=== PATIENT | female | born 1935 | race Caucasian/White ===

== ENCOUNTER 2020-12-11 10:15 | Emergency (ER) | payer MEDICARE, SELFPAY ==
--- NOTE | 2020-12-11 | ECG_ITS ---
Test Reason : CP Blood Pressure : / mmHG Vent. Rate : 094 BPM Atrial Rate : 094 BPM P-R Int : 180 ms QRS Dur : 076 ms QT Int : 356 ms P-R-T Axes : 039 -38 068 degrees QTc Int : 445 ms Sinus rhythm with Premature atrial complexes Left axis deviation Incomplete right bundle branch block Abnormal ECG When compared with ECG of 06-AUG-2015 14:26, Premature atrial complexes are now Present Nonspecific T wave abnormality no longer evident in Anterior leads Referred By: Generic ED Physician Electronically Signed By:NATASHA STEARNS
--- NOTE | ~2020-12-11 | CT_ITS ---
EXAMINATION: CT ABDOMEN AND PELVIS WITHOUT CONTRAST CLINICAL INFORMATION: Abdominal pain and weight loss. COMPARISON: None TECHNIQUE: Multidetector volumetric imaging was performed from the superior aspect of the liver through the pubic symphysis. Sagittal and coronal reformatted images were obtained on the technologist's workstation. This CT examination was performed using dose optimization techniques as appropriate, variously including the following: *Automated exposure control *Adjustment of mA and/or kV according to patient size (this includes techniques or standardized protocols for targeted exams where dose is matched to indication/reason for exam; i.e. extremities or head) *Use of iterative reconstruction technique DLP: 486 mGy-cm FINDINGS: LUNG BASES: There is bibasilar atelectatic changes. The heart size is normal. Is a small hiatal hernia. LIVER, GALLBLADDER, AND BILIARY TREE: The liver is normal in size, shape, and attenuation. No focal hepatic lesion or biliary ductal dilatation is present. The gallbladder has been surgically removed. PANCREAS: Unremarkable. SPLEEN: Unremarkable. ADRENAL GLANDS: The left adrenal gland is slightly plump compared to right side. KIDNEYS AND URETERS: The kidneys are normal in size, shape, and attenuation. No hydronephrosis, hydroureter, or calculi seen. No perinephric stranding. BLADDER: Unremarkable. GASTROINTESTINAL TRACT: The small and large bowel are unremarkable. The appendix is unremarkable. ABDOMINAL WALL: No significant hernia is appreciated. LYMPH NODES: Normal. VASCULAR: Unremarkable. PELVIC VISCERA: The uterus is retroverted with scattered calcifications in the head and the body the pancreas. OSSEOUS STRUCTURES: There are degenerative disc changes L2-L3, L3-L4 and L5-S1 disc levels there is grade 1 anterolisthesis L4 over L5.. CT/CT abdomen pelvis wo con IMPRESSION: Diffuse colonic diverticulosis without diverticulitis.. Cholecystectomy. No acute intra-abdominal process seen. Bibasilar atelectasis and/or scarring.
--- NOTE | ~2020-12-11 | XR_ITS ---
EXAMINATION: XR CHEST CLINICAL INFORMATION: Chest pain COMPARISON: Previous chest x-ray July 2015 TECHNIQUE: Frontal view of the chest was obtained. FINDINGS: The cardiac silhouette does not appear enlarged. The thoracic aorta may be slightly tortuous. Hilar and mediastinal contours are otherwise unremarkable. The lung volumes are low. There is bibasilar subsegmental atelectasis. The lungs are otherwise clear. There is no pleural effusion or pneumothorax. No acute bone abnormality. XR/XR chest 1V IMPRESSION: Low lung volumes and bibasilar subsegmental atelectasis.
--- NOTE | 2020-12-11 10:32 | ED_ITS ---
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 Mode of arrival: ambulatory Limitations: no limitations History of Present Illness MD complaint: chest pain and other (abdominal pain, L arm pain) Onset (ago): month(s) (1 month abdominal pain, chest pain x 2 days) Timing of current episode: constant Prior episodes: Yes Onset: during rest Pain location: left chest Pain radiation: left arm Severity: mild Quality: dull Relieving factors: nothing Exacerbating factors: nothing Associated symptoms: other (abdominal pain , body aches, anxiety) Treatment prior to arrival: none Related Data Allergies Allergy/AdvReac Type Severity Reaction Status Date / Time guava [GUAVA] Allergy Unknown UNKNOWN Unverified 12/05/19 18:53 nut - unspecified [NUTS] Allergy Unknown UNKNOWN Unverified 12/05/19 18:53 sesame seed [SESAME SEED] Allergy Unknown UNKNOWN Unverified 12/05/19 18:53 Gava Allergy Unknown Uncoded 09/14/15 00:00 nuts Allergy Unknown Uncoded 09/14/15 00:00 Sesame seeds Allergy Unknown Uncoded 09/14/15 00:00 Review of Systems Review of Systems: Constitutional : pos Weight loss, No Fever, No Chills ENT/Mouth : No sore throat, No Rhinorrhea Eyes: No Swelling, No Redness Cardiovascular : pos Chest Pain, No SOB, No edema Respiratory : No Cough, No Sputum, No Wheezing Gastrointestinal : Positive Nausea, no Vomiting, no Diarrhea, positive abdominal Pain, No Hematochezia, No Melena Genitourinary : No Dysuria, No Urinary Frequency, No Hematuria, No Urgency Musculoskeletal : No joint pain, No Myalgias, No Joint Swelling Skin : No Skin Lesions, No rash Neuro : No Weakness, No Numbness, No Dizziness, No Headache Psych : No Anxiety/Panic, No Depression Heme/Lymph: No Bruising, No Lymphadenopathy Endocrine : No Polyuria, No Polydipsia All other systems reviewed and are negative. [facility] Past Medical History Attestation statement: The following information was validated with the patient. Medical History Diabetes Gastritis HTN (hypertension) Neuropathy Social History Social History Alcohol intake: never Patient Tobacco Use Status: Never used Tobacco Use of substances other than those prescribed or required for medical reasons: No Advance Directives: No Advance Directives Information Provided: No Physical Exam Vital Signs: Vital Signs: Last Vital Signs Temp 98.4 F 12/11/20 12:24 Pulse 62 12/11/20 12:24 Resp 16 12/11/20 10:45 BP 143/75 H 12/11/20 12:24 Pulse Ox 94 12/11/20 12:24 Body Mass Index 25.4 Appearance: Alert. Oriented X3. No acute distress. Eyes: Pupils equal, round and reactive to light. ENT: Pharynx normal. Neck: Normal inspection. Neck supple. CVS: Normal heart rate and rhythm. Pulses normal. Respiratory: No respiratory distress. Breath sounds normal. Abdomen: Soft and nontender. Skin: Skin warm and dry. pale skin color. Normal skin turgor. Extremities: No lower extremity edema. No calf ttp Neuro: Oriented X 3. No motor deficit. No sensory deficit. MDM - Chest Pain MDM Narrative Medical decision making narrative: 85 yo female with hx of DM, HTN, neuropathy reports multiple complaints 1. vague dull headache no neuro findings, no fevers doubt SAH or [employer] infection 2. dull L arm and chest pain x 2 days no associated symptoms seems atypical for ACS, no signs of DVT no hypoxia doubt PE 3. 1 month of abdominal pain and anxiety - not eating well will need labs, CT scan for mass, dispo per results and findings. Lab Data Result diagrams: 12/11/20 11:14 12/11/20 11:14 Labs: Lab Results 12/11/20 12/11/20 12/11/20 Range/Units 11:14 11:14 11:14 WBC 7.7 (4.8-10.8) X10*3/uL RBC 4.70 (4.20-5.50) X10*6/uL Hgb 13.0 (12.0-16.0) g/dl Hct 41.2 (37-47) % MCV 87.7 (80-98) fL MCH 27.7 (27.0-33.0) pg MCHC 31.6 (31.0-35.0) g/dl RDW 14.2 (11.0-16.0) % Plt Count 256 (160-400) X10*3/uL MPV 10.0 (9.4-12.3) fL Immature Gran % (Auto) 0.4 (0.0-0.4) % Neut % (Auto) 65.6 (45-73) % Lymph % (Auto) 21.9 (20-40) % Ness % (Auto) 8.4 (2-11) % Eos % (Auto) 3.1 (0-4) % Baso % (Auto) 0.6 (0-2) % Lymph # (Auto) 1.7 (1.2-4.9) X10*3/uL Ness # (Auto) 0.7 (0.1-1.2) X10*3/uL Eos # (Auto) 0.2 (0.0-0.4) X10*3/uL Baso # (Auto) 0.1 (0.0-0.2) X10*3/uL Abs Immat Gran (auto) 0.03 (0.00-0.03) X10*3/uL Absolute Neuts (auto) 5.0 (2.0-8.3) X10*3/uL Absolute Nucleated RBC 0.000 (0.0-0.012) X10*3/uL Nucleated RBC % (auto) 0.0 (0.0-0.2) /100WBC Sodium 134 L (135-145) mmol/L Potassium 4.5 (3.3-5.1) mmol/L Chloride 100 (96-108) mmol/L Carbon Dioxide 22 (22-29) mmol/L Anion Gap 17 (12-20) BUN 11 (9-16) mg/dL Creatinine 0.77 (0.5-1.4) mg/dL Estim Creat Clear Calc 44.5 Estimated GFR > 60 Random Glucose 181 H (60-115) mg/dL Calcium 9.9 (8.4-10.2) mg/dL Magnesium 1.3 L* (1.6-2.6) mg/dL Total Bilirubin 0.4 (0.0-1.0) mg/dL Direct Bilirubin < 0.2 (0.0-0.5) mg/dL AST 29 (5-31) U/L ALT 23 (0-31) U/L Alkaline Phosphatase 73 (39-117) U/L Troponin I High Sens (<3.5-17.0) ng/L B-Natriuretic Peptide (<100) pg/mL Total Protein 7.4 (6.5-8.0) g/dL Albumin 4.3 (3.5-5.0) g/dL Lipase 35 (8-78) U/L COVID-19 ([place]) Negative (Negative) COVID-19 Clin Com See Note 12/11/20 Range/Units 11:14 WBC (4.8-10.8) X10*3/uL RBC (4.20-5.50) X10*6/uL Hgb (12.0-16.0) g/dl Hct (37-47) % MCV (80-98) fL MCH (27.0-33.0) pg MCHC (31.0-35.0) g/dl RDW (11.0-16.0) % Plt Count (160-400) X10*3/uL MPV (9.4-12.3) fL Immature Gran % (Auto) (0.0-0.4) % Neut % (Auto) (45-73) % Lymph % (Auto) (20-40) % Ness % (Auto) (2-11) % Eos % (Auto) (0-4) % Baso % (Auto) (0-2) % Lymph # (Auto) (1.2-4.9) X10*3/uL Ness # (Auto) (0.1-1.2) X10*3/uL Eos # (Auto) (0.0-0.4) X10*3/uL Baso # (Auto) (0.0-0.2) X10*3/uL Abs Immat Gran (auto) (0.00-0.03) X10*3/uL Absolute Neuts (auto) (2.0-8.3) X10*3/uL Absolute Nucleated RBC (0.0-0.012) X10*3/uL Nucleated RBC % (auto) (0.0-0.2) /100WBC Sodium (135-145) mmol/L Potassium (3.3-5.1) mmol/L Chloride (96-108) mmol/L Carbon Dioxide (22-29) mmol/L Anion Gap (12-20) BUN (9-16) mg/dL Creatinine (0.5-1.4) mg/dL Estim Creat Clear Calc Estimated GFR Random Glucose (60-115) mg/dL Calcium (8.4-10.2) mg/dL Magnesium (1.6-2.6) mg/dL Total Bilirubin (0.0-1.0) mg/dL Direct Bilirubin (0.0-0.5) mg/dL AST (5-31) U/L ALT (0-31) U/L Alkaline Phosphatase (39-117) U/L Troponin I High Sens < 3.5 (<3.5-17.0) ng/L B-Natriuretic Peptide 102 H (<100) pg/mL Total Protein (6.5-8.0) g/dL Albumin (3.5-5.0) g/dL Lipase (8-78) U/L COVID-19 ([facility]) (Negative) COVID-19 Clin Com ECG Data ECG #1: Attestation: I personally reviewed and interpreted this ECG as follows: ECG interpretation date: 12/11/20 ECG interpretation time: 10:54 Interpretation: Rate: 94 Rhythm: NSR [place]: left Normal P waves. Normal SERENITY. Normal QRS complex. ST T wave : nonspecific, no ELIAN qTC: normal prior studies: no sig change from priors The study has been interpreted contemporaneously by me. . Discharge Plan Discharge Clinical Impression: Hypomagnesemia Abdominal pain Qualifiers: Abdominal location: generalized Qualified Code(s): R10.84 - Generalized abdominal pain Chest pain Qualifiers: Chest pain type: unspecified Qualified Code(s): R07.9 - Chest pain, unspecified Patient Disposition: Home, Self-Care Instructions: Abdominal Pain (ED), Chest Pain (ED), Hypomagnesemia (ED) Additional Instructions: return to ED for any worsening symptoms or concerns Referrals: Sara Koehler MD [Primary Care Provider] - 3 days (Monday if no better) Print Language: Arabic
[2020-12-11 10:45] VITALS: BP 151/76; PULSE 86; RESP 16; TEMP 36.8; O2SAT 97; BMI 25.4
[2020-12-11] MEDS: ondansetron HCL 4 MG/2 ML VIAL IVPUSH (11:15)
[2020-12-11 11:19] LABS: MANUAL DIFF FLAG NO
[2020-12-11 11:24] LABS: Basophils Absolute Auto 0.1 X10*3/uL (0.0-0.2); Basophils Percent Auto 0.6 % (0-2); Eosinophils Absolute Auto 0.2 X10*3/uL (0.0-0.4); Eosinophils Percent Auto 3.1 % (0-4); Hematocrit 41.2 % (37-47); Imm Gran Abs Auto 0.03 X10*3/uL (0.00-0.03); Imm Gran Pct Auto 0.4 % (0.0-0.4); Lymphocytes Absolute Auto 1.7 X10*3/uL (1.2-4.9); Lymphocytes Percent Auto 21.9 % (20-40); Mean Corpuscular HGB Conc 31.6 g/dl (31.0-35.0); Mean Corpuscular Hemoglobin 27.7 pg (27.0-33.0); Mean Corpuscular Volume 87.7 fL (80-98); Monocytes Absolute Auto 0.7 X10*3/uL (0.1-1.2); Monocytes Percent Auto 8.4 % (2-11); Neutrophils Percent Auto 65.6 % (45-73); Platelet Count 256 X10*3/uL (160-400); Red Cell Distribution Width 14.2 % (11.0-16.0); White Blood Count 7.7 X10*3/uL (4.8-10.8)
[2020-12-11 11:39] LABS: COVID-19 Test Negative (Negative)
[2020-12-11 11:41] LABS: Alanine Aminotransferase 23 U/L (0-31); Albumin Level 4.3 g/dL (3.5-5.0); Alkaline Phosphatase 73 U/L (39-117); Aspartate Amino Transferase 29 U/L (5-31); Bilirubin Direct < 0.2 mg/dL (0.0-0.5); Bilirubin Total 0.4 mg/dL (0.0-1.0); Lipase 35 U/L (8-78); Magnesium 1.3 mg/dL (1.6-2.6); Total Protein 7.4 g/dL (6.5-8.0)
[2020-12-11 11:42] LABS: B Type Natriuretic Peptide 102 pg/mL (<100); Troponin-I High Sensitivity < 3.5 ng/L (<3.5-17.0)
[2020-12-11] MEDS: Magnesium Sulfate/H2O 2 GM/50 ML PIGGYBACK IV (12:05)
[2020-12-11 12:14] LABS: Anion Gap 17 (12-20); Blood Urea Nitrogen 11 mg/dL (9-16); Calcium 9.9 mg/dL (8.4-10.2); Carbon Dioxide 22 mmol/L (22-29); Chloride 100 mmol/L (96-108); Creatinine Clr Calc Pharmacy 44.5; Estimated Glomerular Filt Rate > 60; Glucose Random 181 mg/dL (60-115); Potassium 4.5 mmol/L (3.3-5.1); Sodium 134 mmol/L (135-145)
[2020-12-11 12:24] VITALS: BP 143/75; PULSE 62; TEMP 36.9; O2SAT 94
[2020-12-11 15:02] LABS: Appearance Urine CLEAR; Color Urine YELLOW; Glucose Urine UA NEG (NEG); Leukocyte Esterase Urine NEG (NEG); Nitrite Urine NEG (NEG); PH 7.5 (5.0-8.0); Specific Gravity - Urine 1.015 (1.005-1.025); UACC Culture Trigger NO; Urine Blood TRACE (NEG); Urine Ketones NEG (NEG); Urine Protein NEG (NEG-TRACE)
[2020-12-11 15:10] LABS: Mucus Urine TRACE /LPF; Squamous Epithelial Cell Urine TRACE /LPF; WBC Urine 0 /HPF (0-4)
== END 2020-12-11 14:58 | disposition home or self-care (01) ==
PROVIDERS: Emergency Provider Emergency Medicine; PCP Internal Medicine
DX: E83.42 Hypomagnesemia (principal); R07.9 Chest pain, unspecified; M79.602 Pain in left arm; R10.84 Generalized abdominal pain; R06.02 Shortness of breath; Z79.899 Other long term (current) drug therapy; Z20.822 Contact with and (suspected) exposure to COVID-19
CPT/HCPCS: 36415; 71045; 74176; 80048; 80076; 81001; 81003; 83690; 83735; 83880; 84484; 85025; 87635; 93005; 96365; 96366; 96375; 99284; J2405; J3475

== ENCOUNTER 2022-01-03 09:58 | Inpatient (IN) | payer OTHER, SELFPAY ==
[2022-01-03] VITALS (12 sets, daily range): BP systolic 131–199; BP diastolic 72–87; PULSE 55–77; RESP 16–20; TEMP 36.6–37.1; O2SAT 93–96; BMI 25.7; BMI 24.7
--- NOTE | ~2022-01-03 | US_ITS ---
EXAMINATION: US ABDOMEN COMPLETE CLINICAL INFORMATION: Epigastric pain. COMPARISON: CT abdomen and pelvis 12/11/2020. TECHNIQUE: Real-time imaging of the abdominal viscera. FINDINGS: PANCREAS: Normal. ABDOMINAL AORTA: The proximal, mid, and distal segments are normal in caliber. INFERIOR VENA CAVA: Visualized portions are normal. LIVER: Normal. The liver is normal in size. The liver contour is normal. Parenchymal echogenicity is normal. No focal hepatic lesion. There is no intrahepatic biliary duct dilatation seen. GALLBLADDER: Surgically absent. COMMON BILE DUCT: Normal in caliber measuring 1.1 cm in diameter. RIGHT KIDNEY: There are anechoic 2 simple cysts. A midpole cyst measures 0.7 x 0.6 x 0.6 cm. Lower pole cyst measures 1.2 x 1.1 x 1.2 cm. No hydronephrosis or renal calculi. The kidney measures 8.9 cm in maximum dimension. LEFT KIDNEY: There is anechoic cyst lower pole measuring 1.0 x 1.0 x 0.8 cm. No hydronephrosis or renal calculi. The kidney measures 9.4 cm in maximum dimension. SPLEEN: Normal. The spleen measures 9.3 cm in maximum dimension. FREE FLUID: None. US/US abdomen complete IMPRESSION: Bilateral renal cysts. Abdominal ultrasound is unremarkable.
--- NOTE | ~2022-01-03 | XR_ITS ---
EXAMINATION: XR CHEST CLINICAL INFORMATION: Chest pain COMPARISON: 12/11/2020 TECHNIQUE: Frontal view of the chest was obtained. FINDINGS: Lung volumes are low but improved from the prior study. No focal consolidation or mass. No pleural effusion or pneumothorax. Tortuous and/or ectatic thoracic aorta. Normal heart size. There are degenerative changes of the shoulders and spine. XR/XR chest 1V IMPRESSION: Low lung volumes but no acute pulmonary disease.
--- NOTE | ~2022-01-03 | NM_ITS ---
Lexiscan Myocardial perfusion study Indication: Chest pain, assess for coronary disease and ischemia Technique: The patient was brought in for a Lexiscan perfusion study on 01/05/2022 and was injected 0.4 mg of Lexiscan intravenously. Within a minute of this injection 25 mCi of sestamibi was given intravenously. Images were obtained using the SPECT gamma camera interlaced with the gating device. Images were obtained in supine position. Resting perfusion study was performed on 01/04/2022. Patient was administered 25 mCi of sestamibi intravenously at rest. Images were then obtained in supine position. Images were processed with the software and compared side to side in short axis, horizontal long axis and vertical long axis views. Total DLP 112mGy-cm. Findings: Raw acquisition reviewed. Arms by the patient's side. The stress perfusion study showed markedly diminished tracer uptake in most of the lateral wall. There is significant improvement with CT attenuation correction suggestive of soft tissue attenuation artifact. The gated study shows normal LV systolic function with calculated LVEF of 71%. LV cavity is normal in size. The gated study shows diminished lateral wall contractility. Resting study shows diminished tracer uptake in the lateral wall, similar to the stress acquisition. There is significant improvement with CT at admission correction suggestive of soft tissue attenuation artifact. Gating at rest reveals diminished lateral wall contractility, LVEF 73%. The findings are consistent with no clear reversible defects. Fixed lateral defect, thought to be from soft tissue attenuation artifact. NM/NM jonnie perf SPECT rest & str Impression: 1. Myocardial perfusion imaging study shows no clear evidence of any ischemia or infarction. There is fixed lateral defect that seems to improve with CT attenuation correction and hence suggestive of soft tissue attenuation artifact. 2. Gated LVEF is 71% during stress and 73% during rest. 3. Transient ischemic dilatation not present. EKG component of the test reported separately.
--- NOTE | 2022-01-03 10:15 | ED_ITS ---
HPI - Chest Pain General Chief Complaint: Chest Pain Stated Complaint: CHEST PRESSURE @ MD OFFICE PER EMS Time Seen by Provider: 01/03/22 10:03 Source: patient Mode of arrival: EMS Limitations: no limitations History of Present Illness HPI narrative: 86 yo female with hx of HTN, HLD, DM here with 1.5 months of chest pressure and nausea. It started 1.5 month ago at home at rest. She notes she ignored it and since then chest pain has been constant pressure. She went to PCP for routine check up today an noted HTN and she told them her symptoms they referred her to ED. She denies dyspnea. She notes it is not made worse with exertion. MD complaint: chest pain Onset (ago): month(s) (1.5) Timing of current episode: constant Prior episodes: Yes Onset: during rest and during exertion Pain location: substernal Pain radiation: none Severity: mild Quality: other (pressure) Relieving factors: nothing Exacerbating factors: nothing Context: other (started 1.5 months ago much worse but has just lingered was at home at rest when it started ) Associated symptoms: nausea Treatment prior to arrival: aspirin (324mg ) Related Data Allergies Allergy/AdvReac Type Severity Reaction Status Date / Time guava [GUAVA] Allergy Unknown UNKNOWN Unverified 12/05/19 18:53 nut - unspecified [NUTS] Allergy Unknown UNKNOWN Unverified 12/05/19 18:53 sesame seed [SESAME SEED] Allergy Unknown UNKNOWN Unverified 12/05/19 18:53 Gava Allergy Unknown Uncoded 09/14/15 00:00 nuts Allergy Unknown Uncoded 09/14/15 00:00 Sesame seeds Allergy Unknown Uncoded 09/14/15 00:00 Review of Systems Review of Systems: Constitutional : No Weight loss, No Fever, No Chills ENT/Mouth : No sore throat, No Rhinorrhea Eyes: No Eye Pain, No Swelling Cardiovascular : pos Chest Pain, no SOB, no Dyspnea on Exertion, No Orthopnea, No Edema, No Palpitations Respiratory : No Cough, No Sputum Gastrointestinal : pos Nausea, No Vomiting, No Diarrhea, No abdominal Pain, No Hematochezia, No Melena Genitourinary : No Dysuria, No Urinary Frequency Musculoskeletal : No joint pain, No Myalgias, No Joint Swelling Skin : No Skin Lesions, No rash Neuro : No Weakness, No Numbness, No Dizziness, No Headache Psych : No Anxiety/Panic, No Depression Heme/Lymph: No Bruising, No Lymphadenopathy Endocrine : No Polyuria, No Polydipsia All other systems reviewed and are negative [facility] Past Medical History Attestation statement: The following information was validated with the patient. Medical History Diabetes Gastritis HTN (hypertension) Neuropathy Social History Social History Alcohol intake: never Patient Tobacco Use Status: Never used Tobacco Use of substances other than those prescribed or required for medical reasons: No Advance Directives: Yes Advance Directives Information Provided: No Advance Directives on File: No Physical Exam Vital Signs: Vital Signs: Last Vital Signs Temp 98.1 F 01/03/22 15:10 Pulse 55 01/03/22 15:10 Resp 18 01/03/22 15:10 BP 154/72 H 01/03/22 15:10 Pulse Ox 93 01/03/22 15:10 O2 Del Method 01/03/22 15:10 BMI result Body Mass Index 25.7 Appearance: Alert. Oriented X3. No acute distress. Eyes: Pupils equal, round and reactive to light. ENT: Pharynx normal. Neck: Normal inspection. Neck supple. CVS: Normal heart rate and rhythm. Pulses normal. Respiratory: No respiratory distress. Breath sounds normal. Abdomen: Soft and non-tender. Skin: Skin warm and dry. Normal skin color. Normal skin turgor. Extremities: No lower extremity edema. No calf ttp Neuro: Oriented X 3. No motor deficit. No sensory deficit. Course Course Course Narrative: no relief with nitro still pressure BP down to 170/70, IV morphine ordered, slight bump in trop will discuss with cardiology couldn't complete stress test last time may need ECHO message sent to cardiology if no improvement in BP with morphine will try topical nitro as well. good response to morphine and nitro - discussed with Dr. Jones admit for serial troponins and ECHO MDM - Chest Pain MDM Narrative Medical decision making narrative: 86 yo female with hx of HTN, HLD, DM here with chest pressure 1.5 months much worse then but has lingered. She is HTNive at this time compliant with her medications. Doubt PE given chronicity is is not pleuritic no signs of DVT and no hypoxia. Dissection seems unlikely as well given equal distal pulses and the patient has had pain x 1 benny. Will need labs, troponin and EKG/CXR. Could be GERD/hiatal hernia vs atypical ACS - unable to complete stress test in past Lab Data Result diagrams: 01/03/22 10:59 01/03/22 10:59 Labs: Lab Results 01/03/22 01/03/22 01/03/22 Range/Units 10:56 10:59 10:59 WBC 9.7 (4.8-10.8) X10*3/uL RBC 4.85 (4.20-5.50) X10*6/uL Hgb 11.5 L (12.0-16.0) g/dl Hct 38.7 (37.0-47.0) % MCV 79.8 L (80.0-98.0) fL MCH 23.7 L (27.0-33.0) pg MCHC 29.7 L (31.0-35.0) g/dl RDW 18.2 H (11.0-16.0) % Plt Count 281 (160-400) X10*3/uL MPV 9.3 L (9.4-12.3) fL Immature Gran % (Auto) 0.2 (0.0-0.4) % Neut % (Auto) 65.4 (45-73) % Lymph % (Auto) 22.1 (20-40) % [place] % (Auto) 9.0 (2-11) % Eos % (Auto) 2.7 (0-4) % Baso % (Auto) 0.6 (0-2) % Lymph # (Auto) 2.2 (1.2-4.9) X10*3/uL [place] # (Auto) 0.9 (0.1-1.2) X10*3/uL Eos # (Auto) 0.3 (0.0-0.4) X10*3/uL Baso # (Auto) 0.1 (0.0-0.2) X10*3/uL Abs Immat Gran (auto) 0.02 (0.00-0.03) X10*3/uL Absolute Neuts (auto) 6.4 (2.0-8.3) x10*3/uL Absolute Nucleated RBC 0.000 (0.0-0.012) X10*3/uL Nucleated RBC % (auto) 0.0 (0.0-0.2) /100WBC PT (10.0-13.1) SEC INR (0.9-1.1) Sodium 140 (135-145) mmol/L Potassium 4.5 (3.3-5.1) mmol/L Chloride 103 (96-108) mmol/L Carbon Dioxide 26 (22-29) mmol/L Anion Gap 16 (12-20) BUN 16 (9-16) mg/dL Creatinine 0.78 (0.5-1.4) mg/dL Estim Creat Clear Calc 43.4 Estimated GFR > 60 Random Glucose 101 (60-115) mg/dL Calcium 9.7 (8.4-10.2) mg/dL Magnesium 1.7 (1.6-2.6) mg/dL Total Bilirubin 0.4 (0.0-1.0) mg/dL Direct Bilirubin 0.2 (0.0-0.5) mg/dL AST 19 (5-31) U/L ALT 19 (0-31) U/L Alkaline Phosphatase 76 (39-117) U/L Troponin I High Sens (<3.5-17.0) ng/L Total Protein 7.1 (6.5-8.0) g/dL Albumin 4.1 (3.5-5.0) g/dL Lipase 42 (8-78) U/L COVID-19 ([place]) Negative (Negative) COVID-19 Clin Com See Note 01/03/22 01/03/22 01/03/22 Range/Units 10:59 10:59 13:42 WBC (4.8-10.8) X10*3/uL RBC (4.20-5.50) X10*6/uL Hgb (12.0-16.0) g/dl Hct (37.0-47.0) % MCV (80.0-98.0) fL MCH (27.0-33.0) pg MCHC (31.0-35.0) g/dl RDW (11.0-16.0) % Plt Count (160-400) X10*3/uL MPV (9.4-12.3) fL Immature Gran % (Auto) (0.0-0.4) % Neut % (Auto) (45-73) % Lymph % (Auto) (20-40) % Lawrence % (Auto) (2-11) % Eos % (Auto) (0-4) % Baso % (Auto) (0-2) % Lymph # (Auto) (1.2-4.9) X10*3/uL [place] # (Auto) (0.1-1.2) X10*3/uL Eos # (Auto) (0.0-0.4) X10*3/uL Baso # (Auto) (0.0-0.2) X10*3/uL Abs Immat Gran (auto) (0.00-0.03) X10*3/uL Absolute Neuts (auto) (2.0-8.3) x10*3/uL Absolute Nucleated RBC (0.0-0.012) X10*3/uL Nucleated RBC % (auto) (0.0-0.2) /100WBC PT 12.4 (10.0-13.1) SEC INR 1.1 (0.9-1.1) Sodium (135-145) mmol/L Potassium (3.3-5.1) mmol/L Chloride (96-108) mmol/L Carbon Dioxide (22-29) mmol/L Anion Gap (12-20) BUN (9-16) mg/dL Creatinine (0.5-1.4) mg/dL Estim Creat Clear Calc Estimated GFR Random Glucose (60-115) mg/dL Calcium (8.4-10.2) mg/dL Magnesium (1.6-2.6) mg/dL Total Bilirubin (0.0-1.0) mg/dL Direct Bilirubin (0.0-0.5) mg/dL AST (5-31) U/L ALT (0-31) U/L Alkaline Phosphatase (39-117) U/L Troponin I High Sens 6.5 19.2 H D (<3.5-17.0) ng/L Total Protein (6.5-8.0) g/dL Albumin (3.5-5.0) g/dL Lipase (8-78) U/L COVID-19 ([facility]) (Negative) COVID-19 Clin Com ECG Data ECG #1: Attestation: I personally reviewed and interpreted this ECG as follows: ECG interpretation date: 01/03/22 ECG interpretation time: 10:20 Interpretation: Rate: 53 Rhythm: sinus bradycardia 1st degree AVB [place]: left Normal P waves. Normal SERENITY. Normal QRS complex. ST T wave : normal no ELIAN qTC: normal prior studies: unchanged no acute ischemia The study has been interpreted contemporaneously by me. . Discharge Plan Discharge Clinical Impression: Uncontrolled hypertension Chest pain Qualifiers: Chest pain type: precordial pain Qualified Code(s): R07.2 - Precordial pain Patient Disposition: Admitted As Inpatient
[2022-01-03 11:03] LABS: MANUAL DIFF FLAG NO
[2022-01-03 11:04] LABS: Basophils Absolute Auto 0.1 X10*3/uL (0.0-0.2); Basophils Percent Auto 0.6 % (0-2); Eosinophils Absolute Auto 0.3 X10*3/uL (0.0-0.4); Eosinophils Percent Auto 2.7 % (0-4); Hematocrit 38.7 % (37.0-47.0); Hemoglobin 11.5 g/dl (12.0-16.0); Imm Gran Abs Auto 0.02 X10*3/uL (0.00-0.03); Imm Gran Pct Auto 0.2 % (0.0-0.4); Lymphocytes Absolute Auto 2.2 X10*3/uL (1.2-4.9); Lymphocytes Percent Auto 22.1 % (20-40); Mean Corpuscular HGB Conc 29.7 g/dl (31.0-35.0); Mean Corpuscular Hemoglobin 23.7 pg (27.0-33.0); Mean Corpuscular Volume 79.8 fL (80.0-98.0); Mean Platelet Volume 9.3 fL (9.4-12.3); Monocytes Absolute Auto 0.9 X10*3/uL (0.1-1.2); Neutrophils Absolute Auto 6.4 x10*3/uL (2.0-8.3); Neutrophils Percent Auto 65.4 % (45-73); Platelet Count 281 X10*3/uL (160-400); Red Blood Count 4.85 X10*6/uL (4.20-5.50); Red Cell Distribution Width 18.2 % (11.0-16.0); White Blood Count 9.7 X10*3/uL (4.8-10.8)
[2022-01-03] MEDS: Nitroglycerin 0.4 MG TAB.SUBL SUBLINGUAL (11:07)
[2022-01-03 11:10] LABS: INTERNATIONAL NORM RATIO 1.1 (0.9-1.1); Prothrombin Time 12.4 SEC (10.0-13.1)
--- NOTE | 2022-01-03 11:18 | PC.NURSE ---
Pt has chest tightness 6/10 and when she first experience the pain she was feeling nausea. Pt has IV on left forarm 20G. Pt has peripheral edema +1, Pt has PERRLA pupils, and strength on her extremities bilaterally. Pt has hyperactive bowel sound on lower quadrant. Pt lungs are clear throughout. Pt is able swallow and, a/o x4. Pt is connected to the telemetry and shows sinus bebo, and elevated BP. Pt was administered nitro as order. will continue to monitor.
[2022-01-03 11:20] LABS: Alanine Aminotransferase 19 U/L (0-31); Albumin Level 4.1 g/dL (3.5-5.0); Alkaline Phosphatase 76 U/L (39-117); Anion Gap 16 (12-20); Aspartate Amino Transferase 19 U/L (5-31); Bilirubin Direct 0.2 mg/dL (0.0-0.5); Bilirubin Total 0.4 mg/dL (0.0-1.0); Blood Urea Nitrogen 16 mg/dL (9-16); Calcium 9.7 mg/dL (8.4-10.2); Carbon Dioxide 26 mmol/L (22-29); Chloride 103 mmol/L (96-108); Creatinine Clr Calc Pharmacy 43.4; Estimated Glomerular Filt Rate > 60; Glucose Random 101 mg/dL (60-115); Lipase 42 U/L (8-78); Magnesium 1.7 mg/dL (1.6-2.6); Potassium 4.5 mmol/L (3.3-5.1); Sodium 140 mmol/L (135-145); Total Protein 7.1 g/dL (6.5-8.0)
[2022-01-03 11:24] LABS: COVID-19 Test Negative (Negative); IDNOW Serial# 16C4AD1C
[2022-01-03 11:26] LABS: Troponin-I High Sensitivity 6.5 ng/L (<3.5-17.0)
--- NOTE | 2022-01-03 13:42 | PC.NURSE ---
repeat trop performed
[2022-01-03 14:12] LABS: Troponin-I High Sensitivity 19.2 ng/L (<3.5-17.0)
--- NOTE | 2022-01-03 14:34 | PC.NURSE ---
Pt BP is still elevated, pt was re-assess and pt is still feeling chest tightness. Provider is aware, change of planes to give morphine and monitor BP. will continue to monitor.
[2022-01-03] MEDS: ondansetron HCL 4 MG/2 ML VIAL IVPUSH (14:43)
[2022-01-03] MEDS: Morphine Sulfate 2 MG/ML CARTRIDGE IVPUSH (14:43)
--- NOTE | 2022-01-03 14:49 | PC.NURSE ---
P meds were administered as order.
[2022-01-03] MEDS: Nitroglycerin 2 % Oint 1 GM Packet 1 INCH TRANSDERMA (14:54)
[2022-01-03 16:01] LABS: Estimated Average Glucose 120 mg/dL; Hemoglobin A1c % 5.8 %
--- NOTE | 2022-01-03 16:16 | ECG_ITS ---
Test Reason : chest pain Blood Pressure : / mmHG Vent. Rate : 053 BPM Atrial Rate : 053 BPM P-R Int : 202 ms QRS Dur : 092 ms QT Int : 438 ms P-R-T Axes : 059 -30 032 degrees QTc Int : 410 ms Sinus bradycardia Left anterior fascicular block RSR' or QR pattern in V1 suggests right ventricular conduction delay Abnormal ECG When compared with ECG of 11-DEC-2020 10:38, Premature atrial complexes are no longer Present Vent. rate has decreased BY 41 BPM Referred By: Amol Cali Electronically Signed By:JESSICA ANDREW MD
--- NOTE | 2022-01-03 16:16 | PHA.MEDREC ---
med rec complete, no issues Pharmacy Consult ? Medication Reconciliation Pharmacy has completed the medication reconciliation.
--- NOTE | 2022-01-03 16:19 | P.HPHOSP_ITS ---
History of Present Illness Date of Service: 01/03/22 Chief Complaint: chest pressure This history was taken in Romans[place] from the patient. 86yo woman with DM2, HTN, HLD who presents with over 1 month of left-sided non- radiating chest pressure that started at rest and has become heavier. It has progressed from intermittent to constant and is quite separate from her chronic epigastric pain associated with gas and heartburn. Exertion does not make it worse but stress and anxiety do. There is some associated nausea. No shortness of breath. No personal history of NH or CVA. She had an attempted stress test many years ago in [place] but could not exercise due to neuropathy, and did not tolerate the pharmacologic stress either. She was seen in her PCP's office today and due to the history along with unc ontrolled HTN, she was sent to the ED. She was given 325 mg of ASA prior to arrival. EKG showed sinus bradycardia with 1st degree AV block and no ischemic changes. Initial hs-Tn-I was 6.5; 3-hour repeat was 19.2. She was given nitroglycerin and morphine and the pain has largely resolved. Review of Systems Review of Systems: Yes all other systems are reviewed and are negative [facility] Medical History Diabetes Gastritis HTN (hypertension) Neuropathy Family History (Updated 01/03/22 @ 16:25 by Amol Cali MD) Other Coronary artery disease Diabetes Social History Alcohol intake: never Patient Tobacco Use Status: Never used Tobacco Use of substances other than those prescribed or required for medical reasons: No Advance Directives: Yes Advance Directives Information Provided: No Advance Directives on File: No Meds Allergies Allergy/AdvReac Type Severity Reaction Status Date / Time guava [GUAVA] Allergy Unknown UNKNOWN Verified 01/03/22 16:15 nut - unspecified [NUTS] Allergy Unknown UNKNOWN Verified 01/03/22 16:15 sesame seed [SESAME SEED] Allergy Unknown UNKNOWN Verified 01/03/22 16:15 Active Medications: Current Medications Acetaminophen (Acetaminophen 325 Mg Tablet) 650 mg PO Q6H PRN PRN Reason: Pain, Mild (Pain Scale 1-3) Al Hydroxide/Mg Hydroxide (Magnesium Hydrox/Alum Hydrox 30 Ml Oral.Susp) 30 ml PO Q4H PRN PRN Reason: Heartburn/Nausea Dextrose (Dextrose 50 % 25 Gm/50 Ml Syringe) 25 gm IVPUSH Q15M PRN; Protocol PRN Reason: per Hypoglycemia Standing Ord. Enoxaparin Sodium (Enoxaparin Sodium 40 Mg/0.4 Ml Syringe) 40 mg SUBCUT Q24H [facility] Glucose (Glucose Gel 15 Gm Gel..Gram.) 15 gm PO Q15M PRN; Protocol PRN Reason: per Hypoglycemia Standing Ord. Insulin Human Lispro (Insulin Lispro 100 Unit/Ml 3 Ml Vial) 0 unit SUBCUT QID ACHS [facility]; Protocol Morphine Sulfate (Morphine Sulfate 2 Mg/Ml Cartridge) 2 mg IVPUSH Q4H PRN; Protocol PRN Reason: chest pain Nitroglycerin (Nitroglycerin 0.4 Mg Tab.Subl) 0.4 mg SUBLINGUAL Q5MX3 PRN PRN Reason: chest pain Ondansetron HCl (Ondansetron Hcl 4 Mg/2 Ml Vial) 4 mg IVPUSH Q8H PRN PRN Reason: Nausea and Vomiting Pharmacy Consult (Consult Rx Perform Med Rec) 1 each MISCELLANE ONCE PRN PRN Reason: Consult order Pharmacy Consult (Consult Rx Perform Med Rec) 1 each MISCELLANE STAT STA Stop: 01/03/22 15:39 Sodium Chloride (0.9 % Sodium Chloride Flush 3 Ml Syringe) 3 ml IVFLUSH QSHIFT [facility] Home Medications Medication Instructions Recorded Confirmed Last Taken Type acetaminophen 650 mg 1 tab PO Q8H PRN pain 01/03/22 01/03/22 Unknown History tablet,extended release (8 Hour Pain Reliever) atorvastatin 40 mg tablet 40 mg PO BEDTIME 01/03/22 01/03/22 Unknown History calcium carbonate 600 mg-vitamin 1 tab BID 01/03/22 01/03/22 Unknown History D3 5 mcg (200 unit) tablet losartan 100 mg tablet 1 tab PO DAILY 01/03/22 01/03/22 Unknown History metformin 500 mg tablet 1 tab PO BID 01/03/22 01/03/22 Unknown History metoprolol tartrate 25 mg tablet 25 mg PO BID 01/03/22 01/03/22 Unknown History mirabegron 50 mg tablet,extended 50 mg PO DAILY 01/03/22 01/03/22 Unknown History release 24 hr (Myrbetriq) mirtazapine 15 mg tablet 15 mg PO BEDTIME 01/03/22 01/03/22 Unknown History multivitamin 1 tab PO DAILY 01/03/22 01/03/22 Unknown History nifedipine 30 mg tablet,extended 1 tab PO DAILY 01/03/22 01/03/22 Unknown Histor y release pantoprazole 40 mg tablet,delayed 40 mg PO DAILY 01/03/22 01/03/22 Unknown History release (Protonix) Physical Exam Vital Signs and Narrative: Vital Signs: Last Vital Signs Temp 98.1 F 01/03/22 15:10 Pulse 55 01/03/22 15:10 Resp 18 01/03/22 15:10 BP 154/72 H 01/03/22 15:10 Pulse Ox 93 01/03/22 15:10 O2 Del Method 01/03/22 15:10 BMI result Body Mass Index 25.7 Gen: in no acute distress HEENT: sclera anicteric, moist mucus membranes Neck: supple Lungs: clear to auscultation bilaterally Heart: regular, bradycardic, no murmurs Abd: soft, non-tender, non-distended Ext: no edema Skin: warm/well-perfused Neuro: alert and oriented x3, no focal findings Psych: appropriate affect Results Labs CBC and Chem 7: 01/03/22 10:59 01/03/22 10:59 Labs: Laboratory Results - last 24 hr 01/03/22 01/03/22 01/03/22 10:56 10:59 10:59 MCV 79.8 L MCH 23.7 L MCHC 29.7 L RDW 18.2 H Plt Count 281 MPV 9.3 L Immature Gran % (Auto) 0.2 Neut % (Auto) 65.4 Lymph % (Auto) 22.1 [place] % (Auto) 9.0 Eos % (Auto) 2.7 Baso % (Auto) 0.6 Lymph # (Auto) 2.2 [place] # (Auto) 0.9 Eos # (Auto) 0.3 Baso # (Auto) 0.1 Abs Immat Gran (auto) 0.02 Absolute Neuts (auto) 6.4 Absolute Nucleated RBC 0.000 Nucleated RBC % (auto) 0.0 PT INR APTT Anion Gap 16 Estim Creat Clear Calc 43.4 Estimated GFR > 60 Random Glucose 101 Estimat Average Glucose Hemoglobin A1c % Calcium 9.7 Magnesium 1.7 Total Bilirubin 0.4 Direct Bilirubin 0.2 AST 19 ALT 19 Alkaline Phosphatase 76 Troponin I High Sens Total Protein 7.1 Albumin 4.1 Lipase 42 COVID-19 ([facility]) Negative COVID-19 Clin Com See Note 01/03/22 01/03/22 01/03/22 10:59 10:59 10:59 MCV MCH MCHC RDW Plt Count MPV Immature Gran % (Auto) Neut % (Auto) Lymph % (Auto) [place] % (Auto) Eos % (Auto) Baso % (Auto) Lymph # (Auto) [place] # (Auto) Eos # (Auto) Baso # (Auto) Abs Immat Gran (auto) Absolute Neuts (auto) Absolute Nucleated RBC Nucleated RBC % (auto) PT 12.4 INR 1.1 APTT 29.0 Anion Gap Estim Creat Clear Calc Estimated GFR Random Glucose Estimat Average Glucose 120 Hemoglobin A1c % 5.8 Calcium Magnesium Total Bilirubin Direct Bilirubin AST ALT Alkaline Phosphatase Troponin I High Sens 6.5 Total Protein Albumin Lipase COVID-19 ([facility]) COVID-19 Clin Com 01/03/22 13:42 MCV MCH MCHC RDW Plt Count MPV Immature Gran % (Auto) Neut % (Auto) Lymph % (Auto) [place] % (Auto) Eos % (Auto) Baso % (Auto) Lymph # (Auto) [place] # (Auto) Eos # (Auto) Baso # (Auto) Abs Immat Gran (auto) Absolute Neuts (auto) Absolute Nucleated RBC Nucleated RBC % (auto) PT INR APTT Anion Gap Estim Creat Clear Calc Estimated GFR Random Glucose Estimat Average Glucose Hemoglobin A1c % Calcium Magnesium Total Bilirubin Direct Bilirubin AST ALT Alkaline Phosphatase Troponin I High Sens 19.2 H D Total Protein Albumin Lipase COVID-19 ([facility]) COVID-19 Clin Com Imaging Radiologist's Impressions: Impressions Chest X-Ray 01/03/22 10:45 IMPRESSION: Low lung volumes but no acute pulmonary disease. Assessment and Plan (1) Chest pain: Qualifiers: Chest pain type: precordial pain Qualified Code(s): R07.2 - Precordial pain Status: Acute Plan 86yo F with HTN, HLD, DM, and FHx of CAD presenting with over 1 month of worsening chest pressure that has become constant but is not clearly exertional. Hs Tn-I increased from 6.5 to 19.2. # NSTEMI - admit to [facility], cycle troponins; start heparin IV infusion; check TTE, consult Cardiology, continue atorvastatin + metoprolol; prn NTG # HTN - continue metoprolol + losartan + nifedipine # DM2 - well-controlled with A1c of only 5.8; hold MTF and give correction-dose lispro if needed for hyperglycemia # VTE prophylaxis: heparin # code status: DNR/DNI I anticipate that the patient will stay at least 2 midnights in hospital due to the above reasons. It is neither reasonable nor safe to care for them in a less acute setting. Quality Stroke Does the patient have a stroke diagnosis?: No VTE Prior VTE?: No VTE Risk Level:: Medical - moderate - high VTE Device Contraindication: N/A - Device Ordered VTE Drug Contraindication: N/A - Med Ordered
--- NOTE | 2022-01-03 16:40 | PC.NURSE ---
Pt was connected to monitor, it shows sinus bebo with PVC and multi focal PVC. Pt BP is elevated, POC is 89. will continue to monitor.
[2022-01-03 16:42] LABS: Glucose, Whole Blood 89 mg/dL (60-115)
[2022-01-03] MEDS: Losartan Potassium 50 MG TABLET 100 MG PO (16:52)
--- NOTE | 2022-01-03 16:56 | PC.NURSE ---
Pt meds were administered as order.
--- NOTE | 2022-01-03 17:02 | PC.NURSE ---
Pt grandson is at bedside, and he stated he will be responsible to bring pt nefipine and PPI. Pt med will be administered once is available.
[2022-01-03 18:36] LABS: INTERNATIONAL NORM RATIO 1.1 (0.9-1.1); Prothrombin Time 12.4 SEC (10.0-13.1)
[2022-01-03 18:39] LABS: PTT Heparin Drip 34.2 SEC (53-77.9)
--- NOTE | 2022-01-03 18:41 | PC.NURSE ---
phlebotomy came to room and kelli another trop and a second PTT- the heparin drip hadnt been started and we were going to use the PTT from earlier today, called lab and they were unable to cancel the redraw as it was in progress. will start the drip after they come back
[2022-01-03] MEDS: Heparin Sodium,Porcine 5,000 UNIT/ML VIAL 3500 UNIT IVPUSH (18:44)
[2022-01-03] MEDS: Heparin Sodium,Porcine/1/2NS 25,000 UNIT/250 ML IV.SOLN 7.03 UNIT IVCONT (18:44)
--- NOTE | 2022-01-03 18:48 | PC.NURSE ---
heparin drip started per order
--- NOTE | 2022-01-03 19:15 | PC.NURSE ---
patient a&ox3, shelter monitor intact, nsr, vss, heparin drip running per order, pt eating dinner, call june within reach, will continue to monitor
--- NOTE | 2022-01-03 19:51 | PC.NURSE ---
RN gave report to nurse in s3.
--- NOTE | 2022-01-03 19:51 | PC.NURSE ---
PATIENT WAS ASSISTED WITH AMBULATION TO BATHROOM AND BACK ,PATIENT VOIDED LARGE AMOUNT OF URINE .
[2022-01-03 20:19] LABS: Glucose, Whole Blood 155 mg/dL (60-115)
[2022-01-03 20:48] LABS: Glucose, Whole Blood 146 mg/dL (60-115)
[2022-01-03] MEDS: Mirtazapine 15 MG TABLET PO (20:48)
[2022-01-03] MEDS: Calcium + Vitamin D 250 MG TABLET PO (20:48)
[2022-01-03] MEDS: Atorvastatin Calcium 40 MG TABLET PO (20:48)
[2022-01-03] MEDS: Metoprolol Tartrate 25 MG TABLET PO (20:48)
[2022-01-03] MEDS: 0.9 % Sodium Chloride Flush 3 ML SYRINGE IVFLUSH (20:49)
--- NOTE | 2022-01-04 | CA_ITS ---
Acquisition Time: 2022-01-05 08:33:43 Total Exercise Time: 00:02:00 Test Indications: Chest Pain Medications: SEE EMAR Protocol: LEXISCAN Max HR: 117 BPM 86% of Pred: 136 BPM Max BP: 162/078 mmHG Max Work Load: 1.0 METS Pharmacological stress test with Lexiscan injection, while sitting and kicking her legs,without anginal symptoms, with isolated PACs and PVCs, with normotensive response to injection, with nondiagnostic EKG for ischemia. In recovery she was treated with aminophylline 75mg IVP to reverse Lexiscan. Nuclear images pending. Test reviewed with Dr Jones. Referred By: Jay Jones Overread By: MARCIA SALAS
--- NOTE | 2022-01-04 | ECG_ITS ---
Test Reason : chest pain Blood Pressure : / mmHG Vent. Rate : 059 BPM Atrial Rate : 059 BPM P-R Int : 212 ms QRS Dur : 074 ms QT Int : 452 ms P-R-T Axes : 045 -40 013 degrees QTc Int : 447 ms Sinus bradycardia with 1st degree A-V block with Premature supraventricular complexes Left anterior fascicular block RSR' or QR pattern in V1 suggests right ventricular conduction delay Abnormal ECG When compared with ECG of 03-JAN-2022 10:11, Premature supraventricular complexes are now Present Referred By: Amol Cali Electronically Signed By:JESSICA ANDREW MD
[2022-01-04 02:05] LABS: PTT Heparin Drip > 200.0 SEC (53-77.9)
[2022-01-04 03:52] LABS: PTT Heparin Drip 145.2 SEC (53-77.9)
[2022-01-04 04:00] VITALS: BP 134/65; PULSE 57; RESP 20; TEMP 36.2; O2SAT 92
[2022-01-04 04:47] LABS: Hematocrit 35.9 % (37.0-47.0); Hemoglobin 10.8 g/dl (12.0-16.0); Mean Corpuscular HGB Conc 30.1 g/dl (31.0-35.0); Mean Corpuscular Hemoglobin 23.8 pg (27.0-33.0); Mean Corpuscular Volume 79.2 fL (80.0-98.0); Platelet Count 265 X10*3/uL (160-400); Red Blood Count 4.53 X10*6/uL (4.20-5.50); Red Cell Distribution Width 18.2 % (11.0-16.0)
[2022-01-04 04:56] LABS: INTERNATIONAL NORM RATIO 1.2 (0.9-1.1); Prothrombin Time 13.4 SEC (10.0-13.1)
[2022-01-04 04:59] LABS: PTT Heparin Drip 74.9 SEC (53-77.9)
[2022-01-04 05:10] LABS: Cholesterol 148 mg/dL; HDL Cholesterol 43 mg/dL; LDL Cholesterol Calculated 86 mg/dl; Triglycerides 95 mg/dL
--- NOTE | 2022-01-04 06:24 | PC.NURSE ---
Patient had a critical PTT of >200 @01:00. patient asymptomatic with no signs of bleeding. Dr. Cummins was notified and the drip was paused per protocol. Ptt was repeated at 02:00 and the result was another critical of 145.2. At 03:00 a third Ptt was drawn and the value was 74.9. infusion rate was decreased by 4 units per protocol. MD bonilla.
--- NOTE | 2022-01-04 07:00 | CA_ITS ---
Transthoracic Echocardiogram Patient (Last, First, Middle): Karolina Owens, Gender: Female Date of : 1935 Age: 86 Procedure Date: 01/04/2022 Procedure Type: Transthoracic Echocardiogram Location[place] [facility] [place] Height: 152.4 cm Weight: 59.88 kg BSA: 1.56 m2 Heart Rate: bpm BP: 164 / 78 mmHg Field Identification Specialist: WILBER Referring MD: Erin Carbone DO Symptoms: chest pain Study Quality: Adequate Conclusions: - Normal left ventricular size, thickness, systolic function, and wall motion. The visually estimated ejection fraction is between 60-65%. - Normal right ventricular cavity size and systolic function. - The left atrium is mildly dilated. - Mildly elevated right atrial pressure. There is no evidence of pulmonary hypertension. Findings Left Ventricle Normal left ventricular size, thickness, systolic function, and wall motion. The visually estimated ejection fraction is between 60-65%. Abnormal diastolic function is noted. Spectral Doppler is indicative of an impaired relaxation filling pattern. E/E prime ratio is between 8 and 15 consistent with indeterminate filling pressures. Right Ventricle Normal right ventricular cavity size and systolic function. Atria The left atrium is mildly dilated. The right atrium is normal in size. Aortic Valve Normal aortic valve structure and function. There is no aortic valve stenosis. There is no aortic valve regurgitation. Mitral Valve The mitral valve appears normal. There is mild mitral valve regurgitation. There is no mitral valve stenosis. Pulmonic Valve The pulmonic valve is likely normal. Tricuspid Valve Normal tricuspid valve structure and function. There is trace tricuspid valve regurgitation. Mildly elevated right atrial pressure. There is no evidence of pulmonary hypertension. Great Vessels All visible segments of the aorta are normal in size. The visualized portions of the pulmonary artery and branches are normal. Venous The inferior vena cava is dilated and collapses greater than 50% with inspiration. Pericardium/Pleural There is no evidence of pericardial effusion. Prior Study Comparison No prior study available for comparison. Measurements 2D Linear Measurements IVSd: 0.78 0.6-0.9/0.6-1.0 cm LVIDd: 4.14 3.9-5.3/4.2-5.9 cm LVIDd Index: 2.65 2.4-3.2/2.2-3.1 cm/m2 LVIDs: 2.16 2.0-3.6 cm LVPWd: 0.85 0.7-1.1 cm LA Diam: 3.50 2.7-3.8/3.0-4.0 cm LAIDs Index: 2.24 1.5-2.3 cm/m2 LV Mass: 125.47 67-162/88-224 g LV Mass Index: 80.43 43-95/49-115 g/m2 LVOT Diam: 1.80 3.0+(-)1.3 cm 2D Systolic Function EF 4C: 66.00 >55% EF 2C: 68.00 >55% EF BiP: 66.80 >55% Mitral Valve MV Pk E: 0.77 MV PK A: 1.15 MV Decel Time: 405.00 E/A: 0.70 E'Lateral: 7.29 E'Medial: 5.33 E/E' Med: 14.40 E/E' Lat: 10.50 PHT: 119.00 MVA PHT: 1.85 Decel [place]: 1.90 Aortic Valve AoV Pk Colt: 1.50 AoV Mn Colt: 0.86 AoV VTI: 0.34 AoV Pk Grad: 9.00 Aov Mn Grad: 4.00 CANDIDO Cont.VTI: 2.09 LVOT LVOT Pk Colt: 1.13 LVOT Mn Colt: 0.64 LVOT VTI: 0.28 LVOT Pk Grad: 5.00 LVOT Mn Grad: 2.00 LVOT Diam: 1.80 LVOT Area: 2.54 Diastolic Function MV Pk E: 0.77 MV Pk A: 1.15 E/A: 0.70 E'Medial: 5.33 E/E' Med: 14.40 E' Laterial: 7.29 E/E' Lat: 10.50 Right Ventricle TAPSE (mm): 20.70 TVS' Colt: 13.80 Tricuspid Valve TR Pk Colt: 2.29 TR Pk Grad: 21.00 RA Press: 15.00 RVSP: 36.00 Great Vessels Aorta Sinus of Valsalva: 3.28 2.0-3.[address] [place]: 2.36 1.7-3.4 cm Ao Asc: 3.30 2.1-3.4 cm Updated in Other Vendor System with Status of Final Jay Jones MD electronically signed on 01/04/2022 2:25:33 PM with status of Final
[2022-01-04 07:01] LABS: Reflex LDLD? No
[2022-01-04 07:06] VITALS: BP 164/78; PULSE 62; RESP 12; TEMP 36.5; O2SAT 94
[2022-01-04 07:11] LABS: Glucose, Whole Blood 99 mg/dL (60-115)
[2022-01-04] MEDS: Calcium + Vitamin D 250 MG TABLET PO ×2 (07:56→20:01)
[2022-01-04] MEDS: Mirabegron 50 MG TAB.ER.24H PO (07:56)
[2022-01-04] MEDS: Multivitamin TABLET 1 TAB PO (07:56)
[2022-01-04] MEDS: Losartan Potassium 50 MG TABLET 100 MG PO (07:56)
[2022-01-04] MEDS: NIFEdipine ER 30 MG TAB.ER.24 PO (07:57)
[2022-01-04] MEDS: Metoprolol Tartrate 25 MG TABLET PO ×2 (07:57→08:16)
[2022-01-04] MEDS: Aspirin 81 MG TAB.CHEW PO (07:57)
[2022-01-04] MEDS: Omeprazole 20 MG CAPSULE.DR PO (07:58)
[2022-01-04] MEDS: 0.9 % Sodium Chloride Flush 3 ML SYRINGE IVFLUSH ×2 (07:58→16:10)
[2022-01-04] MEDS: Acetaminophen 325 MG TABLET 650 MG PO ×2 (08:08→21:38)
[2022-01-04] MEDS: Morphine Sulfate 2 MG/ML CARTRIDGE IVPUSH (08:09)
[2022-01-04 08:39] LABS: Iron 32 mcg/dL (30-160); Percent Iron Saturation 10 % (15-50); Total Iron Binding Capacity 323 mcg/dL (228-428); Unsaturated Iron Binding 291 ug/dL
[2022-01-04 08:58] LABS: Ferritin 5 ng/mL (10-250)
--- NOTE | 2022-01-04 09:05 | MHC.CM.PN ---
CM met with Patient and Grandson/HCP/Isma at bedside and addressed IMM with them, providing them with the original and placing a copy on the chart. Patient livers alone in an elderly housing apartment and she receives [employer] hours/week and periodic [facility] RN visits. Home/resume said services is the goal and CM has initiated and will follow for dc planning. Patient has received Moderna/Covid vax x3 and her PCP was Sara Koehler from [facility] but she has left the practice and they are unaware of who the new PCP is.
[2022-01-04 10:57] VITALS: BP 119/58; PULSE 58; RESP 12; TEMP 36.2; O2SAT 92
[2022-01-04 11:09] LABS: Glucose, Whole Blood 167 mg/dL (60-115)
[2022-01-04] MEDS: Insulin Lispro 100 UNIT/ML 3 ML VIAL SUBCUT (11:26)
[2022-01-04 11:46] LABS: PTT Heparin Drip 61.3 SEC (53-77.9)
--- NOTE | 2022-01-04 13:33 | HO.PM.IMPN ---
Subjective Subjective Date of Service: 01/04/22 Interval History: chest pressure, moderate chronic abd pain Review of Systems Review of Systems: Yes all other systems are reviewed and are negative Physical Exam Vital Signs: Vital Signs: Last Vital Signs Temp 97.2 F 01/04/22 10:57 Pulse 58 01/04/22 10:57 Resp 12 01/04/22 10:57 BP 119/58 L 01/04/22 10:57 Pulse Ox 92 01/04/22 10:57 O2 Del Method 01/04/22 10:57 BMI result Body Mass Index 24.7 Gen: in no acute distress HEENT: sclera anicteric, moist mucus membranes Neck: supple Lungs: clear to auscultation bilaterally Heart: regular rate and rhythm, no murmurs Abd: soft, non-tender, non-distended Ext: no edema Skin: warm/well-perfused Neuro: alert and oriented x3, no focal findings Psych: appropriate affect Objective Data Active Medications Acetaminophen (Acetaminophen 325 Mg Tablet) 650 mg PO Q6H PRN PRN Reason: Pain, Mild (Pain Scale 1-3) Last Admin: 01/04/22 08:08 Dose: 650 mg Documented By: STERLING Al Hydroxide/Mg Hydroxide (Magnesium Hydrox/Alum Hydrox 30 Ml Oral.Susp) 30 ml PO Q4H PRN PRN Reason: Heartburn/Nausea Aspirin (Aspirin 81 Mg Tab.Chew) 81 mg PO DAILY [facility] Last Admin: 01/04/22 07:57 Dose: 81 mg Documented By: STERLING Atorvastatin Calcium (Atorvastatin Calcium 40 Mg Tablet) 40 mg PO BEDTIME [facility] Last Admin: 01/03/22 20:48 Dose: 40 mg Documented By: TAURUS Calcium Carbonate/Cholecalciferol (Calcium + Vitamin D 250 Mg Tablet) 250 mg PO BID [facility] Last Admin: 01/04/22 07:56 Dose: 250 mg Documented By: STERLING Dextrose (Dextrose 50 % 25 Gm/50 Ml Syringe) 25 gm IVPUSH Q15M PRN; Protocol PRN Reason: per Hypoglycemia Standing Ord. Glucose (Glucose Gel 15 Gm Gel..Gram.) 15 gm PO Q15M PRN; Protocol PRN Reason: per Hypoglycemia Standing Ord. Heparin Sodium (Porcine) (Heparin Sodium,Porcine 5,000 Unit/Ml Vial) 2,300 unit 40 unit/kg (2300 unit) IVPUSH PROTOCOL BOLUS PRN; Protocol PRN Reason: 40 unit/kg - Heparin Protocol Heparin Sodium (Porcine) (Heparin Sodium,Porcine 5,000 Unit/Ml Vial) 4,700 unit 80 unit/kg (4700 unit) IVPUSH PROTOCOL BOLUS PRN; Protocol PRN Reason: 80 unit/kg - Heparin Protocol Heparin Sodium/Sodium Chloride (Heparin Sodium,Porcine/1/2ns) 25,000 unit in 250 mls @ 0 mls/hr IVCONT .Q0M [facility]; Protocol Last Titration: 01/04/22 12:01 Dose: 8 units/kg/hr, 4.69 mls/hr Documented By: STERLING Co-signed By: NATANAEL Insulin Human Lispro (Insulin Lispro 100 Unit/Ml 3 Ml Vial) 0 unit SUBCUT QIDACHS [facility]; Protocol Last Admin: 01/04/22 11:26 Dose: 2 unit Documented By: STERLING Losartan Potassium (Losartan Potassium 50 Mg Tablet) 100 mg PO DAILY [facility]; Protocol Last Admin: 01/04/22 07:56 Dose: 100 mg Documented By: STERLING Metoprolol Tartrate (Metoprolol Tartrate 50 Mg Tablet) 50 mg PO BID [facility]; Protocol Last Admin: 01/04/22 08:17 Dose: Not Given Documented By: STERLING Non-Admin Reason: 50 mg already administered Mirabegron (Mirabegron 50 Mg Tab.Er.24h) 50 mg PO DAILY [facility] Last Admin: 01/04/22 07:56 Dose: 50 mg Documented By: STERLING Mirtazapine (Mirtazapine 15 Mg Tablet) 15 mg PO BEDTIME [facility] Last Admin: 01/03/22 20:48 Dose: 15 mg Documented By: TAURUS Morphine Sulfate (Morphine Sulfate 2 Mg/Ml Cartridge) 2 mg IVPUSH Q4H PRN; Protocol PRN Reason: chest pain Last Admin: 01/04/22 08:09 Dose: 2 mg Documented By: STERLING Multivitamins/Vitamin C (Multivitamin Tablet) 1 tab PO DAILY [facility] Last Admin: 01/04/22 07:56 Dose: 1 tab Documented By: STERLING Nifedipine (Nifedipine Er 30 Mg Tab.Er.24) 1 mg PO DAILY [facility] Last Admin: 01/04/22 07:57 Dose: 1 mg Documented By: STERLING Nitroglycerin (Nitroglycerin 0.4 Mg Tab.Subl) 0.4 mg SUBLINGUAL Q5MX3 PRN PRN Reason: chest pain Omeprazole (Omeprazole 20 Mg Capsule.Dr) 20 mg PO DAILY [facility] Last Admin: 01/04/22 07:58 Dose: 20 mg Documented By: STERLING Ondansetron HCl (Ondansetron Hcl 4 Mg/2 Ml Vial) 4 mg IVPUSH Q8H PRN PRN Reason: Nausea and Vomiting Pharmacy Consult (Consult Rx Perform Med Rec) 1 each MISCELLANE ONCE PRN PRN Reason: Consult order Sodium Chloride (0.9 % Sodium Chloride Flush 3 Ml Syringe) 3 ml IVFLUSH QSHIFT [facility] Last Admin: 01/04/22 07:58 Dose: 3 ml Documented By: STERLING Labs CBC & Chem 7: 01/04/22 04:39 01/03/22 10:59 Labs: Laboratory Results - last 24 hr 01/03/22 01/03/22 01/03/22 10:59 10:59 13:42 MCV MCH MCHC RDW Plt Count MPV Absolute Nucleated RBC Nucleated RBC % (auto) PT INR APTT 29.0 aPTT Heparin Protocol POC Glucose Estimat Average Glucose 120 Hemoglobin A1c % 5.8 Iron TIBC % Saturation Unsat Iron Binding Ferritin Troponin I High Sens 19.2 H D Triglycerides Cholesterol LDL Cholesterol, Calc HDL Cholesterol 01/03/22 01/03/22 01/03/22 16:39 18:25 18:25 MCV MCH MCHC RDW Plt Count MPV Absolute Nucleated RBC Nucleated RBC % (auto) PT 12.4 INR 1.1 APTT aPTT Heparin Protocol 34.2 L POC Glucose 89 Estimat Average Glucose Hemoglobin A1c % Iron TIBC % Saturation Unsat Iron Binding Ferritin Troponin I High Sens 102.0 H* D Triglycerides Cholesterol LDL Cholesterol, Calc HDL Cholesterol 01/03/22 01/03/22 01/04/22 20:15 20:45 01:04 MCV MCH MCHC RDW Plt Count MPV Absolute Nucleated RBC Nucleated RBC % (auto) PT INR APTT aPTT Heparin Protocol > 200.0 H* D POC Glucose 155 H 146 H Estimat Average Glucose Hemoglobin A1c % Iron TIBC % Saturation Unsat Iron Binding Ferritin Troponin I High Sens Triglycerides Cholesterol LDL Cholesterol, Calc HDL Cholesterol 01/04/22 01/04/22 01/04/22 03:17 04:39 04:39 MCV MCH MCHC RDW Plt Count MPV Absolute Nucleated RBC Nucleated RBC % (auto) PT INR APTT aPTT Heparin Protocol 145.2 H* D POC Glucose Estimat Average Glucose Hemoglobin A1c % Iron 32 TIBC 323 % Saturation 10 L Unsat Iron Binding 291 Ferritin 5 L Troponin I High Sens 163.0 H* D Triglycerides 95 Cholesterol 148 LDL Cholesterol, Calc 86 HDL Cholesterol 43 01/04/22 01/04/22 01/04/22 04:39 04:39 04:39 MCV 79.2 L MCH 23.8 L MCHC 30.1 L RDW 18.2 H Plt Count 265 MPV 9.0 L Absolute Nucleated RBC 0.000 Nucleated RBC % (auto) 0.0 PT 13.4 H INR 1.2 H APTT aPTT Heparin Protocol 74.9 D POC Glucose Estimat Average Glucose Hemoglobin A1c % Iron TIBC % Saturation Unsat Iron Binding Ferritin Troponin I High Sens Triglycerides Cholesterol LDL Cholesterol, Calc HDL Cholesterol 01/04/22 01/04/22 01/04/22 07:05 11:00 11:31 MCV MCH MCHC RDW Plt Count MPV Absolute Nucleated RBC Nucleated RBC % (auto) PT INR APTT aPTT Heparin Protocol 61.3 POC Glucose 99 167 H Estimat Average Glucose Hemoglobin A1c % Iron TIBC % Saturation Unsat Iron Binding Ferritin Troponin I High Sens Triglycerides Cholesterol LDL Cholesterol, Calc HDL Cholesterol Assessment and Plan (1) Chest pain: Status: Acute Plan d#2 86yo F with HTN, HLD, DM, and FHx of CAD presenting with over 1 month of worsening chest pressure that has become constant but is not clearly exertional.? Hs Tn-I increased from 6.5 to 19.2 to 102 to 163 # NSTEMI - on heparin IV infusion, atorvastatin, metoprolol, ASA; TTE pending;if no WMAs to consider stress test, if WMAs would need cardiac cath # HTN - continue metoprolol + losartan + nifedipine # DM2 - well-controlled with A1c of only 5.8; hold MTF and give correction-dose lispro if needed for hyperglycemia # VTE prophylaxis: heparin In my clinical judgment, the patient requires continued hospitalization for the following reasons: hepariniziation Quality Stroke Does the patient have a stroke diagnosis?: No VTE Prior VTE?: No VTE Risk Level:: Medical - moderate - high VTE Device Contraindication: N/A - Device Ordered VTE Drug Contraindication: N/A - Med Ordered
--- NOTE | 2022-01-04 14:17 | P.CONCA_ITS ---
History of Present Illness History of Present Illness Date of Service: 01/04/22 Requesting physician: Amol Cali / [facility] Chief complaint: troponin-I elevation, anginal chest pain Narrative: 86-year-old female who is presenting with chest pain. She has been experiencing chest pain from month. she has no history of hypertension and has had uncontrolled high blood pressure over the last month or so. She is saying that she started experiencing left-sided pressure-like feeling 1 month ago. She said this pressure-like sensation is not left her since then and has been persistently present for the last month. For these symptoms she presented to the emergency department. She noticed to be hypertensive. He had mildly abnormal high sensitivity troponin levels. EKG showed no significant changes and clearly no dynamic changes were noticed. She also has been experiencing abdominal pains. She is saying she has gastritis diagnosed 15 years ago. No recent endoscope he was done her. She was started on heparin drip overnight because of Mild troponin elevation. her troponin values were 19, 102 and 163. [facility] Past Medical History Medical History Diabetes Gastritis HTN (hypertension) Neuropathy Family History Family History Other Coronary artery disease Diabetes Social History Social History Alcohol intake: never Patient Tobacco Use Status: Never used Tobacco e-Cigarette/Vaping Use: Never Used service: No Current occupational status: retired Meds Allergies Allergy/AdvReac Type Severity Reaction Status Date / Time guava [GUAVA] Allergy Unknown UNKNOWN Verified 01/03/22 16:15 nut - unspecified [NUTS] Allergy Unknown UNKNOWN Verified 01/03/22 16:15 sesame seed [SESAME SEED] Allergy Unknown UNKNOWN Verified 01/03/22 16:15 Active Medications: Current Medications Acetaminophen (Acetaminophen 325 Mg Tablet) 650 mg PO Q6H PRN PRN Reason: Pain, Mild (Pain Scale 1-3) Last Admin: 01/04/22 08:08 Dose: 650 mg Al Hydroxide/Mg Hydroxide (Magnesium Hydrox/Alum Hydrox 30 Ml Oral.Susp) 30 ml PO Q4H PRN PRN Reason: Heartburn/Nausea Aspirin (Aspirin 81 Mg Tab.Chew) 81 mg PO DAILY [facility] Last Admin: 01/04/22 07:57 Dose: 81 mg Atorvastatin Calcium (Atorvastatin Calcium 40 Mg Tablet) 40 mg PO BEDTIME [facility] Last Admin: 01/03/22 20:48 Dose: 40 mg Calcium Carbonate/Cholecalciferol (Calcium + Vitamin D 250 Mg Tablet) 250 mg PO BID [facility] Last Admin: 01/04/22 07:56 Dose: 250 mg Dextrose (Dextrose 50 % 25 Gm/50 Ml Syringe) 25 gm IVPUSH Q15M PRN; Protocol PRN Reason: per Hypoglycemia Standing Ord. Glucose (Glucose Gel 15 Gm Gel..Gram.) 15 gm PO Q15M PRN; Protocol PRN Reason: per Hypoglycemia Standing Ord. Heparin Sodium (Porcine) (Heparin Sodium,Porcine 5,000 Unit/Ml Vial) 2,300 unit 40 unit/kg (2300 unit) IVPUSH PROTOCOL BOLUS PRN; Protocol PRN Reason: 40 unit/kg - Heparin Protocol Heparin Sodium (Porcine) (Heparin Sodium,Porcine 5,000 Unit/Ml Vial) 4,700 unit 80 unit/kg (4700 unit) IVPUSH PROTOCOL BOLUS PRN; Protocol PRN Reason: 80 unit/kg - Heparin Protocol Heparin Sodium/Sodium Chloride (Heparin Sodium,Porcine/1/2ns) 25,000 unit in 250 mls @ 0 mls/hr IVCONT .Q0M [facility]; Protocol Last Titration: 01/04/22 12:01 Dose: 8 units/kg/hr, 4.69 mls/hr Insulin Human Lispro (Insulin Lispro 100 Unit/Ml 3 Ml Vial) 0 unit SUBCUT QIDACHS [facility]; Protocol Last Admin: 01/04/22 11:26 Dose: 2 unit Losartan Potassium (Losartan Potassium 50 Mg Tablet) 100 mg PO DAILY [facility]; Protocol Last Admin: 01/04/22 07:56 Dose: 100 mg Metoprolol Tartrate (Metoprolol Tartrate 50 Mg Tablet) 50 mg PO BID [facility]; Protocol Last Admin: 01/04/22 08:17 Dose: Not Given Mirabegron (Mirabegron 50 Mg Tab.Er.24h) 50 mg PO DAILY [facility] Last Admin: 01/04/22 07:56 Dose: 50 mg Mirtazapine (Mirtazapine 15 Mg Tablet) 15 mg PO BEDTIME [facility] Last Admin: 01/03/22 20:48 Dose: 15 mg Morphine Sulfate (Morphine Sulfate 2 Mg/Ml Cartridge) 2 mg IVPUSH Q4H PRN; Protocol PRN Reason: chest pain Last Admin: 01/04/22 08:09 Dose: 2 mg Multivitamins/Vitamin C (Multivitamin Tablet) 1 tab PO DAILY [facility] Last Admin: 01/04/22 07:56 Dose: 1 tab Nifedipine (Nifedipine Er 30 Mg Tab.Er.24) 1 mg PO DAILY [facility] Last Admin: 01/04/22 07:57 Dose: 1 mg Nitroglycerin (Nitroglycerin 0.4 Mg Tab.Subl) 0.4 mg SUBLINGUAL Q5MX3 PRN PRN Reason: chest pain Omeprazole (Omeprazole 20 Mg Capsule.Dr) 20 mg PO DAILY [facility] Last Admin: 01/04/22 07:58 Dose: 20 mg Ondansetron HCl (Ondansetron Hcl 4 Mg/2 Ml Vial) 4 mg IVPUSH Q8H PRN PRN Reason: Nausea and Vomiting Pharmacy Consult (Consult Rx Perform Med Rec) 1 each MISCELLANE ONCE PRN PRN Reason: Consult order Sodium Chloride (0.9 % Sodium Chloride Flush 3 Ml Syringe) 3 ml IVFLUSH QSHIFT [facility] Last Admin: 01/04/22 07:58 Dose: 3 ml Home Medications Medication Instructions Recorded Confirmed Last Taken Type acetaminophen 650 mg 1 tab PO Q8H PRN pain 01/03/22 01/03/22 Unknown History tablet,extended release (8 Hour Pain Reliever) atorvastatin 40 mg tablet 40 mg PO BEDTIME 01/03/22 01/03/22 Unknown History calcium carbonate 600 mg-vitamin 1 tab BID 01/03/22 01/03/22 Unknown History D3 5 mcg (200 unit) tablet losartan 100 mg tablet 1 tab PO DAILY 01/03/22 01/03/22 Unknown History metformin 500 mg tablet 1 tab PO BID 01/03/22 01/03/22 Unknown History metoprolol tartrate 25 mg tablet 25 mg PO BID 01/03/22 01/03/22 Unknown History mirabegron 50 mg tablet,extended 50 mg PO DAILY 01/03/22 01/03/22 Unknown History release 24 hr (Myrbetriq) mirtazapine 15 mg tablet 15 mg PO BEDTIME 01/03/22 01/03/22 Unknown History multivitamin 1 tab PO DAILY 01/03/22 01/03/22 Unknown History nifedipine 30 mg tablet,extended 1 tab PO DAILY 01/03/22 01/03/22 Unknown History release pantoprazole 40 mg tablet,delayed 40 mg PO DAILY 01/03/22 01/03/22 Unknown History release (Protonix) Physical Exam Vital Signs: Vital Signs: Last Vital Signs Temp 97.2 F 01/04/22 10:57 Pulse 58 01/04/22 10:57 Resp 12 01/04/22 10:57 BP 119/58 L 01/04/22 10:57 Pulse Ox 92 01/04/22 10:57 O2 Del Method 01/04/22 10:57 BMI result Body Mass Index 24.7 GENERAL APPEARANCE: in no acute distress, pleasant. NECK: no carotid bruit, no jugular venous distention. SKIN: no suspicious lesions, warm and dry. HEART: no murmurs, regular rate and rhythm. LUNGS: clear to auscultation bilaterally. ABDOMEN: soft, nontender. EXTREMITIES: no edema. PERIPHERAL PULSES: equal. NEUROLOGIC: No gross deficits, AAO X 3 Objective Labs and Meds Result diagrams: 01/04/22 04:39 01/03/22 10:59 Lab results: Laboratory Results - last 24 hr 01/03/22 01/03/22 01/03/22 10:59 10:59 16:39 WBC RBC Hgb Hct MCV MCH MCHC RDW Plt Count MPV Absolute Nucleated RBC Nucleated RBC % (auto) PT INR APTT 29.0 aPTT Heparin Protocol POC Glucose 89 Estimat Average Glucose 120 Hemoglobin A1c % 5.8 Iron TIBC % Saturation Unsat Iron Binding Ferritin Troponin I High Sens Triglycerides Cholesterol LDL Cholesterol, Calc HDL Cholesterol 01/03/22 01/03/22 01/03/22 18:25 18:25 20:15 WBC RBC Hgb Hct MCV MCH MCHC RDW Plt Count MPV Absolute Nucleated RBC Nucleated RBC % (auto) PT 12.4 INR 1.1 APTT aPTT Heparin Protocol 34.2 L POC Glucose 155 H Estimat Average Glucose Hemoglobin A1c % Iron TIBC % Saturation Unsat Iron Binding Ferritin Troponin I High Sens 102.0 H* D Triglycerides Cholesterol LDL Cholesterol, Calc HDL Cholesterol 01/03/22 01/04/22 01/04/22 20:45 01:04 03:17 WBC RBC Hgb Hct MCV MCH MCHC RDW Plt Count MPV Absolute Nucleated RBC Nucleated RBC % (auto) PT INR APTT aPTT Heparin Protocol > 200.0 H* D 145.2 H* D POC Glucose 146 H Estimat Average Glucose Hemoglobin A1c % Iron TIBC % Saturation Unsat Iron Binding Ferritin Troponin I High Sens Triglycerides Cholesterol LDL Cholesterol, Calc HDL Cholesterol 01/04/22 01/04/22 01/04/22 04:39 04:39 04:39 WBC 8.0 RBC 4.53 Hgb 10.8 L Hct 35.9 L MCV 79.2 L MCH 23.8 L MCHC 30.1 L RDW 18.2 H Plt Count 265 MPV 9.0 L Absolute Nucleated RBC 0.000 Nucleated RBC % (auto) 0.0 PT INR APTT aPTT Heparin Protocol POC Glucose Estimat Average Glucose Hemoglobin A1c % Iron 32 TIBC 323 % Saturation 10 L Unsat Iron Binding 291 Ferritin 5 L Troponin I High Sens 163.0 H* D Triglycerides 95 Cholesterol 148 LDL Cholesterol, Calc 86 HDL Cholesterol 43 01/04/22 01/04/22 01/04/22 04:39 04:39 07:05 WBC RBC Hgb Hct MCV MCH MCHC RDW Plt Count MPV Absolute Nucleated RBC Nucleated RBC % (auto) PT 13.4 H INR 1.2 H APTT aPTT Heparin Protocol 74.9 D POC Glucose 99 Estimat Average Glucose Hemoglobin A1c % Iron TIBC % Saturation Unsat Iron Binding Ferritin Troponin I High Sens Triglycerides Cholesterol LDL Cholesterol, Calc HDL Cholesterol 01/04/22 01/04/22 11:00 11:31 WBC RBC Hgb Hct MCV MCH MCHC RDW Plt Count MPV Absolute Nucleated RBC Nucleated RBC % (auto) PT INR APTT aPTT Heparin Protocol 61.3 POC Glucose 167 H Estimat Average Glucose Hemoglobin A1c % Iron TIBC % Saturation Unsat Iron Binding Ferritin Troponin I High Sens Triglycerides Cholesterol LDL Cholesterol, Calc HDL Cholesterol Assessment and Plan (1) Chest pain: Qualifiers: Chest pain type: precordial pain Qualified Code(s): R07.2 - Precordial pain Status: Acute (2) Uncontrolled hypertension: Status: Acute Plan 86-year-old female who is presenting with chest discomfort ongoing for 1 month. The story is quite atypical. She has very mildly elevated troponin levels which is likely due to high blood pressure. Overall clinical story is underwhelming for acute coronary syndrome. I think heparin can be stopped. We have reviewed her echocardiogram which is showing normal biventricular function. I will arrange Lexiscan for her to assess for any coronary disease. She has been experiencing epigastric discomfort for long time. She also has been noticed to have iron deficiency. She needs GI input for further evaluation given her advanced age we need to make sure she does not have any underlying malignancy or peptic ulcer disease. Blood pressure is improving with the current regimen. Continue same medication for now. Lexiscan tomorrow. Procedures Date of Service Date of Service: 01/04/22
[2022-01-04 15:45] VITALS: BP 136/72; PULSE 61; RESP 18; TEMP 37.3; O2SAT 94
[2022-01-04 16:31] LABS: Glucose, Whole Blood 88 mg/dL (60-115)
[2022-01-04 19:29] VITALS: BP 147/106; PULSE 64; RESP 18; TEMP 36.6; O2SAT 94
[2022-01-04] MEDS: Atorvastatin Calcium 40 MG TABLET PO (20:00)
[2022-01-04] MEDS: Mirtazapine 15 MG TABLET PO (20:01)
[2022-01-04 20:09] LABS: Glucose, Whole Blood 103 mg/dL (60-115)
[2022-01-04 23:26] VITALS: BP 170/80; PULSE 75; RESP 18; TEMP 37.1; O2SAT 97
[2022-01-05 03:29] VITALS: BP 163/75; PULSE 61; RESP 18; TEMP 36.4; O2SAT 98
[2022-01-05 07:11] VITALS: BP 161/77; PULSE 66; RESP 16; TEMP 36.2; O2SAT 94
[2022-01-05 07:40] LABS: Glucose, Whole Blood 97 mg/dL (60-115)
[2022-01-05 11:04] VITALS: BP 190/78; PULSE 65; RESP 18; TEMP 37.2; O2SAT 94
[2022-01-05] MEDS: Isosorbide Mononitrate 30 MG TAB.ER.24H PO (11:13)
[2022-01-05] MEDS: Omeprazole 20 MG CAPSULE.DR PO (11:13)
[2022-01-05] MEDS: Mirabegron 50 MG TAB.ER.24H PO (11:13)
[2022-01-05] MEDS: Ferrous Sulfate 324 MG TABLET.DR 325 MG PO (11:13)
[2022-01-05] MEDS: Aspirin 81 MG TAB.CHEW PO (11:13)
[2022-01-05] MEDS: Metoprolol Tartrate 50 MG TABLET PO ×2 (11:14→20:54)
[2022-01-05] MEDS: 0.9 % Sodium Chloride Flush 3 ML SYRINGE IVFLUSH ×3 (11:15→20:54)
[2022-01-05] MEDS: Calcium + Vitamin D 250 MG TABLET PO ×2 (11:15→20:54)
[2022-01-05] MEDS: Multivitamin TABLET 1 TAB PO (11:15)
[2022-01-05 11:19] LABS: Glucose, Whole Blood 108 mg/dL (60-115)
[2022-01-05] MEDS: NIFEdipine ER 30 MG TAB.ER.24 PO ×2 (11:29→16:17)
[2022-01-05] MEDS: Losartan Potassium 50 MG TABLET 100 MG PO (11:29)
--- NOTE | 2022-01-05 14:33 | P.PNIM_ITS ---
Subjective Subjective Date of Service: 01/05/22 Interval History: This history was taken in Pashto from the patient. Chest pain improved Chronic abd pain Had H pylori many years ago, treated, unknown if test of cure done Review of Systems Review of Systems: Yes all other systems are reviewed and are negative Physical Exam Vital Signs: Vital Signs: Last Vital Signs Temp 98.9 F 01/05/22 11:04 Pulse 65 01/05/22 11:04 Resp 18 01/05/22 11:04 BP 190/78 H 01/05/22 11:04 Pulse Ox 94 01/05/22 11:04 O2 Del Method 01/05/22 11:04 BMI result Body Mass Index 24.7 Gen: in no acute distress HEENT: sclera anicteric, moist mucus membranes Neck: supple Lungs: clear to auscultation bilaterally Heart: regular rate and rhythm, no murmurs Abd: soft, non-tender, non-distended Ext: no edema Skin: warm/well-perfused Neuro: alert and oriented x3, no focal findings Psych: appropriate affect Objective Data Active Medications Acetaminophen (Acetaminophen 325 Mg Tablet) 650 mg PO Q6H PRN PRN Reason: Pain, Mild (Pain Scale 1-3) Last Admin: 01/04/22 21:38 Dose: 650 mg Documented By: TAURUS Al Hydroxide/Mg Hydroxide (Magnesium Hydrox/Alum Hydrox 30 Ml Oral.Susp) 30 ml PO Q4H PRN PRN Reason: Heartburn/Nausea Aspirin (Aspirin 81 Mg Tab.Chew) 81 mg PO DAILY [facility] Last Admin: 01/05/22 11:13 Dose: 81 mg Documented By: MONET Atorvastatin Calcium (Atorvastatin Calcium 40 Mg Tablet) 40 mg PO BEDTIME [facility] Last Admin: 01/04/22 20:00 Dose: 40 mg Documented By: TAURUS Calcium Carbonate/Cholecalciferol (Calcium + Vitamin D 250 Mg Tablet) 250 mg PO BID [facility] Last Admin: 01/05/22 11:15 Dose: 250 mg Documented By: MONET Dextrose (Dextrose 50 % 25 Gm/50 Ml Syringe) 25 gm IVPUSH Q15M PRN; Protocol PRN Reason: per Hypoglycemia Standing Ord. Ferrous Sulfate (Ferrous Sulfate 324 Mg Tablet.Dr) 324 mg PO DAILY [facility] Last Admin: 01/05/22 12:38 Dose: Not Given Documented By: MONET Non-Admin Reason: already given, MAR updated Glucose (Glucose Gel 15 Gm Gel..Gram.) 15 gm PO Q15M PRN; Protocol PRN Reason: per Hypoglycemia Standing Ord. Insulin Human Lispro (Insulin Lispro 100 Unit/Ml 3 Ml Vial) 0 unit SUBCUT QIDACHS [facility]; Protocol Last Admin: 01/05/22 11:19 Dose: Not Given Documented By: MONET Non-Admin Reason: No Insulin Coverage Isosorbide Mononitrate (Isosorbide Mononitrate 30 Mg Tab.Er.24h) 30 mg PO DAILY [facility]; Protocol Last Admin: 01/05/22 11:13 Dose: 30 mg Documented By: MONET Losartan Potassium (Losartan Potassium 50 Mg Tablet) 100 mg PO DAILY [facility]; Protocol Last Admin: 01/05/22 11:29 Dose: 100 mg Documented By: MONET Metoprolol Tartrate (Metoprolol Tartrate 50 Mg Tablet) 50 mg PO BID [facility]; Protocol Last Admin: 01/05/22 11:14 Dose: 50 mg Documented By: MONET Mirabegron (Mirabegron 50 Mg Tab.Er.24h) 50 mg PO DAILY [facility] Last Admin: 01/05/22 11:13 Dose: 50 mg Documented By: MONET Mirtazapine (Mirtazapine 15 Mg Tablet) 15 mg PO BEDTIME [facility] Last Admin: 01/04/22 20:01 Dose: 15 mg Documented By: TAURUS Morphine Sulfate (Morphine Sulfate 2 Mg/Ml Cartridge) 2 mg IVPUSH Q4H PRN; Protocol PRN Reason: chest pain Last Admin: 01/04/22 08:09 Dose: 2 mg Documented By: STERLING Multivitamins/Vitamin C (Multivitamin Tablet) 1 tab PO DAILY [facility] Last Admin: 01/05/22 11:15 Dose: 1 tab Documented By: MONET Nifedipine (Nifedipine Er 30 Mg Tab.Er.24) 60 mg PO DAILY [facility] Omeprazole (Omeprazole 20 Mg Capsule.Dr) 20 mg PO DAILY [facility] Last Admin: 01/05/22 11:13 Dose: 20 mg Documented By: MONET Ondansetron HCl (Ondansetron Hcl 4 Mg/2 Ml Vial) 4 mg IVPUSH Q8H PRN PRN Reason: Nausea and Vomiting Pharmacy Consult (Consult Rx Perform Med Rec) 1 each MISCELLANE ONCE PRN PRN Reason: Consult order Sodium Chloride (0.9 % Sodium Chloride Flush 3 Ml Syringe) 3 ml IVFLUSH QSHIFT [facility] Last Admin: 01/05/22 11:15 Dose: 3 ml Documented By: MONET Labs CBC & Chem 7: 01/04/22 04:39 01/03/22 10:59 Labs: Laboratory Results - last 24 hr 01/04/22 01/04/22 01/05/22 16:27 19:54 07:14 POC Glucose 88 103 97 01/05/22 11:10 POC Glucose 108 Impressions Myocardial Perfusion Scan Nuc Med 01/05/22 10:00 Impression: 1. Myocardial perfusion imaging study shows no clear evidence of any ischemia or infarction. There is fixed lateral defect that seems to improve with CT attenuation correction and hence suggestive of soft tissue attenuation artifact. 2. Gated LVEF is 71% during stress and 73% during rest. 3. Transient ischemic dilatation not present. EKG component of the test reported separately. Assessment and Plan (1) Chest pain: Status: Acute Plan d#3 86yo F with HTN, HLD, DM, and FHx of CAD presenting with over 1 month of worsening chest pressure that has become constant but is not clearly exertional.? Hs Tn-I increased from 6.5 to 19.2 to 102 to 163 # elevated Tn-I - TTE without WMAs, MPS normal. per Cardiology doubt ACS; will f/u as outpt; recommend GI evaluation; needs better BP control # chronic abd pain - GI evaluation, to consider EGD # HTN, uncontrlled - continue metoprolol + losartan + nifedipine; increase the dose of nifedipine # DM2 - well-controlled with A1c of only 5.8; hold MTF and give correction-dose lispro if needed for hyperglycemia # VTE prophylaxis: heparin In my clinical judgment, the patient requires continued hospitalization for the following reasons: workup of abd pain, BP control Quality Stroke Does the patient have a stroke diagnosis?: No VTE Prior VTE?: No VTE Risk Level:: Medical - moderate - high VTE Device Contraindication: N/A - Device Ordered VTE Drug Contraindication: N/A - Med Ordered
[2022-01-05 15:33] VITALS: BP 161/70; PULSE 59; RESP 17; TEMP 37.1; O2SAT 94
[2022-01-05 15:45] LABS: Glucose, Whole Blood 116 mg/dL (60-115)
[2022-01-05 16:30] LABS: OBS Int Ctl Valid YES; OBS1 NEGATIVE (NEGATIVE)
--- NOTE | 2022-01-05 16:59 | PM.EVENT ---
Event Note Date of Service: 01/05/22 Event Note: GI consult dictated chronic abd pain, some breakthrough reflux nl lfts, lipase stool for ob pending rec: increase omeprazole to 40/d us abd egd as outpt if sx continue
[2022-01-05 19:31] LABS: Glucose, Whole Blood 123 mg/dL (60-115)
[2022-01-05 19:42] VITALS: BP 148/71; PULSE 71; RESP 17; TEMP 37.4; O2SAT 92
[2022-01-05] MEDS: Atorvastatin Calcium 40 MG TABLET PO (20:54)
[2022-01-05] MEDS: Mirtazapine 15 MG TABLET PO (20:54)
[2022-01-05 23:22] VITALS: BP 129/68; PULSE 64; RESP 16; TEMP 36.7; O2SAT 93
[2022-01-06] VITALS (7 sets, daily range): BP systolic 104–131; BP diastolic 58–64; PULSE 59–71; RESP 14–20; TEMP 36.4–36.6; O2SAT 92–96
--- NOTE | 2022-01-06 03:33 | CONS_ITS ---
DATE OF SERVICE: 01/05/2022 REFERRING PHYSICIAN: Amol Cali MD REASON FOR CONSULTATION: Epigastric pain and chest pain. HISTORY OF PRESENT ILLNESS: The patient is a pleasant 86-year-old woman who was admitted to the hospital on January 03 from her primary care physician's office where she was sent after she complained of chronic chest and abdominal pain. She has been evaluated from a cardiac standpoint with no acute cardiac issues discovered. Consultation is requested regarding the patient's chronic abdominal pain. The patient states that for years she has had epigastric pain, which she describes as an ache. This is sometimes worse with food, but sometimes not. She has been maintained on a proton pump inhibitor as an outpatient, but is unsure of the dose. She has no dysphagia, hematemesis, or melena. Weight and appetite have been stable. Laboratory studies on admission included a normal liver profile and lipase. Previous evaluation in [place] 10 years ago showed normal upper endoscopy except for small hiatal hernia. Colonoscopy at the same time showed diverticulosis and hemorrhoids. Stool occult blood has been sent by her nurse and she has been treated in the hospital with omeprazole 20 mg daily. PAST MEDICAL HISTORY: 1. Hypertension. 2. Hyperlipidemia. 3. Diabetes mellitus type 2. 4. Neuropathy. CURRENT MEDICATIONS: Current medication list is reviewed in the chart. She denies chronic use of NSAIDs at home. ALLERGIES: THERE WERE SEVERAL FOOD ALLERGIES LISTED, BUT NO DRUG ALLERGIES. FAMILY HISTORY: This is reviewed with the patient and is negative for GI malignancy. SOCIAL HISTORY: There is no current tobacco, alcohol, or substance abuse. REVIEW OF SYSTEMS: SKIN: No pruritus. HEENT: Negative. CARDIOPULMONARY: No shortness of breath or chest pain. GASTROINTESTINAL: As above. GENITOURINARY: Negative. NEUROPSYCHIATRIC: Negative. PHYSICAL EXAMINATION: GENERAL: Reveals a pleasant female, lying comfortably in bed. The history is obtained from her grandson's , who interprets. VITAL SIGNS: Reviewed in electronic medical record and are stable. She appears quite comfortable and is able to give a very good history. SKIN: Anicteric. HEENT: Shows no scleral icterus. NECK: Without lymphadenopathy or thyromegaly. LUNGS: Clear. HEART: Shows a regular rate and rhythm. S1, S2. No murmur. ABDOMEN: Soft without focal masses or tenderness. Bowel sounds are present. No organomegaly is noted. EXTREMITIES: Without edema. LABORATORY DATA: Reviewed. IMPRESSION: Epigastric pain. She has chronic complaints of epigastric pain with no acute localizing signs or symptoms to suggest an acute process such as peptic ulcer disease or erosive esophagitis. She has been maintained on a proton pump inhibitor as an outpatient and does not use NSAIDs. Therefore, the possibility of acute upper GI issues very unlikely. I would recommend increasing the omeprazole to 40 mg daily. I instructed her that she can use simethicone for gas. We will await the results of stool occult blood testing. I do not think she needs endoscopy in the acute setting. This could be set up electively if she still has persistent symptoms. I would obtain ultrasound imaging for evaluation of her symptoms to rule out any other source. She did mention that she was status post cholecystectomy. Thank you for asking me to see her. I will follow her in the hospital with you. MD SANDER Burkett/MUKUND / [id number]
[2022-01-06] MEDS: Omeprazole 40 MG CAPSULE.DR PO (06:26)
[2022-01-06 07:04] LABS: Glucose, Whole Blood 113 mg/dL (60-115)
[2022-01-06] MEDS: Mirabegron 50 MG TAB.ER.24H PO (09:24)
[2022-01-06] MEDS: Losartan Potassium 50 MG TABLET 100 MG PO (09:24)
[2022-01-06] MEDS: Calcium + Vitamin D 250 MG TABLET PO (09:24)
[2022-01-06] MEDS: Aspirin 81 MG TAB.CHEW PO (09:25)
[2022-01-06] MEDS: Ferrous Sulfate 324 MG TABLET.DR PO (09:25)
[2022-01-06] MEDS: Metoprolol Tartrate 50 MG TABLET PO (09:25)
[2022-01-06] MEDS: NIFEdipine ER 30 MG TAB.ER.24 60 MG PO (09:25)
[2022-01-06] MEDS: Isosorbide Mononitrate 30 MG TAB.ER.24H PO (09:25)
[2022-01-06] MEDS: 0.9 % Sodium Chloride Flush 3 ML SYRINGE IVFLUSH (09:25)
[2022-01-06] MEDS: Multivitamin TABLET 1 TAB PO (09:25)
[2022-01-06 10:56] LABS: Glucose, Whole Blood 139 mg/dL (60-115)
--- NOTE | 2022-01-06 13:41 | PM.PNCARD ---
Subjective Subjective Date of Service: 01/06/22 Interval history: Patient seen examined at bedside. His grandson who is an beading machine operator was present for the discussion. She is saying her left-sided chest discomfort is improving. Stress test result was reviewed and discussed with the grandson. Physical Exam Vital Signs: Last Vital Signs Temp 97.8 F 01/06/22 11:03 Pulse 59 01/06/22 11:03 Resp 20 01/06/22 11:03 BP 104/58 L 01/06/22 11:03 Pulse Ox 93 01/06/22 11:03 O2 Del Method 01/06/22 11:03 BMI result Body Mass Index 24.7 GENERAL APPEARANCE: in no acute distress, pleasant. NECK: no carotid bruit, no jugular venous distention. SKIN: no suspicious lesions, warm and dry. HEART: no murmurs, regular rate and rhythm. LUNGS: clear to auscultation bilaterally. ABDOMEN: soft, nontender. EXTREMITIES: no edema. PERIPHERAL PULSES: equal. NEUROLOGIC: No gross deficits, AAO X 3 Objective Labs and Meds Result diagrams: 01/04/22 04:39 01/03/22 10:59 Lab results: Laboratory Results - last 24 hr 01/05/22 01/05/22 01/05/22 15:38 19:26 Unknown POC Glucose 116 H 123 H Troponin I High Sens Stool Occult Blood NEGATIVE 01/06/22 01/06/22 01/06/22 07:00 09:45 10:53 POC Glucose 113 139 H Troponin I High Sens 67.0 H* D Stool Occult Blood Progress Note: A&P Assessment and plan (1) Iron deficiency anemia: Status: Acute (2) Elevated troponin: Status: Acute (3) Chest pain: Status: Acute (4) Uncontrolled hypertension: Status: Acute Plan 86-year-old female presented with persistent chest pain ongoing for a month. She had mildly elevated volume levels. She has significant hypertension. Her blood pressure has improved with adjustment of medications. She has chronic gastritis and was diagnosed with that 15 years ago. She has noticed to be anemic with low iron levels. Echocardiography did not show any wall motion abnormalities. Stress test showed a lateral fixed defect which improved with attenuation correction pointing toward an artifact. Overall a clinical story is not consistent with an ischemic episode. I think her chest discomfort is due to GI issues plus-minus hypertension. She will need further GI workup. From our end she can be discharged home. She will follow-up with us in the office. Thank you for allowing me to participate in the care of your patient. Please feel free to contact me if you have any questions. Time Spent With Patient Time: Total time spent is greater than 50% in coordination of care (as documented) at patient's floor/unit and/or counseling patient: Progress Note: Quality Stroke Does the patient have a stroke diagnosis?: No Procedures Date of Service Date of Service: 01/06/22
--- NOTE | 2022-01-06 13:55 | PM.GIPN ---
Subjective Subjective Date of Service: 01/06/22 Interval History: epigastric discomfort sl better seen with diamond who interprets Critical Care Time (minutes): 0 Physical Exam Vital Signs: Vital Signs: Last Vital Signs Temp 97.8 F 01/06/22 11:03 Pulse 59 01/06/22 11:03 Resp 20 01/06/22 11:03 BP 104/58 L 01/06/22 11:03 Pulse Ox 93 01/06/22 11:03 O2 Del Method 01/06/22 11:03 BMI result Body Mass Index 24.7 GI: Other: abdomen is soft stool is ob negative Objective Data Labs CBC & Chem 7: 01/04/22 04:39 01/03/22 10:59 Labs: Laboratory Results - last 24 hr 01/05/22 01/05/22 01/05/22 15:38 19:26 Unknown POC Glucose 116 H 123 H Troponin I High Sens Stool Occult Blood NEGATIVE 01/06/22 01/06/22 01/06/22 07:00 09:45 10:53 POC Glucose 113 139 H Troponin I High Sens 67.0 H* D Stool Occult Blood Procedures Date of Service Date of Service: 01/06/22 Progress Note: A&P Assessment and plan (1) Chronic epigastric pain: Status: Acute Assessment and Plan: continue ppi f/u as outpatient Time Spent With Patient Time: Total time spent is greater than 50% in coordination of care (as documented) at patient's floor/unit and/or counseling patient: Quality Stroke Does the patient have a stroke diagnosis?: No VTE Prior VTE?: No VTE Risk Level:: Medical - moderate - high VTE Device Contraindication: N/A - Device Ordered VTE Drug Contraindication: N/A - Med Ordered
--- NOTE | 2022-01-06 14:33 | PM.DS ---
DS: Providers Provider Date of Service: 01/06/22 Date of admission: 01/03/22 16:16 Date of discharge: 01/06/22 Primary care physician: Dali Givens MD Consults: 01/03/22 14:58 Consult to Cardiology Routine Consulting Provider: Jay Jones Reason for consultation: Chest pain Has provider been notified: Yes 01/05/22 14:33 Consult to Gastroenterology Routine Consulting Provider: Nikunj Foster Reason for consultation: acute/chronic abd/chest pain, cardiac ruled out, suspect abd- EGD? DS: Diagnosis Discharge Diagnosis (1) Chronic epigastric pain: Status: Acute (2) Elevated troponin: Status: Acute (3) Chest pain: Status: Acute (4) Uncontrolled hypertension: Status: Acute (5) Iron deficiency anemia: Status: Acute DS: Summary Hospital Course Hospital Course: from my admission H+P, 01/03/22: 86yo woman with DM2, HTN, HLD who presents with over 1 month of left-sided non-radiating chest pressure that started at rest and has become heavier.? It has progressed from intermittent to constant and is quite separate from her chronic epigastric pain associated with gas and heartburn.? Exertion does not make it worse but stress and anxiety do.? There is some associated nausea.? No shortness of breath.? No personal history of HI or CVA.? She had an attempted stress test many years ago in [place] but could not exercise due to neuropathy, and did not tolerate the pharmacologic stress either. She was seen in her PCP's office today and due to the history along with uncontrolled HTN, she was sent to the ED.? She was given 325 mg of ASA prior to arrival. EKG showed sinus bradycardia with 1st degree AV block and no ischemic changes.? Initial hs-Tn-I was 6.5; 3-hour repeat was 19.2. She was given nitroglycerin and morphine and the pain has largely resolved. 86yo F with HTN, HLD, DM, and FHx of CAD presenting with over 1 month of worsening chest pressure that has become constant but is not clearly exertional.? She was [place] [facility] [place] hs Tn-I increased from 6.5 to 19.2 to 102 to 163 then came down to 67. Initially heparinized but then TTE failed to demostrate wall motion abnormalities. MPS was normal. Per cardiology, ACS is unlikely. She clearly did need better blood pressure control, though, so nifedipine and metoprolol doses were increased. GI was consulted due to chronic epigastric pain which could explain her symptoms. PPI dose was increased and outpatient follow up for possible EGD was recommended. She was discharged home. Iron was prescribed given mild iron deficiency anemia. Time Spent with Patient Time attestation: Total time spent providing and/or coordinating discharge services: 35 Discharge coordination time: Greater than 30 minutes Quality: Safe Use of Opioids Does Pt have an Active Cancer Diagnosis on the Problem List?: No Quality: Stroke Does the patient have a stroke diagnosis?: No Physical Exam Vital Signs: Vital Signs: Last Vital Signs Temp 97.8 F 01/06/22 11:03 Pulse 71 01/06/22 14:08 Resp 20 01/06/22 11:03 BP 108/60 01/06/22 14:08 Pulse Ox 93 01/06/22 11:03 O2 Del Method 01/06/22 11:03 BMI result Body Mass Index 24.7 Gen: in no acute distress HEENT: sclera anicteric, moist mucus membranes Neck: supple Lungs: clear to auscultation bilaterally Heart: regular rate and rhythm, no murmurs Abd: soft, non-tender, non-distended Ext: no edema Skin: warm/well-perfused Neuro: alert and oriented x3, no focal findings Psych: appropriate affect DS: Data Data Completed and Pending Completed studies during hospitalization [Text1]: Laboratory Results WBC 8.0 X10*3/uL (4.8-10.8) 01/04/22 04:39 RBC 4.53 X10*6/uL (4.20-5.50) 01/04/22 04:39 Hgb 10.8 g/dl (12.0-16.0) L 01/04/22 04:39 Hct 35.9 % (37.0-47.0) L 01/04/22 04:39 MCV 79.2 fL (80.0-98.0) L 01/04/22 04:39 MCH 23.8 pg (27.0-33.0) L 01/04/22 04:39 MCHC 30.1 g/dl (31.0-35.0) L 01/04/22 04:39 RDW 18.2 % (11.0-16.0) H 01/04/22 04:39 Plt Count 265 X10*3/uL (160-400) 01/04/22 04:39 MPV 9.0 fL (9.4-12.3) L 01/04/22 04:39 Immature Gran % (Auto) 0.2 % (0.0-0.4) 01/03/22 10:59 Neut % (Auto) 65.4 % (45-73) 01/03/22 10:59 Lymph % (Auto) 22.1 % (20-40) 01/03/22 10:59 [place] % (Auto) 9.0 % (2-11) 01/03/22 10:59 Eos % (Auto) 2.7 % (0-4) 01/03/22 10:59 Baso % (Auto) 0.6 % (0-2) 01/03/22 10:59 Lymph # (Auto) 2.2 X10*3/uL (1.2-4.9) 01/03/22 10:59 [place] # (Auto) 0.9 X10*3/uL (0.1-1.2) 01/03/22 10:59 Eos # (Auto) 0.3 X10*3/uL (0.0-0.4) 01/03/22 10:59 Baso # (Auto) 0.1 X10*3/uL (0.0-0.2) 01/03/22 10:59 Abs Immat Gran (auto) 0.02 X10*3/uL (0.00-0.03) 01/03/22 10:59 Absolute Neuts (auto) 6.4 x10*3/uL (2.0-8.3) 01/03/22 10:59 Absolute Nucleated RBC 0.000 X10*3/uL (0.0-0.012) 01/04/22 04:39 Nucleated RBC % (auto) 0.0 /100WBC (0.0-0.2) 01/04/22 04:39 PT 13.4 SEC (10.0-13.1) H 01/04/22 04:39 INR 1.2 (0.9-1.1) H 01/04/22 04:39 APTT 29.0 SEC (26.0-36.4) 01/03/22 10:59 aPTT Heparin Protocol 61.3 SEC (53-77.9) 01/04/22 11:31 Sodium 140 mmol/L (135-145) 01/03/22 10:59 Potassium 4.5 mmol/L (3.3-5.1) 01/03/22 10:59 Chloride 103 mmol/L (96-108) 01/03/22 10:59 Carbon Dioxide 26 mmol/L (22-29) 01/03/22 10:59 Anion Gap 16 (12-20) 01/03/22 10:59 BUN 16 mg/dL (9-16) 01/03/22 10:59 Creatinine 0.78 mg/dL (0.5-1.4) 01/03/22 10:59 Estim Creat Clear Calc 43.4 01/03/22 10:59 Estimated GFR > 60 01/03/22 10:59 POC Glucose 139 mg/dL (60-115) H 01/06/22 10:53 Random Glucose 101 mg/dL (60-115) 01/03/22 10:59 Estimat Average Glucose 120 mg/dL 01/03/22 10:59 Hemoglobin A1c % 5.8 % 01/03/22 10:59 Calcium 9.7 mg/dL (8.4-10.2) 01/03/22 10:59 Magnesium 1.7 mg/dL (1.6-2.6) 01/03/22 10:59 Iron 32 mcg/dL (30-160) 01/04/22 04:39 TIBC 323 mcg/dL (228-428) 01/04/22 04:39 % Saturation 10 % (15-50) L 01/04/22 04:39 Unsat Iron Binding 291 ug/dL 01/04/22 04:39 Ferritin 5 ng/mL (10-250) L 01/04/22 04:39 Total Bilirubin 0.4 mg/dL (0.0-1.0) 01/03/22 10:59 Direct Bilirubin 0.2 mg/dL (0.0-0.5) 01/03/22 10:59 AST 19 U/L (5-31) 01/03/22 10:59 ALT 19 U/L (0-31) 01/03/22 10:59 Alkaline Phosphatase 76 U/L (39-117) 01/03/22 10:59 Troponin I High Sens 67.0 ng/L (<3.5-17.0) H* D 01/06/22 09:45 Total Protein 7.1 g/dL (6.5-8.0) 01/03/22 10:59 Albumin 4.1 g/dL (3.5-5.0) 01/03/22 10:59 Triglycerides 95 mg/dL 01/04/22 04:39 Cholesterol 148 mg/dL 01/04/22 04:39 LDL Cholesterol, Calc 86 mg/dl 01/04/22 04:39 HDL Cholesterol 43 mg/dL 01/04/22 04:39 Lipase 42 U/L (8-78) 01/03/22 10:59 Stool Occult Blood NEGATIVE (NEGATIVE) 01/05/22 Unknown COVID-19 ([facility]) Negative (Negative) 01/03/22 10:56 COVID-19 Clin Com See Note 01/03/22 10:56 Impressions Chest X-Ray 01/03/22 10:45 IMPRESSION: Low lung volumes but no acute pulmonary disease. Myocardial Perfusion Scan Nuc Med 01/05/22 10:00 Impression: 1. Myocardial perfusion imaging study shows no clear evidence of any ischemia or infarction. There is fixed lateral defect that seems to improve with CT attenuation correction and hence suggestive of soft tissue attenuation artifact. 2. Gated LVEF is 71% during stress and 73% during rest. 3. Transient ischemic dilatation not present. EKG component of the test reported separately. Abdomen Ultrasound 01/05/22 19:45 IMPRESSION: Bilateral renal cysts. Abdominal ultrasound is unremarkable. TTE 01/04/22 - Normal left ventricular size, thickness, systolic function, and wall motion. The visually estimated ejection fraction is between 60-65%.? - Normal right ventricular cavity size and systolic function.? ? - The left atrium is mildly dilated. ? - Mildly elevated right atrial pressure.? There is no evidence of pulmonary hypertension.? Discharge Plan Discharge Anticipated Discharge Date/Time: 01/06/22 17:14 Patient Disposition: Home, Self-Care Discharge Diagnosis: chronic epigastric pain, elevated troponin, uncontrolled hypertension Referrals: Nikunj Foster [Physician] - 2 Weeks Jay Jones MD [Physician] - 2 Weeks Dali Givens MD [Primary Care Provider] - 1 Week Discharge Medications: New metoprolol tartrate 50 mg Tablet 50 mg PO BID Qty: 180 0RF Protocol: Hold for SBP/HR < HOLD for SBP < : 90 HOLD for HR < : 60 Rx Instructions: replaces prior dose of 25 mg twice daily nifedipine 60 mg tablet extended release 60 mg PO DAILY Qty: 90 0RF Rx Instructions: replaces prior dose of 30 mg daily aspirin 81 mg Tablet,Chewable 81 mg PO DAILY Qty: 90 0RF ferrous sulfate 324 mg (65 mg iron) Tablet,Delayed Release (Dr/Ec) 324 mg PO DAILY Qty: 30 0RF omeprazole 40 mg Capsule,Delayed Release(Dr/Ec) 40 mg PO DAILY@0630 Qty: 90 0RF Continued Myrbetriq 50 mg Tablet Extended Release 24 Hr 50 mg PO DAILY calcium carbonate-vitamin D3 600 mg-5 mcg (200 unit) tablet 1 tab BID metformin 500 mg tablet 1 tab PO BID mirtazapine 15 mg Tablet 15 mg PO BEDTIME atorvastatin 40 mg Tablet 40 mg PO BEDTIME multivitamin Tablet 1 tab PO DAILY losartan 100 mg tablet 1 tab PO DAILY Discontinued pantoprazole [Protonix] 40 mg Tablet,Delayed Release (Dr/Ec) 40 mg PO DAILY acetaminophen [8 Hour Pain Reliever] 650 mg tablet extended release 1 tab PO Q8H PRN (Reason: pain) nifedipine 30 mg tablet extended release 1 tab PO DAILY metoprolol tartrate 25 mg Tablet 25 mg PO BID Diet: Diabetic diet Activity on Discharge: As tolerated Stand Alone Forms: Patient Portal Discharge page Care Plan Goals: relief of abdominal and chest pain Health Concerns: chest + abd pain, elevated troponin, uncontrolled hypertension Plan of Treatment: take aspirin 81 mg once daily increase metoprolol tartrate from 25 to 50 mg twice daily increase nifedipine from 30 to 60 mg once daily change pantoprazole 40 mg once daily to omeprazole 40 mg once daily follow up with [facility] [place] 2 weeks for further workup [address] [facility] [place] [address] follow up with [facility] in 2 weeks for further workup Address: [address] [place] [address] [address], [place] [address] start iron supplementation Please follow up with your primary care doctor within 1 week. Return to the hospital if you experience recurrent or worsening symptoms. Assessment: See Discharge Summary.
--- NOTE | 2022-01-06 14:55 | MHC.CM.PN ---
Patient has been medically cleared for dc to home today, self care. Last IMM addressed on 01/04/2022.
--- NOTE | 2022-01-06 15:55 | PC.NURSE ---
Report received from overnight RN. no c/o pain. Grandson at bedside and staff SALES EFFECTIVENESS MANAGER help with communication throughout the day. Pt due to be discharged, parts interpreter services called for assistance with discharge education. pt states no further questions and verbalized understanding of discharge teaching. IV and tele monitor removed. Accompanied by hospital staff downstairs, son to transport home.
== END 2022-01-06 15:57 | disposition home or self-care (01) | DRG 313 ==
LOC: HO.ED 15:21 → HO.EDOVER 16:21 → HO.IMC 19:12
PROVIDERS: Admitting Provider Family Medicine; Emergency Provider Emergency Medicine; PCP Internal Medicine; Visit Provider Family Medicine
DX: R07.9 Chest pain, unspecified (principal); Z66 Do not resuscitate; R79.89 Other specified abnormal findings of blood chemistry; E11.40 Type 2 diabetes mellitus with diabetic neuropathy, unspecified; D50.9 Iron deficiency anemia, unspecified; R10.9 Unspecified abdominal pain; G89.29 Other chronic pain; E78.5 Hyperlipidemia, unspecified; I44.0 Atrioventricular block, first degree; Z20.822 Contact with and (suspected) exposure to COVID-19; Z79.84 Long term (current) use of oral hypoglycemic drugs; Z79.899 Other long term (current) drug therapy
CPT/HCPCS: 36415; 71045; 76700; 78452; 80048; 80061; 80076; 82272; 82728; 82947; 83036; 83540; 83690; 83735; 84484; 85025; 85027; 85610; 85730; 87635; 93005; 93017; 93306; 99219; 99285; A9500; J0280; J1650; J2270; J2405; J2785

== ENCOUNTER 2022-03-11 13:32 | Emergency (ER) | payer OTHER, SELFPAY ==
--- NOTE | ~2022-03-11 | CT_ITS ---
EXAMINATION: CT ABDOMEN AND PELVIS WITHOUT CONTRAST CLINICAL INFORMATION: Rectal bleeding, prolapse COMPARISON: 12/11/2020 TECHNIQUE: Multidetector volumetric imaging was performed from the superior aspect of the liver through the pubic symphysis. Sagittal and coronal reformatted images were obtained on the technologist's workstation. This CT examination was performed using dose optimization techniques as
[2022-03-11 13:45] VITALS: BP 166/102; PULSE 96; RESP 18; TEMP 36.4; O2SAT 95; BMI 21.0
[2022-03-11 14:02] LABS: MANUAL DIFF FLAG NO
[2022-03-11 14:04] LABS: Basophils Absolute Auto 0.1 X10*3/uL (0.0-0.2); Basophils Percent Auto 0.7 % (0-2); Eosinophils Absolute Auto 0.4 X10*3/uL (0.0-0.4); Eosinophils Percent Auto 3.1 % (0-4); Hematocrit 41.8 % (37.0-47.0); Hemoglobin 13.3 g/dl (12.0-16.0); Imm Gran Abs Auto 0.06 X10*3/uL (0.00-0.03); Imm Gran Pct Auto 0.5 % (0.0-0.4); Lymphocytes Absolute Auto 2.7 X10*3/uL (1.2-4.9); Lymphocytes Percent Auto 22.7 % (20-40); Mean Corpuscular HGB Conc 31.8 g/dl (31.0-35.0); Mean Corpuscular Hemoglobin 26.4 pg (27.0-33.0); Mean Corpuscular Volume 83.1 fL (80.0-98.0); Mean Platelet Volume 8.3 fL (9.4-12.3); Monocytes Absolute Auto 1.2 X10*3/uL (0.1-1.2); Neutrophils Absolute Auto 7.4 x10*3/uL (2.0-8.3); Platelet Count 381 X10*3/uL (160-400); Red Blood Count 5.03 X10*6/uL (4.20-5.50); Red Cell Distribution Width 19.2 % (11.0-16.0); White Blood Count 11.7 X10*3/uL (4.8-10.8)
[2022-03-11 14:32] LABS: Alanine Aminotransferase 29 U/L (0-31); Albumin Level 3.8 g/dL (3.5-5.0); Alkaline Phosphatase 66 U/L (39-117); Anion Gap 13 (12-20); Aspartate Amino Transferase 29 U/L (5-31); Bilirubin Total 0.2 mg/dL (0.0-1.0); Blood Urea Nitrogen 16 mg/dL (9-16); Calcium 9.2 mg/dL (8.4-10.2); Carbon Dioxide 26 mmol/L (22-29); Chloride 100 mmol/L (96-108); Creatinine Clr Calc Pharmacy 31.5; Estimated Glomerular Filt Rate 51; Glucose Random 123 mg/dL (60-115); Potassium 4.1 mmol/L (3.3-5.1); Sodium 135 mmol/L (135-145); Total Protein 6.6 g/dL (6.5-8.0)
[2022-03-11 15:48] VITALS: BP 149/83; PULSE 69; TEMP 37; O2SAT 93
--- NOTE | 2022-03-11 15:52 | ED.GIBLEED ---
HPI - GI Bleed General Chief complaint: GI Bleed Stated complaint: rectal bleeding Time Seen by Provider: 03/11/22 15:51 Source: patient Mode of arrival: ambulatory Limitations: language barrier History of Present Illness HPI Narrative: 87-year-old female presents for rectal bleeding, rectal prolapse, was diagnosed with proctitis well in the [facility] on February 19 she has been taking some antibiotics, as well as pain management with poor effect. She came home from the [facility] this morning, and has a large rectal prolapse with moderate amounts of bright red rectal bleeding. She is unable to get comfortable. She does not report fevers or chills, but states that she has not paid attention because of her long flight. She presents with her grandson. MD complaint: blood on toilet paper, blood streaked stool, gross hematochezia and other (Rectal prolapse) Onset (ago): week(s) Pain Consistency: constant Severity: moderate Relieving factors: none Exacerbating factors: bowel movement, movement and other (Sitting) Context: history of GI bleed, hemorrhoids and other (Prolapse) Treatments Prior to Arrival: suppositories (Antibiotic) Related Data Home Medications Medication Instructions Recorded Confirmed atorvastatin 40 mg tablet 40 mg PO BEDTIME 01/03/22 01/03/22 calcium carbonate 600 mg-vitamin 1 tab BID 01/03/22 01/03/22 D3 5 mcg (200 unit) tablet losartan 100 mg tablet 1 tab PO DAILY 01/03/22 01/03/22 metformin 500 mg tablet 1 tab PO BID 01/03/22 01/03/22 mirabegron 50 mg tablet,extended 50 mg PO DAILY 01/03/22 01/03/22 release 24 hr (Myrbetriq) mirtazapine 15 mg tablet 15 mg PO BEDTIME 01/03/22 01/03/22 multivitamin 1 tab PO DAILY 01/03/22 01/03/22 Previous Rx's Medication Instructions Recorded aspirin 81 mg chewable tablet 81 mg PO DAILY #90 tabs 01/06/22 ferrous sulfate 324 mg (65 mg 324 mg PO DAILY #30 tabs 01/06/22 iron) tablet,delayed release metoprolol tartrate 50 mg tablet 50 mg PO BID #180 tabs 01/06/22 nifedipine 60 mg tablet,extended 60 mg PO DAILY #90 tabs 01/06/22 release omeprazole 40 mg capsule,delayed 40 mg PO DAILY@0630 #90 caps 01/06/22 release levofloxacin 750 mg tablet 750 mg PO Q24H 7 days #7 tabs 03/11/22 metronidazole 500 mg tablet 500 mg PO Q8H 7 days #21 tabs 03/11/22 Allergies Allergy/AdvReac Type Severity Reaction Status Date / Time guava [GUAVA] Allergy Unknown UNKNOWN Verified 01/03/22 16:15 nut - unspecified [NUTS] Allergy Unknown UNKNOWN Verified 01/03/22 16:15 sesame seed [SESAME SEED] Allergy Unknown UNKNOWN Verified 01/03/22 16:15 Review of Systems Review of Systems: Constitutional: No Fever, No Chills ENT/Mouth: No Ear Pain, No Hoarseness, No sore throat Cardiovascular: No Chest Pain, No SOB Respiratory: No Cough, No Dyspnea Gastrointestinal: No Nausea, No Vomiting, No Diarrhea, No abdominal Pain, positive rectal prolapse, positive rectal bleeding Genitourinary: No Dysuria, No Hematuria Musculoskeletal: No joint pain, No Myalgias, No Joint Swelling Skin: No Skin lacerations, No rash Neuro: No Weakness, No Numbness, No Paresthesias, No Loss of Consciousness, No Dizziness, No Headache Yes all other systems are reviewed and are negative [facility] Past Medical History Attestation statement: The following information was validated with the patient. Source: old records reviewed Medical History Chest pain Chronic epigastric pain Diabetes Gastritis HTN (hypertension) Neuropathy Uncontrolled hypertension Family History Family History Other Coronary artery disease Diabetes Social History Social History Alcohol intake: never Patient Tobacco Use Status: Never used Tobacco Smoked in Last 30 Days: No e-Cigarette/Vaping Use: Never Used Use of substances other than those prescribed or required for medical reasons: No Advance Directives: No Advance Directives Information Provided: No service: No Current occupational status: retired Physical Exam Vital Signs: Vital Signs: Last Vital Signs Temp 98.4 F 03/11/22 17:57 Pulse 66 03/11/22 17:57 Resp 18 03/11/22 13:45 BP 142/60 H 03/11/22 17:57 Pulse Ox 95 03/11/22 17:57 O2 Del Method 03/11/22 17:57 BMI result Body Mass Index 21.0 Appearance: Alert. Oriented X3. Moderate distress. Eyes: Pupils equal, round and reactive to light. ENT: Pharynx normal. Neck: Normal inspection. Neck supple. CVS: Normal heart rate and rhythm. Pulses normal. Respiratory: No respiratory distress. Breath sounds normal. Abdomen: Soft and diffusely tender. Approximately 8 cm prolapse, bright red blood per rectum. Skin: Skin warm and dry. Normal skin color. Normal skin turgor. Extremities: No lower extremity edema. Gait well-balanced well coordinated. Neuro: No motor deficit. No sensory deficit. Cranial nerves 2-12 intact. Course Course Course Narrative: 87-year-old female presents for rectal prolapse with rectal bleeding. 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 Multiple antibiotics and lidocaine ointment to help reduce the prolapse. Gastroenterologists was able to reduce her prolapse however as she was traveling home today from the [place] she noticed an even larger prolapse with bright red blood per rectum. She was given multiple medications from Gastroenterology, a medication for protozoa, a medication for Cryptosporidium, a vaso dilator, and a lidocaine rectal cream. I could not find the [place] equivalent of these medications. Patient states that she has been uncomfortable all day, and has been sitting on this prolapse for over 8 hours because of traveling. 16:11 sugar paste applied to prolapse to help facilitate reduction. Order for ceftriaxone, and CT abdomen pelvis with contrast. 17:52 multiple discussions with on-call surgeon, and Gastroenterology, patient is not a surgical candidate at this point. Surgeon on-call is not a colorectal surgeon and this patient needs to be referred to Dr. Hampton. Patient is stable, will await CT scan. If CT scan is negative will discharge home and have patient follow-up with a colorectal surgeon for prolapse repair. 19:58 CT scan negative for acute findings, shows edema at the rectosigmoid colon, consistent with her prolapse. I will have her discontinue her medications that were given to her in the [place], and start her on Levaquin, Flagyl and refer to colorectal surgeon. Consultations Consultation #1: Leonieo Time: 17:52 Consultation #2: Alejandro Time: 18:00 Medications Administered Discontinued Medications Generic Name Dose Route Start Last Admin Trade Name Tamica PRN Reason Stop Dose Admin Ceftriaxone Sodium 1 gm/ 50 mls @ 100 mls/hr 03/11/22 16:21 03/11/22 18:48 Sodium Chloride IV 03/11/22 16:50 Infused ONCE ONE Infusion Medical Decision Making Differential Diagnosis Differential Diagnoses: The differential diagnosis associated with the presentation includes Prolapse, perforation, diverticulitis, colitis Admission/Observation Consideration of admission/observation: Escalation of care including admission/observation considered Admission considered if CT scan indicates perforation or emergent surgical complication Consult Healthcare Provider Management of the patient was discussed with: General Operator Alejandro Merino Lab Data MDM Lab Attestation statement: I reviewed the patient's lab results. Result Diagrams: 03/11/22 13:56 03/11/22 13:56 Labs: Lab Results 03/11/22 03/11/22 03/11/22 Range/Units 13:56 13:56 16:56 WBC 11.7 H (4.8-10.8) X10*3/uL RBC 5.03 (4.20-5.50) X10*6/uL Hgb 13.3 D (12.0-16.0) g/dl Hct 41.8 (37.0-47.0) % MCV 83.1 (80.0-98.0) fL MCH 26.4 L (27.0-33.0) pg MCHC 31.8 (31.0-35.0) g/dl RDW 19.2 H (11.0-16.0) % Plt Count 381 D (160-400) X10*3/uL MPV 8.3 L (9.4-12.3) fL Immature Gran % (Auto) 0.5 H (0.0-0.4) % Neut % (Auto) 63.0 (45-73) % Lymph % (Auto) 22.7 (20-40) % [place] % (Auto) 10.0 (2-11) % Eos % (Auto) 3.1 (0-4) % Baso % (Auto) 0.7 (0-2) % Lymph # (Auto) 2.7 (1.2-4.9) X10*3/uL [place] # (Auto) 1.2 (0.1-1.2) X10*3/uL Eos # (Auto) 0.4 (0.0-0.4) X10*3/uL Baso # (Auto) 0.1 (0.0-0.2) X10*3/uL Abs Immat Gran (auto) 0.06 H (0.00-0.03) X10*3/uL Absolute Neuts (auto) 7.4 (2.0-8.3) x10*3/uL Absolute Nucleated RBC 0.000 (0.0-0.012) X10*3/uL Nucleated RBC % (auto) 0.0 (0.0-0.2) /100WBC Sodium 135 (135-145) mmol/L Potassium 4.1 (3.3-5.1) mmol/L Chloride 100 (96-108) mmol/L Carbon Dioxide 26 (22-29) mmol/L Anion Gap 13 (12-20) BUN 16 (9-16) mg/dL Creatinine 1.03 (0.5-1.4) mg/dL Estim Creat Clear Calc 31.5 Estimated GFR 51 Random Glucose 123 H (60-115) mg/dL Lactic Acid 1.0 (0.5-2.0) mmol/L Calcium 9.2 (8.4-10.2) mg/dL Total Bilirubin 0.2 (0.0-1.0) mg/dL AST 29 (5-31) U/L ALT 29 (0-31) U/L Alkaline Phosphatase 66 (39-117) U/L Total Protein 6.6 (6.5-8.0) g/dL Albumin 3.8 (3.5-5.0) g/dL Radiology Impression Discussion of test interpretation with radiology: I have reviewed the radiologist's reading. Radiologist Impression: EXAMINATION: CT ABDOMEN AND PELVIS WITHOUT CONTRAST? CLINICAL INFORMATION: Rectal bleeding, prolapse? COMPARISON: 12/11/2020? TECHNIQUE: Multidetector volumetric imaging was performed from the superior aspect of the liver through the pubic symphysis. Sagittal and coronal reformatted images were obtained on the technologist's workstation.? This CT examination was performed using dose optimization techniques as appropriate, variously including the following: *Automated exposure control *Adjustment of mA and/or kV according to patient size (this includes techniques or standardized protocols for targeted exams where dose is matched to indication/reason for exam; i.e. extremities or head) *Use of iterative reconstruction technique DLP: 550? ?mGy-cm FINDINGS: LUNG BASES: Improving markings at the right base. There is some residual. Increasing left basilar atelectasis.? LIVER, GALLBLADDER, AND BILIARY TREE: The liver is normal in size, shape, and attenuation. No focal hepatic lesion or biliary ductal dilatation is present. Status post cholecystectomy? PANCREAS: Unremarkable.? SPLEEN: Unremarkable.? ADRENAL GLANDS: Unremarkable.? KIDNEYS AND URETERS: Once again area of high density in the lower pole the right kidney. This measures slightly larger than previous exam. 1.4 cm. This could represent hyperdense cyst. Ultrasound would be recommended to confirm versus a solid mass. Probable evolving cyst on the left. Lobulation in the left kidney There is no hydronephrosis in the kidneys? BLADDER: Unremarkable.? GASTROINTESTINAL TRACT: Rectal region appears thickened. There is significant diverticulosis here in the colon. No convincing evidence for diverticulitis. The appendix is within normal limits. Hiatal hernia is present. Overall nonobstructing bowel pattern. No free fluid.? ABDOMINAL WALL: No significant hernia is appreciated.? LYMPH NODES: Normal. VASCULAR: Atherosclerotic changes PELVIC VISCERA: Calcified uterine structure? OSSEOUS STRUCTURES: Degenerative changes in the spine.? CT/CT abdomen pelvis wo IV con IMPRESSION: The rectosigmoid mucosa does appear thickened and may be edematous. Underlying mass cannot be excluded. ? Otherwise significant diverticulosis in the colon but no convincing evidence for diverticulitis. Nonobstructing bowel pattern. ? Findings otherwise as described above. Mildly increasing hyperdense lesion lower pole right kidney may represent increasing hyperdense cysts. Ultrasound would be recommended to exclude a solid lesion ? Lobulated appearance to the left kidney. Again ultrasound may be helpful to further evaluate.? ? Fleischner guidelines were followed. Independent Historian Clinical information obtained from an independent historian. History obtained from or confirmed by: Other (Grandson) External Record Review External record reviewed: Inpatient record, Office record, Outside ED record and Other (Outside gastroenterology report, from the [place]) Prescription Management I considered prescription management with: Pain Medication and Antibiotic Chronic Conditions Patient?s care impacted by: Diabetes and Hypertension Discharge Plan Discharge Clinical Impression: Complete rectal prolapse Patient Disposition: Home, Self-Care Instructions: Rectal Prolapse (ED) Additional Instructions: Le evaluaron por prolapso rectal. Pudimos reducir el prolapso con mari soluci?n de agua helada con az?car. La tomograf?a computarizada del abdomen y la pelvis muestra algo de edema en el colon rectosigmoide que es consistente con carias prolapso. Por favor, deje de adrian los medicamentos que le recetaron mientras estuvo en la [place] los medicamentos Levaquin 750 mg al d?a ashley los pr?ximos 7 d?as y Flagyl 500 mg cada 8 horas ashley los pr?ximos 7 d?as. Utilice un ablandador de heces para ayudar a prevenir el estre?imiento. Seguimiento con el Dr. Ken?favian. ?l es un cirujano general del [facility]. Te he dado carias n?jeancarlos de tel?fono. Por favor llame y solicite mari tita. Tambi?n puede hacer un seguimiento con el Dr. Chi Epps. El Dr. Epps trabaja en [facility]. Tel?fono [phone]. Mathew por elegir sandie departamento de emergencias para carias evaluaci?n. Por favor, mariam un seguimiento con el m?dico de atenci?n primaria seg?n sea necesario. Regrese al departamento de emergencias por cualquier s?ntoma nuevo, preocupante o que empeore You were evaluated for rectal prolapse. We were able to reduce the prolapse with a sugar ice water solution. CT scan of the abdomen pelvis shows some edema to the rectosigmoid colon which is consistent with your prolapse. Please stop taking the medications that were prescribed to you while you were in the [facility]. Take medications Levaquin 750 mg daily for the next 7 days and Flagyl 500 mg every 8 hours for the next 7 days. Please use a stool softener to help prevent constipation. Follow-up with Dr. Hampton. He he is a general surgeon with [facility]. I have given you his phone number. Please call and request an appointment. You can also follow-up with Dr. Cih Epps. Dr Epps works out of [facility]. . Thank you for choosing this emergency department for evaluation. Please follow-up with primary care physician as needed. Return to the emergency department for any new, concerning, or worsening symptoms. Prescriptions: New levofloxacin 750 mg tablet 750 mg PO Q24H 7 Days Qty: 7 0RF metronidazole 500 mg tablet 500 mg PO Q8H 7 Days Qty: 21 0RF No Action Myrbetriq 50 mg Tablet Extended Release 24 Hr 50 mg PO DAILY calcium carbonate-vitamin D3 600 mg-5 mcg (200 unit) tablet 1 tab BID metformin 500 mg tablet 1 tab PO BID mirtazapine 15 mg Tablet 15 mg PO BEDTIME atorvastatin 40 mg Tablet 40 mg PO BEDTIME multivitamin Tablet 1 tab PO DAILY losartan 100 mg tablet 1 tab PO DAILY metoprolol tartrate 50 mg Tablet 50 mg PO BID Qty: 180 0RF Protocol: Hold for SBP/HR < HOLD for SBP < : 90 HOLD for HR < : 60 Rx Instructions: replaces prior dose of 25 mg twice daily ferrous sulfate 324 mg (65 mg iron) Tablet,Delayed Release (Dr/Ec) 324 mg PO DAILY Qty: 30 0RF nifedipine 60 mg tablet extended release 60 mg PO DAILY Qty: 90 0RF Rx Instructions: replaces prior dose of 30 mg daily omeprazole 40 mg Capsule,Delayed Release(Dr/Ec) 40 mg PO DAILY@0630 Qty: 90 0RF aspirin 81 mg Tablet,Chewable 81 mg PO DAILY Qty: 90 0RF Referrals: Abebe Hampton MD [Physician] - 3 days (Rectal prolapse) Interventions: ED Discharge Assessment Last Done: 03/11/22 20:38 Discharge Date/Time: 03/11/22 20:39
[2022-03-11] MEDS: cefTRIAXone sodium 1 GM in 0.9 % Sodium Chloride 50 ML IV (17:01)
[2022-03-11 17:57] VITALS: BP 142/60; PULSE 66; TEMP 36.9; O2SAT 95
--- NOTE | 2022-03-11 20:36 | PC.NURSE ---
Discharge instructions reviewed with pt. Pt verbalizes understanding.
== END 2022-03-11 20:39 | disposition home or self-care (01) ==
PROVIDERS: Nurse Practitioner Family; Emergency Provider Emergency Medicine; PCP Internal Medicine
DX: K62.3 Rectal prolapse (principal); R10.13 Epigastric pain; Z79.899 Other long term (current) drug therapy
CPT/HCPCS: 36415; 74176; 80053; 83605; 85025; 87040; 96365; 99284; J0696

== ENCOUNTER 2022-03-14 07:05 | Emergency (ER) | payer OTHER, SELFPAY ==
[2022-03-14 07:11] VITALS: BP 140/77; PULSE 70; O2SAT 99
[2022-03-14 07:13] VITALS: BP 120/67; PULSE 85; RESP 19; TEMP 36.6; O2SAT 98; BMI 23.3
--- NOTE | 2022-03-14 07:28 | ECG_ITS ---
Test Reason : Anal Prolapse Blood Pressure : / mmHG Vent. Rate : 060 BPM Atrial Rate : 060 BPM P-R Int : 174 ms QRS Dur : 086 ms QT Int : 438 ms P-R-T Axes : 053 -40 051 degrees QTc Int : 438 ms Normal sinus rhythm Left axis deviation Abnormal ECG When compared with ECG of 04-JAN-2022 09:50, Premature supraventricular complexes are no longer Present VA interval has decreased Referred By: Jimmy Haider Electronically Signed By:Jay Jones
[2022-03-14 07:51] LABS: MANUAL DIFF FLAG NO
[2022-03-14 07:57] LABS: Basophils Absolute Auto 0.1 X10*3/uL (0.0-0.2); Basophils Percent Auto 0.6 % (0-2); Eosinophils Absolute Auto 0.3 X10*3/uL (0.0-0.4); Eosinophils Percent Auto 2.6 % (0-4); Hematocrit 43.4 % (37.0-47.0); Hemoglobin 13.7 g/dl (12.0-16.0); Imm Gran Abs Auto 0.05 X10*3/uL (0.00-0.03); Imm Gran Pct Auto 0.4 % (0.0-0.4); Lymphocytes Absolute Auto 1.4 X10*3/uL (1.2-4.9); Lymphocytes Percent Auto 11.3 % (20-40); Mean Corpuscular HGB Conc 31.6 g/dl (31.0-35.0); Mean Corpuscular Hemoglobin 26.8 pg (27.0-33.0); Mean Corpuscular Volume 84.9 fL (80.0-98.0); Mean Platelet Volume 8.3 fL (9.4-12.3); Monocytes Absolute Auto 0.8 X10*3/uL (0.1-1.2); Monocytes Percent Auto 6.1 % (2-11); Neutrophils Absolute Auto 9.9 x10*3/uL (2.0-8.3); Platelet Count 418 X10*3/uL (160-400); Red Blood Count 5.11 X10*6/uL (4.20-5.50); Red Cell Distribution Width 19.2 % (11.0-16.0); White Blood Count 12.5 X10*3/uL (4.8-10.8)
--- NOTE | 2022-03-14 08:02 | ED.GENADULT ---
HPI - General Adult General Chief complaint: General Medical Stated complaint: WEAKNESS Time Seen by Provider: 03/14/22 07:27 Source: patient, family (Grandson), EMS and medical interpreter Mode of arrival: EMS Limitations: no limitations History of Present Illness HPI narrative: 87-year-old female presented with generalized weakness and syncopal episode. Patient recently travel to the [place] for a visit patient there had an episode of diarrhea and frequent use of the bathroom causing rectal prolapse patient had a recent colonoscopy in [facility] reportedly by the grandson showing proctitis and patient finished 1st course of antibiotic, patient has been having a rectal prolapse due to frequent BM, it is reducible by the patient and family. Last time patient was able to reduce the rectum was yesterday but today cannot reduce the rectum with more pain in the rectum, Patient was seen in the emergency department 3 days ago and was given levofloxacin/Flagyl for another 7 days. Patient has been feeling generalized weakness, lightheadedness, patient was going to the bathroom with the help of her son when she fainted witnessed by the son, patient did not fall down and was held by the son. Patient declined CP/SOB. Patient took Pepto-Bismol 3 days ago and she also take iron pills reportedly had a black stool today. Related Data Home Medications Medication Instructions Recorded Confirmed atorvastatin 40 mg tablet 40 mg PO BEDTIME 01/03/22 03/14/22 calcium carbonate 600 mg-vitamin 1 tab BID 01/03/22 03/14/22 D3 5 mcg (200 unit) tablet losartan 100 mg tablet 1 tab PO DAILY 01/03/22 03/14/22 metformin 500 mg tablet 1 tab PO BID 01/03/22 03/14/22 mirabegron 50 mg tablet,extended 50 mg PO DAILY 01/03/22 03/14/22 release 24 hr (Myrbetriq) mirtazapine 15 mg tablet 15 mg PO BEDTIME PRN Urinary 01/03/22 03/14/22 Retention multivitamin 1 tab PO DAILY 01/03/22 03/14/22 acetaminophen 650 mg 1 tab PO Q8H PRN pain 03/14/22 03/14/22 tablet,extended release (Arthritis Pain Relief (acetaminophen) ER) Previous Rx's Medication Instructions Recorded ferrous sulfate 324 mg (65 mg 324 mg PO DAILY #30 tabs 10/20/22 iron) tablet,delayed release metoprolol tartrate 50 mg tablet 50 mg PO BID #180 tabs 01/06/22 nifedipine 60 mg tablet,extended 60 mg PO DAILY #90 tabs 01/06/22 release omeprazole 40 mg capsule,delayed 40 mg PO DAILY@0630 #90 caps 01/06/22 release levofloxacin 750 mg tablet 750 mg PO Q24H 7 days #7 tabs 03/11/22 metronidazole 500 mg tablet 500 mg PO Q8H 7 days #21 tabs 03/11/22 Allergies Allergy/AdvReac Type Severity Reaction Status Date / Time guava [GUAVA] Allergy Unknown UNKNOWN Verified 01/03/22 16:15 nut - unspecified [NUTS] Allergy Unknown UNKNOWN Verified 01/03/22 16:15 sesame seed [SESAME SEED] Allergy Unknown UNKNOWN Verified 01/03/22 16:15 Review of Systems Review of Systems: All other systems are reviewed and are negative Constitutional: Reports as per HPI and Reports no additional constitutional complaints Eyes: Reports as per HPI and Reports no additional eye complaints Reports system reviewed and no additional complaints, except as documented Cardiovascular: Reports as per HPI and Reports no additional cardiovascular complaints Respiratory: Reports as per HPI and Reports no additional respiratory complaints Gastrointestinal: Reports as per HPI and Reports no additional gastrointestinal complaints Genitourinary: Reports no additional female genitourinary complaints Musculoskeletal: Reports no additional musculoskeletal complaints Skin/Breast: Reports system reviewed and no additional complaints, except as docu Psychiatric: Reports no additional psychiatric complaints Endocrine: Reports no additional endocrine complaints Hematologic/Lymphatic: Reports no additional hematologic/lymphatic complaints Allergic/Immunologic: Reports no additional allergic/immunologic complaints Reports system reviewed and no additional complaints, except as documented and Reports Abnormal speech present. FOR[facility]LY [facility] Past Medical History Medical History Chest pain Chronic epigastric pain Diabetes Gastritis HTN (hypertension) Neuropathy Uncontrolled hypertension Family History Family History Other Coronary artery disease Diabetes Social History Social History Alcohol intake: never Patient Tobacco Use Status: Never used Tobacco e-Cigarette/Vaping Use: Never Used Advance Directives: No Advance Directives Information Provided: No service: No Current occupational status: retired Physical Exam ED Vital Signs: Vital Signs - 24 hr 03/14/22 07:13 03/14/22 08:56 03/14/22 08:57 Temperature 98 F Pulse Rate 85 63 81 Respiratory Rate 19 Blood Pressure 120/67 128/71 119/77 Pulse Oximetry 98 Oxygen Delivery Method Room Air 03/14/22 10:31 03/14/22 12:21 Temperature 98.9 F Pulse Rate 58 77 Respiratory Rate 16 16 Blood Pressure 131/59 L 151/73 H Pulse Oximetry 96 96 Oxygen Delivery Method Room Air Room Air BMI result Body Mass Index 23.3 Vital signs have been reviewed as appeared to be correct. Blood pressure normal. Heart rate normal. Respiration rate normal. Temperature normal. Oxygen saturation normal. Appearance: Alert. Oriented X3. No acute distress. Head: Normal external exam. Normocephalic. Atraumatic. No Quigley signs noted. No raccoon eyes noted Eyes: PERRLA. EOMI. Conjunctiva and sclera normal. Eyelids normal. ENT: TM's Normal. Pharynx normal. Uvula midline. Moist mucous membranes. No trismus noted. No drooling noted. No muffled voice noted. Neck: Normal inspection. Neck supple. FROM. No adenopathy. Thyroid Normal. No meningeal signs. No neck mass noted. CVS: Normal heart rate and rhythm. Heart sound normal. No murmurs noted. Pulses normal throughout. Respiratory: No respiratory distress. Painless inspiration. Breath sounds normal. No wheezes/rales/rhonchi noted. Chest nontender. No accessory muscle usage noted or decreased air movement noted. Abdomen: Soft and nontender. Bowel sounds normal in all 4 quadrants. No distention noted. No organomegaly noted. No visible injury noted. Rectal exam: Rectal prolapse about 4 cm of the rectum is prolapsed slightly edematous easily reproducible. No active bleeding, black stool in the vault with guaiac positive. Back: No CVA tenderness. Full range of motion noted. Skin: Skin warm and dry. Normal skin color. Normal skin turgor. No rashes/lesions/lacerations noted. Extremities: No lower extremity edema. Extremities exhibit normal range of motion. Extremities nontender. Neuro: Oriented X 3. Cranial nerve exam: II-XII are grossly intact No motor deficit. No sensory deficit. Reflexes normal. Course Course Course Narrative: 87-year-old female came in for evaluation of syncope without falling and injury, having black stool (patient took Pepto-Bismol and also take iron pill) stool was positive for blood stable H&H, patient is orthostatic by symptoms in the emergency department, cardiac marker are unremarkable with no evidence of ACS. Extensive proctitis required 2 courses of antibiotics. Will admit the patient for further evaluation for possible GI bleed and also surgical consult for the rectal prolapse. Reevaluation(s) Reevaluation #1: General surgery was consulted input is appreciated strongly recommend to transfer the patient out were colorectal service is available after several attempts to transfer the patient to [facility] or [facility] patient only accepted to [facility] ED accepted by Dr. Scherer. We will cancel the admission to [facility] and transfer out to [facility]. Time: 13:35 Medical Decision Making Differential Diagnosis Differential Diagnoses: The differential diagnosis associated with the presentation includes (Syncope, ACS, GI bleed, anemia, proctitis, complicated rectal prolapse.) Admission/Observation Consideration of admission/observation: Escalation of care including admission/observation considered Consult Healthcare Provider Management of the patient was discussed with: Hospitalist Lab Data MDM Lab Attestation statement: I reviewed the patient's lab results. Result Diagrams: 03/14/22 07:46 03/14/22 07:46 Labs: Lab Results 03/14/22 03/14/22 03/14/22 Range/Units 07:46 07:46 07:46 WBC 12.5 H (4.8-10.8) X10*3/uL RBC 5.11 (4.20-5.50) X10*6/uL Hgb 13.7 (12.0-16.0) g/dl Hct 43.4 (37.0-47.0) % MCV 84.9 (80.0-98.0) fL MCH 26.8 L (27.0-33.0) pg MCHC 31.6 (31.0-35.0) g/dl RDW 19.2 H (11.0-16.0) % Plt Count 418 H (160-400) X10*3/uL MPV 8.3 L (9.4-12.3) fL Immature Gran % (Auto) 0.4 (0.0-0.4) % Neut % (Auto) 79.0 H (45-73) % Lymph % (Auto) 11.3 L (20-40) % [place] % (Auto) 6.1 (2-11) % Eos % (Auto) 2.6 (0-4) % Baso % (Auto) 0.6 (0-2) % Lymph # (Auto) 1.4 (1.2-4.9) X10*3/uL [place] # (Auto) 0.8 (0.1-1.2) X10*3/uL Eos # (Auto) 0.3 (0.0-0.4) X10*3/uL Baso # (Auto) 0.1 (0.0-0.2) X10*3/uL Abs Immat Gran (auto) 0.05 H (0.00-0.03) X10*3/uL Absolute Neuts (auto) 9.9 H (2.0-8.3) x10*3/uL Absolute Nucleated RBC 0.000 (0.0-0.012) X10*3/uL Nucleated RBC % (auto) 0.0 (0.0-0.2) /100WBC Sodium 133 L (135-145) mmol/L Potassium 5.0 D (3.3-5.1) mmol/L Chloride 101 (96-108) mmol/L Carbon Dioxide 23 (22-29) mmol/L Anion Gap 14 (12-20) BUN 16 (9-16) mg/dL Creatinine 1.02 (0.5-1.4) mg/dL Estim Creat Clear Calc 31.9 Estimated GFR 52 POC Glucose (60-115) mg/dL Random Glucose 170 H (60-115) mg/dL Calcium 9.1 (8.4-10.2) mg/dL Total Bilirubin 0.2 (0.0-1.0) mg/dL Direct Bilirubin < 0.2 (0.0-0.5) mg/dL AST 34 H (5-31) U/L ALT 28 (0-31) U/L Alkaline Phosphatase 52 (39-117) U/L Troponin I High Sens < 2.7 D (<3.5-17.0) ng/L C-Reactive Protein 0.10 (< or = 0.50) mg/dL B-Natriuretic Peptide (<100) pg/mL Total Protein 6.5 (6.5-8.0) g/dL Albumin 3.4 L (3.5-5.0) g/dL Lipase 41 (8-78) U/L Stool Occult Blood (NEGATIVE) Influenza Type A (PCR) (Negative) Influenza Type B (PCR) (Negative) RSV RNA Qual (PCR) (Negative) SARS-CoV-2 RNA (RT-PCR) (Negative) Blood Type Antibody Screen 03/14/22 03/14/22 03/14/22 Range/Units 07:46 07:46 08:07 WBC (4.8-10.8) X10*3/uL RBC (4.20-5.50) X10*6/uL Hgb (12.0-16.0) g/dl Hct (37.0-47.0) % MCV (80.0-98.0) fL MCH (27.0-33.0) pg MCHC (31.0-35.0) g/dl RDW (11.0-16.0) % Plt Count (160-400) X10*3/uL MPV (9.4-12.3) fL Immature Gran % (Auto) (0.0-0.4) % Neut % (Auto) (45-73) % Lymph % (Auto) (20-40) % [place] % (Auto) (2-11) % Eos % (Auto) (0-4) % Baso % (Auto) (0-2) % Lymph # (Auto) (1.2-4.9) X10*3/uL [place] # (Auto) (0.1-1.2) X10*3/uL Eos # (Auto) (0.0-0.4) X10*3/uL Baso # (Auto) (0.0-0.2) X10*3/uL Abs Immat Gran (auto) (0.00-0.03) X10*3/uL Absolute Neuts (auto) (2.0-8.3) x10*3/uL Absolute Nucleated RBC (0.0-0.012) X10*3/uL Nucleated RBC % (auto) (0.0-0.2) /100WBC Sodium (135-145) mmol/L Potassium (3.3-5.1) mmol/L Chloride (96-108) mmol/L Carbon Dioxide (22-29) mmol/L Anion Gap (12-20) BUN (9-16) mg/dL Creatinine (0.5-1.4) mg/dL Estim Creat Clear Calc Estimated GFR POC Glucose (60-115) mg/dL Random Glucose (60-115) mg/dL Calcium (8.4-10.2) mg/dL Total Bilirubin (0.0-1.0) mg/dL Direct Bilirubin (0.0-0.5) mg/dL AST (5-31) U/L ALT (0-31) U/L Alkaline Phosphatase (39-117) U/L Troponin I High Sens (<3.5-17.0) ng/L C-Reactive Protein (< or = 0.50) mg/dL B-Natriuretic Peptide 31 (<100) pg/mL Total Protein (6.5-8.0) g/dL Albumin (3.5-5.0) g/dL Lipase (8-78) U/L Stool Occult Blood POSITIVE (NEGATIVE) Influenza Type A (PCR) NEGATIVE (Negative) Influenza Type B (PCR) NEGATIVE (Negative) RSV RNA Qual (PCR) NEGATIVE (Negative) SARS-CoV-2 RNA (RT-PCR) NEGATIVE (Negative) Blood Type Antibody Screen 03/14/22 03/14/22 Range/Units 10:43 12:20 WBC (4.8-10.8) X10*3/uL RBC (4.20-5.50) X10*6/uL Hgb (12.0-16.0) g/dl Hct (37.0-47.0) % MCV (80.0-98.0) fL MCH (27.0-33.0) pg MCHC (31.0-35.0) g/dl RDW (11.0-16.0) % Plt Count (160-400) X10*3/uL MPV (9.4-12.3) fL Immature Gran % (Auto) (0.0-0.4) % Neut % (Auto) (45-73) % Lymph % (Auto) (20-40) % [place] % (Auto) (2-11) % Eos % (Auto) (0-4) % Baso % (Auto) (0-2) % Lymph # (Auto) (1.2-4.9) X10*3/uL [place] # (Auto) (0.1-1.2) X10*3/uL Eos # (Auto) (0.0-0.4) X10*3/uL Baso # (Auto) (0.0-0.2) X10*3/uL Abs Immat Gran (auto) (0.00-0.03) X10*3/uL Absolute Neuts (auto) (2.0-8.3) x10*3/uL Absolute Nucleated RBC (0.0-0.012) X10*3/uL Nucleated RBC % (auto) (0.0-0.2) /100WBC Sodium (135-145) mmol/L Potassium (3.3-5.1) mmol/L Chloride (96-108) mmol/L Carbon Dioxide (22-29) mmol/L Anion Gap (12-20) BUN (9-16) mg/dL Creatinine (0.5-1.4) mg/dL Estim Creat Clear Calc Estimated GFR POC Glucose 200 H (60-115) mg/dL Random Glucose (60-115) mg/dL Calcium (8.4-10.2) mg/dL Total Bilirubin (0.0-1.0) mg/dL Direct Bilirubin (0.0-0.5) mg/dL AST (5-31) U/L ALT (0-31) U/L Alkaline Phosphatase (39-117) U/L Troponin I High Sens (<3.5-17.0) ng/L C-Reactive Protein (< or = 0.50) mg/dL B-Natriuretic Peptide (<100) pg/mL Total Protein (6.5-8.0) g/dL Albumin (3.5-5.0) g/dL Lipase (8-78) U/L Stool Occult Blood (NEGATIVE) Influenza Type A (PCR) (Negative) Influenza Type B (PCR) (Negative) RSV RNA Qual (PCR) (Negative) SARS-CoV-2 RNA (RT-PCR) (Negative) Blood Type B Positive Antibody Screen NEGATIVE Independent Interpretation I performed an independent interpretation of an: EKG (Normal sinus rhythm at 60 beats per minutes, left axis deviation, normal intervals, no ST-T changes.), Plain X-Ray (Chest: No acute finding.) and CT Scan (Head: No acute intracranial pathology per) Radiology Impression Discussion of test interpretation with radiology: I have reviewed the radiologist's reading. Discharge Plan Discharge Clinical Impression: Rectal prolapse, Acute proctitis, Syncope and collapse, Episode of generalized weakness Patient Disposition: [facility] Transfer Details: [facility] Emergency Department. Prescriptions: No Action levofloxacin 750 mg tablet 750 mg PO Q24H 7 Days Qty: 7 0RF metronidazole 500 mg tablet 500 mg PO Q8H 7 Days Qty: 21 0RF acetaminophen [Arthritis Pain Relief (acetam)] 650 mg tablet extended release 1 tab PO Q8H PRN (Reason: pain) Myrbetriq 50 mg Tablet Extended Release 24 Hr 50 mg PO DAILY calcium carbonate-vitamin D3 600 mg-5 mcg (200 unit) tablet 1 tab BID metformin 500 mg tablet 1 tab PO BID mirtazapine 15 mg Tablet 15 mg PO BEDTIME PRN (Reason: Urinary Retention) atorvastatin 40 mg Tablet 40 mg PO BEDTIME multivitamin Tablet 1 tab PO DAILY losartan 100 mg tablet 1 tab PO DAILY metoprolol tartrate 50 mg Tablet 50 mg PO BID Qty: 180 0RF Protocol: Hold for SBP/HR < HOLD for SBP < : 90 HOLD for HR < : 60 Rx Instructions: replaces prior dose of 25 mg twice daily ferrous sulfate 324 mg (65 mg iron) Tablet,Delayed Release (Dr/Ec) 324 mg PO DAILY Qty: 30 0RF nifedipine 60 mg tablet extended release 60 mg PO DAILY Qty: 90 0RF Rx Instructions: replaces prior dose of 30 mg daily omeprazole 40 mg Capsule,Delayed Release(Dr/Ec) 40 mg PO DAILY@0630 Qty: 90 0RF
[2022-03-14 08:19] LABS: OBS Int Ctl Valid YES; OBS1 POSITIVE (NEGATIVE)
[2022-03-14 08:26] LABS: Alanine Aminotransferase 28 U/L (0-31); Albumin Level 3.4 g/dL (3.5-5.0); Alkaline Phosphatase 52 U/L (39-117); Anion Gap 14 (12-20); Aspartate Amino Transferase 34 U/L (5-31); Bilirubin Direct < 0.2 mg/dL (0.0-0.5); Bilirubin Total 0.2 mg/dL (0.0-1.0); Blood Urea Nitrogen 16 mg/dL (9-16); Calcium 9.1 mg/dL (8.4-10.2); Carbon Dioxide 23 mmol/L (22-29); Chloride 101 mmol/L (96-108); Creatinine Clr Calc Pharmacy 31.9; Estimated Glomerular Filt Rate 52; Glucose Random 170 mg/dL (60-115); Lipase 41 U/L (8-78); Sodium 133 mmol/L (135-145); Total Protein 6.5 g/dL (6.5-8.0)
[2022-03-14 08:34] LABS: Influenza A PCR NEGATIVE (Negative); Influenza B PCR NEGATIVE (Negative); Resp Syncy Virus RNA Qual PCR NEGATIVE (Negative); SARS COV2 PCR INHOUSE NEGATIVE (Negative)
[2022-03-14 08:46] LABS: B Type Natriuretic Peptide 31 pg/mL (<100)
[2022-03-14 08:53] LABS: Troponin-I High Sensitivity < 2.7 ng/L (<3.5-17.0)
[2022-03-14 08:56] VITALS: BP 128/71; PULSE 63
[2022-03-14 08:57] VITALS: BP 119/77; PULSE 81
[2022-03-14 10:31] VITALS: BP 131/59; PULSE 58; RESP 16; O2SAT 96
--- NOTE | 2022-03-14 10:32 | PHA.MEDREC ---
Pharmacy Consult ? Medication Reconciliation Pharmacy has completed the medication reconciliation. Utilized editorial clerk to speak with patient and patient's son. Patient reported she no longer takes aspirin. Patient's son confirmed all medications. Xiao Ruiz, PharmD
--- NOTE | 2022-03-14 11:43 | PM.CNGS ---
History of Present Illness Consult details Consult date: 03/14/22 Narrative: 87-year-old female presented with generalized weakness and syncopal episode. Patient recently travel to the [place] for a visit patient there had an episode of diarrhea and frequent use of the bathroom causing rectal prolapse patient had a recent colonoscopy in [facility] reportedly by the grandson showing proctitis and patient finished 1st course of antibiotic, patient has been having a rectal prolapse due to frequent BM, it is reducible by the patient and family.? Patient was seen in the emergency department 3 days ago and was given levofloxacin/Flagyl for another 7 days.? Patient has been feeling generalized weakness, lightheadedness, patient was going to the bathroom with the help of her son when she fainted witnessed by the son, patient did not fall down and was held by the son. I had previously been asked to help manage this case on 03/11/2022 by Freda Gaspar and explained that this is beyond my surgical skills and our colorectal surgeon is on vacation until after new years. I recommended transfer to a colorectal surgeon. Review of Systems Review of Systems: Yes all other systems are reviewed and are negative Constitutional: Constitutional: Reports as per HPI [facility] Past Medical History Medical History Chest pain Chronic epigastric pain Diabetes Gastritis HTN (hypertension) Neuropathy Uncontrolled hypertension Family History Family History Other Coronary artery disease Diabetes Social History Social History Alcohol intake: never Patient Tobacco Use Status: Never used Tobacco e-Cigarette/Vaping Use: Never Used Advance Directives: No Advance Directives Information Provided: No service: No Current occupational status: retired Meds Allergies Allergy/AdvReac Type Severity Reaction Status Date / Time guava [GUAVA] Allergy Unknown UNKNOWN Verified 01/03/22 16:15 nut - unspecified [NUTS] Allergy Unknown UNKNOWN Verified 01/03/22 16:15 sesame seed [SESAME SEED] Allergy Unknown UNKNOWN Verified 01/03/22 16:15 Active Medications: Current Medications Dextrose (Dextrose 50 % 25 Gm/50 Ml Syringe) 25 gm IVPUSH Q15M PRN; Protocol PRN Reason: per Hypoglycemia Standing Ord. Glucose (Glucose Gel 15 Gm Gel..Gram.) 15 gm PO Q15M PRN; Protocol PRN Reason: per Hypoglycemia Standing Ord. Home Medications Medication Instructions Recorded Confirmed Last Taken Type atorvastatin 40 mg tablet 40 mg PO BEDTIME 01/03/22 03/14/22 03/13/22 History calcium carbonate 600 mg-vitamin 1 tab BID 01/03/22 03/14/22 03/13/22 History D3 5 mcg (200 unit) tablet losartan 100 mg tablet 1 tab PO DAILY 01/03/22 03/14/22 03/13/22 History metformin 500 mg tablet 1 tab PO BID 01/03/22 03/14/22 03/13/22 History mirabegron 50 mg tablet,extended 50 mg PO DAILY 01/03/22 03/14/22 03/13/22 History release 24 hr (Myrbetriq) mirtazapine 15 mg tablet 15 mg PO BEDTIME PRN Urinary 01/03/22 03/14/22 03/13/22 History Retention multivitamin 1 tab PO DAILY 01/03/22 03/14/22 03/13/22 History acetaminophen 650 mg 1 tab PO Q8H PRN pain 03/14/22 03/14/22 03/13/22 History tablet,extended release (Arthritis Pain Relief (acetaminophen) ER) Physical Exam Vital Signs: Vital Signs: Last Vital Signs Temp 98 F 03/14/22 07:13 Pulse 58 03/14/22 10:31 Resp 16 03/14/22 10:31 BP 131/59 L 03/14/22 10:31 Pulse Ox 96 03/14/22 10:31 O2 Del Method 03/14/22 10:31 BMI result Body Mass Index 23.3 The patient is nontoxic With the patient in right lateral decubitus position, edematous but viable pink rectal mucosa in a circumferential prolapse that is not reducible is noted. Results Labs Result diagrams: 03/14/22 07:46 03/14/22 07:46 Labs: Abnormal lab results 03/14/22 03/14/22 Range/Units 07:46 07:46 WBC 12.5 H (4.8-10.8) X10*3/uL MCH 26.8 L (27.0-33.0) pg RDW 19.2 H (11.0-16.0) % Plt Count 418 H (160-400) X10*3/uL MPV 8.3 L (9.4-12.3) fL Neut % (Auto) 79.0 H (45-73) % Lymph % (Auto) 11.3 L (20-40) % Abs Immat Gran (auto) 0.05 H (0.00-0.03) X10*3/uL Absolute Neuts (auto) 9.9 H (2.0-8.3) x10*3/uL Sodium 133 L (135-145) mmol/L Random Glucose 170 H (60-115) mg/dL AST 34 H (5-31) U/L Albumin 3.4 L (3.5-5.0) g/dL Short CBC 03/14/22 Range/Units 07:46 WBC 12.5 H (4.8-10.8) X10*3/uL Hgb 13.7 (12.0-16.0) g/dl Hct 43.4 (37.0-47.0) % Plt Count 418 H (160-400) X10*3/uL BMP 03/14/22 07:46 Sodium 133 L Potassium 5.0 D Chloride 101 Carbon Dioxide 23 BUN 16 Creatinine 1.02 Calcium 9.1 Liver Function 03/14/22 Range/Units 07:46 Total Bilirubin 0.2 (0.0-1.0) mg/dL Direct Bilirubin < 0.2 (0.0-0.5) mg/dL AST 34 H (5-31) U/L ALT 28 (0-31) U/L Alkaline Phosphatase 52 (39-117) U/L Albumin 3.4 L (3.5-5.0) g/dL All other labs normal. Assessment and Plan (1) Rectal prolapse: Status: Acute (2) Acute proctitis: Status: Acute (3) Syncope and collapse: Status: Acute (4) Episode of generalized weakness: Status: Acute Plan I spoke with the hospitalist and explained that I cannot help with the rectal prolapse. I have recommended evaluation by a colorectal surgeon. Alternately, discussion with Dr. Wilcox tomorrow is the other option, however I cannot speak for what he is capable of providing to the patient. Our colorectal surgeon is on vacation until after the new year. Thank you for asking me to participate in her care. Time Spent With Patient Time: Total time managing care of this patient today ____ minutes. Procedures Date of Service Date of Service: 03/14/22
[2022-03-14 12:21] VITALS: BP 151/73; PULSE 77; RESP 16; TEMP 37.2; O2SAT 96
== END 2022-03-14 14:12 | disposition short-term general hospital (02) ==
PROVIDERS: Emergency Provider Emergency Medicine
DX: K62.3 Rectal prolapse (principal); K62.89 Other specified diseases of anus and rectum; R55 Syncope and collapse; R53.1 Weakness; Z20.828 Contact with and (suspected) exposure to other viral communicable diseases; E11.9 Type 2 diabetes mellitus without complications; I10 Essential (primary) hypertension; Z79.899 Other long term (current) drug therapy; Z79.84 Long term (current) use of oral hypoglycemic drugs
CPT/HCPCS: 0241U; 36415; 70450; 71045; 80048; 80076; 82272; 82947; 83690; 83880; 84484; 85025; 86140; 86850; 86900; 86901; 93005; 99285

== ENCOUNTER 2022-12-13 18:36 | Emergency (ER) | payer OTHER, SELFPAY ==
--- NOTE | 2022-12-13 18:39 | ECG_ITS ---
Test Reason : IRREGULAR HEARTBEAT Blood Pressure : / mmHG Vent. Rate : 087 BPM Atrial Rate : 087 BPM P-R Int : 200 ms QRS Dur : 078 ms QT Int : 376 ms P-R-T Axes : 070 -37 051 degrees QTc Int : 452 ms Sinus rhythm with marked sinus arrhythmia with occasional Premature ventricular complexes Left axis deviation Abnormal ECG When compared with ECG of 14-MAR-2022 08:44, Premature ventricular complexes are now Present Referred By: Omkar Dominguez Electronically Signed By:NATASHA STEANRS
[2022-12-13 18:57] VITALS: BP 146/83; PULSE 85; RESP 18; TEMP 36.8; O2SAT 99; BMI 22.9
--- NOTE | 2022-12-13 18:58 | ED.GENADULT ---
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 have basic checkup noticed patient had a irregular heartbeats thought atrial fibrillation hence sent the patient to the ER patient did not feel anything different no dizziness no chest pain no syncope episode patient does have some burning sensation in the chest which is going on for long time secondary to GERD Related Data Home Medications Medication Instructions Recorded Confirmed atorvastatin 40 mg tablet 40 mg PO BEDTIME 01/03/22 03/14/22 calcium carbonate 600 mg-vitamin 1 tab BID 01/03/22 03/14/22 D3 5 mcg (200 unit) tablet losartan 100 mg tablet 1 tab PO DAILY 01/03/22 03/14/22 metformin 500 mg tablet 1 tab PO BID 01/03/22 03/14/22 mirabegron 50 mg tablet,extended 50 mg PO DAILY 01/03/22 03/14/22 release 24 hr (Myrbetriq) mirtazapine 15 mg tablet 15 mg PO BEDTIME PRN Urinary 01/03/22 03/14/22 Retention multivitamin 1 tab PO DAILY 01/03/22 03/14/22 acetaminophen 650 mg 1 tab PO Q8H PRN pain 03/14/22 03/14/22 tablet,extended release (Arthritis Pain Relief (acetaminophen) ER) Previous Rx's Medication Instructions Recorded ferrous sulfate 324 mg (65 mg 324 mg PO DAILY #30 tabs 01/06/22 iron) tablet,delayed release metoprolol tartrate 50 mg tablet 50 mg PO BID #180 tabs 01/06/22 nifedipine 60 mg tablet,extended 60 mg PO DAILY #90 tabs 01/06/22 release omeprazole 40 mg capsule,delayed 40 mg PO DAILY@0630 #90 caps 01/06/22 release levofloxacin 750 mg tablet 750 mg PO Q24H 7 days #7 tabs 03/11/22 metronidazole 500 mg tablet 500 mg PO Q8H 7 days #21 tabs 03/11/22 Allergies Allergy/AdvReac Type Severity Reaction Status Date / Time guava [GUAVA] Allergy Unknown UNKNOWN Verified 01/03/22 16:15 nut - unspecified [NUTS] Allergy Unknown UNKNOWN Verified 01/03/22 16:15 sesame seed [SESAME SEED] Allergy Unknown UNKNOWN Verified 01/03/22 16:15 Review of Systems Review of Systems: Yes all other systems are reviewed and are negative [facility] Past Medical History Medical History Chronic epigastric pain Uncontrolled hypertension Chest pain Gastritis Neuropathy HTN (hypertension) Diabetes Family History Family History Other Coronary artery disease Diabetes Social History Social History Alcohol intake: never Patient Tobacco Use Status: Never used Tobacco e-Cigarette/Vaping Use: Never Used Use of substances other than those prescribed or required for medical reasons: No Advance Directives: No Advance Directives Information Provided: Yes service: No Current occupational status: retired Physical Exam ED Vital Signs: Vital Signs - 24 hr 12/13/22 18:57 12/13/22 20:31 12/13/22 22:06 Temperature 98.3 F 97.8 F 97.8 F Pulse Rate 85 93 72 Respiratory Rate 18 15 16 Blood Pressure 146/83 H 190/94 H 174/71 H Pulse Oximetry 99 99 98 Oxygen Delivery Method Room Air Room Air Room Air BMI result Body Mass Index 22.9 Appearance: Alert. Oriented X3. No acute distress. ENT: Pharynx normal. Oral Mucosa moist Neck: Normal inspection. Neck supple. CVS: Normal heart rate and rhythm. Premature beats+ Pulses normal. Respiratory: No respiratory distress. Equal air entry bilateral, no wheezing/rales/rhonchi Abdomen: Soft and nontender. Bowel sounds are present, no mass palpable, no CVA tenderness Skin: Skin warm and dry. Normal skin color. Normal skin turgor. Extremities: No lower extremity edema. No calf tenderness Neuro: Oriented X 3. No motor deficit. No sensory deficit.No cerebellar signs , cranial nerves II-XII intact Course Course Course Narrative: This is an RME: Additional HPI, ROS, PE not included below will be deferred to primary provider. 87 yo f presents w/ concerns of abnml ekg home provider was concerned for new onset afib not on thinners. Reports increased anxiety no CP or SOB Plan- labs, ekg Medical Decision Making Medical Decision Making [facility] Narrative: Patient EKG showed normal sinus rhythm with PACs and PVCs had a previous echo last year which was normal LV functions patient asymptomatic with any arrhythmias advised to follow with PCP to have Holter monitoring if patient is symptomatic Differential Diagnosis Differential Diagnoses: The differential diagnosis associated with the presentation includes Atrial fibrillation/PVCs/PACs Lab Data [facility] Lab Attestation statement: I reviewed the patient's lab results. 12/13/22 18:55 12/13/22 18:55 Labs: Lab Results 12/13/22 Range/Units 18:55 WBC 9.5 (4.8-10.8) X10*3/uL RBC 4.49 (4.20-5.50) X10*6/uL Hgb 12.1 (12.0-16.0) g/dl Hct 38.8 (37.0-47.0) % MCV 86.4 (80.0-98.0) fL MCH 26.9 L (27.0-33.0) pg MCHC 31.2 (31.0-35.0) g/dl RDW 16.8 H (11.0-16.0) % Plt Count 291 D (160-400) X10*3/uL MPV 9.4 (9.4-12.3) fL Immature Gran % (Auto) 0.2 (0.0-0.4) % Neut % (Auto) 63.3 (45-73) % Lymph % (Auto) 23.1 (20-40) % [place] % (Auto) 10.0 (2-11) % Eos % (Auto) 2.6 (0-4) % Baso % (Auto) 0.8 (0-2) % Lymph # (Auto) 2.2 (1.2-4.9) X10*3/uL [place] # (Auto) 1.0 (0.1-1.2) X10*3/uL Eos # (Auto) 0.3 (0.0-0.4) X10*3/uL Baso # (Auto) 0.1 (0.0-0.2) X10*3/uL Abs Immat Gran (auto) 0.02 (0.00-0.03) X10*3/uL Absolute Neuts (auto) 6.0 (2.0-8.3) x10*3/uL Absolute Nucleated RBC 0.000 (0.0-0.012) X10*3/uL Nucleated RBC % (auto) 0.0 (0.0-0.2) /100WBC Sodium 135 (135-145) mmol/L Potassium 3.9 D (3.3-5.1) mmol/L Chloride 102 (96-108) mmol/L Carbon Dioxide 23 (22-29) mmol/L Anion Gap 14 (12-20) BUN 20 H (9-16) mg/dL Creatinine 0.80 (0.5-1.4) mg/dL Estim Creat Clear Calc 40.6 Estimated GFR > 60 Random Glucose 114 (60-115) mg/dL Calcium 9.7 D (8.4-10.2) mg/dL Magnesium 1.7 (1.6-2.6) mg/dL Total Bilirubin 0.3 (0.0-1.0) mg/dL AST 21 (5-31) U/L ALT 19 (0-31) U/L Alkaline Phosphatase 72 (39-117) U/L Troponin I High Sens 3.1 (<3.5-17.0) ng/L Total Protein 7.5 (6.5-8.0) g/dL Albumin 4.3 (3.5-5.0) g/dL Discharge Plan Discharge Clinical Impression: Ventricular premature beats, Sinus arrhythmia Patient Disposition: Home, Self-Care Instructions: Premature Ventricular Contractions (ED), Premature Atrial Contractions (ED) Additional Instructions: Your regular heartbeats is from premature beat which at this time not life-threatening Report to the ER if passing-out episode/chest pain Follow with PCP for further management including Holter placement Prescriptions: No Action levofloxacin 750 mg tablet 750 mg PO Q24H 7 Days Qty: 7 0RF metronidazole 500 mg tablet 500 mg PO Q8H 7 Days Qty: 21 0RF acetaminophen [Arthritis Pain Relief (acetam)] 650 mg tablet extended release 1 tab PO Q8H PRN (Reason: pain) Myrbetriq 50 mg Tablet Extended Release 24 Hr 50 mg PO DAILY calcium carbonate-vitamin D3 600 mg-5 mcg (200 unit) tablet 1 tab BID metformin 500 mg tablet 1 tab PO BID mirtazapine 15 mg Tablet 15 mg PO BEDTIME PRN (Reason: Urinary Retention) atorvastatin 40 mg Tablet 40 mg PO BEDTIME multivitamin Tablet 1 tab PO DAILY losartan 100 mg tablet 1 tab PO DAILY metoprolol tartrate 50 mg Tablet 50 mg PO BID Qty: 180 0RF Protocol: Hold for SBP/HR < HOLD for SBP < : 90 HOLD for HR < : 60 Rx Instructions: replaces prior dose of 25 mg twice daily ferrous sulfate 324 mg (65 mg iron) Tablet,Delayed Release (Dr/Ec) 324 mg PO DAILY Qty: 30 0RF nifedipine 60 mg tablet extended release 60 mg PO DAILY Qty: 90 0RF Rx Instructions: replaces prior dose of 30 mg daily omeprazole 40 mg Capsule,Delayed Release(Dr/Ec) 40 mg PO DAILY@0630 Qty: 90 0RF Interventions: ED Discharge Assessment Last Done: 12/13/22 22:14 Discharge Date/Time: 12/13/22 22:20
[2022-12-13 19:04] LABS: MANUAL DIFF FLAG NO
[2022-12-13 19:06] LABS: Basophils Absolute Auto 0.1 X10*3/uL (0.0-0.2); Basophils Percent Auto 0.8 % (0-2); Eosinophils Absolute Auto 0.3 X10*3/uL (0.0-0.4); Eosinophils Percent Auto 2.6 % (0-4); Hematocrit 38.8 % (37.0-47.0); Hemoglobin 12.1 g/dl (12.0-16.0); Imm Gran Abs Auto 0.02 X10*3/uL (0.00-0.03); Imm Gran Pct Auto 0.2 % (0.0-0.4); Lymphocytes Absolute Auto 2.2 X10*3/uL (1.2-4.9); Lymphocytes Percent Auto 23.1 % (20-40); Mean Corpuscular HGB Conc 31.2 g/dl (31.0-35.0); Mean Corpuscular Hemoglobin 26.9 pg (27.0-33.0); Mean Corpuscular Volume 86.4 fL (80.0-98.0); Mean Platelet Volume 9.4 fL (9.4-12.3); Neutrophils Percent Auto 63.3 % (45-73); Platelet Count 291 X10*3/uL (160-400); Red Blood Count 4.49 X10*6/uL (4.20-5.50); Red Cell Distribution Width 16.8 % (11.0-16.0); White Blood Count 9.5 X10*3/uL (4.8-10.8)
[2022-12-13 19:20] LABS: Alanine Aminotransferase 19 U/L (0-31); Albumin Level 4.3 g/dL (3.5-5.0); Alkaline Phosphatase 72 U/L (39-117); Anion Gap 14 (12-20); Aspartate Amino Transferase 21 U/L (5-31); Bilirubin Total 0.3 mg/dL (0.0-1.0); Blood Urea Nitrogen 20 mg/dL (9-16); Calcium 9.7 mg/dL (8.4-10.2); Carbon Dioxide 23 mmol/L (22-29); Chloride 102 mmol/L (96-108); Creatinine Clr Calc Pharmacy 40.6; Estimated Glomerular Filt Rate > 60; Glucose Random 114 mg/dL (60-115); Magnesium 1.7 mg/dL (1.6-2.6); Potassium 3.9 mmol/L (3.3-5.1); Sodium 135 mmol/L (135-145); Total Protein 7.5 g/dL (6.5-8.0)
[2022-12-13 19:27] LABS: Troponin-I High Sensitivity 3.1 ng/L (<3.5-17.0)
[2022-12-13 20:31] VITALS: BP 190/94; PULSE 81; PULSE 93; RESP 15; TEMP 36.6; O2SAT 99
[2022-12-13 22:06] VITALS: BP 174/71; PULSE 72; RESP 16; TEMP 36.6; O2SAT 98
== END 2022-12-13 22:20 | disposition home or self-care (01) ==
PROVIDERS: Physician Assistant; Emergency Provider Internal Medicine
DX: I49.9 Cardiac arrhythmia, unspecified (principal); I49.40 Unspecified premature depolarization; Z79.899 Other long term (current) drug therapy
CPT/HCPCS: 36415; 80053; 83735; 84484; 85025; 93005; 99283; 99285

== ENCOUNTER 2024-05-04 10:09 | Emergency (ER) | payer OTHER, SELFPAY ==
--- NOTE | ~2024-05-04 | XR_ITS ---
CLINICAL HISTORY: chest pain 2 view chest x-ray. Comparison: CR/SR - XR CHEST 1V - 03/14/22 07:34 EST Findings: The lungs are adequately expanded. No focal consolidation. No effusion or pneumothorax. Chronic linear changes of the left lung base. Cardiac and mediastinal contours are stable. No acute osseous abnormality. Impression: No acute process. This document has been electronically signed by: Antonio Adame MD on 05/04/2024 13:37:41
--- NOTE | 2024-05-04 10:12 | ECG_ITS ---
Test Reason : CHEST PAIN Blood Pressure : */* mmHG Vent. Rate : 67 BPM Atrial Rate : 67 BPM P-R Int : 224 ms QRS Dur : 72 ms QT Int : 396 ms P-R-T Axes : 56 -37 31 degrees QTcB Int : 418 ms Sinus rhythm with 1st degree A-V block with Premature supraventricular complexes Left axis deviation Abnormal ECG When compared with ECG of 13-Dec-2022 18:46, Premature ventricular complexes are no longer Present Premature supraventricular complexes are now Present Referred By: Generic ED Physician Electronically Signed By: MICHAEL MAGDALENO MD
[2024-05-04 10:26] VITALS: BP 162/75; PULSE 67; RESP 16; TEMP 36.4; O2SAT 97; BMI 19.6
[2024-05-04 10:50] LABS: MANUAL DIFF FLAG NO
[2024-05-04 10:52] LABS: Basophils Absolute Auto 0.1 X10*3/uL (0.0-0.2); Basophils Percent Auto 0.7 % (0-2); Eosinophils Absolute Auto 0.3 X10*3/uL (0.0-0.4); Eosinophils Percent Auto 3.1 % (0-4); Hematocrit 39.5 % (37.0-47.0); Hemoglobin 12.5 g/dl (12.0-16.0); Imm Gran Abs Auto 0.02 X10*3/uL (0.00-0.03); Imm Gran Pct Auto 0.2 % (0.0-0.4); Lymphocytes Absolute Auto 1.8 X10*3/uL (1.2-4.9); Lymphocytes Percent Auto 22.1 % (20-40); Mean Corpuscular HGB Conc 31.6 g/dl (31.0-35.0); Mean Corpuscular Volume 91.6 fL (80.0-98.0); Monocytes Absolute Auto 0.6 X10*3/uL (0.1-1.2); Monocytes Percent Auto 7.8 % (2-11); Neutrophils Absolute Auto 5.4 x10*3/uL (2.0-8.3); Neutrophils Percent Auto 66.1 % (45-73); Platelet Count 283 X10*3/uL (160-400); Red Blood Count 4.31 X10*6/uL (4.20-5.50); Red Cell Distribution Width 14.7 % (11.0-16.0); White Blood Count 8.1 X10*3/uL (4.8-10.8)
[2024-05-04 11:17] LABS: Alanine Aminotransferase 20 U/L (0-31); Albumin Level 4.1 g/dL (3.5-5.0); Alkaline Phosphatase 73 U/L (39-117); Anion Gap 14 (12-20); Aspartate Amino Transferase 26 U/L (5-31); Bilirubin Total 0.3 mg/dL (0.0-1.0); Blood Urea Nitrogen 17 mg/dL (9-16); Calcium 9.4 mg/dL (8.4-10.2); Carbon Dioxide 25 mmol/L (22-29); Chloride 104 mmol/L (96-108); Creatinine Clr Calc Pharmacy 43.3; Estimated Glomerular Filt Rate > 60; Glucose Random 144 mg/dL (60-115); Magnesium 1.3 mg/dL (1.6-2.6); Potassium 4.2 mmol/L (3.3-5.1); Sodium 139 mmol/L (135-145); Total Protein 8.3 g/dL (6.5-8.0)
[2024-05-04 11:20] LABS: Troponin-I High Sensitivity 2.9 ng/L (<3.5-17.0)
[2024-05-04 11:55] LABS: B Type Natriuretic Peptide 74 pg/mL (<100)
--- NOTE | 2024-05-04 11:58 | ED_ITS ---
HPI - Arrhythmia/Palpitations General Chief Complaint: Arrhythmia/Palpitations Stated Complaint: palpitations, numbness in hands and mouth Time Seen by Provider: 05/04/24 11:56 Source: patient Mode of arrival: ambulatory Limitations: no limitations History of Present Illness ED Provider: Adiel Zamarripa PA-C HPI narrative: 89 yo female with history of iron deficiency anemia, rectal prolapse, HTN, HLD who presents to the ER from home with her grandson for evaluation of recurrent episodes of palpitations that have been occurring for the last 2 weeks. She reports the episodes primarily occur at night when she is trying to fall asleep. She reports feeling like her heart is racing and has extra beats. She denies any associated chest pain, SOB, nausea, diaphoresis. She reports a couple episodes of perioral and bilateral hand tingling over the last couple of weeks as well. Denies anxiety and hyperventilation. Grandson reports she has poor sleeping habits and it up a lot of the night and worries about her family. MD complaint: palpitations Onset (ago): week(s) Duration: intermittent Severity: moderate Context: occurred during rest Associated symptoms: paresthesias Related Data Home Medications ?Medication ?Instructions ?Recorded ?Confirmed atorvastatin 40 mg tablet 40 mg PO BEDTIME 01/03/22 03/14/22 calcium 600 mg (as 1 tab BID 01/03/22 03/14/22 carbonate)-vitamin D3 5 mcg (200 unit) tablet losartan 100 mg tablet 1 tab PO DAILY 01/03/22 03/14/22 metformin 500 mg tablet 1 tab PO BID 01/03/22 03/14/22 mirabegron 50 mg tablet,extended 50 mg PO DAILY 01/03/22 03/14/22 release 24 hr (Myrbetriq) mirtazapine 15 mg tablet 15 mg PO BEDTIME PRN Urinary 01/03/22 03/14/22 Retention multivitamin 1 tab PO DAILY 01/03/22 03/14/22 acetaminophen 650 mg 1 tab PO Q8H PRN pain 03/14/22 03/14/22 tablet,extended release (Arthritis Pain Relief (acetaminophen) ER) Previous Rx's ?Medication ?Instructions ?Recorded ferrous sulfate 324 mg (65 mg 324 mg PO DAILY #30 tabs 01/06/22 iron) tablet,delayed release metoprolol tartrate 50 mg tablet 50 mg PO BID #180 tabs 01/06/22 nifedipine 60 mg tablet,extended 60 mg PO DAILY #90 tabs 01/06/22 release omeprazole 40 mg capsule,delayed 40 mg PO DAILY@0630 #90 caps 01/06/22 release levofloxacin 750 mg tablet 750 mg PO Q24H 7 days #7 tabs 03/11/22 metronidazole 500 mg tablet 500 mg PO Q8H 7 days #21 tabs 03/11/22 Allergies Allergy/AdvReac Type Severity Reaction Status Date / Time guava [GUAVA] Allergy Unknown UNKNOWN Verified 05/04/24 10:30 nut - unspecified [NUTS] Allergy Unknown UNKNOWN Verified 05/04/24 10:30 sesame seed [SESAME SEED] Allergy Unknown UNKNOWN Verified 05/04/24 10:30 Review of Systems 2 Review of Systems: Yes all other systems are reviewed and are negative [facility] Past Medical History Medical History Chronic epigastric pain Uncontrolled hypertension Chest pain Gastritis Neuropathy HTN (hypertension) Diabetes Family History Family History Other Coronary artery disease Diabetes Social History Social History Alcohol intake: never Patient Tobacco Use Status: Never used Tobacco e-Cigarette/Vaping Use: Never Used Advance Directives: Yes Advance Directives on File: Yes Advance Directives Date on File: 05/04/24 Do you have a plan to hurt others: No Plan service: No Current occupational status: retired Physical Exam 2 Vital Signs: Vital Signs: Last Vital Signs Temp 97.6 F 05/04/24 10:26 Pulse 67 05/04/24 12:13 Resp 17 05/04/24 12:13 BP 170/81 H 05/04/24 12:13 Pulse Ox 96 05/04/24 12:13 O2 Del Method Room Air 05/04/24 12:13 BMI result Body Mass Index 19.6 Appearance: Alert. Oriented X3. No acute distress. Head: normocephalic, atraumatic. Eyes: Pupils equal, round and reactive to light. ENT: Pharynx normal. No tonsillar swelling or exudate. Neck: Normal inspection. Neck supple. CVS: Normal heart rate and rhythm. Pulses normal. Respiratory: No respiratory distress. Breath sounds normal. Abdomen: Soft and nontender. +BS x4 Skin: Skin warm and dry. Normal skin color. Normal skin turgor. No rashes. Extremities: No lower extremity edema. No joint swelling. Neuro/psych: Oriented X 3. No motor deficit. No sensory deficit. CN II-XII intact. Normal speech and cognition. Medications Administered Discontinued Medications Generic Name Dose Route Start Last Admin Trade Name Tamica PRN Reason Stop Dose Admin Magnesium Sulfate 2 gm in 50 mls @ 150 mls/hr 05/04/24 12:08 05/04/24 13:37 Magnesium Sulfate/H2o IV 05/04/24 12:27 Infused ONCE ONE Infusion Medical Decision Making Medical Decision Making [facility] Narrative: 89 yo female presenting for evaluation of intermittent palpitations for the last 2 weeks, occurring at night. hx PVCs on previous EKGs. Hypertensive on arrival, asymptomatic. EKG with 1st degree AV block. she feels well labs showing mag 1.3, given 2gm IV. viral swab negative. labs and exam otherwise unremarkable. monitored on telemetry in the ER with no PVCs, no dysrythmia. suspect anxiety is playing a role with her reports of perioral and hand tingling. at this time she is stable for discharge home with her family and outpatient follow up. return precautions discussed Differential Diagnosis Differential Diagnoses: The differential diagnosis associated with the presentation includes anxiety, SVT, PVC, afib, electrolyte derangement Admission/Observation Consideration of admission/observation: Escalation of care including admission/observation considered Lab Data [facility] Lab Attestation statement: I reviewed the patient's lab results. no major metabolic derangement 05/04/24 10:38 05/04/24 10:38 Labs: Lab Results 05/04/24 05/04/24 Range/Units 10:38 11:29 WBC 8.1 (4.8-10.8) X10*3/uL RBC 4.31 (4.20-5.50) X10*6/uL Hgb 12.5 (12.0-16.0) g/dl Hct 39.5 (37.0-47.0) % MCV 91.6 (80.0-98.0) fL MCH 29.0 (27.0-33.0) pg MCHC 31.6 (31.0-35.0) g/dl RDW 14.7 (11.0-16.0) % Plt Count 283 (160-400) X10*3/uL MPV 9.0 L (9.4-12.3) fL Immature Gran % (Auto) 0.2 (0.0-0.4) % Neut % (Auto) 66.1 (45-73) % Lymph % (Auto) 22.1 (20-40) % [place] % (Auto) 7.8 (2-11) % Eos % (Auto) 3.1 (0-4) % Baso % (Auto) 0.7 (0-2) % Lymph # (Auto) 1.8 (1.2-4.9) X10*3/uL [place] # (Auto) 0.6 (0.1-1.2) X10*3/uL Eos # (Auto) 0.3 (0.0-0.4) X10*3/uL Baso # (Auto) 0.1 (0.0-0.2) X10*3/uL Abs Immat Gran (auto) 0.02 (0.00-0.03) X10*3/uL Absolute Neuts (auto) 5.4 (2.0-8.3) x10*3/uL Absolute Nucleated RBC 0.000 (0.0-0.012) X10*3/uL Nucleated RBC % (auto) 0.0 (0.0-0.2) /100WBC Sodium 139 (135-145) mmol/L Potassium 4.2 (3.3-5.1) mmol/L Chloride 104 (96-108) mmol/L Carbon Dioxide 25 (22-29) mmol/L Anion Gap 14 (12-20) BUN 17 H (9-16) mg/dL Creatinine 0.75 (0.5-1.4) mg/dL Estim Creat Clear Calc 43.3 Estimated GFR > 60 Random Glucose 144 H (60-115) mg/dL Calcium 9.4 (8.4-10.2) mg/dL Magnesium 1.3 L* (1.6-2.6) mg/dL Total Bilirubin 0.3 (0.0-1.0) mg/dL AST 26 (5-31) U/L ALT 20 (0-31) U/L Alkaline Phosphatase 73 (39-117) U/L Troponin I High Sens 2.9 (<3.5-17.0) ng/L B-Natriuretic Peptide 74 (<100) pg/mL Total Protein 8.3 H (6.5-8.0) g/dL Albumin 4.1 (3.5-5.0) g/dL TSH 3.42 (0.32-4.0) uIU/mL Influenza Type A (PCR) NEGATIVE (Negative) Influenza Type B (PCR) NEGATIVE (Negative) RSV RNA Qual (PCR) NEGATIVE (Negative) SARS-CoV-2 RNA (RT-PCR) NEGATIVE (Negative) Independent Interpretation I performed an independent interpretation of an: EKG and Plain X-Ray Interpretation: ekg with sinus rhythm, 1st degree av block, pr interval 224, no ST segment elevations cxr clear without focal infiltrate or effusion Radiology Impression Discussion of test interpretation with radiology: I have reviewed the radiologist's reading. Independent Historian Clinical information obtained from an independent historian. History obtained from or confirmed by: Other (grandson) External Record Review External record reviewed: Outpatient record, Prior outpatient labs and Prior outpatient radiology Prescription Management I considered prescription management with: Other (anxiolytic) Chronic Conditions Patient?s care impacted by: Hypertension Critical Care Time Critical Care Time Critical Care Time: No Discharge Plan Discharge Clinical Impression: Palpitations, Hypomagnesemia Patient Disposition: Home, Self-Care Instructions: Heart Palpitations (ED), Hypomagnesemia (ED) Additional Instructions: your workup today was unremarkable, aside from a low magnesium which was given IV in the ER rest and drink plenty of fluids follow up with your doctor If you develop new or worsening symptoms call 911 or come back to the ER for further evaluation. Prescriptions: No Action levofloxacin 750 mg tablet 750 mg PO Q24H 7 Days Qty: 7 0RF metronidazole 500 mg tablet 500 mg PO Q8H 7 Days Qty: 21 0RF acetaminophen [Arthritis Pain Relief (acetam)] 650 mg tablet extended release 1 tab PO Q8H PRN (Reason: pain) Myrbetriq 50 mg Tablet Extended Release 24 Hr 50 mg PO DAILY calcium carbonate-vitamin D3 600 mg-5 mcg (200 unit) tablet 1 tab BID metformin 500 mg tablet 1 tab PO BID mirtazapine 15 mg Tablet 15 mg PO BEDTIME PRN (Reason: Urinary Retention) atorvastatin 40 mg Tablet 40 mg PO BEDTIME multivitamin Tablet 1 tab PO DAILY losartan 100 mg tablet 1 tab PO DAILY metoprolol tartrate 50 mg Tablet 50 mg PO BID Qty: 180 0RF Protocol: Hold for SBP/HR < HOLD for SBP < : 90 HOLD for HR < : 60 Rx Instructions: replaces prior dose of 25 mg twice daily ferrous sulfate 324 mg (65 mg iron) Tablet,Delayed Release (Dr/Ec) 324 mg PO DAILY Qty: 30 0RF nifedipine 60 mg tablet extended release 60 mg PO DAILY Qty: 90 0RF Rx Instructions: replaces prior dose of 30 mg daily omeprazole 40 mg Capsule,Delayed Release(Dr/Ec) 40 mg PO DAILY@0630 Qty: 90 0RF Print Language: Romansh
[2024-05-04 12:13] VITALS: BP 170/81; PULSE 67; RESP 17; O2SAT 96
[2024-05-04 12:16] LABS: Influenza A PCR NEGATIVE (Negative); Influenza B PCR NEGATIVE (Negative); Resp Syncy Virus RNA Qual PCR NEGATIVE (Negative); SARS COV2 PCR INHOUSE NEGATIVE (Negative)
[2024-05-04 13:04] LABS: TSH reflex Free T4 3.42 uIU/mL (0.32-4.0)
[2024-05-04] MEDS: Magnesium Sulfate/H2O 2 GM/50 ML PIGGYBACK IV (13:20)
[2024-05-04 15:10] VITALS: BP 166/76; PULSE 57; RESP 16; TEMP 36.1; O2SAT 95
== END 2024-05-04 15:13 | disposition home or self-care (01) ==
PROVIDERS: Physician Assistant; Physician Assistant Medical; Emergency Provider Emergency Medicine; PCP Internal Medicine
DX: R00.2 Palpitations (principal); E83.42 Hypomagnesemia; I49.9 Cardiac arrhythmia, unspecified; R20.0 Anesthesia of skin; R07.89 Other chest pain; I44.0 Atrioventricular block, first degree; F41.9 Anxiety disorder, unspecified; R06.02 Shortness of breath; Z03.818 Encounter for observation for suspected exposure to other biological agents ruled out; Z79.899 Other long term (current) drug therapy
CPT/HCPCS: 0241U; 36415; 71046; 80053; 83735; 83880; 84443; 84484; 85025; 93005; 96365; 99284; J3475

== ENCOUNTER → 2024-05-04 10:12 | Outpatient (BNV) | payer OTHER, SELFPAY | PROVIDERS: Emergency Provider Emergency Medicine; PCP Internal Medicine; Visit Provider Internal Medicine Cardiovascular Disease | DX: I44.0 Atrioventricular block, first degree (principal); I49.1 Atrial premature depolarization | CPT/HCPCS: 93010 ==

== ENCOUNTER → 2024-05-04 11:21 | Outpatient (BNV) | payer OTHER, SELFPAY | PROVIDERS: Emergency Provider Emergency Medicine; PCP Internal Medicine; Visit Provider Radiology Vascular & Interventional Radiology | DX: R07.9 Chest pain, unspecified (principal) | CPT/HCPCS: 71046 ==

== ENCOUNTER 2024-06-20 03:02 | Emergency (ER) | payer OTHER, SELFPAY ==
--- NOTE | 2024-06-20 | ECG_ITS ---
Test Reason : CHEST PX Blood Pressure : */* mmHG Vent. Rate : 90 BPM Atrial Rate : 90 BPM P-R Int : 148 ms QRS Dur : 70 ms QT Int : 358 ms P-R-T Axes : * -42 72 degrees QTcB Int : 437 ms Normal sinus rhythm Left axis deviation Abnormal ECG When compared with ECG of 04-May-2024 10:17, Premature supraventricular complexes are no longer Present CT interval has decreased Referred By: Generic ED Physician Electronically Signed By: CAROLYN CAMPBELL
--- NOTE | ~2024-06-20 | XR_ITS ---
CLINICAL HISTORY: chest pain, sob 2 view chest x-ray Comparison: CR - XR CHEST 2V - 05/04/24 12:48 EST Findings: No consolidation or effusion. Normal size heart. No acute fracture. IMPRESSION: 1. No acute findings. This document has been electronically signed by: Gordy Hoover MD, PHD on 06/20/2024 04:52:33
[2024-06-20 03:04] VITALS: BP 136/82; PULSE 87; O2SAT 96
[2024-06-20 03:09] VITALS: BP 151/74; PULSE 88; RESP 16; TEMP 37.1; O2SAT 95; BMI 34.1
--- NOTE | 2024-06-20 03:23 | ED.CHESTPAIN ---
HPI - Chest Pain General Chief Complaint: Chest Pain Stated Complaint: cp Time Seen by Provider: 06/20/24 03:18 Source: patient Mode of arrival: ambulatory Limitations: no limitations History of Present Illness ED Provider: HPI narrative: Patient has increased stress history of hypertension seen her PCP yesterday for elevated blood pressure and palpitation PCP increase the dose of nifedipine from 60 to 90mg. Just prior to arrival patient's felt burning sensation in the chest palpitation felt blood pressure was high anxious and came to the ER on arrival patient's blood pressure was 151/74, saturating 95% at room air Related Data Home Medications ?Medication ?Instructions ?Recorded ?Confirmed atorvastatin 40 mg tablet 40 mg PO BEDTIME 01/03/22 03/14/22 calcium 600 mg (as 1 tab BID 01/03/22 03/14/22 carbonate)-vitamin D3 5 mcg (200 unit) tablet losartan 100 mg tablet 1 tab PO DAILY 01/03/22 03/14/22 metformin 500 mg tablet 1 tab PO BID 01/03/22 03/14/22 mirabegron 50 mg tablet,extended 50 mg PO DAILY 01/03/22 03/14/22 release 24 hr (Myrbetriq) mirtazapine 15 mg tablet 15 mg PO BEDTIME PRN Urinary 01/03/22 03/14/22 Retention multivitamin 1 tab PO DAILY 01/03/22 03/14/22 acetaminophen 650 mg 1 tab PO Q8H PRN pain 03/14/22 03/14/22 tablet,extended release (Arthritis Pain Relief (acetaminophen) ER) Previous Rx's ?Medication ?Instructions ?Recorded ferrous sulfate 324 mg (65 mg 324 mg PO DAILY #30 tabs 01/06/22 iron) tablet,delayed release metoprolol tartrate 50 mg tablet 50 mg PO BID #180 tabs 01/06/22 nifedipine 60 mg tablet,extended 60 mg PO DAILY #90 tabs 01/06/22 release omeprazole 40 mg capsule,delayed 40 mg PO DAILY@0630 #90 caps 01/06/22 release levofloxacin 750 mg tablet 750 mg PO Q24H 7 days #7 tabs 03/11/22 metronidazole 500 mg tablet 500 mg PO Q8H 7 days #21 tabs 03/11/22 Allergies Allergy/AdvReac Type Severity Reaction Status Date / Time guava [GUAVA] Allergy Unknown UNKNOWN Verified 06/20/24 03:19 nut - unspecified [NUTS] Allergy Unknown UNKNOWN Verified 06/20/24 03:19 sesame seed [SESAME SEED] Allergy Unknown UNKNOWN Verified 06/20/24 03:19 Review of Systems Review of Systems: Yes all other systems are reviewed and are negative [facility] Past Medical History Medical History Chronic epigastric pain Uncontrolled hypertension Chest pain Gastritis Neuropathy HTN (hypertension) Diabetes Family History Family History Other Coronary artery disease Diabetes Social History Social History Alcohol intake: never Patient Tobacco Use Status: Never used Tobacco Smoked in Last 30 Days: No e-Cigarette/Vaping Use: Never Used Use of substances other than those prescribed or required for medical reasons: No Advance Directives: Yes Advance Directives on File: Yes Advance Directives Date on File: 05/04/24 service: No Current occupational status: retired Physical Exam Vital Signs: Vital Signs: Last Vital Signs Temp 97.6 F 06/20/24 06:06 Pulse 76 06/20/24 06:06 Resp 16 06/20/24 06:06 BP 112/60 06/20/24 06:06 Pulse Ox 93 06/20/24 06:06 O2 Del Method Room Air 06/20/24 06:06 BMI result Body Mass Index 34.1 Appearance: Alert. Oriented X3. No acute distress. Anxious Eyes: PERRLA, No Nystagmus ENT: Pharynx normal. Oral Mucosa moist Neck: Normal inspection. Neck supple. CVS: Normal heart rate and rhythm. Pulses normal. Respiratory: No respiratory distress. Equal air entry bilateral, no wheezing/rales/rhonchi Abdomen: Soft and nontender. Bowel sounds are present, no mass palpable, no CVA tenderness Skin: Skin warm and dry. Normal skin color. Normal skin turgor. Extremities: No lower extremity edema. No calf tenderness Neuro: Oriented X 3. No motor deficit. No sensory deficit.No cerebellar signs , cranial nerves II-XII intact Medications Administered Discontinued Medications Generic Name Dose Route Start Last Admin Trade Name Freq PRN Reason Stop Dose Admin Al Hydroxide/Mg Hydroxide 30 ml 06/20/24 05:41 04/03/25 05:58 Magnesium Hydrox/Alum Hydrox 30 Ml Oral.Susp PO 06/20/24 05:42 30 ml ONCE ONE Administration Medical Decision Making Medical Decision Making [facility] Narrative: Patient with palpitation episode with burning sensation atypical chest pain worried about the blood pressure on arrival patient's blood pressure was normal EKG without any ischemic changes cardiac enzymes are negative will discharge patient home advised to follow with PCP to rule out SVT/AFib/PA-C/anxiety patient has slightly low magnesium of 1.5 patient was given p.o. magnesium in the ER Differential Diagnosis Differential Diagnoses: The differential diagnosis associated with the presentation includes Lab Data [facility] Lab Attestation statement: I reviewed the patient's lab results. 06/20/24 03:29 06/20/24 03:29 Labs: Lab Results 06/20/24 06/20/24 Range/Units 03:29 03:35 WBC 10.5 (4.8-10.8) X10*3/uL RBC 4.53 (4.20-5.50) X10*6/uL Hgb 13.5 (12.0-16.0) g/dl Hct 39.7 (37.0-47.0) % MCV 87.6 (80.0-98.0) fL MCH 29.8 (27.0-33.0) pg MCHC 34.0 (31.0-35.0) g/dl RDW 14.0 (11.0-16.0) % Plt Count 301 (160-400) X10*3/uL MPV 8.7 L (9.4-12.3) fL Absolute Nucleated RBC 0.000 (0.0-0.012) X10*3/uL Nucleated RBC % (auto) 0.0 (0.0-0.2) /100WBC PT 11.8 (10.9-12.4) SEC INR 1.0 (0.9-1.1) Sodium 134 L (135-145) mmol/L Potassium 4.0 (3.3-5.1) mmol/L Chloride 98 (96-108) mmol/L Carbon Dioxide 23 (22-29) mmol/L Anion Gap 17 (12-20) BUN 22 H (9-16) mg/dL Creatinine 0.74 (0.5-1.4) mg/dL Estim Creat Clear Calc 30.0 Estimated GFR > 60 Random Glucose 131 H (60-115) mg/dL Calcium 10.2 D (8.4-10.2) mg/dL Magnesium 1.5 L (1.6-2.6) mg/dL Total Bilirubin 0.6 (0.0-1.0) mg/dL AST 31 (5-31) U/L ALT 22 (0-31) U/L Alkaline Phosphatase 83 (39-117) U/L Troponin I High Sens 2.9 (<3.5-17.0) ng/L Total Protein 8.6 H (6.5-8.0) g/dL Albumin 4.4 (3.5-5.0) g/dL Influenza Type A (PCR) NEGATIVE (Negative) Influenza Type B (PCR) NEGATIVE (Negative) RSV RNA Qual (PCR) NEGATIVE (Negative) SARS-CoV-2 RNA (RT-PCR) NEGATIVE (Negative) Independent Interpretation I performed an independent interpretation of an: EKG Interpretation: Normal sinus rhythm heart rate 90 beats per minute left axis deviation no acute STT wave changes no acute ischemia Discharge Plan Discharge Clinical Impression: Heart palpitations, Hypertension Patient Disposition: Home, Self-Care Instructions: Heart Palpitations (ED), Chronic Hypertension (DC) Additional Instructions: Continue take your medication as prescribed by your PCP Follow up with your PCP for further evaluation including Holter monitoring if the palpitation continues Likely you might have anxiety during stay in the ER your blood and cardiogram is normal no arrhythmias noticed except for few premature beats Prescriptions: No Action levofloxacin 750 mg tablet 750 mg PO Q24H 7 Days Qty: 7 0RF metronidazole 500 mg tablet 500 mg PO Q8H 7 Days Qty: 21 0RF acetaminophen [Arthritis Pain Relief (acetam)] 650 mg tablet extended release 1 tab PO Q8H PRN (Reason: pain) Myrbetriq 50 mg Tablet Extended Release 24 Hr 50 mg PO DAILY calcium carbonate-vitamin D3 600 mg-5 mcg (200 unit) tablet 1 tab BID metformin 500 mg tablet 1 tab PO BID mirtazapine 15 mg Tablet 15 mg PO BEDTIME PRN (Reason: Urinary Retention) atorvastatin 40 mg Tablet 40 mg PO BEDTIME multivitamin Tablet 1 tab PO DAILY losartan 100 mg tablet 1 tab PO DAILY metoprolol tartrate 50 mg Tablet 50 mg PO BID Qty: 180 0RF Protocol: Hold for SBP/HR < HOLD for SBP < : 90 HOLD for HR < : 60 Rx Instructions: replaces prior dose of 25 mg twice daily ferrous sulfate 324 mg (65 mg iron) Tablet,Delayed Release (Dr/Ec) 324 mg PO DAILY Qty: 30 0RF nifedipine 60 mg tablet extended release 60 mg PO DAILY Qty: 90 0RF Rx Instructions: replaces prior dose of 30 mg daily omeprazole 40 mg Capsule,Delayed Release(Dr/Ec) 40 mg PO DAILY@0630 Qty: 90 0RF Interventions: ED Discharge Assessment Last Done: 06/20/24 06:06 Discharge Date/Time: 06/20/24 06:07 Print Language: Maltese
[2024-06-20 03:34] LABS: Hematocrit 39.7 % (37.0-47.0); Hemoglobin 13.5 g/dl (12.0-16.0); Mean Corpuscular Hemoglobin 29.8 pg (27.0-33.0); Mean Corpuscular Volume 87.6 fL (80.0-98.0); Mean Platelet Volume 8.7 fL (9.4-12.3); Platelet Count 301 X10*3/uL (160-400); Red Blood Count 4.53 X10*6/uL (4.20-5.50); White Blood Count 10.5 X10*3/uL (4.8-10.8)
[2024-06-20 03:39] LABS: Prothrombin Time 11.8 SEC (10.9-12.4)
[2024-06-20 03:54] LABS: Troponin-I High Sensitivity 2.9 ng/L (<3.5-17.0)
[2024-06-20 04:02] LABS: Alanine Aminotransferase 22 U/L (0-31); Albumin Level 4.4 g/dL (3.5-5.0); Alkaline Phosphatase 83 U/L (39-117); Anion Gap 17 (12-20); Aspartate Amino Transferase 31 U/L (5-31); Bilirubin Total 0.6 mg/dL (0.0-1.0); Blood Urea Nitrogen 22 mg/dL (9-16); Calcium 10.2 mg/dL (8.4-10.2); Carbon Dioxide 23 mmol/L (22-29); Chloride 98 mmol/L (96-108); Estimated Glomerular Filt Rate > 60; Glucose Random 131 mg/dL (60-115); Magnesium 1.5 mg/dL (1.6-2.6); Sodium 134 mmol/L (135-145); Total Protein 8.6 g/dL (6.5-8.0)
[2024-06-20 04:16] LABS: Influenza A PCR NEGATIVE (Negative); Influenza B PCR NEGATIVE (Negative); Resp Syncy Virus RNA Qual PCR NEGATIVE (Negative); SARS COV2 PCR INHOUSE NEGATIVE (Negative)
[2024-06-20 04:45] VITALS: BP 120/62; PULSE 77; RESP 16; TEMP 36.6; O2SAT 94
--- OUTSIDE RECORDS SUMMARY | 2024-06-20 05:19 | XMS_ITS ---
Author Name [facility] Organization Unknown History of Medication Use Medication Directions Dispensed Refills Start Date End Date Stat us levoFLOXacin (LEVAQUIN) 750 MG tablet Take 1 tablet (750 mg total) by mouth daily. FOR 7 DAYS 03/11/2022 active Calcium Carb-Cholecalciferol 600-5 MG-MCG Tab Take 1 tablet by mouth 2 (two) times a day. 01/17/2022 active NIFEdipine ER (ADALAT CC) 60 MG 24 hr tablet Take 1 tablet (60 mg total) by mouth daily. 01/06/2022 active Myrbetriq 50 MG ER tablet Take 1 tablet (50 mg total) by mouth daily. 12/31/2021 active metoPROLOL TARTRATE (LOPRESSOR) 50 MG tablet Take 1 tablet (50 mg total) by mouth 2 (two) times a day. 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 Care Team Organization Name Specialty Phone Email Start Date End Da te [facility] DALI FRANCOIS Primary Care 03/25/2022 [facility] Dali Francois Primary [facility] 03/14/2022 03/25/2022 [facility] NO PCP Primary Care 03/14/2022 03/25/2022 [facility] 03/14/2022
--- OUTSIDE RECORDS SUMMARY | 2024-06-20 05:19 | XMS_ITS | Encounter Summary ---
Author Organization [facility] Address [id number] [place] [phone] Care Team Providers Care Chief Development Officer Name Role Phone Dali Givens MD Primary Care Provider [phone] Reason for Visit * Reason Comments Hypertension Follow-up Encounter Details Date Type Department Care Team (Late st Contact Info) Description 06/18/2024 3:00 PM EDT Office Visit Adult Medicine [facility] [address] [place] [phone] Tere Valente PA [address] [place] [id number] Essential hypertension (Primary Dx) Social History Tobacco Use Types Packs/Day Years Used Date Smoking Tobacco: Never Smokeless Tobacco: Never Tobacco Cessation:Counseling Given: Not Answered Alcohol Use Standard Drinks/Week Comments No 0 (1 standard drink = 0.6 oz pur e alcohol) Comments Unknown Sex and Gender Information Value Date Recorded Sex Assigned at Not on file Legal Sex Female 3:22 PM EST Gender Identity Not on file Sexual Orientation Not on file documented as of this encounter Last Filed Vital Signs Vital Sign Reading Time Taken Comments Blood Pressure 180/84 06/18/2024 3:30 PM EDT c Pulse 63 06/18/2024 3:30 PM EDT Temperature 35.8 ??C (96.5 ??F) 06/18/2024 3:30 PM ED T Respiratory Rate 14 06/18/2024 3:30 PM EDT Oxygen Saturation 97% 06/18/2024 3:30 PM EDT Inhaled Oxygen Concentration - - Weight 54.4 kg (120 lb) 06/18/2024 3:30 PM EDT Height - - Body Mass Index 21.95 06/17/2024 11:41 AM EDT documented in this encounter Ordered Prescriptions Prescription Sig Dispense Quantity Refills Last Filled Start Date End Date NIFEdipine CC (ADALAT CC) 90 mg 24 hr tablet Take 1 tablet (90 mg total) by mouth at bedtime. Do not crush, chew, or split. 90 tablet 06/18/2024 documented in this encounter Plan of Treatment Upcoming Encounters Date Type Department Care Team (Late st Contact Info) Description 07/08/2024 10:00 AM EDT Office Visit Orthopedic Surgery [place] [id number] [phone] Nick Crawford DPM [address] [phone] 07/19/2024 11:15 AM EDT Office Visit Adult Medicine [facility] [address] [place] [phone] Dali Givens MD [address] [place] [phone] 08/07/2024 3:30 PM EDT Office Visit Orthopedic Surgery [place] [address] [phone] Taylor Burton NP [address] [phone] documented as of this encounter Visit Diagnoses Diagnosis Essential hypertension- Primary Unspecified essential hypertension documented in this encounter Discontinued Medications Medication Sig Discontinue Reason Start Date End Da te NIFEdipine CC (ADALAT CC) 60 mg 24 hr tablet Take 1 tablet (60 mg total) by mouth at bedtime. 04/09/2024 06/18/2024 documented as of this encounter Care Teams Chief Development Officer Relationship Specialty Start Date End Date Dali Givens MD [address] [place] [address] PCP - General Internal Medicine 04/13/21 documented as of this encounter
--- OUTSIDE RECORDS SUMMARY | 2024-06-20 05:19 | XMS_ITS | Clinical Summary ---
Author Organization [facility] Address [address] [place] [address] Care Team Providers Care Gradall Operator Name Role Phone Dali Givens MD Primary Care Provider [phone] Allergies Active Allergy Reactions Criticality Noted Date Comments Sesame Seeds Unknown/Patient and Family Unable to Define Medium 04/25/2022 Medications Medication Sig Dispensed Refills Start Date End Date Status Arthritis Pain Relief 650 MG CR tablet Take 1 tablet (650 mg total) by mouth 3 times daily (every 8 hours) as needed. for pain Tylenol 01/17/2022 Active Aspirin Low Dose 81 MG chewable tablet Chew 1 tablet (81 mg total) daily. 01/06/2022 Active atorvastatin (LIPITOR) 40 MG tablet Take 1 tablet (40 mg total) by mouth nightly. 02/16/2022 Active Calcium Carb-Cholecalciferol 600-5 MG-MCG Tab Take 1 tablet by mouth 2 (two) times a day. 01/17/2022 Active FeroSul 325 (65 Fe) MG tablet Take 1 tablet (325 mg total) by mouth daily. 02/15/2022 Active losartan (COZAAR) 100 MG tablet Take 1 tablet (100 mg total) by mouth daily. 02/16/2022 Active metoPROLOL TARTRATE (LOPRESSOR) 50 MG tablet Take 1 tablet (50 mg total) by mouth 2 (two) times a day. 01/17/2022 Active Myrbetriq 50 MG ER tablet Take 1 tablet (50 mg total) by mouth daily. 12/31/2021 Active mirtazapine (REMERON) 15 MG tablet Take 1 tablet (15 mg total) by mouth nightly. 02/16/2022 Active NIFEdipine ER (ADALAT CC) 60 MG 24 hr tablet Take 1 tablet (60 mg total) by mouth daily. 01/06/2022 Active metFORMIN (GLUCOPHAGE) 500 MG tablet Take 1 tablet (500 mg total) by mouth 2 (two) times a day with meals. 01/17/2022 Active senna (SENOKOT) 8.6 MG Tab tabletIndications:GI bleed Take 2 tablets by mouth daily as needed for constipation. 120 tablet 03/15/2022 Active PANTOprazole (PROTONIX) 40 MG EC tablet Take 1 tablet (40 mg total) by mouth daily. 04/08/2022 Active multivitamin tablet Take 1 tablet by mouth daily. 04/08/2022 Active oxyCODONE (ROXICODONE) 5 MG immediate release tabletIndications:Re ctal prolapse Take 1 tablet (5 mg total) by mouth every 4 (four) hours as needed for moderate pain. Max Daily Amount: 30 mg 10 tablet 04/27/2022 Active polyethylene glycol (miraLAx) 17 g packetIndications:Re ctal prolapse Take 1 packet (17 g total) by mouth daily. 10 packet 04/27/2022 Active Active Problems Problem Noted Date Diagnosed Date Rectal prolapse 03/25/2022 Dark stools 03/14/2022 Hyperactivity of bladder 03/16/2020 Overview (03/14/2022): Follows with urology Loose stools 01/01/2019 Overview (03/14/2022): Hospitalized 11/2018 for dehydration. Metformin was discontinued. Follows with GI Type 2 diabetes mellitus wit h neurological manifestations, controlled 11/26/2015 GERD (gastroesophageal reflux disease) 6 Hyperlipidemia 08/20/2015 Diabetic neuropathy 06/15/2015 Essential hypertension 06/15/2015 Family History Medical History Relation Name Comments No Known Problems Father No Known Problems Mother Relation Name Status Comments Father Mother Social History Tobacco Use Types Packs/Day Years Used Date Smoking Tobacco: Never Smokeless Tobacco: Never Tobacco Cessation:Counseling Given: Not Answered Alcohol Use Standard Drinks/Week Comments Never 0 (1 standard drink = 0.6 oz pur e alcohol) AUDIT-C Answer Date Recorded Q1: How often do you have a drink containing alcohol? Never 03/15/2022 Q2: How many drinks containi ng alcohol do you have on a typical day when you are drinking? Patient does not drink Q3: How often do you have si x or more drinks on one occasion? Never 03/15/2022 PHQ-2 Answer Date Recorded PHQ-2 Total Score 0 04/25/2022 Sex and Gender Information Value Date Recorded Sex Assigned at Female 03/22/2022 10:15 AM EST Gender Identity Female 03/22/2022 10:15 AM EST Sexual Orientation Heterosexual (straight) 03/22 10:15 AM EST Last Filed Vital Signs Vital Sign Reading Time Taken Comments Blood Pressure 122/60 05/10/2022 3:24 PM EST Pulse 50 05/10/2022 3:24 PM EST Temperature 36.1 ??C (96.9 ??F) 04/27/2022 8:27 AM ES T Respiratory Rate 18 04/27/2022 8:27 AM EST Oxygen Saturation 98% 05/10/2022 3:24 PM EST Inhaled Oxygen Concentration - - Weight 55.9 kg (123 lb 3.2 oz) 05/10/2022 3:24 P M EST Height 157.5 cm (5' 2 ) 05/10/2022 3:24 PM EST Body Mass Index 22.53 05/10/2022 3:24 PM EST Plan of Treatment Health Maintenance Due Date Last Done Comments Foot Exam 1945 Lipid Panel 1945 Ophthalmology Exam 1945 DTaP/Tdap/Td Vaccines (1 - Tdap) 02/04/1956 Pneumococcal Vaccines 50+ (1 of 2 - PCV) 02/04/1956 Zoster (Shingles) Vaccine (1 of 2) 1987 DXA Bone Density (Females,Ag es 65 and older) 2002 RSV Vaccine 60 years and old er and Patients (1 - 1-dose 75+ series) 02/04/2012 Hemoglobin A1C 08/22/2018 02/21/2018 Creatinine with GFR 03/15/2023 03/15/2022, 03/14/2022 Influenza Vaccine 10/19/2023 01/03/2022, 02/02/2016 COVID-19 Vaccine (2023-2 5 season) 2023 01/05/2021, 05/19/2020, 04/28/2020 Hepatitis B Vaccines Aged Out No long er eligible based on patient's age to complete this topic Procedures Procedure Name Priority Date/Time Associated Diagnosis Comments COMPREHENSIVE METABOLIC PANEL STAT 03/15/2022 7:06 AM EST from Last 3 Months or Most Recently Relevant to Health Maintenance Results * (ABNORMAL) Comprehensive Metabolic Panel (03/15/2022 7:06 AM EST) Glucose 97 65 - 99 mg/dL 03/15/2022 8:06 AM [facility] Comment:Fasting: <100 mg/dL, Non-Fasting: <200 mg/dL (ADA 2005) Blood Urea Nitrogen (BUN) 13 8 - 21 mg/dL 03/15/2022 8:06 AM [facility] Creatinine 0.8 0.4 - 1.1 mg/dL 03/15/2022 8:06 AM [facility] eGFR >60 >59 03/15/2022 8:06 AM [facility] Comment:MDRD in mL/min/1.73 sq meters. Sodium 136 136 - 145 mmol/L 03/15/2022 8:06 AM [facility] Potassium 4.2 3.4 - 5.3 mmol/L 03/15/2022 8:06 AM [facility] Chloride 103 98 - 107 mmol/L 03/15/2022 8:06 AM [facility] CO2 27 22 - 33 mmol/L 03/15/2022 8:06 AM [facility] Calcium 8.9 8.7 - 10.5 mg/dL 03/15/2022 8:06 AM [facility] Alkaline Phosphatase 48 32 - 122 U/L 03/15/2022 8:06 AM [facility] Aspartate Aminotrans (AST) 27 10 - 50 U/L 03/15/2022 8:06 AM [facility] Alanine Aminotrans (ALT) 27 10 - 50 U/L 03/15/2022 8:06 AM [facility] Bilirubin, Total 0.2 0.2 - 1.0 mg/dL 03/15/2022 8:06 AM [facility] Protein, Total 5.9(L) 6.3 - 8.3 g/dL 03/15/2022 8:06 AM [facility] Albumin 3.1(L) 3.4 - 4.8 g/dL 03/15/2022 8:06 AM [facility] BUN/Creatinine Ratio 16 10.0 - 25.0 Ratio 03/15/2022 8:06 AM [facility] Globulin 2.8 1.5 - 3.9 g/dL 03/15/2022 8:06 AM [facility] Albumin/Globulin Ratio 1.1 1.0 - 3.0 Ratio 03/15/2022 8:06 AM [facility] Anion Gap 6(L) 7 - 17 03/15/2022 8:06 AM [facility] Blood specimen (specimen) (Plasma/Serum) 03/15/2022 7:06 AM EST 03/15/2022 7:41 AM EST Demetri Wiggins MD LAB BLOOD ORDERABLES HOSPITAL LAB See Below [facility] [address] [place] [address] from Last 3 Months or Most Recently Relevant to Health Maintenance Advance Directives * Full Code (Latest Code Status on File) Date Activated Date Inactivated Comments 04/25/2022 6:56 PM * Full Code Date Activated Date Inactivated Comments 04/25/2022 1:19 PM 04/25/2022 6:56 PM * Full Code Date Activated Date Inactivated Comments 03/14/2022 11:28 PM 04/25/2022 9:42 AM Care Teams Gradall Operator Relationship Specialty Start Date End Date Dali Givens MD PCP - General 03/15/22
--- OUTSIDE RECORDS SUMMARY | 2024-06-20 05:19 | XMS_ITS | Clinical Summary ---
Author Organization 175 [facility] Address [address] [place] [address] Phone Care Team Providers Care Factory Supervisor Name Role Phone Dali Givens MD Primary Care Provider [phone] Allergies Active Allergy Reactions Criticality Noted Date Comments Chocolate Hazelnut Flavor 01/15/2024 Hazelnut Other 06/15/2015 Food allergy Sesame seed,guava,wheat bread, Nuts Anaphylaxis Pecan Nut 06/17/2024 Medications ferrous sulfate 325 mg (65 mg elemental iron) tablet Take 1 tablet (325 mg total) by mouth 2 (two) times a day. 01/17/20 24 Active famotidine (PEPCID) 20 mg tablet TAKE ONE TABLET BY MOUTH TWICE DAILY NEEDED HEARTBURN 01/02/20 24 Active lidocaine (LIDODERM) 5 % patch Active simethicone (MYLICON) 125 mg chewable tablet CHEW ONE TABLET BY MOUTH EVERY SIX HOURS NEEDED para gases Active docusate sodium (COLACE) 100 mg capsule Take 1 capsule (100 mg total) by mouth 2 (two) times a day. Active senna 8.6 mg tablet Take 1 tablet (8.6 mg total) by mouth 1 (one) time each day. Active OneTouch Ultra Test test strip Use to test blood sugar twice daily 12/22/19 23 Active omeprazole (PriLOSEC) [address] capsule TAKE ONE CAPSULE EVERY MORNING ON AN EMPTY STOMACH 30 MINUTES BEFORE A MEAL 90 capsule 3 03/27/19 25 Active mirtazapine (REMERON) 15 mg tablet TAKE ONE TABLET AT BEDTIME 90 tablet 1 04/03/19 25 Active atorvastatin (LIPITOR) 40 mg tablet TAKE ONE TABLET BY MOUTH AT BEDTIME 90 tablet 1 04/03/19 25 Active multivitamin (One Daily Multivitamin) tablet Take 1 tablet by mouth 1 (one) time each day. 90 tablet 04/08/19 25 Active calcium carbonate-sam min D3 600 mg-5 mcg (200 unit) per tablet Take 1 tablet by mouth 2 (two) times a day. 180 tablet 04/09/19 25 Active metFORMIN (GLUCOPHAGE) 500 mg tablet Take 1 tablet (500 mg total) by mouth 2 (two) times a day with meals. 180 tablet 04/09/19 25 Active losartan (COZAAR) 100 mg tablet Take 1 tablet (100 mg total) by mouth at bedtime. 90 tablet 04/09/19 25 Active metoprolol tartrate (LOPRESSOR) 25 mg tablet Take 1 tablet (25 mg total) by mouth 2 (two) times a day. 180 tablet 04/09/19 25 Active Myrbetriq 50 mg tablet extended release 24 hr 24 hr tablet TAKE ONE TABLET EVERY DAY 30 tablet 5 04/05/19 25 Active polyethylene glycol (PEG) 17 gram/dose oral powder STIR 17GM INTO 8 OUNCES OF WATER, OR JUICE, AND DRINK DAILY NEEDED / DIRECTED 10/09/19 24 Active NIFEdipine CC (ADALAT CC) 90 mg 24 hr tablet Take 1 tablet (90 mg total) by mouth at bedtime. Do not crush, chew, or split. 90 tablet 06/19/19 25 Active NIFEdipine CC (ADALAT CC) 60 mg 24 hr tablet Take 1 tablet (60 mg total) by mouth at bedtime. 90 tablet 04/09/19 25 025 Discontinued azithromycin (ZITHROMAX) 250 mg tablet Take 2 tablets (500 mg total) by mouth 1 (one) time each day for 1 day, THEN 1 tablet (250 mg total) 1 (one) time each day for 4 days. 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 Sigala Varicose veins of leg with swelling 05/04/2016 Type 2 diabetes mellitus wit h neurological manifestations, controlled 11/26/2015 Onychomycosis 11/26/2015 GERD (gastroesophageal reflux disease) 6 Hyperlipidemia 08/20/2015 Insomnia 08/20/2015 Diabetic neuropathy 06/15/2015 Essential hypertension 06/15/2015 Encounters Date Type Department Care Team Description 06/18/2024 3:00 PM EDT Office Visit Adult Medicine [address] [phone] Tere Valente PA Essential hypertension (Primary Dx) 06/03/2024 2:15 PM EDT Office Visit Adult Medicine [address] [phone] Dali Givens MD Type 2 diabetes mellitus with neurological manifestations, controlled (CMS/HCC) (Primary Dx); Essential hypertension; Gastroesophageal reflux disease without esophagitis; Other hyperlipidemia; Hyperactivity of bladder; Acute cough 04/08/2024 10:30 AM EST Office Visit Orthopedic Surgery - [address] [phone] Nick Crawford DPRose Acquired hammer toe of right foot (Primary Dx); Dermatophytosis of nail; Pain in toe of right foot; Pain in toe of left foot; Primary osteoarthritis of both feet; Diabetic mononeuropathy simplex (CMS/HCC); Type II diabetes mellitus with peripheral circulatory disorder (CMS/HCC); Corns and callosities; Metatarsalgia of both feet from Last 3 Months Immunizations Name Administration Dates Next Due Influenza trivalent, 0.5mL ( Fluad) 65yo and older 01/15/2024,12/30/2022,01/03/2022,12/29,12/26/2019,01/12/2019,01/02/2018 ,12/05/2016 Influenza trivalent, 0.5mL, preservative free (Fluarix; FluLaval; Fluzone) ages 6mo and older (Afluria) 3 years and older 12/31/2014 Influenza trivalent, with pr eservative (Fluzone; Afluria) 6mo and older 02/02/2016 Pneumococcal conjugate 13 va lent (Prevnar 13, PCV13) 2mo and older 02/02/2016 Pneumococcal polysaccharide 23 valent (Pneumovax 23) 2yo and older 01/15/2021,11/14/2017,03/22/2017 SARS-COV-2 (COVID-19) Vaccin e, Unspecified 04/18/2023 Td Tetanus diptheria (Tdvax) 7yo and older 08/02/2016 Zoster recombinant (Shingrix ) 19yo and older 03/03/2023,12/30/2022 Surgical History Surgery Date Site/Laterality Comments CATARACT EXTRACTION 11/18/2015 Left OTHER SURGICAL HISTORY varicose vein laser RLE Medical History Medical History Date Comments Essential hypertension 06/15/2015 Hyperlipidemia 08/20/2015 Insomnia 08/20/2015 GERD (gastroesophageal reflux disease) 6 Type 2 diabetes mellitus wit h neurological manifestations, controlled ([facility]) 11/26/2015 Onychomycosis 11/26/2015 Varicose veins of leg with swelling 05/04/2016 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[facility]) 12/05/2016 Diabetic neuropathy ([facility]) 06/15/2015 Diabetic gastroparesis ([facility]) 12/31/2018 Overactive bladder Social History Tobacco Use Types Packs/Day Years [...] on file Sexual Orientation Not on file Obstetrics History Last Filed Vital Signs Vital Sign Reading Time Taken Comments Blood Pressure 180/84 06/18/2024 3:30 PM EDT c Pulse 63 06/18/2024 3:30 PM EDT Temperature 35.8 ??C (96.5 ??F) 06/18/2024 3:30 PM ED T Respiratory Rate 14 06/18/2024 3:30 PM EDT Oxygen Saturation 97% 06/18/2024 3:30 PM EDT Inhaled Oxygen Concentration - - Weight 54.4 kg (120 lb) 06/18/2024 3:30 PM EDT Height 157.5 cm (5' 2 ) 06/17/2024 11:41 AM EDT Body Mass Index 21.95 06/17/2024 11:41 AM EDT Plan of Treatment Upcoming Encounters Date Type Department Care Team (Late st Contact Info) Description 07/08/2024 10:00 AM EDT Office Visit Orthopedic Surgery [place] [id number] [phone] Nick Crawford DPM [address] [address] 07/19/2024 11:15 AM EDT Office Visit Adult Medicine [facility] [address] [place] [address] Dali Givens MD [address] [place] [phone] 08/07/2024 3:30 PM EDT Office Visit Orthopedic Surgery [facility] [address] [phone] Taylor Burton NP [address] [phone] Health Maintenance Due Date Last Done Comments Diabetes: Annual Retina Eye Exam 1945 RSV Immunization Adult Patients (1 - 1-dose 75+ series) 02/04/2012 Depression Screening 02/26/2022 Falls Risk Assessment 02/26/2022 Medicare Annual Wellness Visit 02/26/2022 Osteoporosis Screening (Bone Density Screening) 02/26/2022 Social Influencers of Health Screening 02/26/2022 COVID-19 Vaccine ( season) 2023 04/18/2023, 01/05/2021, 05/19/2020, Additional history exists Diabetes: Blood Sugar Control Test (HGBA1C) 12/04/2024 06/03/2024, 01/15/2024, 01/15/2024, Additional history exists Diabetes: Annual Foot Exam 01/07/2025 01/08/2024 Hypertension/CHF/CAD Annual BMP Blood Test 06/03/2025 06/03/2024, 01/15/2024, 01/15/2024, Additional history exists DTaP,Tdap,and Td Vaccines (2 - Td or Tdap) 08/02/2026 08/02/2016 Cholesterol Screening (Lipid Panel) 06/03/2029 06/03/2024, 05/15/2023 Pneumococcal Vaccine: 50+ Years Completed 01/15/2021, 11/14/2017, 03/22/2017, Additional history exists Zoster Vaccines Completed 03/03/2023, 12/30/2022 Influenza Vaccine Completed 01/15/2024, , 01/03/2022, Additional history exists HIB Vaccines Aged Out No longer eligi ble based on patient's age to complete this topic HPV Vaccines Aged Out No longer eligi ble based on patient's age to complete this topic Hepatitis A Vaccines Aged Out No long er eligible based on patient's age to complete this topic Hepatitis B Vaccines Aged Out No long er eligible based on patient's age to complete this topic IPV Vaccines Aged Out No longer eligi ble based on patient's age to complete this topic MMR Vaccines Aged Out No longer eligi ble based on patient's age to complete this topic Meningococcal ACWY Vaccine Aged Out N o longer eligible based on patient's age to complete this topic Meningococcal B Vacine Aged Out No lo nger eligible based on patient's age to complete this topic RSV Immunization Patients Under 20 months Aged Out No longer eligible based on patient's age to complete this topic Varicella Vaccines Aged Out No longer eligible based on patient's age to complete this topic Procedures Procedure Name Priority Date/Time Associated Diagnosis Comments HEMOGLOBIN A1C Routine 06/03/2024 3:02 PM EDT Type 2 diabetes mellitus with neurological manifestations, controlled ([facility]) BASIC METABOLIC PANEL Routine 06/03/2024 3:02 PM EDT Essential hypertension LIPID PANEL WITH REFLEX TO DIRECT LDL Routine 06/03/2024 3:02 PM EDT Other hyperlipidemia DIABETES FOOT EXAM Routine 01/08/2024 from Last 3 Months or Most Recently Relevant to Health Maintenance Results * Lipid panel with reflex to direct LDL (06/03/2024 3:02 PM EDT) [facility] Cholesterol 152 0 - 200 mg/dL LAB CHEMISTRY METHOD 06/03/2024 5:[address] [facility] Triglycerides 144 0 - 150 mg/dL LAB CHEMISTRY METHOD 06/03/2024 5:[address] [facility] HDL 49 >=40 mg/dL LAB CHEMISTRY METHOD 06/03/2024 5:[address] [facility] LDL Calculated 74 0 - 100 mg/dL LAB CHEMISTRY METHOD 06/03/2024 5:[address] [facility] VLDL Cholesterol Michele 28.8 mg/dL LAB CHEMISTRY METHOD 06/03/2024 5:[address] [facility] Non HDL Chol. (LDL+VLDL) 103 <145 mg/dL LAB CHEMISTRY METHOD 06/03/2024 5:[address] [facility] Chol/HDL Ratio 3.1 0.0 - 4.4 LAB CHEMISTRY METHOD 06/03/2024 5:[address] [facility] Blood Venous blood specimen / Unknown Venipuncture / Unknown 06/03/2024 3:02 PM EDT 06/03/2024 3:02 PM EDT us Dali Givens MD LAB BLOOD ORDERABLES Final Resul t [facility] [address] [place] [address], [place] [phone] * Hemoglobin A1c (06/03/2024 3:02 PM EDT) [facility] Hemoglobin A1C 5.6 <6.5 % LAB CHEMISTRY METHOD 06/03/2024 8:[address] [facility] Mean Bld Glu Estim. 114 mg/dL LAB CHEMISTRY METHOD 06/03/2024 8:[address] [facility] Blood Venous blood specimen / Unknown Venipuncture / Unknown 06/03/2024 3:02 PM EDT 06/03/2024 3:02 PM EDT us Dali Givens MD LAB BLOOD ORDERABLES Final Resul t [facility] [address] [place] [address], * (ABNORMAL) Basic metabolic panel (06/03/2024 3:02 PM EDT) [facility] Sodium 132(L) 133 - 145 mmol/L LAB CHEMISTRY METHOD 06/03/2024 5:[address] [facility] Potassium 5.0 3.5 - 5.5 mmol/L LAB CHEMISTRY METHOD 06/03/2024 5:10 PM [facility] Chloride 95(L) 96 - 110 mmol/L LAB CHEMISTRY METHOD 06/03/2024 5:10 PM [facility] CO2 25 21 - 32 mmol/L LAB CHEMISTRY METHOD 06/03/2024 5:10 PM [facility] Anion Gap 12(H) 3 - 11 LAB CHEMISTRY METHOD 06/03/2024 5:10 PM [facility] Glucose 93 70 - 100 mg/dL LAB CHEMISTRY METHOD 06/03/2024 5:10 PM [facility] BUN 40(H) 5 - 25 mg/dL LAB CHEMISTRY METHOD 06/03/2024 5:[address] [facility] Creatinine 1.10 0.50 - 1.10 mg/dL LAB CHEMISTRY METHOD 06/03/2024 5:[address] [facility] eGFR 49(L) >=60 mL/min/1. 73m2 LAB CHEMISTRY METHOD 06/03/2024 5:[address] [facility] Comment:Calculation based on the??Chronic Kidney Disease Epidemiology Collaboration (CKD-EPI) equation refit??without adjustment for race. BUN/Creatinine Ratio 36.4 LAB CHEMISTRY METHOD 06/03/2024 5:[address] [facility] Calcium 9.7 8.5 - 10.5 mg/dL LAB CHEMISTRY METHOD 06/03/2024 5:[address] [facility] Blood Venous blood specimen / Unknown Venipuncture / Unknown 06/03/2024 3:02 PM EDT 06/03/2024 3:02 PM EDT Dali Givens MD LAB BLOOD ORDERABLES Final Resul t [facility] [address] [place] [address], * Diabetes Foot Exam (01/08/2024) [facility] Diabetes: Annual Foot Exam ABSTRACTED Historical Provider HEALTH MAINTENANCE Final Result from Last 3 Months or Most Recently Relevant to Health [place] [phone] [facility] MEDICARE Member Subscriber Plan / Payer (Ef fective 2023-Present) Name:Karolina Mclain Relation to Subscriber:Self Name:Karolina Mclain Payer ID:[id number] Group ID:[id number] Type:Not on file Address: [address] [place] [address] Care Teams Factory Supervisor Relationship Specialty Start Date End Date Dali Givens MD [address] [place] [phone] PCP - General Internal Medicine 04/13/21
--- OUTSIDE RECORDS SUMMARY | 2024-06-20 05:19 | XMS_ITS | Clinical Summary ---
Author Organization [employer] Address [address] [place] [address] [address] [place] [address] Care Team Providers Care Data Recovery Planner Name Role Phone Unavailable Primary Care Provider Unavailabl e Immunizations Name Administration Dates Next Due Influenza High-dose Quadriva lent Preservative Free 12/30/2022,12/26/2019 Influenza Quadrivalent Adjuvanted 12/29/2020 Influenza, High Dose Seasona l, Preservative Free 01/03/2022,01/12/2019,01/02/2018,12/05,02/02/2016 Influenza, IIV3, injectable 02/02/2016 Influenza, seasonal, injecta ble, preservative free 12/31/2014 Pneumococcal Conjugate PCV 13 02/02/2016 Pneumococcal Polysaccharide PPSV23 01/15/2021,,03/22/2017 TD (adult), 2 Lf tetanus tox oid, preservative free, adsorbed 08/02/2016 Zoster, Recombinant 03/03/2023,12/30/2022 Social History Tobacco Use Types Packs/Day Years Used Date Smoking Tobacco: Never Assessed Comments Unknown Sex and Gender Information Value Date Recorded Sex Assigned at Female 01/17/2022 10:22 AM EDT Legal Sex Female 10:22 AM EDT Gender Identity Female 01/17/2022 10:22 AM EDT Sexual Orientation Straight 01/17/2022 10 :22 AM EDT Plan of Treatment Health Maintenance Due Date Last Done Comments Depression Screening 1935 Alcohol/Substance Use Screening 1947 Tobacco Screening 1947 RSV Patients and Patients Aged 60 years or older (1 - 1-dose 75+ series) 02/04/2012 DTaP/Tdap/Td Vaccines (1 - Tdap) 08/03/2016 08/02/2016 COVID-19 Vaccine ( season) 2023 01/05/2021, 05/19/2020, 04/28/2020 Influenza Vaccine (#1) 2023 3, 01/03/2022, 12/29/2020, Additional history exists Pneumococcal Vaccine: 50+ Years Completed 01/15/2021, 11/14/2017, 03/22/2017, Additional history exists Zoster Vaccines Completed 03/03/2023, 12/30/2022 HIB Vaccines Aged Out No longer eligi [...] patient's age to complete this topic Meningococcal Vaccine Aged Out No johnnie glenn eligible based on patient's age to complete this topic RSV under 20 months Aged Out No longe r eligible based on patient's age to complete this topic Rotavirus Vaccines Aged Out No longer eligible based on patient's age to complete this topic
[2024-06-20 05:54] VITALS: BP 112/60; PULSE 76; RESP 16; TEMP 36.4; O2SAT 93
[2024-06-20] MEDS: Magnesium Hydrox/Alum Hydrox 30 ML ORAL.SUSP PO (05:58)
[2024-06-20 06:00] VITALS: BP 112/60; PULSE 76; RESP 16; TEMP 36.4; O2SAT 93
[2024-06-20 06:06] VITALS: BP 112/60; PULSE 76; RESP 16; TEMP 36.4; O2SAT 93
== END 2024-06-20 06:07 | disposition home or self-care (01) ==
PROVIDERS: Emergency Provider Internal Medicine
DX: R00.2 Palpitations (principal); I10 Essential (primary) hypertension; Z03.818 Encounter for observation for suspected exposure to other biological agents ruled out
CPT/HCPCS: 0241U; 36415; 71046; 80053; 83735; 84484; 85027; 85610; 93005; 99283; 99285

== ENCOUNTER → 2024-06-20 03:11 | Outpatient (BNV) | payer OTHER, SELFPAY | PROVIDERS: Emergency Provider Internal Medicine; Visit Provider Internal Medicine | DX: R94.31 Abnormal electrocardiogram [ECG] [EKG] (principal); R07.9 Chest pain, unspecified | CPT/HCPCS: 93010 ==

== ENCOUNTER → 2024-06-20 04:15 | Outpatient (BNV) | payer OTHER, SELFPAY | PROVIDERS: Emergency Provider Internal Medicine; Visit Provider General Practice | DX: R07.9 Chest pain, unspecified (principal); R06.02 Shortness of breath | CPT/HCPCS: 71046 ==

== ENCOUNTER 2024-11-08 15:32 | Emergency (ER) | payer OTHER, SELFPAY ==
--- NOTE | ~2024-11-08 | XR_ITS ---
EXAMINATION: XR PELVIS CLINICAL INFORMATION: trauma COMPARISON: None available. TECHNIQUE: AP view of the pelvis. FINDINGS: Chondrocalcinosis is visible in the right greater than left hip joints. There is very mild axial joint space narrowing of both hip joints. Chondrocalcinosis is visible in the pubic symphysis joint. The pelvis is otherwise unremarkable. No fracture is demonstrated XR/XR pelvis 1-2V IMPRESSION: CPPD deposition bilateral hip joints with minimal axial joint space narrowing. CPPD deposition within the pubic symphysis joint. Electronically signed by: Santiago Dai MD 11/08/2024 04:09 PM EDT
--- NOTE | ~2024-11-08 | XR_ITS ---
EXAMINATION: XR LUMBOSACRAL SPINE CLINICAL INFORMATION: trauma COMPARISON: CT on 03/11/2022 TECHNIQUE: Three views of the lumbosacral spine. FINDINGS: There clips are quadrant from prior cholecystectomy. There is moderate atherosclerotic calcification aorta and iliac arteries. There is moderate gas in small and large bowel, and the stomach is distended with gas/air. There are 5 nonrib-bearing lumbar segments. There is 16 degrees levoscoliosis of the lower lumbar spine. There is a superior endplate fracture of L1 with 70-80 percent loss of height. No other fracture is demonstrates. L2-3 and L3-4 intervertebral grade 1 retrolisthesis. L4-5 demonstrates grade 1 anterolisthesis. There is moderate-severe disc space narrowing at L2-3 and L5-S1. There is facet sclerosis and osteophytes at L2-3 and L4-5. XR/XR lumbar spine 2-3V IMPRESSION: L1 superior endplate compression fracture with 70-80% loss of height. Mild levoscoliosis Degenerative disc disease and facet arthropathy most advanced at L2-3 and L5-S1. Electronically signed by: Santiago Dai MD 11/08/2024 04:14 PM EDT
[2024-11-08 15:36] VITALS: BP 174/89; PULSE 61; RESP 16; TEMP 36.4; O2SAT 97; BMI 22.7
--- NOTE | 2024-11-08 15:40 | ED_ITS ---
HPI - General Adult General Chief complaint: Fall Stated complaint: lower back pain (fell) Time Seen by Provider: 11/08/24 17:52 Source: patient Mode of arrival: ambulatory Limitations: no limitations and language barrier History of Present Illness ED Provider: HPI narrative: 89-year-old woman had a mechanical slip and fall 7-8 days ago while she was in the [facility], she went and got x-rays there, and also had some kind of local injections, she is endorsing pain in the lower back L5-S1 area over SI joints which overall is improving since the initial injury but after a 4 hour flight she is having pain, has not seen her PCP she states they just landed. No fevers or chills no hematuria or dysuria no chest pain no abdominal pain, no numbness in the groin or her lower extremities. She is here with her grandson. She has been ambulatory. Related Data Home Medications ?Medication ?Instructions ?Recorded ?Confirmed atorvastatin 40 mg tablet 40 mg PO BEDTIME 01/03/22 calcium 600 mg (as 1 tab BID 01/03/22 03/14/22 carbonate)-vitamin D3 5 mcg (200 unit) tablet losartan 100 mg tablet 1 tab PO DAILY 01/03/2202/18 metformin 500 mg tablet 1 tab PO BID 01/03/22 mirabegron 50 mg tablet,extended 50 mg PO DAILY 03/14/22 release 24 hr (Myrbetriq) mirtazapine 15 mg tablet 15 mg PO BEDTIME PRN Urinary 01/03/22 03/14/22 Retention multivitamin 1 tab PO DAILY 01/03/2202/18 acetaminophen 650 mg 1 tab PO Q8H PRN pain 03/14/22 tablet,extended release (Arthritis Pain Relief (acetaminophen) ER) Previous Rx's ?Medication ?Instructions ?Recorded ferrous sulfate 324 mg (65 mg 324 mg PO DAILY #30 tabs 01/06/22 iron) tablet,delayed release metoprolol tartrate 50 mg tablet 50 mg PO BID #180 tab s 01/06/22 nifedipine 60 mg tablet,extended 60 mg PO DAILY #90 ta bs 01/06/22 release omeprazole 40 mg capsule,delayed 40 mg PO DAILY@0630 # 90 caps 01/06/22 release levofloxacin 750 mg tablet 750 mg PO Q24H 7 days #7 ta bs 03/11/22 metronidazole 500 mg tablet 500 mg PO Q8H 7 days #21 t abs 03/11/22 lidocaine 5 % topical patch 1 patch topical DAILY #15 ea 11/08/24 oxycodone 5 mg tablet 2.5 mg (1/2 x 5 mg) PO Q6H P RN 11/08/24 pain #5 tabs Allergies Allergy/AdvReac Type Severity Reaction Status Date / Time guava (GUAVA) Allergy Unknown UNKNOWN Verified 11/08/24 15:40 nut - unspecified (NUTS) Allergy Unknown UNKNOWN Verified 11/08/24 15:40 sesame seed (SESAME SEED) Allergy Unknown UNKNOWN Verified 11/08/24 15:40 Review of Systems Constitutional: Constitutional: Reports as per [facility] Past Medical History Medical History Chronic epigastric pain Uncontrolled hypertension Chest pain Gastritis Neuropathy HTN (hypertension) Diabetes Family History Family History Other Coronary artery disease Diabetes Social History Social History Alcohol intake: never Patient Tobacco Use Status: Never used Tobacco e-Cigarette/Vaping Use: Never Used Advance Directives: Yes Advance Directives on File: Yes Advance Directives Date on File: 05/04/24 service: No Current occupational status: retired Physical Exam ED Vital Signs: Vital Signs - 24 hr 11/08/24 15:36 11/08/24 17:50 Temperature 97.6 F 97.8 F Pulse Rate 61 60 Respiratory Rate 16 16 Blood Pressure 174/89 H 173/79 H Pulse Oximetry 97 96 Oxygen Delivery Method Room Air Room Air BMI result Body Mass Index 22.7 Const Other: * Gen: ?Overall well-appearing patient * Resp: ?No wheezing rales rhonchi no stridor moving air well * Abd: ?Bowel sounds are present, no tenderness no rebound no rigidity * MSK: FROM, strength 5/5 all extremities, patient has tenderness along her bilateral SI joints, no tenderness over her spine from the cervical down to the sacral, both hips both knees both angles she has full range of motion distal pulses intact generally no sensory deficits and she has good motor recruitment bilaterally * Skin: Warm, dry, intact, no rashes no bruising * Neuro: ?Alert and oriented x3, moving upper and lower extremities symmetrically, no obvious facial asymmetry noted Course Course Course Narrative: RME, this is a rapid medical exam performed by Ruslan Rodriguez please refer to primary provider for complete H&P- 89-year-old female presents for evaluation of lower back and buttocks pain. She had a fall 4 or 5 days ago while in the [facility]. She did have x-rays that showed a questionable L1 compression fracture and osteo degenerative changes. Plan for repeat imaging. The patient denies head strike, she landed straight on her buttocks when the fall happened Medical Decision Making Medical Decision Making MDM Narrative: Patient has pain in the SI joints mostly, there is no evidence for any neurologic deficits to suspect underlying cauda equina, she does have L1 compression fracture 70-80%, without posterior segments intruding into the spinal canal, and she has no clinical pain or tenderness in that area, this is likely a chronic fracture, she has kyphosis and osteopenia Overall she is doing well and her symptoms has been improving after the fall, initially considered coccyx fracture but the coccyx does not appear to be broken and the rest of the x-ray is unremarkable Differential Diagnosis Differential Diagnoses: The differential diagnosis associated with the presentation includes (Lumbar fracture, hip fracture, pelvic fracture, nonsyncopal fall, cauda equina) Independent Interpretation I performed an independent interpretation of an: Plain X-Ray (Patient has L1 compression fracture, and significant DJD, no coccyx fracture) Radiology Impression Discussion of test interpretation with radiology: I have reviewed the radiologist's reading. ( XR/XR lumbar spine 2-3V IMPRESSION: L1 superior endplate compression fracture with 70-80% loss of height. Mild levoscoliosis Degenerative disc disease and facet arthropathy most advanced at L2-3 and L5-S1.) Prescription Management I considered prescription management with: Pain Medication Discharge Plan Discharge Clinical Impression: Low back ache, Arthritis of low back, Closed compression fracture of L1 vertebra Patient Disposition: Home, Self-Care Additional Instructions: Evaluated with low back pain, significant arthritic changes in the back which is expected at this age, with lumbar 1 compression fracture seen on the x-rays performed in [facility], this is a likely old fracture, she has no pain clinically in that area, and this is common in patients with kyphosis or elapsed curved back due to age, I recommend Tylenol 975 mg every 6 hours around the clock as needed for pain, lidocaine patches to the area that hurts and you can keep him on place for up to 12 hours, you can alternatively also picker tender capsaicin ointment patches these are hot patches and they work well with the pain, I will provide a few doses of oxycodone use a half a pill every 6 hours to help with sleep be mindful using it in the patient, it can cause constipation, weakness, dizziness and urinary retention use only if Tylenol on patches are not helping. Further pain control evaluation should be performed by primary care physician, any other issues or concerns come back to the ED Prescriptions: New lidocaine 5 % adhesive patch,medicated 1 patch topical DAILY Qty: 15 0RF Rx Instructions: leave on most painful area for up to 12 hrs oxycodone 5 mg tablet 2.5 mg PO Q6H PRN (Reason: pain) Qty: 5 0RF Rx Instructions: Partial Fill upon patient request. No Action levofloxacin 750 mg tablet 750 mg PO Q24H 7 Days Qty: 7 0RF metronidazole 500 mg tablet 500 mg PO Q8H 7 Days Qty: 21 0RF acetaminophen [Arthritis Pain Relief (acetam)] 650 mg tablet extended release 1 tab PO Q8H PRN (Reason: pain) Myrbetriq 50 mg Tablet Extended Release 24 Hr 50 mg PO DAILY calcium carbonate-vitamin D3 600 mg-5 mcg (200 unit) tablet 1 tab BID metformin 500 mg tablet 1 tab PO BID mirtazapine 15 mg Tablet 15 mg PO BEDTIME PRN (Reason: Urinary Retention) atorvastatin 40 mg Tablet 40 mg PO BEDTIME multivitamin Tablet 1 tab PO DAILY losartan 100 mg tablet 1 tab PO DAILY metoprolol tartrate 50 mg Tablet 50 mg PO BID Qty: 180 0RF Protocol: Hold for SBP/HR < HOLD for SBP < : 90 HOLD for HR < : 60 Rx Instructions: replaces prior dose of 25 mg twice daily ferrous sulfate 324 mg (65 mg iron) Tablet,Delayed Release (Dr/Ec) 324 mg PO DAILY Qty: 30 0RF nifedipine 60 mg tablet extended release 60 mg PO DAILY Qty: 90 0RF Rx Instructions: replaces prior dose of 30 mg daily omeprazole 40 mg Capsule,Delayed Release(Dr/Ec) 40 mg PO DAILY@0630 Qty: 90 0RF Referrals: Dali Givens MD [Primary Care Provider, Internal Medicine] - 1 week Clinical Impression: Arthritis of low back; Closed compression fracture of L1 vertebra; Low back ache Print Language: [place]
--- OUTSIDE RECORDS SUMMARY | 2024-11-08 17:44 | XMS_ITS ---
Author Name [facility] Organization Unknown History of Medication Use Medication Directions Dispensed Refills Start Date End Date Stat us levoFLOXacin (LEVAQUIN) 750 MG tablet Take 1 tablet (750 mg total) by mouth daily. FOR 7 DAYS 03/11/2022 active Calcium Carb-Cholecalciferol 600-5 MG-MCG Tab Take 1 tablet by mouth 2 (two) times a day. 01/17/2022 active metoPROLOL TARTRATE (LOPRESSOR) 50 MG tablet Take 1 tablet (50 mg total) by mouth 2 (two) times a day. 01/17/2022 active NIFEdipine ER (ADALAT CC) 60 MG 24 hr tablet Take 1 tablet (60 mg total) by mouth daily. 01/06/2022 active Myrbetriq 50 MG ER tablet Take 1 tablet (50 mg total) by mouth daily. 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 ProblemAct [facility] Hyperactivity of bladder active 2020-03-16 ProblemAct [facility] GERD (gastroesophageal reflux disease) active 2015-08-20 ProblemAct [facility] Dark stools active 2022-03-14 ProblemAct [facility] Encounters Encounter Type Encounter Reason Primary Diagnosis Location Date Ambulatory Rectal prolapse [facility] [employer] 05/10/2022 Inpatient Rectal prolapse [facility] 04/25/2022 Ambulatory Encounter for ot her preprocedural examination [facility] 04/18/2022 Ambulatory Rectal prolapse Rectal prolapse [facility] 03/25/2022 Observation Syncope and collapse [facility] [employer] [facility] 03/14/2022 Care Team Organization Name Specialty Phone Email Start Date End [facility] DALI FRANCOIS Primary Care 03/25/2022 [facility] NO PCP Primary Care 03/14/2022 03/25/2022 [facility] Dali Francois Primary Care 03/14/2022 03/25/2022 [facility] 03/14/2022
--- OUTSIDE RECORDS SUMMARY | 2024-11-08 17:44 | XMS_ITS | Clinical Summary ---
Author Organization 175 [facility] Address [address] [place] [address] Phone Care Team Providers Care Can Pusher Name Role Phone Dali Givens MD Primary Care Provider [phone] Allergies Active Allergy Reactions Criticality Noted Date Comments Chocolate Hazelnut Flavor 01/15/2024 Hazelnut Other 06/15/2015 Food allergy Sesame seed,guava,wheat bread, Nuts Anaphylaxis Pecan Nut 06/17/2024 Medications ferrous sulfate 325 mg (65 mg elemental iron) tablet Take 1 tablet (325 mg total) by mouth 2 (two) times a day. 4 Active famotidine (PEPCID) 20 mg tablet TAKE ONE TABLET BY MOUTH TWICE DAILY NEEDED HEARTBURN 4 Active lidocaine (LIDODERM) 5 % patch Active simethicone (MYLICON) 125 mg chewable tablet CHEW ONE TABLET BY MOUTH EVERY SIX HOURS NEEDED para gases Active OneTouch Ultra Test test strip Use to test blood sugar twice daily 3 Active Myrbetriq 50 mg tablet extended release 24 hr 24 hr tablet TAKE ONE TABLET EVERY DAY 30 tablet 5 5 Active polyethylene glycol (PEG) 17 gram/dose oral powder STIR 17GM INTO 8 OUNCES OF WATER, OR JUICE, AND DRINK DAILY NEEDED / DIRECTED 4 Active metFORMIN (GLUCOPHAGE) 500 mg tablet Take 1 tablet (500 mg total) by mouth 2 (two) times a day with meals. 180 tablet 1 5 Active calcium carbonate-vitam in D3 600 mg-5 mcg (200 unit) per tablet Take 1 tablet by mouth 2 (two) times a day. 180 tablet 1 5 Active omeprazole (PriLOSEC) [address] capsule Take 1 capsule (40 mg total) by mouth 1 (one) time each day. Do not crush or chew. 90 capsule 1 5 Active docusate sodium (COLACE) 100 mg capsule Take 1 capsule (100 mg total) by mouth 2 (two) times a day. 60 capsule 5 Active senna 8.6 mg tablet Take 1 tablet (8.6 mg total) by mouth 1 (one) time each day. 30 tablet 5 Active multivitamin (One Daily Multivitamin) tablet Take 1 tablet by mouth 1 (one) time each day. 90 tablet 5 Active mirtazapine (REMERON) 15 mg tablet Take 1 tablet (15 mg total) by mouth at bedtime. at bedtime 90 tablet 1 5 Active atorvastatin (LIPITOR) 40 mg tablet Take 1 tablet (40 mg total) by mouth at bedtime. at bedtime 90 tablet 1 5 Active NIFEdipine CC (ADALAT CC) 90 mg 24 hr tablet Take 1 tablet (90 mg total) by mouth at bedtime. Do not crush, chew, or split. 90 tablet 5 Active metoprolol tartrate (LOPRESSOR) 25 mg tablet Take 1 tablet (25 mg total) by mouth 2 (two) times a day. 180 tablet 5 Active losartan (COZAAR) 100 mg tablet Take 1 tablet (100 mg total) by mouth at bedtime. 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 Sigala Varicose veins of leg with swelling 05/04/2016 Type 2 diabetes mellitus wit h neurological manifestations, controlled ([facility] V24, [facility] V28) 11/26/2015 Onychomycosis 11/26/2015 GERD (gastroesophageal reflux disease) 6 Hyperlipidemia 08/20/2015 Insomnia 08/20/2015 Diabetic neuropathy ([facility] V24, [facility] V28) 0 06/15/2015 Essential hypertension 06/15/2015 Encounters Date Type Department Care Team Description 08/22/[address] [facility] - Main Lab [address] [facility] [place] [phone] Olimpia Amaya PA Urinary tract infection, site not specified 08/22/2024 Telephone Adult Medicine [address] [phone] Dali Givens MD Medication Problem 08/16/2024 Telephone Adult Medicine [address] [phone] Dali Givens MD UTI 08/15/2024 3:30 PM EDT Office Visit Orthopedic Surgery - [place] [address] [place] [address] [place] [phone] Taylor Burton NP Primary osteoarthritis of right knee (Primary Dx); Primary osteoarthritis of left knee from Last 3 Months Immunizations Name Administration [...] diabetes mellitus wit h neurological manifestations, controlled ([facility] V24, [facility] V28) 11/26/2015 Onychomycosis 11/26/2015 Varicose veins of leg with swelling 05/04/2016 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 Diabetic neuropathy ([facility] V24, [facility] V28) 0 06/15/2015 Diabetic gastroparesis ([facility] V24, [facility] V28 ) 12/31/2018 Overactive bladder Social History Tobacco Use [...] Reading Time Taken Comments Blood Pressure 122/60 07/19/2024 11:20 AM EDT Pulse 65 07/19/2024 11:20 AM EDT Temperature 35.9 C (96.6 F) 07/19/2024 11:20 AM EDT Respiratory Rate 14 07/19/2024 11:20 AM EDT Oxygen Saturation 96% 07/19/2024 11:20 AM EDT Inhaled Oxygen Concentration - - Weight 58.1 kg (128 lb) 08/15/2024 3:25 PM EDT Height 157.5 cm (5' 2 ) 08/15/2024 3:25 PM EDT Body Mass Index 23.41 08/15/2024 3:25 PM EDT Plan of Treatment Upcoming Encounters Date Type Department Care Team (Late st Contact Info) Description 11/12/2024 2:00 PM EDT Office Visit Orthopedic Surgery [facility] [address] [phone] Nick Crawford, DPM [address] [address] 11/25/2024 11:00 AM EDT Office Visit Adult Medicine [facility] [address] [place] [phone] Tere Valente PA [address] [place] [address] 02/19/2025 3:30 PM EST Office Visit Orthopedic Surgery [place] [address] [phone] Taylor Burton NP [address] [address] Health Maintenance Due Date Last Done Comments Diabetes: Annual Retina Eye Exam 1945 RSV Immunization Adult Patients (1 - 1-dose 75+ series) 02/04/2012 Falls Risk Assessment 02/26/2022 Medicare Annual Wellness Visit 02/26/2022 Osteoporosis Screening (Bone Density Screening) 02/26/2022 Social Influencers of Health Screening 02/26/2022 COVID-19 Vaccine ( season) 2023 04/18/2023, 01/05/2021, 05/19/2020, Additional history exists Depression Screening 03/20/2024 Influenza Vaccine (#1) 2024 , 12/30/2022, 01/03/2022, Additional history exists Diabetes: Blood Sugar Control [...] age to complete this topic Meningococcal B Vaccine Aged Out No l onger eligible based on patient's age to complete this topic RSV Immunization Patients Under 20 months Aged Out No longer eligible based on patient's age to complete this topic Varicella Vaccines Aged Out No longer eligible based on patient's age to complete this topic Procedures Procedure Name Priority Date/Time Associated Diagnosis Comments CULTURE URINE Routine 08/22/2024 9:22 AM EDT Urinary tract infection, site not specified NH ARTHROCENTESIS/ASPI RATION/INJECTION MAJOR JOINT/BURSA W/O U/S GUIDANCE Routine 08/15/2024 3:30 PM EDT Primary osteoarthritis of right knee Primary osteoarthritis of left knee BASIC METABOLIC PANEL Routine 06/03/2024 3:02 PM EDT Essential hypertension HEMOGLOBIN A1C Routine 06/03/2024 3:02 PM EDT Type 2 diabetes mellitus with neurological manifestations, controlled (CMS/HCC V24, CMS/HCC V28) LIPID PANEL WITH REFLEX TO DIRECT LDL Routine 06/03/2024 3:02 PM EDT Other hyperlipidemia DIABETES FOOT EXAM Routine 01/08/2024 from Last 3 Months or Most Recently Relevant to Health Maintenance Results * (ABNORMAL) Culture urine (08/22/2024 9:22 AM EDT) Culture, Urine >100,000 CFU/mL Escherichia coli(A) MONSE 08/24/2024 9:48 AM EDT [facility] Urine Urine specimen obtained by clean catch procedure / Unknown 08/22/2024 9:22 AM EDT 08/22/2024 3:00 PM EDT Narrative Organism Antibiotic Method Susceptibility Escherichia coli Amoxicillin/Clavulanate MONSE 8 ug/ml: Susceptible Escherichia coli Ampicillin/Sulbactam MONSE 8 ug/ml: Susceptible Escherichia coli Piperacillin/Tazobactam MONSE <=4 ug/ml: Susceptible Escherichia coli Cefazolin (Urine) MONSE 4 ug/ml: Susceptible Escherichia coli Cefoxitin MONSE 8 ug/ml: Susceptible Escherichia coli Ceftazidime MONSE <=0.5 ug/ml: Susceptible Escherichia coli Ceftriaxone MONSE <=0.25 ug/ml: Susceptible Escherichia coli Cefepime MONSE <=0.12 ug/ml: Susceptible Escherichia coli Meropenem MONSE <=0.25 ug/ml: Susceptible Escherichia coli Amikacin MONSE 4 ug/ml: Susceptible Escherichia coli Gentamicin MONSE >=16 ug/ml: Resistant Escherichia coli Ciprofloxacin MONSE >=4 ug/ml: Resistant Escherichia coli Levofloxacin OMNSE >=8 ug/ml: Resistant Escherichia coli Nitrofurantoin MONSE 64 ug/ml: Intermediate Escherichia coli Trimethoprim/Sulfamethoxazole MONSE >=320 ug/ml: Resistant us [place] [facility] MICROBIOLOGY - GENERAL ORD ERABLES Final Result [facility] [address] [place] [address], [place] [phone] * NH ARTHROCENTESIS/ASPIRATION/INJECTION MAJOR JOINT/BURSA W/O U/S GUIDANCE (08/15/2024 3:30 PM EDT) Taylor Gandhi NP - 08/15/2024 3:30 PM EDT Taylor Burton NP 08/16/2024 12:38 PM L Inj/Asp: bilateral knee Indications: pain Details: 22 G needle, anterolateral approach Medications (Right): 60 mg hyaluronate sodium, stabilized 60 mg/3 mL Medications (Left): 60 mg hyaluronate sodium, stabilized 60 mg/3 mL Outcome: tolerated well, no immediate complications (Patient did experience extended period of soreness through the left knee following the injection. Ice was applied. This improved prior to patient's departure.) Informed Consent: Laterality: Bilateral Relevant images/test results available and reviewed: yes Health status cleared: Yes Procedure/treatment, purpose, treatment alternatives, risks/potential complications and benefits explained: yes Risk/complications/benefits details: Risks and benefits associated with the injection reviewed which can include but not limited to infection, bleeding, bruising, transient synovitis, no improvement in symptoms. Patient questions answered: yes Patient agrees, verbalizes understanding, and wants to proceed: yes Consent given by: Patient Informed consent discussion completed by Physician/MICHAEL with patient: Verbal Pre-procedure timeout performed: yes Taylor Burton ELECTRIC MOTOR CONTROL ASSEMBLER IN CLINIC/BEDSIDE ORDER ZULMA Edited Result - Final * Lipid panel with reflex to direct LDL (06/03/2024 3:02 PM EDT) Cholesterol 152 0 - 200 mg/dL LAB CHEMISTRY METHOD 06/03/2024 5:12 PM EDT [facility] Triglycerides 144 0 - 150 mg/dL LAB CHEMISTRY METHOD 06/03/2024 5:12 PM EDT [facility] HDL 49 >=40 mg/dL LAB CHEMISTRY METHOD 06/03/2024 5:12 PM EDT [facility] LDL Calculated 74 0 - 100 mg/dL LAB CHEMISTRY METHOD 06/03/2024 5:12 PM EDT [facility] VLDL Cholesterol Michele 28.8 mg/dL LAB CHEMISTRY METHOD 06/03/2024 5:12 PM EDT [facility] Non HDL Chol. (LDL+VLDL) 103 <145 mg/dL LAB CHEMISTRY METHOD 06/03/2024 5:12 PM EDT [facility] Chol/HDL Ratio 3.1 0.0 - 4.4 LAB CHEMISTRY METHOD 06/03/2024 5:12 PM EDT [facility] Blood Venous blood specimen / Unknown Venipuncture / Unknown 06/03/2024 3:02 PM EDT 06/03/2024 3:02 PM EDT us Dali Givens MD LAB BLOOD ORDERABLES Final Resul t Performing Organization Address City/[facility]/ZIP Co de Phone Number [facility] [address] [place] [address], [place] [phone] * Hemoglobin A1c (06/03/2024 3:02 PM EDT) Hemoglobin A1C 5.6 <6.5 % LAB CHEMISTRY METHOD 06/03/2024 8:27 PM EDT [facility] Mean Bld Glu Estim. 114 mg/dL LAB CHEMISTRY METHOD 06/03/2024 8:27 PM EDT [facility] Blood Venous blood specimen / Unknown Venipuncture / Unknown 06/03/2024 3:02 PM EDT 06/03/2024 3:02 PM EDT us Dali Givens MD LAB BLOOD ORDERABLES Final Resul t [facility] [address] [place] [address], [place] [phone] * (ABNORMAL) Basic metabolic panel (06/03/2024 3:02 PM EDT) Sodium 132(L) 133 - 145 mmol/L LAB CHEMISTRY METHOD 06/03/2024 5:10 PM [facility] Potassium 5.0 3.5 - 5.5 mmol/L LAB CHEMISTRY METHOD 06/03/2024 5:10 PM [facility] Chloride 95(L) 96 - 110 mmol/L LAB CHEMISTRY METHOD 06/03/2024 5:10 PM [facility] CO2 25 21 - 32 mmol/L LAB CHEMISTRY METHOD 06/03/2024 5:10 PM [facility] Anion Gap 12(H) 3 - 11 LAB CHEMISTRY METHOD 06/03/2024 5:10 PM [facility] Glucose 93 70 - 100 mg/dL LAB CHEMISTRY METHOD 06/03/2024 5:10 PM [facility] BUN 40(H) 5 - 25 mg/dL LAB CHEMISTRY METHOD 06/03/2024 5:10 PM [facility] Creatinine 1.10 0.50 - 1.10 mg/dL LAB CHEMISTRY METHOD 06/03/2024 5:10 PM [facility] eGFR 49(L) >=60 mL/min/1. 73m2 LAB CHEMISTRY METHOD 06/03/2024 5:10 PM [facility] Comment:Calculation based on the Chronic Kidney Disease Epidemiology Collaboration (CKD-EPI) equation refit without adjustment for race. BUN/Creatinine Ratio 36.4 LAB CHEMISTRY METHOD 06/03/2024 5:10 PM [facility] Calcium 9.7 8.5 - 10.5 mg/dL LAB CHEMISTRY METHOD 06/03/2024 5:10 PM [facility] Blood Venous blood specimen / Unknown Venipuncture / Unknown 06/03/2024 3:02 PM EDT 06/03/2024 3:02 PM EDT us Dali Givens MD LAB BLOOD ORDERABLES Final Resul t [facility] [address] [place] [address], * Diabetes Foot Exam (01/08/2024) Diabetes: Annual Foot Exam ABSTRACTED us Historical Provider MD HEALTH MAINTENANCE Final Result from Last 3 Months or Most Recently Relevant to [place] [phone] [facility] Member Subscriber Plan / Payer (Ef fective 2023-Present) Name:Brady Mclain Josef Relation to Subscriber:Self Name:Maraelizabeth Brady Bahena Payer ID:[id number] Group ID:Not on file Type:Not on file Address: [place] [address] [address] MEDICA[place] - [place] Care Teams Can Pusher Relationship Specialty Start Date End Date Dali Givens MD [address] [place] [id number] PCP - General Internal Medicine 04/13/21
--- OUTSIDE RECORDS SUMMARY | 2024-11-08 17:44 | XMS_ITS | Clinical Summary ---
Author Organization [facility] Address [address] [place] [address] Care Team Providers Care Second Cook And Baker Name Role Phone Dali Givens MD Primary Care Provider Unavailab le Allergies Active Allergy Reactions Criticality Noted Date Comments Sesame Seeds Unknown/Patient and Family Unable to Define Medium 04/25/2022 Medications Arthritis Pain Relief 650 MG CR tablet Take 1 tablet (650 mg total) by mouth 3 times daily (every 8 hours) as needed. for pain Tylenol 01/17/2022 Active Aspirin Low Dose 81 MG chewable tablet Chew 1 tablet (81 mg total) daily. 01/06/2022 Active atorvastatin (LIPITOR) 40 MG tablet Take 1 tablet (40 mg total) by mouth nightly. 02/16/2022 Active Calcium Carb-Cholecalci ferol 600-5 MG-MCG Tab Take 1 tablet by [...] 01/17/2022 Active senna (SENOKOT) 8.6 MG Tab tabletIndicatio ns:GI bleed Take 2 tablets by mouth daily as needed for constipation. 120 tablet 03/15/2022 Active PANTOprazole (PROTONIX) 40 MG EC tablet Take 1 tablet (40 mg total) by mouth daily. 04/08/2022 Active multivitamin tablet Take 1 tablet by mouth daily. 04/08/2022 Active oxyCODONE (ROXICODONE) 5 MG immediate release tabletIndicatio ns:Rectal prolapse Take 1 tablet (5 mg total) by mouth every 4 (four) hours as needed for moderate pain. Max Daily Amount: 30 mg 10 tablet 04/27/2022 Active polyethylene glycol (miraLAx) 17 g packetIndicatio ns:Rectal prolapse Take 1 packet (17 g total) [...] Date Recorded PHQ-2 Total Score 0 04/25/2022 Comments No Sex and Gender Information Value Date Recorded Sex Assigned at Female 03/22/2022 10:15 AM EST Legal Sex Female 12:26 PM EST Gender Identity Female 03/22/2022 10:15 AM EST Sexual Orientation Heterosexual (straight) 03/22 10:15 AM EST Last Filed Vital Signs Vital Sign Reading Time Taken Comments Blood Pressure 122/60 05/10/2022 3:24 PM EST Pulse 50 05/10/2022 3:24 PM EST Temperature 36.1 C (96.9 F) 04/27/2022 8:27 AM EST Respiratory Rate 18 04/27/2022 8:27 AM EST [...] 02/21/2018 Creatinine with GFR 03/15/2023 03/15/2022, 03/14/2022 COVID-19 Vaccine ( - 2023-2 5 season) 2023 01/05/2021, 05/19/2020, 04/28/2020 Influenza Vaccine 10/18/2024 01/03/2022, 02/02/2016 Hepatitis B Vaccines Aged Out No long er eligible based on patient's age to complete this topic Procedures Procedure Name Priority Date/Time Associated Diagnosis Comments COMPREHENSIVE METABOLIC PANEL STAT 03/15/2022 7:06 AM EST from Last 3 Months or Most Recently Relevant to Health Maintenance Results * (ABNORMAL) Comprehensive Metabolic Panel (03/15/2022 7:06 AM EST) Glucose 97 65 - 99 mg/dL 03/15/2022 8:06 AM [facility] Comment:Fasting: <100 mg/dL, Non-Fasting: <200 mg/dL (ADA 2004) Blood Urea Nitrogen (BUN) 13 8 - 21 mg/dL 03/15/2022 8:06 AM [facility] Creatinine 0.8 0.4 - 1.1 mg/dL 03/15/2022 8:06 AM [facility] eGFR >60 >59 03/15/2022 8:06 AM [facility] Comment:MDRD in mL/min/1.73 sq meters. Sodium 136 136 - 145 mmol/L 03/15/2022 8:06 AM [facility] Potassium 4.2 3.4 - 5.3 mmol/L 03/15/2022 8:06 AM [facility] Chloride 103 98 - 107 mmol/L 03/15/2022 8:06 AM [facility] CO2 27 22 - 33 mmol/L 03/15/2022 8:06 AM [facility] Calcium 8.9 8.7 - 10.5 mg/dL 03/15/2022 8:06 AM [facility] Alkaline Phosphatase 48 32 - 122 U/L 03/15/2022 8:06 AM [facility] Aspartate Aminotrans (AST) 27 10 - 50 U/L 03/15/2022 8:06 AM [facility] Alanine Aminotrans (ALT) 27 10 - 50 U/L 03/15/2022 8:06 AM [facility] Bilirubin, Total 0.2 0.2 - 1.0 mg/dL 03/15/2022 8:06 AM [facility] Protein, Total 5.9(L) 6.3 - 8.3 g/dL 03/15/2022 8:06 AM [facility] Albumin 3.1(L) 3.4 - 4.8 g/dL 03/15/2022 8:06 AM [facility] BUN/Creatinine Ratio 16 10.0 - 25.0 Ratio 03/15/2022 8:06 AM [facility] Globulin 2.8 1.5 - 3.9 g/dL 03/15/2022 8:06 AM [facility] Albumin/Globulin Ratio 1.1 1.0 - 3.0 Ratio 03/15/2022 8:06 AM [facility] Anion Gap 6(L) 7 - 17 03/15/2022 8:06 AM [facility] Blood specimen (specimen) (Plasma/Serum) 03/15/2022 7:06 AM EST 03/15/2022 7:41 AM EST Demetri Wiggins MD LAB BLOOD ORDERABLES Final Resu lt HOSPITAL LAB See Below [address] [address] from Last 3 Months or Most Recently Relevant to Health Maintenance Insurance [facility] MEDICARE [facility] MEDICARE Advance Directives * Full Code (Latest Code Status on File) Date Activated Date Inactivated Comments 04/25/2022 6:56 PM * Full Code Date Activated Date Inactivated Comments 04/25/2022 1:19 PM 04/25/2022 6:56 PM * Full Code Date Activated Date Inactivated Comments 03/14/2022 11:28 PM 04/25/2022 9:42 AM Care Teams Second Cook And Baker Relationship Specialty Start Date End Date Dali Givens MD PCP - General 03/15/22
--- OUTSIDE RECORDS SUMMARY | 2024-11-08 17:44 | XMS_ITS | Encounter Summary ---
Author Organization [employer] Address [address] [place] [address] [address] [place] [address] Care Team Providers Care Optimization Engineer Name Role Phone Unavailable Primary Care Provider Unavailabl e Encounter Details Date Type Department Care Team (Latest Contact Info) Description 06/26/2018 Abstract [facility] CONVERSIONS Dental, Provider, DDS Social History Tobacco Use Types Packs/Day Years Used Date Smoking Tobacco: Never Assessed Comments Unknown Sex and Gender Information Value Date Recorded Sex Assigned at Female 01/17/2022 10:22 AM EDT Legal Sex Female 10:22 AM EDT Gender Identity Female 01/17/2022 10:22 AM EDT Sexual Orientation Straight 01/17/2022 10 :22 AM EDT documented as of this encounter Plan of Treatment Not on file documented as of this encounter Visit Diagnoses Not on filedocumented in this encounter
[2024-11-08 17:50] VITALS: BP 173/79; PULSE 60; RESP 16; TEMP 36.6; O2SAT 96
[2024-11-08] MEDS: Lidocaine 4 % Patch ADH..PATCH 1 PATCH TRANSDERMA (18:28)
[2024-11-08 18:52] VITALS: BP 168/90; PULSE 57; RESP 16; TEMP 36.6; O2SAT 96
[2024-11-08 18:54] VITALS: BP 168/90; PULSE 57; RESP 16; TEMP 36.6; O2SAT 96
== END 2024-11-08 19:03 | disposition home or self-care (01) ==
PROVIDERS: Emergency Provider Emergency Medicine; PCP Internal Medicine
DX: S32.019A Unspecified fracture of first lumbar vertebra, initial encounter for closed fracture (principal); M47.816 Spondylosis without myelopathy or radiculopathy, lumbar region; W19.XXXA Unspecified fall, initial encounter; Z91.81 History of falling; Y93.9 Activity, unspecified; Y92.9 Unspecified place or not applicable; I10 Essential (primary) hypertension; E11.9 Type 2 diabetes mellitus without complications
CPT/HCPCS: 72100; 72170; 96372; 99284; J1885

== ENCOUNTER → 2024-11-08 15:42 | Outpatient (BNV) | payer OTHER, SELFPAY | PROVIDERS: PCP Internal Medicine; Visit Provider Radiology Diagnostic Radiology | DX: M51.360 Other intervertebral disc degeneration, lumbar region with discogenic back pain only (principal); M11.259 Other chondrocalcinosis, unspecified hip | CPT/HCPCS: 72100; 72170 ==

== ENCOUNTER 2024-12-23 09:30 | Inpatient (IN) | payer OTHER, SELFPAY ==
--- NOTE | 2024-12-23 | ECG_ITS ---
Test Reason : chest pain Blood Pressure : */* mmHG Vent. Rate : 82 BPM Atrial Rate : 82 BPM P-R Int : 178 ms QRS Dur : 70 ms QT Int : 352 ms P-R-T Axes : * -28 148 degrees QTcB Int : 411 ms Normal sinus rhythm Minimal voltage criteria for LVH, may be normal variant ( R in aVL ) T wave abnormality, consider lateral ischemia Abnormal ECG When compared with ECG of 20-Jun-2024 03:11, No significant change was found Referred By: Generic ED Physician Electronically Signed By: MICHAEL MAGDALENO MD
--- NOTE | ~2024-12-23 | XR_ITS ---
EXAMINATION: XR CHEST 2 VIEWS HISTORY: recent pneumonia COMPARISON: Comparison is made with the prior examination dated 06/20/2024. FINDINGS: AP and lateral views of the chest are submitted. There are low lung volumes. There is probable bibasilar subsegmental atelectasis. There is no pleural effusion, pneumothorax, or pulmonary vascular congestion. The heart is normal in size. There is degenerative disc disease of the spine. XR/XR chest 2V IMPRESSION: Low lung volumes. Bibasilar subsegmental atelectasis. Electronically signed by: Kvng Rod MD 12/23/2024 10:31 AM EDT
[2024-12-23 09:57] VITALS: BP 127/58; PULSE 83; RESP 18; TEMP 37; O2SAT 96; BMI 19.6
[2024-12-23 10:21] LABS: MANUAL DIFF FLAG NO
[2024-12-23 10:23] LABS: Hematocrit 39.5 % (37.0-47.0); Hemoglobin 13.0 g/dl (12.0-16.0); Imm Gran Abs Auto 0.02 X10*3/uL (0.00-0.03); Imm Gran Pct Auto 0.2 % (0.0-0.4); Lymphocytes Absolute Auto 2.3 X10*3/uL (1.2-4.9); Mean Corpuscular HGB Conc 32.9 g/dl (31.0-35.0); Mean Corpuscular Hemoglobin 30.3 pg (27.0-33.0); Mean Corpuscular Volume 92.1 fL (80.0-98.0); NRBC Abs Auto 0.000 X10*3/uL (0.0-0.012); NRBC Pct Auto 0.0 /100WBC (0.0-0.2); Platelet Count 310 X10*3/uL (160-400); Red Blood Count 4.29 X10*6/uL (4.20-5.50); White Blood Count 10.1 X10*3/uL (4.8-10.8)
[2024-12-23 10:27] LABS: Appearance Urine Cloudy; Glucose Urine UA Negative (Negative); PH 6.5 (5.0-9.0); Specific Gravity - Urine 1.025 (1.005-1.025); UMIC TRIGGER UACC YES
[2024-12-23 10:37] LABS: UACC Culture Trigger YES
--- NOTE | 2024-12-23 10:40 | ED_ITS ---
HPI - General Adult General Chief complaint: General Medical Stated complaint: trembles, neck pain, stabbing pain in chest Time Seen by Provider: 12/23/24 10:24 Source: patient and family Mode of arrival: ambulatory History of Present Illness ED Provider: DB ZELAYA narrative: 89 yo female with PMH of HTN, DM, neuropathy, UTI, here with c/o recent illness including a fall back in [place] known L1 compression fracture that is causing worsening mobility and she really doesn't move around at home. She was treated x 2 per nephew for UTI but she still has dysuria, frequency and malaise. She also c/o lower blood sugars and she stopped taking her metformin her BS has been 80s- 100s. She has intermittent L sided chest pain that comes and goes no associated increase in cough. It occurs at rest. No leg swelling reported. She has chills at night and feels warm per family. She shakes more so around AM or nighttime. She also had pneumonia back in November that was treated. MD complaint: weakness, UTI symptoms, FTT, sharp chest pains Onset (ago): day(s) () Radiation: non-radiation Severity: moderate Quality: aching Pain Consistency: constant Relieving factors: none Exacerbating factors: movement Associated symptoms: loss of appetite, malaise and weakness Treatments prior to arrival: none Related Data Home Medications ?Medication ?Instructions ?Recorded ?Confirmed atorvastatin 40 mg tablet 40 mg PO BEDTIME 01/03/22 calcium 600 mg (as 1 tab BID 01/03/22 03/14/22 carbonate)-vitamin D3 5 mcg (200 unit) tablet losartan 100 mg tablet 1 tab PO DAILY 01/03/2202/18 metformin 500 mg tablet 1 tab PO BID 01/03/22 mirabegron 50 mg tablet,extended 50 mg PO DAILY 03/14/22 release 24 hr (Myrbetriq) mirtazapine 15 mg tablet 15 mg PO BEDTIME PRN Urinary 01/03/22 03/14/22 Retention multivitamin 1 tab PO DAILY 01/03/2202/18 acetaminophen 650 mg 1 tab PO Q8H PRN pain 03/14/22 tablet,extended release (Arthritis Pain Relief (acetaminophen) ER) Previous Rx's ?Medication ?Instructions ?Recorded ferrous sulfate 324 mg (65 mg 324 mg PO DAILY #30 tabs 01/06/22 iron) tablet,delayed release metoprolol tartrate 50 mg tablet 50 mg PO BID #180 tab s 01/06/22 nifedipine 60 mg tablet,extended 60 mg PO DAILY #90 ta bs 01/06/22 release omeprazole 40 mg capsule,delayed 40 mg PO DAILY@0630 # 90 caps 01/06/22 release levofloxacin 750 mg tablet 750 mg PO Q24H 7 days #7 ta bs 03/11/22 metronidazole 500 mg tablet 500 mg PO Q8H 7 days #21 t abs 03/11/22 lidocaine 5 % topical patch 1 patch topical DAILY #15 ea 11/08/24 oxycodone 5 mg tablet 2.5 mg (1/2 x 5 mg) PO Q6H P RN 11/08/24 pain #5 tabs Allergies Allergy/AdvReac Type Severity Reaction Status Date / Time guava (GUAVA) Allergy Unknown UNKNOWN Verified 12/23/24 10:04 nut - unspecified (NUTS) Allergy Unknown UNKNOWN Verified 12/23/24 10:04 sesame seed (SESAME SEED) Allergy Unknown UNKNOWN Verified 12/23/24 10:04 Review of Systems 2 Review of Systems: Constitutional : No Fever, pos Chills, pos Fatigue ENT/Mouth : No sore throat, No Rhinorrhea Eyes: No Eye Pain, No Swelling, No Redness Cardiovascular : No Chest Pain, No SOB Respiratory : No Cough, No Sputum Gastrointestinal : No Nausea, No Vomiting, No Diarrhea, No abdominal Pain Genitourinary : No Dysuria, No Urinary Frequency, No Hematuria, Musculoskeletal : No joint pain, No Myalgias, No Joint Swelling, pos back pain Skin : No Skin Lesions, No rash Neuro : pos Weakness, No Numbness, No Dizziness, positive Headache All other systems reviewed and are negative [facility] Past Medical History Attestation statement: The following information was validated with the patient. Source: old records reviewed Medical History Chronic epigastric pain Uncontrolled hypertension Chest pain Gastritis Neuropathy HTN (hypertension) Diabetes Family History Family History Other Coronary artery disease Diabetes Social History Social History (Reviewed 12/23/24 @ 10:42 by DAVE Godfrey Alcohol intake: never Patient Tobacco Use Status: Never used Tobacco e-Cigarette/Vaping Use: Never Used Advance Directives: Yes Advance Directives on File: Yes Advance Directives Date on File: 05/04/24 service: No Current occupational status: retired Physical Exam ED Vital Signs: Vital Signs - 24 hr 12/23/24 09:57 12/23/24 12:00 12/23/24 14:00 Temperature 98.6 F 98 F 97.9 F Pulse Rate 83 58 59 Respiratory Rate 18 15 17 Blood Pressure 127/58 L 139/75 143/73 H Pulse Oximetry 96 97 96 Oxygen Delivery Method Room Air Room Air BMI result Body Mass Index 19.6 Appearance: Alert. Oriented X3. No acute distress. Frail appearing Eyes: Pupils equal, round and reactive to light. ENT: Pharynx normal. Neck: Normal inspection. Neck supple. CVS: Normal heart rate and rhythm. Pulses normal. Respiratory: No respiratory distress. Breath sounds normal. Abdomen: Soft and nontender. Skin: Skin warm and dry. Normal skin color. Normal skin turgor. Extremities: trace pitting symmetric ankle lower extremity edema. Neuro: Oriented X 3. No motor deficit. No sensory deficit. Medications Administered Discontinued Medications Generic Name Dose Route Start Last Admin Trade Name Freq PRN Reason Stop Dose Admin Ceftriaxone Sodium 1 gm 12/23/24 10:39 12/23/24 11:20 Ceftriaxone Sodium 1 Gm Vial IVPUSH 12/23/24 10:40 1 gm ONCE ONE Administration Magnesium Sulfate 2 gm in 50 mls @ 25 mls/hr 12/23/24 10:52 12/23/24 13:20 Magnesium Sulfate/H2o IV 12/23/24 12:51 Infused ONCE ONE Infusion Sodium Chloride 500 mls @ 500 mls/hr 12/23/24 11:36 12/23/24 13:15 Ns IV 12/23/24 12:35 Infused .Q1H ONE Infusion Acetaminophen 1,000 mg in 100 mls @ 400 mls/hr 12/23/24 12:30 12/23/24 13:33 Ofirmev IV 12/23/24 12:44 Infused ONCE ONE Infusion Ondansetron HCl 4 mg 12/23/24 12:30 12/23/24 13:18 Ondansetron Hcl 4 Mg/2 Ml Vial IVPUSH 12/23/24 12:31 4 mg ONCE ONE Administration Medical Decision Making Medical Decision Making [facility] Narrative: 89 yo female with PMH of HTN, DM, neuropathy, UTI, here with c/o 10 days of urinary symptoms, FTT, weakness, intermittent sharp chest pain L side but not other associated symptoms - at this time will obtain labs, EKG, CXR, UA - I have no prior cultures to base therapy off of her. Her pain is intermittent not related to breathing no URI symptoms she has no signs of DVT on exam will rule out low to mod prob with ddimer. Her symptoms are atypical for ACS. Differential Diagnosis Differential Diagnoses: The differential diagnosis associated with the presentation includes anemia, weakness, UTI, lyte abnormality low prob VTE given recent travel and immobility pain is not present now - ddimer ordered Admission/Observation Consideration of admission/observation: Escalation of care including admission/observation considered admit for outpatient failure Consult Healthcare Provider Management of the patient was discussed with: Hospitalist will admit Lab Data [facility] Lab Attestation statement: I reviewed the patient's lab results. 12/23/24 10:15 12/23/24 10:15 Labs: Lab Results 12/23/24 12/23/24 12/23/24 Range/Units 10:15 11:00 11:01 WBC 10.1 (4.8-10.8) X10*3/uL RBC 4.29 (4.20-5.50) X10*6/uL Hgb 13.0 (12.0-16.0) g/dl Hct 39.5 (37.0-47.0) % MCV 92.1 (80.0-98.0) fL MCH 30.3 (27.0-33.0) pg MCHC 32.9 (31.0-35.0) g/dl RDW 15.6 (11.0-16.0) % Plt Count 310 (160-400) X10*3/uL MPV 8.7 L (9.4-12.3) fL Immature Gran % (Auto) 0.2 (0.0-0.4) % Neut % (Auto) 65.1 (45-73) % Lymph % (Auto) 23.2 (20-40) % [place] % (Auto) 8.5 (2-11) % Eos % (Auto) 2.3 (0-4) % Baso % (Auto) 0.7 (0-2) % Lymph # (Auto) 2.3 (1.2-4.9) X10*3/uL [place] # (Auto) 0.9 (0.1-1.2) X10*3/uL Eos # (Auto) 0.2 (0.0-0.4) X10*3/uL Baso # (Auto) 0.1 (0.0-0.2) X10*3/uL Abs Immat Gran (auto) 0.02 (0.00-0.03) X10*3/uL Absolute Neuts (auto) 6.6 (2.0-8.3) x10*3/uL Absolute Nucleated RBC 0.000 (0.0-0.012) X10*3/uL Nucleated RBC % (auto) 0.0 (0.0-0.2) /100WBC D-Dimer High Sensitivty 177 NG/ML Sodium 138 (135-145) mmol/L Potassium 3.7 (3.3-5.1) mmol/L Chloride 103 (96-108) mmol/L Carbon Dioxide 26 (22-29) mmol/L Anion Gap 13 (12-20) BUN 23 H (9-16) mg/dL Creatinine 0.70 (0.5-1.4) mg/dL Estim Creat Clear Calc 43.5 Estimated GFR > 60 Random Glucose 201 H (60-115) mg/dL Lactic Acid 2.1 H* (0.5-2.0) mmol/L Lactic Acid F/U @ 2Hr (0.5-2.0) mmol/L Calcium 9.4 D (8.4-10.2) mg/dL Magnesium 1.4 L* (1.6-2.6) mg/dL Total Bilirubin 0.3 (0.0-1.0) mg/dL AST 21 (5-31) U/L ALT 24 (0-31) U/L Alkaline Phosphatase 63 (39-117) U/L Troponin I High Sens < 2.7 (<3.5-17.0) ng/L Total Protein 6.9 (6.5-8.0) g/dL Albumin 4.1 (3.5-5.0) g/dL Urine Color Dark Yellow Urine Appearance Cloudy Urine pH 6.5 (5.0-9.0) Ur Specific [place] 1.025 (1.005-1.025) Urine Protein Trace (Neg-Trace) mg/dL Urine Glucose (UA) Negative (Negative) mg/dL Urine Ketones Trace (Negative) mg/dL Urine Blood Negative (Negative) Urine Nitrite Positive H (Negative) Ur Leukocyte Esterase Moderate (2+) H (Negative) Urine RBC 0-2 (0-2) /HPF Urine WBC 21-50 (0-5) /HPF Ur Squamous Epith Cells 3-5 (0-2) /HPF Urine Bacteria 4+ (None Seen) Hyaline Casts 0-2 (0-2) /LPF COVID-19 ([facility]IE) Negative (Negative) COVID-19 Clin Com See Note Influenza Type A (RAJIV) Negative (Negative) Influenza Type B (RAJIV) Negative (Negative) Influenza A & B Note See Note 12/23/24 Range/Units 13:41 WBC (4.8-10.8) X10*3/uL RBC (4.20-5.50) X10*6/uL Hgb (12.0-16.0) g/dl Hct (37.0-47.0) % MCV (80.0-98.0) fL MCH (27.0-33.0) pg MCHC (31.0-35.0) g/dl RDW (11.0-16.0) % Plt Count (160-400) X10*3/uL MPV (9.4-12.3) fL Immature Gran % (Auto) (0.0-0.4) % Neut % (Auto) (45-73) % Lymph % (Auto) (20-40) % [place] % (Auto) (2-11) % Eos % (Auto) (0-4) % Baso % (Auto) (0-2) % Lymph # (Auto) (1.2-4.9) X10*3/uL [place] # (Auto) (0.1-1.2) X10*3/uL Eos # (Auto) (0.0-0.4) X10*3/uL Baso # (Auto) (0.0-0.2) X10*3/uL Abs Immat Gran (auto) (0.00-0.03) X10*3/uL Absolute Neuts (auto) (2.0-8.3) x10*3/uL Absolute Nucleated RBC (0.0-0.012) X10*3/uL Nucleated RBC % (auto) (0.0-0.2) /100WBC D-Dimer High Sensitivty NG/ML Sodium (135-145) mmol/L Potassium (3.3-5.1) mmol/L Chloride (96-108) mmol/L Carbon Dioxide (22-29) mmol/L Anion Gap (12-20) BUN (9-16) mg/dL Creatinine (0.5-1.4) mg/dL Estim Creat Clear Calc Estimated GFR Random Glucose (60-115) mg/dL Lactic Acid (0.5-2.0) mmol/L Lactic Acid F/U @ 2Hr 0.7 (0.5-2.0) mmol/L Calcium (8.4-10.2) mg/dL Magnesium (1.6-2.6) mg/dL Total Bilirubin (0.0-1.0) mg/dL AST (5-31) U/L ALT (0-31) U/L Alkaline Phosphatase (39-117) U/L Troponin I High Sens (<3.5-17.0) ng/L Total Protein (6.5-8.0) g/dL Albumin (3.5-5.0) g/dL Urine Color Urine Appearance Urine pH (5.0-9.0) Ur Specific [place] (1.005-1.025) Urine Protein (Neg-Trace) mg/dL Urine Glucose (UA) (Negative) mg/dL Urine Ketones (Negative) mg/dL Urine Blood (Negative) Urine Nitrite (Negative) Ur Leukocyte Esterase (Negative) Urine RBC (0-2) /HPF Urine WBC (0-5) /HPF Ur Squamous Epith Cells (0-2) /HPF Urine Bacteria (None Seen) Hyaline Casts (0-2) /LPF COVID-19 ([facility]) (Negative) COVID-19 Clin Com Influenza Type A (RAJIV) (Negative) Influenza Type B (RAJIV) (Negative) Influenza A & B Note Independent Interpretation I performed an independent interpretation of an: EKG and Plain X-Ray (normal ) Interpretation: Rate: 82 Rhythm: NSR [place]: left Normal P waves. Normal SERENITY. Normal QRS complex. ST T wave : no ELIAN, LVH inverted t wave aVL, ST depressions slight V2-V3 qTC:411 prior studies: similar pattern in past in V2 and V3 The study has been interpreted contemporaneously by me. . Radiology Impression Discussion of test interpretation with radiology: I have reviewed the radiologist's reading. Independent Historian Clinical information obtained from an independent historian. History obtained from or confirmed by: Other External Record Review External record reviewed: Inpatient record and Outpatient record Critical Care Time Critical Care Time Critical Care Time: Yes Total Critical Care Time: 35 Attestation: Time is exclusive of separately billable procedures. Time includes: direct patient care, patient reassessment, coordination of patient care, interpretation of data (laboratory data, pulse oximetry, chest xrays), review of patient's medical records,and documentation of patient care. IV magnesium to prevent life threatening arrhythmia. Procedures excluded from critical care time:electrocardiography. Discharge Plan Discharge Clinical Impression: Acute UTI, Hypomagnesemia, Atypical chest pain Patient Disposition: Admitted As Inpatient
[2024-12-23 10:46] LABS: Troponin-I High Sensitivity < 2.7 ng/L (<3.5-17.0)
[2024-12-23 10:47] LABS: IDNOW Serial# 58CA691E; Influenza B2 Negative (Negative)
[2024-12-23 10:49] LABS: COVID-19 Test Negative (Negative); IDNOW Serial# 55D5AD1C
[2024-12-23 10:50] LABS: Alanine Aminotransferase 24 U/L (0-31); Albumin Level 4.1 g/dL (3.5-5.0); Alkaline Phosphatase 63 U/L (39-117); Anion Gap 13 (12-20); Aspartate Amino Transferase 21 U/L (5-31); Blood Urea Nitrogen 23 mg/dL (9-16); Calcium 9.4 mg/dL (8.4-10.2); Carbon Dioxide 26 mmol/L (22-29); Chloride 103 mmol/L (96-108); Creatinine Clr Calc Pharmacy 43.5; Estimated Glomerular Filt Rate > 60; Magnesium 1.4 mg/dL (1.6-2.6); Potassium 3.7 mmol/L (3.3-5.1); Sodium 138 mmol/L (135-145); Total Protein 6.9 g/dL (6.5-8.0)
[2024-12-23] MEDS: Magnesium Sulfate/H2O 2 GM/50 ML PIGGYBACK IV (11:20)
[2024-12-23 11:22] LABS: D Dimer High Sensitivity 177 NG/ML
--- OUTSIDE RECORDS SUMMARY | 2024-12-23 11:50 | XMS_ITS | Clinical Summary ---
Author Organization 175 [facility] Address [address] [place] [address] Phone Care Team Providers Care Snapper On Name Role Phone Dali Givens MD Primary Care Provider Allergies Active Allergy Reactions Criticality Noted Date [...] TWICE DAILY NEEDED HEARTBURN 01/02/20 24 Active simethicone (MYLICON) 125 mg chewable tablet CHEW ONE TABLET BY MOUTH EVERY SIX HOURS NEEDED para gases Active OneTouch Ultra Test test strip Use to test blood sugar twice daily 12/22/19 23 Active Myrbetriq 50 mg tablet extended release 24 hr 24 hr tablet TAKE ONE TABLET EVERY DAY 30 tablet 5 04/05/19 25 Active omeprazole (PriLOSEC) [address] capsule Take 1 capsule (40 mg total) by mouth 1 (one) time each day. Do not crush or chew. 90 capsule 1 08/29/19 25 Active docusate sodium (COLACE) 100 mg capsule Take 1 capsule (100 mg total) by mouth 2 (two) times a day. 60 capsule 11 08/29/19 25 Active senna 8.6 mg tablet Take 1 tablet (8.6 mg total) by mouth 1 (one) time each day. 30 tablet 08/29/19 25 Active mirtazapine (REMERON) 15 mg tablet Take 1 tablet (15 mg total) by mouth at bedtime. at bedtime 90 tablet 1 08/29/19 25 Active atorvastatin (LIPITOR) 40 mg tablet Take 1 tablet (40 mg total) by mouth at bedtime. at bedtime 90 tablet 1 08/29/19 25 Active lidocaine (LIDODERM) 5 % patchIndication s:Chronic midline low back pain, unspecified whether sciatica present,Closed compression fracture of body of L1 vertebra (CMS/HCC V24, CMS/HCC V28) Apply topically 1 (one) time each day. Apply for 12 hours out of 24-hour period. 28 patch 11/15/19 25 Active metFORMIN (GLUCOPHAGE) 500 mg tablet Take 1 tablet (500 mg total) by mouth 2 (two) times a day with meals. 180 tablet 12/03/19 25 Active calcium carbonate-vitam in D3 600 mg-5 mcg (200 unit) per tablet Take 1 tablet by mouth 2 (two) times a day. 180 tablet 12/03/19 25 Active cholecalciferol (VITAMIN D-3) 50 mcg (2,000 unit) capsule Take 1 capsule (2,000 Units total) by mouth 1 (one) time each day. 90 each 1 12/03/19 25 Active NIFEdipine CC (ADALAT CC) 90 mg 24 hr tablet Take 1 tablet (90 mg total) by mouth at bedtime. 90 tablet 12/18/19 25 Active multivitamin (One Daily Multivitamin) tablet Take 1 tablet by mouth 1 (one) time each day. 90 tablet 12/18/19 25 Active losartan (COZAAR) 100 mg tablet Take 1 tablet (100 mg total) by mouth at bedtime. 90 tablet 12/18/19 25 Active metoprolol tartrate (LOPRESSOR) 25 mg tablet Take 1 tablet (25 mg total) by mouth 2 (two) times a day. 180 tablet 12/18/19 25 Active metFORMIN (GLUCOPHAGE) 500 mg tablet Take 1 tablet (500 mg total) by mouth 2 (two) times a day with meals. 180 tablet 1 07/06/19 25 025 Discontinued calcium carbonate-vitam in D3 600 mg-5 mcg (200 unit) per tablet Take 1 tablet by mouth 2 (two) times a day. 180 tablet 1 07/06/19 025 Discontinued multivitamin (One Daily Multivitamin) tablet Take 1 tablet by mouth 1 (one) time each day. 90 tablet 08/29/19 025 Discontinued NIFEdipine CC (ADALAT CC) 90 mg 24 hr tablet Take 1 tablet (90 mg total) by mouth at bedtime. Do not crush, chew, or split. 90 tablet 08/29/19 025 Discontinued metoprolol tartrate (LOPRESSOR) 25 mg tablet Take 1 tablet (25 mg total) by mouth 2 (two) times a day. 180 tablet 08/29/19 025 Discontinued losartan (COZAAR) 100 mg tablet Take 1 tablet (100 mg total) by mouth at bedtime. 90 tablet 08/29/19 025 Discontinued nitrofurantoin, macrocrystal-mo nohydrate, (MACROBID) 100 mg capsule Take 1 capsule (100 mg total) by mouth 2 (two) times a day for 5 days. 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 Sigala Varicose veins of leg with swelling 05/04/2016 Type 2 diabetes mellitus wit h neurological manifestations, controlled ([facility] V24, [facility] V28) 11/26/2015 Onychomycosis 11/26/2015 GERD (gastroesophageal reflux disease) 6 Hyperlipidemia LDL goal <70 08/20/2015 Insomnia 08/20/2015 Diabetic neuropathy ([facility] V24, [facility] V28) 0 06/15/2015 Essential hypertension 06/15/2015 Encounters Date Type Department Care Team Description 11/25/2024 11:00 AM EDT Office Visit Adult [address] [phone] Tere Valente PA Type 2 diabetes mellitus with neurological manifestations, controlled ([facility] V24, [facility] V28) (Primary Dx); Low hemoglobin and low hematocrit; Essential hypertension; Hyperlipidemia LDL goal <70; Gastroesophageal reflux disease without esophagitis; Dysuria; Osteoporotic compression fracture of vertebra, initial encounter ([facility] V24, [facility] V28); Diabetic gastroparesis ([facility] V24, [facility] V28); Diabetic polyneuropathy associated with type 2 diabetes mellitus ([facility] V24, [facility] V28) 11/14/2024 4:45 PM EDT - 11/14/2024 11:59 PM EDT Hospital Encounter [address] [phone] Acute cough Discharge Disposition: Home or Self Care 11/14/2024 4:00 PM EDT Office Visit Adult [address] [phone] Angelika Fair PA Fall, subsequent encounter (Primary Dx); Chronic midline low back pain, unspecified whether sciatica present; Closed compression fracture of body of L1 vertebra ([facility] V24, [facility] V28); Calcium pyrophosphate deposition disease; Risk for falls; Type 2 diabetes mellitus with neurological manifestations, controlled ([facility] V24, [facility] V28); Acute cough; Dysuria; Essential hypertension; Encounter for screening involving social determinants of health (SDoH); Screening for depression 11/11/2024 Telephone Adult [address] [phone] Dali Givens MD 11/11/2024 Telephone Adult Medicine [address] [phone] Dali Givens MD from Last 3 Months Immunizations Immunization Administration Dates Next Due Influenza trivalent, 0.5mL [...] diabetes mellitus wit h neurological manifestations, controlled ([facility] V24, [facility] V28) 11/26/2015 Onychomycosis 11/26/2015 Varicose veins of leg with swelling 05/04/2016 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[facility] 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/2016 Diabetic neuropathy ([facility] V24, [facility] V28) 0 06/15/2015 Diabetic gastroparesis ([facility] V24, [facility] V28 ) 12/31/2018 Overactive bladder Social History Tobacco Use Types Packs/Day Years Used Date Smoking Tobacco: Never Smokeless Tobacco: Never Tobacco Cessation:Counseling Given: Not Answered Alcohol Use Standard Drinks/Week Comments No 0 (1 standard drink = 0.6 oz pur e alcohol) Housing Instability Answer Date Recorde d Are you worried that in the next 2 months you may not have stable housing? No 11/14/2024 Food Access & Nutrition Answer Date Rec orded Do you have access to a vari ety of food including fruits and vegetables? Yes 11/14/2024 Health Literacy Answer Date Recorded How often do you need to hav e someone help you when you read instructions, pamphlets, or other written material from your doctor or pharmacy? Never 11/14/2024 Caregiver: How often do you need to have someone help you when you read instructions, pamphlets, or other written material from your doctor or pharmacy? Not on file 11/14/2024 Financial Risk Answer Date Recorded How hard is it for you to pa y for the very basics like food, housing, medical care, and air conditioning / heating? Not very hard 11/14/2024 Transportation Answer Date Recorded Has the lack of transportati on kept you from meetings, work, or from getting things needed for daily living? No Has the lack of transportati on kept you from medical appointments or from getting medications? No 11/14/2024 Social Isolation Answer Date Recorded How often do you feel lonely or isolated from th ose around you? Never 11/14/2024 Food Risk Answer Date Recorded Within the past 12 months we worried whether our food would run out before we got money to buy more. Never true 11/14/2024 Within the past 12 months th e food we bought just didn't last and we didn't have money to get more. Never true 11/14/2024 Dependent Care Answer Date Recorded Do you need help finding or paying for care for your loved ones. For example, early childhood education coordinator or elderly care for an older adult? No 11/14/2024 Education Answer Date Recorded Do you think completing more education or training, like finishing a GED, going to college, or learning a trade, would be helpful for you? No 11/14/2024 Employment and Income Answer Date Recor ded During the last four weeks, have you been actively looking for work? No 11/14/2024 Living Situation Answer Date Recorded What is your living situation? Unrecognized valu e 11/14/2024 Comments No Sex and Gender Information Value Date Recorded Sex Assigned at Not on file Legal Sex Female 3:22 PM EST Gender Identity Female 11/27/2024 4:03 PM EDT Sexual Orientation Not on file Obstetrics History Last Filed Vital Signs Vital Sign Reading Time Taken Comments Blood Pressure 120/59 11/25/2024 10:59 AM EDT Pulse 69 11/25/2024 10:59 AM EDT Temperature 35.8 C (96.4 F) 11/25/2024 10:59 AM EDT Respiratory Rate 14 11/25/2024 10:59 AM EDT Oxygen Saturation 96% 11/25/2024 10:59 AM EDT Inhaled Oxygen Concentration - - Weight 52.2 kg (115 lb) 11/25/2024 10:59 AM EDT Height 160 cm (5' 3 ) 11/25/2024 10:59 AM EDT Body Mass Index 20.37 11/25/2024 10:59 AM EDT Plan of Treatment Upcoming Encounters Date Type Department Care Team (Late st Contact Info) Description 02/19/2025 3:30 PM EST Office Visit Orthopedic Surgery - [address] [phone] Taylor Burton NP [address] [phone] 02/25/2025 9:30 AM EST Office Visit Adult Medicine [address] [phone] Dali Givens MD [address] [place] [phone] Health Maintenance Due Date Last Done Comments Diabetes: Annual Retina Eye Exam 1945 RSV Immunization Adult Patients (1 - 1-dose 75+ series) 02/04/2012 Medicare Annual Wellness Visit 02/26/2022 Osteoporosis Screening (Bone Density Screening) 02/26/2022 COVID-19 Vaccine ( season) 2024 04/18/2023, 01/05/2021, 05/19/2020, Additional history exists Influenza Vaccine (#1) 2024 , 12/30/2022, 01/03/2022, Additional history exists Diabetes: Blood Sugar Control Test (HGBA1C) 05/25/2025 11/25/2024, 06/03/2024, 01/15/2024, Additional history exists Diabetes: Annual Foot Exam 07/08/2025 07/08/2024, Falls Risk Assessment 11/14/2025 11/14/2024, 025 Social Influencers of Health Screening 11/14/2025 11/14/2024 Hypertension/CHF/CAD Annual BMP Blood Test 11/15/2025 11/15/2024, 06/03/2024, 01/15/2024, Additional history exists DTaP,Tdap,and Td Vaccines (2 - Td or Tdap) 08/02/2026 08/02/2016 Cholesterol Screening (Lipid Panel) 06/03/2029 06/03/2024, 05/15/2023 Pneumococcal Vaccine: 50+ Years Completed 01/15/2021, 11/14/2017, 03/22/2017, Additional history exists Zoster Vaccines Completed 03/03/2023, 12/30/2022 Depression Screening Completed 11/14/2024 HIB Vaccines Aged Out No longer eligi [...] Procedure Name Priority Date/Time Associated Diagnosis Comments LEON URINE CULTURE TUBE Routine 11/28/2024 10:54 AM EDT Dysuria URINALYSIS WITH REFLEX MICROSCOPIC AND CULTURE Routine 11/28/2024 10:54 AM EDT Dysuria URINALYSIS WITH REFLEX MICROSCOPIC AND CULTURE Routine 11/28/2024 10:54 AM EDT Dysuria CULTURE URINE Routine 11/28/2024 10:54 AM EDT Dysuria LEON URINE CULTURE TUBE Routine 11/25/2024 12:45 PM EDT Dysuria URINALYSIS WITH REFLEX MICROSCOPIC AND CULTURE Routine 11/25/2024 11:49 AM EDT Dysuria HEMOGLOBIN A1C Routine 11/25/2024 11:49 AM EDT Type 2 diabetes mellitus with neurological manifestations, controlled ([facility] V24, [facility] V28) FERRITIN Routine 11/25/2024 11:49 AM EDT Low hemoglobin and low hematocrit IRON AND TIBC Routine 11/25/2024 11:49 AM EDT Low hemoglobin and low hematocrit COMPLETE BLOOD COUNT Routine 11/25/2024 11:49 AM EDT Low hemoglobin and low hematocrit Essential hypertension Hyperlipidemia LDL goal <70 Type 2 diabetes mellitus with neurological manifestations, controlled ([facility] V24, [facility] V28) Gastroesophageal reflux disease without esophagitis URINALYSIS WITH REFLEX MICROSCOPIC AND CULTURE Routine 11/25/2024 11:49 AM EDT Dysuria VITAMIN D 25 HYDROXY Routine 11/25/2024 11:49 AM EDT Osteoporotic compression fracture of vertebra, initial encounter ([facility] V24, [facility] V28) CULTURE URINE Routine 11/25/2024 11:49 AM EDT Dysuria URINALYSIS WITH REFLEX MICROSCOPIC Routine 11/15/2024 9:42 AM EDT Dysuria CBC WITH AUTO DIFFERENTIAL Routine 11/15/2024 9:42 AM EDT Dysuria URINALYSIS WITH REFLEX MICROSCOPIC Routine 11/15/2024 9:42 AM EDT Dysuria CBC AND DIFFERENTIAL Routine 11/15/2024 9:42 AM EDT Dysuria COMPREHENSIVE METABOLIC PANEL Routine 11/15/2024 9:42 AM EDT Dysuria EMMA IFA WITH TITER AND PATTERN Routine 11/15/2024 9:42 AM EDT Calcium pyrophosphate deposition disease BORRELIA BURGDORFERI ANTIBODY Routine 11/15/2024 9:42 AM EDT Calcium pyrophosphate deposition disease C-REACTIVE PROTEIN Routine 11/15/2024 9: 42 AM EDT Calcium pyrophosphate deposition disease RHEUMATOID FACTOR Routine 11/15/2024 9:4 2 AM EDT Calcium pyrophosphate deposition disease URIC ACID Routine 11/15/2024 9:42 AM EDT Calcium pyrophosphate deposition disease CULTURE URINE Routine 11/15/2024 9:42 AM EDT Dysuria XR CHEST 2 VIEWS STAT 11/14/2024 4:57 PM EDT Acute cough LIPID PANEL WITH REFLEX TO DIRECT LDL Routine 06/03/2024 3:02 PM EDT Other hyperlipidemia HM DIABETES FOOT EXAM Routine 01/08/2024 from Last 3 Months or Most Recently Relevant to Health Maintenance Results * (ABNORMAL) Urinalysis with reflex microscopic and culture (11/28/2024 10:54 AM EDT) Only the most recent of2 resultswithin the time period is included. Specific [place] Urine 1.027 1.003 - 1.030 LAB URINALYSIS - AUTOMATED METHOD 11/28/2024 12:11 PM EDT [facility] pH, Urine 5.5 5.0 - 8.0 pH LAB URINALYSIS - AUTOMATED METHOD 11/28/2024 12:11 PM [facility] Leukocytes, Urine Moderate(A) Negative LAB URINALYSIS - AUTOMATED METHOD 11/28/2024 12:11 PM [facility] Nitrite, Urine Negative Negative LAB URINALYSIS - AUTOMATED METHOD 11/28/2024 12:11 PM [facility] Protein, Urine Trace <=Trace mg/dL LAB URINALYSIS - AUTOMATED METHOD 11/28/2024 12:11 PM [facility] Glucose, Urine Negative Negative mg/dL LAB URINALYSIS - AUTOMATED METHOD 11/28/2024 12:11 PM [facility] Ketones, Urine Trace(A) Negative mg/dL LAB URINALYSIS - AUTOMATED METHOD 11/28/2024 12:11 PM [facility] Urobilinogen , Urine 1.0 0.2 - 1.0 mg/dL LAB URINALYSIS - AUTOMATED METHOD 11/28/2024 12:11 PM [facility] Bilirubin, Urine Small(A) Negative LAB URINALYSIS - AUTOMATED METHOD 11/28/2024 12:11 PM [facility] Blood, Urine Negative Negative LAB URINALYSIS - AUTOMATED METHOD 11/28/2024 12:11 PM [facility] RBC, Urine 2.5 0 - 4 /HPF LAB URINALYSIS - AUTOMATED METHOD 11/28/2024 12:11 PM [facility] WBC, Urine 7.5(H) 0 - 4 /HPF LAB URINALYSIS - AUTOMATED METHOD 11/28/2024 12:11 PM [facility] Squamous Epithelial, Urine 25 0 - 60 /LPF LAB URINALYSIS - AUTOMATED METHOD 11/28/2024 12:11 PM [facility] Bacteria, Urine Many(A) Negative /HPF LAB URINALYSIS - AUTOMATED METHOD 11/28/2024 12:11 PM EDT [facility] Hyaline Casts, Urine 0.4 0 - 3 /LPF LAB URINALYSIS - AUTOMATED METHOD 11/28/2024 12:11 PM EDT [facility] Urine Urine specimen obtained by clean catch procedure / Unknown Non-blood Collection / Unknown 11/28/2024 10:54 AM EDT 11/28/2024 10:54 AM EDT [place] [facility] URINE ORDERABLES Final Re sult Performing Organization Address City/[facility]/ZIP Co de Phone Number [facility] [address] [place] [address], [place] [phone] * Leon urine culture tube (11/28/2024 10:54 AM EDT) Only the most recent of2 resultswithin the time period is included. Extra Tube Hold for add-ons. 11/28/2024 12:01 PM EDT [facility] Comment:Auto resulted. Urine Urine specimen obtained by clean catch procedure / Unknown Non-blood Collection / Unknown 11/28/2024 10:54 AM EDT 11/28/2024 10:54 AM EDT [place] [facility] URINE ORDERABLES Final Re sult Performing Organization Address City/[facility]/ZIP Co de Phone Number [facility] [address] [place] [address], [place] [phone] * (ABNORMAL) Culture urine (11/28/2024 10:54 AM EDT) Only the most recent of3 resultswithin the time period is included. Culture, Urine >=100,000 CFU/mL Klebsiella pneumoniae ssp pneumoniae(A) MONSE 11/30/2024 10:12 AM EDT [facility] Comment: This is an edited result. Previous organism was Gram negative bacilli on 11/29/2024 at 0812 EDT. Urine Urine specimen obtained by clean catch procedure / Unknown Non-blood Collection / Unknown 11/28/2024 10:54 AM EDT 11/28/2024 12:11 PM EDT Narrative [facility] - 11/30/2024 10:12 AM EDT Additional colony types present in insignificant amounts. Organism Antibiotic Method Susceptibility Klebsiella pneumoniae ssp pneumoniae Amoxicillin/Clavulanate MONSE <=2 ug/ml: Susceptible Klebsiella pneumoniae ssp pneumoniae Ampicillin/Sulbactam MONSE <=2 ug/ml: Susceptible Klebsiella pneumoniae ssp pneumoniae Piperacillin/Tazobactam MONSE <=4 ug/ml: Susceptible Klebsiella pneumoniae ssp pneumoniae Cefazolin (Urine) MONSE 2 ug/ml: Susceptible Klebsiella pneumoniae ssp pneumoniae Cefoxitin MONSE <=4 ug/ml: Susceptible Klebsiella pneumoniae ssp pneumoniae Ceftazidime MONSE <=0.5 ug/ml: Susceptible Klebsiella pneumoniae ssp pneumoniae Ceftriaxone MONSE <=0.25 ug/ml: Susceptible Klebsiella pneumoniae ssp pneumoniae Cefepime MONSE <=0.12 ug/ml: Susceptible Klebsiella pneumoniae ssp pneumoniae Meropenem MONSE <=0.25 ug/ml: Susceptible Klebsiella pneumoniae ssp pneumoniae Amikacin MONSE <=1 ug/ml: Susceptible Klebsiella pneumoniae ssp pneumoniae Gentamicin MONSE <=1 ug/ml: Susceptible Klebsiella pneumoniae ssp pneumoniae Ciprofloxacin MONSE <=0.06 ug/ml: Susceptible Klebsiella pneumoniae ssp pneumoniae Levofloxacin MONSE <=0.12 ug/ml: Susceptible Klebsiella pneumoniae ssp pneumoniae Nitrofurantoin MONSE 32 ug/ml: Susceptible Klebsiella pneumoniae ssp pneumoniae Trimethoprim/Sulfamethoxazo le MONSE <=20 ug/ml: Susceptible [place] [facility] MICROBIOLOGY - GENERAL OR DERABLES Final Result [facility] [address] [place] [address], * Iron and TIBC (11/25/2024 11:49 AM EDT) Iron 96 40 - 150 mcg/dL LAB CHEMISTRY METHOD 11/25/2024 4:29 PM EDT [facility] TIBC 386 250 - 450 mcg/dL LAB CHEMISTRY METHOD 11/25/2024 4:29 PM EDT [facility] Iron Saturation 25 15 - 50 % LAB CHEMISTRY METHOD 11/25/2024 4:29 PM EDT [facility] Blood Venous blood specimen / Unknown Venipuncture / Unknown 11/25/2024 11:49 AM EDT 11/25/2024 11:49 AM EDT [place] [facility] BLOOD ORDERABLES Final Re sult Performing Organization Address [facility]/ZIP Co de Phone Number [facility] [address] [place] [address], [place] [phone] * Vitamin D 25 hydroxy (11/25/2024 11:49 AM EDT) Vit D, 25-Hydroxy 38.9 30.0 - 80.0 ng/mL LAB CHEMISTRY METHOD 11/25/2024 5:29 PM EDT [facility] Blood Venous blood specimen / Unknown Venipuncture / Unknown 11/25/2024 11:49 AM EDT 11/25/2024 11:49 AM EDT [place] [facility] BLOOD ORDERABLES Final Re sult Performing Organization Address [facility] Co de Phone Number [facility] [address] [place] [address], [place] [phone] * (ABNORMAL) Complete blood count (11/25/2024 11:49 AM EDT) Pathologist [facility] WBC 9.8 4.8 - 10.8 K/[facility] LAB HEMETOLOGY METHOD 11/25/2024 3:33 PM EDT [facility] RBC 5.00(H) 3.80 - 4.80 M/mcL LAB HEMETOLOGY METHOD 11/25/2024 3:33 PM EDT [facility] Hemoglobin 14.6 11.5 - 16.0 g/dL LAB HEMETOLOGY METHOD 11/25/2024 3:33 PM EDT [facility] Hematocrit 46.0 35.0 - 47.0 % LAB HEMETOLOGY METHOD 11/25/2024 3:33 PM EDT [facility] MCV 92.2 79.0 - 98.0 FL LAB HEMETOLOGY METHOD 11/25/2024 3:33 PM EDT [facility] MCH 29.3 27.0 - 32.0 pcg LAB HEMETOLOGY METHOD 11/25/2024 3:33 PM EDT [facility] MCHC 31.7(L) 32.0 - 37.0 g/dL LAB HEMETOLOGY METHOD 11/25/2024 3:33 PM EDT [facility] RDW 14.4 11.0 - 15.0 % LAB HEMETOLOGY METHOD 11/25/2024 3:33 PM EDT [facility] Platelets 345 130 - 400 K/mcL LAB HEMETOLOGY METHOD 11/25/2024 3:33 PM EDT [facility] MPV 9.3 7.0 - 11.0 FL LAB HEMETOLOGY METHOD 11/25/2024 3:33 PM EDT [facility] NRBC 0.0 <1.0 % LAB HEMETOLOGY METHOD 11/25/2024 3:33 PM EDT [facility] NRBC Absolute 0.00 <0.10 K/mcL LAB HEMETOLOGY METHOD 11/25/2024 3:33 PM EDT [facility] Blood Venous blood specimen / Unknown Venipuncture / Unknown 11/25/2024 11:49 AM EDT 11/25/2024 11:49 AM EDT [place] [facility] BLOOD ORDERABLES Final Re sult [facility] [address] [place] [address], * Hemoglobin A1c (11/25/2024 11:49 AM EDT) [facility] Hemoglobin A1C 5.8 <6.5 % LAB CHEMISTRY METHOD 11/25/2024 11:06 PM EDT [facility] Mean Bld Glu Estim. 120 mg/dL LAB CHEMISTRY METHOD 11/25/2024 11:06 PM EDT [facility] Blood Venous blood specimen / Unknown Venipuncture / Unknown 11/25/2024 11:49 AM EDT 11/25/2024 11:49 AM EDT [place] [facility] BLOOD ORDERABLES Final Re sult Performing Organization Address [facility]/ZIP Co de Phone Number [facility] [address] [place] [address], [place] [phone] * Ferritin (11/25/2024 11:49 AM EDT) [facility] Ferritin 18 8 - 252 ng/mL LAB CHEMISTRY METHOD 11/25/2024 4:29 PM EDT [facility] Blood Venous blood specimen / Unknown Venipuncture / Unknown 11/25/2024 11:49 AM EDT 11/25/2024 11:49 AM EDT [place] LAB BLOOD ORDERABLES Final Re sult Performing Organization Address City/[facility]/ZIP Co de Phone Number [facility] [address] [place] [address], [place] [phone] * (ABNORMAL) Urinalysis with reflex microscopic (11/15/2024 9:42 AM EDT) [facility] [place] Urine 1.017 1.003 - 1.030 LAB URINALYSIS - AUTOMATED METHOD 11/15/2024 12:16 PM EDT [facility] pH, Urine 6.0 5.0 - 8.0 pH LAB URINALYSIS - AUTOMATED METHOD 11/15/2024 12:16 PM [facility] Leukocytes, Urine Large(A) Negative LAB URINALYSIS - AUTOMATED METHOD 11/15/2024 12:16 PM [facility] Nitrite, Urine Negative Negative LAB URINALYSIS - AUTOMATED METHOD 11/15/2024 12:16 PM [facility] Protein, Urine Trace <=Trace mg/dL LAB URINALYSIS - AUTOMATED METHOD 11/15/2024 12:16 PM [facility] Glucose, Urine Negative Negative mg/dL LAB URINALYSIS - AUTOMATED METHOD 11/15/2024 12:16 PM [facility] Ketones, Urine Negative Negative mg/dL LAB URINALYSIS - AUTOMATED METHOD 11/15/2024 12:16 PM [facility] Urobilinogen, Urine 1.0 0.2 - 1.0 mg/dL LAB URINALYSIS - AUTOMATED METHOD 11/15/2024 12:16 PM [facility] Bilirubin, Urine Negative Negative LAB URINALYSIS - AUTOMATED METHOD 11/15/2024 12:16 PM [facility] Blood, Urine Negative Negative LAB URINALYSIS - AUTOMATED METHOD 11/15/2024 12:16 PM [facility] RBC, Urine 3.2 0 - 4 /HPF LAB URINALYSIS - AUTOMATED METHOD 11/15/2024 12:16 PM [facility] WBC, Urine 49.5(H) 0 - 4 /HPF LAB URINALYSIS - AUTOMATED METHOD 11/15/2024 12:16 PM [facility] Squamous Epithelial, Urine 47 0 - 60 /LPF LAB URINALYSIS - AUTOMATED METHOD 11/15/2024 12:16 PM [facility] Bacteria, Urine Many(A) Negative /HPF LAB URINALYSIS - AUTOMATED METHOD 11/15/2024 12:16 PM [facility] Hyaline Casts, Urine 2.0 0 - 3 /LPF LAB URINALYSIS - AUTOMATED METHOD 11/15/2024 12:16 PM EDT [facility] Urine Urine specimen obtained by clean catch procedure / Unknown Non-blood Collection / Unknown 11/15/2024 9:42 AM EDT 11/15/2024 9:42 AM EDT [place] LAB URINE ORDERABLES Final Resul t Performing Organization Address City/[facility] Co de Phone Number [facility] [address] [place] [address], [place] [phone] * EMMA IFA with titer and pattern (11/15/2024 9:42 AM EDT) EMMA Negative Negative 11/19/2024 3:14 PM EDT [facility] Comment:EMMA performed by ind irect immunofluorescence (IFA) using HEp-2 substrate. Blood Venous blood specimen / Unknown Venipuncture / Unknown 11/15/2024 9:42 AM EDT 11/15/2024 9:42 AM EDT [place] LAB BLOOD ORDERABLES Final Resul t Performing Organization Address [facility] de Phone Number [facility] [address] [place] [address], [place] [phone] * (ABNORMAL) CBC auto differential (11/15/2024 9:42 AM EDT) WBC 12.9(H) 4.8 - 10.8 K/mcL LAB HEMETOLOGY METHOD 11/15/2024 12:31 PM EDT [facility] RBC 4.80 3.80 - 4.80 M/mcL LAB HEMETOLOGY METHOD 11/15/2024 12:31 PM EDT [facility] Hemoglobin 13.7 11.5 - 16.0 g/dL LAB HEMETOLOGY METHOD 11/15/2024 12:31 PM EDT [facility] Hematocrit 44.1 35.0 - 47.0 % LAB HEMETOLOGY METHOD 11/15/2024 12:31 PM [facility] MCV 92.3 79.0 - 98.0 FL LAB HEMETOLOGY METHOD 11/15/2024 12:31 PM [facility] MCH 28.7 27.0 - 32.0 pcg LAB HEMETOLOGY METHOD 11/15/2024 12:31 PM [facility] MCHC 31.1(L) 32.0 - 37.0 g/dL LAB HEMETOLOGY METHOD 11/15/2024 12:31 PM [facility] RDW 14.1 11.0 - 15.0 % LAB HEMETOLOGY METHOD 11/15/2024 12:31 PM [facility] Platelets 451(H) 130 - 400 K/mcL LAB HEMETOLOGY METHOD 11/15/2024 12:31 PM [facility] MPV 9.4 7.0 - 11.0 FL LAB HEMETOLOGY METHOD 11/15/2024 12:31 PM [facility] NRBC 0.0 <1.0 % LAB HEMETOLOGY METHOD 11/15/2024 12:31 PM [facility] NRBC Absolute 0.00 <0.10 K/mcL LAB HEMETOLOGY METHOD 11/15/2024 12:31 PM [facility] Neutrophils Relative 56.6 % LAB HEMETOLOGY METHOD 11/15/2024 12:31 PM [facility] Lymphocytes Relative 31.5 % LAB HEMETOLOGY METHOD 11/15/2024 12:31 PM [facility] Monocytes Relative 6.4 % LAB HEMETOLOGY METHOD 11/15/2024 12:31 PM [facility] Eosinophils Relative 4.5 % LAB HEMETOLOGY METHOD 11/15/2024 12:31 PM EDT [facility] Basophils Relative 0.5 % LAB HEMETOLOGY METHOD 11/15/2024 12:31 PM EDT [facility] Immature Granulocytes Relative 0.5 % LAB HEMETOLOGY METHOD 11/15/2024 12:31 PM EDT [facility] Neutrophils Absolute 7.29(H) 1.50 - 7.00 K/mcL LAB HEMETOLOGY METHOD 11/15/2024 12:31 PM EDT [facility] Lymphocytes Absolute 4.05 1.00 - 5.00 K/mcL LAB HEMETOLOGY METHOD 11/15/2024 12:31 PM EDT [facility] Monocytes Absolute 0.82 0.20 - 1.00 K/mcL LAB HEMETOLOGY METHOD 11/15/2024 12:31 PM EDT [facility] Eosinophils Absolute 0.58(H) 0.00 - 0.50 K/mcL LAB HEMETOLOGY METHOD 11/15/2024 12:31 PM EDT [facility] Basophils Absolute 0.06 0.00 - 0.20 K/mcL LAB HEMETOLOGY [facility] Immature Granulocytes Absolute 0.06(H) 0.00 - 0.03 K/mcL LAB HEMETOLOGY METHOD 11/15/2024 12:31 PM EDT [facility] Blood Venous blood specimen / Unknown Venipuncture / Unknown 11/15/2024 9:42 AM EDT 11/15/2024 9:42 AM EDT us [place] LAB BLOOD ORDERABLES Final Resul t [facility] [address] [place] [address], * Borrelia burgdorferi antibody (11/15/2024 9:42 AM EDT) [facility] Lyme Ab Negative Negative LAB CHEMISTRY METHOD 11/15/2024 12:54 PM EDT [facility] Comment: No laboratory evidence of infection with B. burgdorferi (Lyme disease). Negative results may occur in patients recently infected (<=14 days) with B. burgdorferi. If recent infection is suspected, repeat testing on a new sample collected in 7- 14 days is recommended. Blood Venous blood specimen / Unknown Venipuncture / Unknown 11/15/2024 9:42 AM EDT 11/15/2024 9:42 AM EDT [place] LAB BLOOD ORDERABLES Final Resul t Performing Organization Address City/[facility]/ZIP Co de Phone Number [facility] [address] [place] [address], * Rheumatoid factor (11/15/2024 9:42 AM EDT) [facility] Rheumatoid Factor <10.0 <15.0 I Unit/mL LAB CHEMISTRY METHOD 11/15/2024 12:37 PM EDT [facility] Blood Venous blood specimen / Unknown Venipuncture / Unknown 11/15/2024 9:42 AM EDT 11/15/2024 9:42 AM EDT [place] LAB BLOOD ORDERABLES Final Resul t [facility] [address] [place] [address], * C-reactive protein (11/15/2024 9:42 AM EDT) [facility] C-Reactive Protein <0.29 <=0.50 mg/dL LAB CHEMISTRY METHOD 11/15/2024 12:37 PM EDT [facility] Blood Venous blood specimen / Unknown Venipuncture / Unknown 11/15/2024 9:42 AM EDT 11/15/2024 9:42 AM EDT [place] LAB BLOOD ORDERABLES Final Resul t Performing Organization Address [facility]/ZIP Co de Phone Number [facility] [address] [place] [address], [place] [phone] * (ABNORMAL) Uric acid (11/15/2024 9:42 AM EDT) Pathologist [facility] Uric Acid 2.6(L) 3.1 - 7.8 mg/dL LAB CHEMISTRY METHOD 11/15/2024 12:37 PM EDT [facility] Blood Venous blood specimen / Unknown Venipuncture / Unknown 11/15/2024 9:42 AM EDT 11/15/2024 9:42 AM EDT [place] LAB BLOOD ORDERABLES Final Resul t Performing Organization Address City/[facility]/ZIP Co de Phone Number [facility] [address] [place] [address], [place] [phone] * (ABNORMAL) Comprehensive metabolic panel (11/15/2024 9:42 AM EDT) Pathologist [facility] Sodium 134 133 - 145 mmol/L LAB CHEMISTRY METHOD 11/15/2024 12:37 PM EDT [facility] Potassium 4.1 3.5 - 5.5 mmol/L LAB CHEMISTRY METHOD 11/15/2024 12:37 PM EDT [facility] Chloride 97 96 - 110 mmol/L LAB CHEMISTRY METHOD 11/15/2024 12:37 PM EDT [facility] CO2 28 21 - 32 mmol/L LAB CHEMISTRY METHOD 11/15/2024 12:37 PM EDT [facility] Anion Gap 9 3 - 11 LAB CHEMISTRY METHOD 11/15/2024 12:37 PM EDT [facility] Glucose 126(H) 70 - 100 mg/dL LAB CHEMISTRY METHOD 11/15/2024 12:37 PM [facility] BUN 20 5 - 25 mg/dL LAB CHEMISTRY METHOD 11/15/2024 12:37 PM [facility] Creatinine 0.93 0.50 - 1.10 mg/dL LAB CHEMISTRY METHOD 11/15/2024 12:37 PM [facility] eGFR 60 >=60 mL/min/1. 73m2 LAB CHEMISTRY METHOD 11/15/2024 12:37 PM [facility] Comment:Calculation based on the Chronic Kidney Disease Epidemiology Collaboration (CKD-EPI) equation refit without adjustment for race. BUN/Creatinine Ratio 21.5 LAB CHEMISTRY METHOD 11/15/2024 12:37 PM [facility] Calcium 9.7 8.5 - 10.5 mg/dL LAB CHEMISTRY METHOD 11/15/2024 12:37 PM [facility] AST (SGOT) 20 10 - 42 unit/L LAB CHEMISTRY METHOD 11/15/2024 12:37 PM [facility] ALT (SGPT) 26 10 - 60 unit/L LAB CHEMISTRY METHOD 11/15/2024 12:37 PM [facility] Alkaline Phosphatase 110 42 - 121 unit/L LAB CHEMISTRY METHOD 11/15/2024 12:37 PM [facility] Total Protein 8.0 6.0 - 8.0 g/dL LAB CHEMISTRY METHOD 11/15/2024 12:37 PM [facility] Albumin 3.8 3.2 - 5.0 g/dL LAB CHEMISTRY METHOD 11/15/2024 12:37 PM [facility] Total Bilirubin 0.5 0.0 - 1.4 mg/dL LAB CHEMISTRY METHOD 11/15/2024 12:37 PM [facility] Blood Venous blood specimen / Unknown Venipuncture / Unknown 11/15/2024 9:42 AM EDT 11/15/2024 9:42 AM EDT [place] LAB BLOOD ORDERABLES Final Resul t [facility] ([facility]) [facility] [address] [place] [address], * XR Chest 2 Views (11/14/2024 4:57 PM EDT) Anatomical Region Laterality Modality Body Radiographic Yolanda ging 11/14/2024 6:07 PM EDT Impressions 11/14/2024 6:14 PM EDT No evidence of pneumonia. Age indeterminate compression deformity involving L1. Clinical correlation needed. POS - [id number] -------- FINAL REPORT -------- Dictated By: Svetlana Azevedo Dictated Date: 11/14/2024 18:07 ET Assigned Physician: Svetlana Azevedo Reviewed and Electronically Signed By: Svetlana Azevedo Signed Date: 11/14/2024 18:14 ET Workstation ID: [id number] Transcribed By: Self Edit Transcribed Date: 11/14/2024 18:07 ET Narrative 11/14/2024 6:14 PM EDT EXAM: Chest x-ray HISTORY: Acute cough. Evaluate for pneumonia. COMPARISON: 12/13/2018 FINDINGS: PA and lateral views of the chest were performed. No focal infiltrate, pleural effusion, or evidence of pulmonary edema. Minimal bibasilar linear atelectasis or scarring. Heart is not enlarged. Ectatic proximal thoracic aorta again noted. Mediastinal contours are stable. New oohb-sm-nqvgqdzl superior compression deformity at L1. Multilevel degenerative changes in the spine. Procedure Note Svetlana Azevedo MD - 11/14/2024 EXAM: Chest x-ray HISTORY: Acute cough. Evaluate for pneumonia. COMPARISON: 12/13/2018 FINDINGS: PA and lateral views of the chest were performed. No focal infiltrate, pleural effusion, or evidence of pulmonary edema.Minimal bibasilar linear atelectasis or scarring. Heart is not enlarged.Ectatic proximal thoracic aorta again noted. Mediastinal contours arestable. New jmtc-pu-skledlok superior compression deformity at L1.Multilevel degenerative changes in the spine. IMPRESSION: No evidence of pneumonia. Age indeterminate compression deformityinvolving L1. Clinical correlation needed. POS - [id number] -------- FINAL REPORT -------- Dictated By: Svetlana Azevedo Dictated Date: 11/14/2024 18:07 ET Assigned Physician: Svetlana Azevedo Reviewed and Electronically Signed By: Svetlana Azevedo Signed Date: 11/14/2024 18:14 ET Workstation ID: [id number] Transcribed By: Self Edit Transcribed Date: 11/14/2024 18:07 ET [place] IMG XR PROCEDURES Final Result * Lipid panel with reflex to direct LDL (06/03/2024 3:02 PM EDT) Cholesterol 152 0 - 200 mg/dL LAB CHEMISTRY METHOD 06/03/2024 5:12 PM EDT [facility] Triglycerides 144 0 - 150 mg/dL LAB CHEMISTRY METHOD 06/03/2024 5:12 PM EDT [facility] HDL 49 >=40 mg/dL LAB CHEMISTRY METHOD 06/03/2024 5:12 PM EDT [facility] LDL Calculated 74 0 - 100 mg/dL LAB CHEMISTRY METHOD 06/03/2024 5:12 PM [facility] VLDL Cholesterol Michele 28.8 mg/dL LAB CHEMISTRY METHOD 06/03/2024 5:12 PM T [facility] Non HDL Chol. (LDL+VLDL) 103 <145 mg/dL LAB CHEMISTRY METHOD 06/03/2024 5:12 PM EDT [facility] Chol/HDL Ratio 3.1 0.0 - 4.4 LAB CHEMISTRY METHOD 06/03/2024 5:12 PM [facility] Blood Venous blood specimen / Unknown Venipuncture / Unknown 06/03/2024 3:02 PM EDT 06/03/2024 3:02 PM EDT Dali Givens MD LAB BLOOD ORDERABLES Final Resul t [facility] [address] [place] [address], [place] [phone] * Diabetes Foot Exam (01/08/2024) [facility] Diabetes: Annual Foot Exam ABSTRACTED us Historical Provider MD HEALTH MAINTENANCE Final Result from Last 3 Months or Most Recently Relevant to Health [place] [address] [facility] [employer] Member Subscriber Plan / Payer (Ef fective 2023-Present) Name:Karolina Mclain Relation to Subscriber:Self Name:Karolina Mclain Payer ID:[id number] Group ID:Not on file Type:Not on file Address: [facility] [place] [address] Care Teams Snapper On Relationship Specialty Start Date End Date Dali Givens MD [address] [place] [address] PCP - General Internal Medicine 04/13/21
--- OUTSIDE RECORDS SUMMARY | 2024-12-23 11:50 | XMS_ITS | Clinical Summary ---
Author Organization [employer] Address [address] [place] [address] [address] [place] [address] Care Team Providers Care Prep Room Supervisor Name Role Phone Unavailable Primary Care Provider Unavailabl e Immunizations Immunization Administration Dates Next Due Influenza High-dose Quadriva [...] Tdap) 08/03/2016 08/02/2016 COVID-19 Vaccine ( season) 2024 01/05/2021, 05/19/2020, 04/28/2020 Influenza Vaccine (#1) 2024 3, 01/03/2022, 12/29/2020, Additional history exists Pneumococcal [...]
--- OUTSIDE RECORDS SUMMARY | 2024-12-23 11:50 | XMS_ITS | Clinical Summary ---
Author Organization [facility] Address [address] [place] [address] Care Team Providers Care Finance Analyst Name Role Phone Dali Givens MD Primary [...] Health Maintenance Due Date Last Done Comments Advance Care Planning 1935 Foot Exam 1945 Lipid Panel 1945 Ophthalmology [...] with GFR 03/15/2023 03/15/2022, 03/14/2022 Influenza Vaccine 10/18/2024 01/03/2022, 02/02/2016 COVID-19 Vaccine (2024-2 6 season) 2024 01/05/2021, 05/19/2020, 04/28/2020 Hepatitis B Vaccines Aged [...] 65 - 99 mg/dL 03/15/2022 8:06 AM [facility] Comment:Fasting: <100 mg/dL, Non-Fasting: <200 mg/dL (ADA 2005) Blood Urea Nitrogen (BUN) 13 8 - 21 mg/dL 03/15/2022 8:06 AM [facility] Creatinine 0.8 0.4 - 1.1 mg/dL 03/15/2022 8:06 AM [facility] eGFR >60 >59 03/15/2022 8:06 AM [facility] Comment:MDRD in mL/min/1.73 sq meters. Sodium 136 136 - 145 mmol/L 03/15/2022 8:06 AM [facility] Potassium 4.2 3.4 - 5.3 mmol/L 03/15/2022 8:06 AM [facility] Chloride 103 98 - 107 mmol/L 03/15/2022 8:06 AM [facility] CO2 27 22 - 33 mmol/L 03/15/2022 8:06 AM [facility] Calcium 8.9 8.7 - 10.5 mg/dL 03/15/2022 8:06 AM [facility] Alkaline Phosphatase 48 32 - 122 U/L 03/15/2022 8:06 AM [facility] Aspartate Aminotrans (AST) 27 10 - 50 U/L 03/15/2022 8:06 AM [facility] Alanine Aminotrans (ALT) 27 10 - 50 U/L 03/15/2022 8:06 AM [facility] Bilirubin, Total 0.2 0.2 - 1.0 mg/dL 03/15/2022 8:06 AM [facility] Protein, Total 5.9(L) 6.3 - 8.3 g/dL 03/15/2022 8:06 AM [facility] Albumin 3.1(L) 3.4 - 4.8 g/dL 03/15/2022 8:06 AM [facility] BUN/Creatinine Ratio 16 10.0 - 25.0 Ratio 03/15/2022 8:06 AM [facility] Globulin 2.8 1.5 - 3.9 g/dL 03/15/2022 8:06 AM [facility] Albumin/Globulin Ratio 1.1 1.0 - 3.0 Ratio 03/15/2022 8:06 AM [facility] Anion Gap 6(L) 7 - 17 03/15/2022 8:06 AM [facility] Blood specimen (specimen) (Plasma/Serum) 03/15/2022 7:06 AM EST 03/15/2022 7:41 AM EST us Demetri Wiggins MD LAB BLOOD ORDERABLES Final Resu lt HOSPITAL LAB See Below [address] [address] from Last 3 Months or Most Recently Relevant to Health Maintenance [place] [address] [facility] [place] [phone] [facility] MEDICARE Advance Directives * Full Code (Latest Code Status on File) Date Activated Date Inactivated Comments 04/25/2022 6:56 PM * Full Code Date Activated Date Inactivated Comments 04/25/2022 1:19 PM 04/25/2022 6:56 PM * Full Code Date Activated Date Inactivated Comments 03/14/2022 11:28 PM 04/25/2022 9:42 AM Care Teams Finance Analyst Relationship Specialty Start Date End Date Dali Givens MD PCP - General 03/15/22
--- OUTSIDE RECORDS SUMMARY | 2024-12-23 11:50 | XMS_ITS | Encounter Summary ---
Author Organization [employer] Address [address] [place] [address] [address] [place] [address] Care Team Providers Care Log Manager Name Role Phone Unavailable Primary Care Provider Unavailabl e Encounter Details Date Type Department Care Team (Latest Contact Info) Description 06/26/2018 Abstract [facility] Dental, Provider, DDS Social [...]
--- OUTSIDE RECORDS SUMMARY | 2024-12-23 11:50 | XMS_ITS | Encounter Summary ---
Author Organization [facility] Address [address] [place] [address] Care Team Providers Care Senior Accounts Payable Specialist Name Role Phone Dali Givens MD Primary Care Provider Encounter Details Date Type Department Care Team (Late Contact Info) Description 08/22/2024 Lab Requisition [facility] - Main Lab [address] [facility] [place] [address] Olimpia Amaya PA [address] [place] [address] Urinary tract infection, site not specified Social History Tobacco Use Types Packs/Day Years Used Date Smoking Tobacco: Never Smokeless Tobacco: Never Alcohol Use Standard Drinks/Week Comments No 0 (1 standard drink = 0.6 oz pur e alcohol) Comments Unknown Sex and Gender Information Value Date Recorded Sex Assigned at Not on file Legal Sex Female 3:22 PM EST Gender Identity Female 11/27/2024 4:03 PM EDT Sexual Orientation Not on file documented as of this encounter Plan of Treatment Upcoming Encounters Date Type Department Care Team (Late Contact Info) Description 02/19/2025 3:30 PM EST Office Visit Orthopedic Surgery - [place] [address] [facility] [address] [place] [phone] Taylor Burton NP [address] [facility] [address] [place] [address] 02/25/2025 9:30 AM EST Office Visit Adult [address] [phone] Dali Givens MD [address] [place] [address] documented as of this encounter Procedures Procedure Name Priority Date/Time Associated Diagnosis Comments CULTURE URINE Routine 08/22/2024 9:22 AM EDT Urinary tract infection, site not specified documented in this encounter Results * (ABNORMAL) Culture urine (08/22/2024 9:22 AM EDT) Culture, Urine >100,000 CFU/mL Escherichia coli(A) MONSE 08/24/2024 9:48 AM EDT [facility] Urine Urine specimen obtained by clean [...] MONSE >=4 ug/ml: Resistant Escherichia coli Levofloxacin MONSE >=8 ug/ml: Resistant Escherichia coli Nitrofurantoin MONSE 64 ug/ml: Intermediate Escherichia coli Trimethoprim/Sulfamethoxazole MONSE >=320 ug/ml: Resistant [place] [facility] MICROBIOLOGY - GENERAL ORD ERABLES Final Result [facility]) [facility] [address] [place] [address], documented in this encounter Visit Diagnoses Diagnosis Urinary tract infection, site not specified documented in this encounter Care Teams Senior Accounts Payable Specialist Relationship Specialty Start Date End Date Dali Givens MD [address] [place] [address] PCP - General Internal Medicine 04/13/21 documented as of this encounter
[2024-12-23 12:00] VITALS: BP 139/75; PULSE 58; RESP 15; TEMP 36.6; O2SAT 97
--- NOTE | 2024-12-23 12:25 | PC.NURSE ---
Pt c/o nausea and increased L sided CP described as burning. Dr. Carbone aware, awaiting further orders.
[2024-12-23 13:10] LABS: Reflex Lactate? Lactic Acid Added
[2024-12-23 14:00] VITALS: BP 143/73; PULSE 59; RESP 17; TEMP 36.6; O2SAT 96
[2024-12-23 14:01] LABS: ~Lactic Acid-LAB USE ONLY 0.7 mmol/L (0.5-2.0)
--- NOTE | 2024-12-23 15:46 | PHA.MEDREC ---
Addendum entered by Jaylen Joya, PharmD 12/23/24 16:18: MED REC CHECKED BY [facility] Original Note: Pharmacy Consult ? Medication Reconciliation Pharmacy has completed the medication reconciliation. Spoke to patient son at bedside to confirm med list. Son had a list of patient medications. Son states patient no longer takes Docusate sod 100 mg, Lidocain patch. Patient had all of her morning medications today except Metformin patient hasn't had in a few days.
--- NOTE | 2024-12-23 16:00 | PM.IMHP ---
History of Present Illness Date of Service: 12/23/24 Attending physician on admission: Juliocesar Minaya Chief Complaint: Multiple complaints Pt is an 89-year-old Moldovan-speaking female with a PMH significant for?HTN, ith-owrkzls-ssnpmkdng type 2 diabetes, HLD, GERD, and mood disorder who presents to the ED with?multiple complaints. Pt had a recent fall in October of this year while in the [place]. Had imaging done both in as well as for 5 days later here at [facility]. Imaging showed L1 superior endplate compression fracture, and pt was discharged home with analgesics and physical therapy. Pt reports since then has not been walking or moving much at home. As well, pt reports has had tremors and ?shakiness? in her whole-body, especially in the morning, as well as upper abdominal and substernal ?stinging sensation?. Lastly, pt complains of continued dysuria and polyuria. Reports has been treated with antibiotics by her PCP twice in the past 1-2 months with no resolution of symptoms. Denies shortness or breath or chest pressure. No nausea, vomiting, or diarrhea. In the ED pt's vitals were significant for mild hypertension of 43/73, otherwise stable and WNL. Labs were significant for lactic acid 2.1 and magnesium 1.4. No leukocytosis. Renal function baseline. UA likely positive for acute UTI. CXR showed low lung volumes and bibasilar subsegmental atelectasis. Pt was treated in the ED with Mag sulfate, IVF, ondansetron, acetaminophen, and ceftriaxone. Pt is admitted to the hospital for treatment and further evaluation of recurrent UTI that failed outpatient therapy and concerns for overall failure to thrive. Review of Systems Review of Systems: Negative except for that which is stated in the [facility] Medical History Chronic epigastric pain Uncontrolled hypertension Chest pain Gastritis Neuropathy HTN (hypertension) Diabetes Family History Other Coronary artery disease Diabetes Social History Alcohol intake: never Patient Tobacco Use Status: Never used Tobacco e-Cigarette/Vaping Use: Never Used Advance Directives: Yes Advance Directives on File: Yes Advance Directives Date on File: 05/04/24 service: No Current occupational status: retired Meds Allergies Allergy/AdvReac Type Severity Reaction Status Date / Time guava (GUAVA) Allergy Unknown UNKNOWN Verified 12/23/24 10:04 nut - unspecified (NUTS) Allergy Unknown UNKNOWN Verified 12/23/24 10:04 sesame seed (SESAME SEED) Allergy Unknown UNKNOWN Verified 12/23/24 10:04 gabapentin AdvReac Dizziness Verified 12/23/24 17:30 Home Medications ?Medication ?Instructions ?Recorded ?Confirmed ?Last Taken ?Type atorvastatin 40 mg tablet 40 mg PO BEDTIME 01/03/22 12/23/24 12/22/24 History calcium 600 mg (as 1 tab BID 01/03/22 12/23/24 12/23/24 History carbonate)-vitamin D3 5 mcg (200 unit) tablet losartan 100 mg tablet 100 mg PO DAILY 01/03/22 12/23/24 12/23/24 History metformin 500 mg tablet 500 mg PO BID 01/03/22 12/23/24 03/13/22 History mirabegron 50 mg tablet,extended 50 mg PO DAILY 01/03/22 12/23/24 12/23/24 History release 24 hr (Myrbetriq) mirtazapine 15 mg tablet 15 mg PO BEDTIME PRN Urinary 01/03/22 12/23/24 03/13/22 History Retention multivitamin 1 tab PO DAILY 01/03/22 12/23/24 12/23/24 History acetaminophen 650 mg 650 mg PO Q8H PRN pain 03/14/22 12/23/24 03/13/22 History tablet,extended release (Arthritis Pain Relief (acetaminophen) ER) famotidine 20 mg tablet 20 mg PO BID PRN heartburn 12/23/24 12/23/24 Unknown History nifedipine 90 mg tablet,extended 90 mg PO BEDTIME 12/23/24 12/23/24 12/22/24 History release sennosides 8.6 mg tablet (senna) 8.6 mg PO DAILY 12/23/24 12/23/24 12/23/24 History Physical Exam Vital Signs and Narrative: Vital Signs: Last Vital Signs Temp 97.9 F 12/23/24 14:00 Pulse 59 12/23/24 14:00 Resp 17 12/23/24 14:00 BP 143/73 H 12/23/24 14:00 Pulse Ox 96 12/23/24 14:00 O2 Del Method Room Air 12/23/24 14:00 BMI result Body Mass Index 19.6 General: AOx3, no acute distress. Appears weak, elderly Resp: CTA bilaterally CVS: S1, S2, RRR GI: +BS, NT, no distention Skin: Warm, dry Neuro: Cranial nerves II-XII grossly intact bilaterally. Motor grossly intact bilaterally Extremities: No edema Psych: Appropriate affect Results Labs 12/23/24 10:15 12/23/24 10:15 Labs: Laboratory Results - last 24 hr 12/23/24 12/23/24 12/23/24 10:15 11:00 11:01 MCV 92.1 MCH 30.3 MCHC 32.9 RDW 15.6 Plt Count 310 MPV 8.7 L Immature Gran % (Auto) 0.2 Neut % (Auto) 65.1 Lymph % (Auto) 23.2 [place] % (Auto) 8.5 Eos % (Auto) 2.3 Baso % (Auto) 0.7 Lymph # (Auto) 2.3 [place] # (Auto) 0.9 Eos # (Auto) 0.2 Baso # (Auto) 0.1 Abs Immat Gran (auto) 0.02 Absolute Neuts (auto) 6.6 Absolute Nucleated RBC 0.000 Nucleated RBC % (auto) 0.0 D-Dimer High Sensitivty 177 Anion Gap 13 Estim Creat Clear Calc 43.5 Estimated GFR > 60 Random Glucose 201 H Lactic Acid 2.1 H* Lactic Acid F/U @ 2Hr Calcium 9.4 D Magnesium 1.4 L* Total Bilirubin 0.3 AST 21 ALT 24 Alkaline Phosphatase 63 Troponin I High Sens < 2.7 Total Protein 6.9 Albumin 4.1 Urine Color Dark Yellow Urine Appearance Cloudy Urine pH 6.5 Ur Specific [place] 1.025 Urine Protein Trace Urine Glucose (UA) Negative Urine Ketones Trace Urine Blood Negative Urine Nitrite Positive H Ur Leukocyte Esterase Moderate (2+) H Urine RBC 0-2 Urine WBC 21-50 Ur Squamous Epith Cells 3-5 Urine Bacteria 4+ Hyaline Casts 0-2 COVID-19 (MALORIE) Negative COVID-19 Clin Com See Note Influenza Type A (RAJIV) Negative Influenza Type B (RAJIV) Negative Influenza A & B Note See Note 12/23/24 13:41 MCV MCH MCHC RDW Plt Count MPV Immature Gran % (Auto) Neut % (Auto) Lymph % (Auto) [place] % (Auto) Eos % (Auto) Baso % (Auto) Lymph # (Auto) [place] # (Auto) Eos # (Auto) Baso # (Auto) Abs Immat Gran (auto) Absolute Neuts (auto) Absolute Nucleated RBC Nucleated RBC % (auto) D-Dimer High Sensitivty Anion Gap Estim Creat Clear Calc Estimated GFR Random Glucose Lactic Acid Lactic Acid F/U @ 2Hr 0.7 Calcium Magnesium Total Bilirubin AST ALT Alkaline Phosphatase Troponin I High Sens Total Protein Albumin Urine Color Urine Appearance Urine pH Ur Specific [place] Urine Protein Urine Glucose (UA) Urine Ketones Urine Blood Urine Nitrite Ur Leukocyte Esterase Urine RBC Urine WBC Ur Squamous Epith Cells Urine Bacteria Hyaline Casts COVID-19 (MALORIE) COVID-19 Clin Com Influenza Type A (RAJIV) Influenza Type B (RAJIV) Influenza A & B Note Imaging Radiologist's Impressions: Impressions Chest X-Ray 12/23/24 10:17 IMPRESSION: Low lung volumes. Bibasilar subsegmental atelectasis. Electronically signed by: Kvng Rod MD 12/23/2024 10:31 AM EDT RP Assessment and Plan (1) Recurrent UTI: Status: Acute Plan Pt is an 89-year-old Moldovan-speaking female with a PMH significant for?HTN, wjw-exbsgyc-uljtfyony type 2 diabetes, HLD, GERD, and mood disorder who presents to the ED with?multiple complaints. Pt is admitted to the hospital for treatment and further evaluation of recurrent UTI that failed outpatient therapy and concerns for overall failure to thrive. Recurrent UTI UA+, polyuria, dysuria Previously treated for UTI x2 in the past 1-2 months without resolution of symptoms No sepsis Ceftriaxone, day 1 Follow urine cultures Hypomagnesmia Magnesium 1.4 at time of presentation Supplemented with Mag sulfate 2 g in the ED Follow magnesium Acute lactic acidosis, resolved Initial lactic acid 2.1 with repeat 0.7 Secondary to metformin use, not sepsis L1 superior endplate compression fracture Secondary to mechanical fall and [place] in October Has been primarily bed-bound since then Lidocaine patch, analgesics PT consult HTN Continue losartan, nifedipine, metoprolol HLD Continue statin Mud-stqxuta-kahnyiuoj type 2 diabetes Hold metformin Sliding-scale insulin GERD Continue omeprazole and famotidine Mood disorder Continue mirtazapine DNR/DNI, verified with pt Attending:?Dr. Minaya DVT Prophylaxis: Lovenox Pt will require a hospitalization of at least two nights for treatment of recurrent UTI that failed outpatient therapy as well as electrolyte abnormalities in the setting concerning for failure to thrive. Given that pt has failed 2 outpatient courses of p.o. antibiotics, she will require hospital level care for administration of IV antibiotics while awaiting urine cultures and sensitivities. Quality Stroke Does the patient have a stroke diagnosis?: No VTE Prior VTE?: No VTE Risk Level:: Medical - moderate - high VTE Device Contraindication: Treatment Not Indicated VTE Drug Contraindication: N/A - Med Ordered
--- NOTE | 2024-12-23 16:37 | PC.NURSE ---
Report given to Sriram SCHMIDT, questions answered. Awaiting transport to [facility].
--- NOTE | 2024-12-23 17:30 | PC.NURSE ---
Pt refusing gabapentin dose, pt states it makes her too dizzy and tired. [place] aware, adverse reaction added to EMR. Pt resting comfortably in bed, awaiting transport to overflow.
[2024-12-23 17:46] VITALS: BP 140/72; PULSE 71; RESP 19; TEMP 36.6; O2SAT 96
[2024-12-23 20:42] LABS: Glucose, Whole Blood 116 mg/dL (60-115)
[2024-12-23 22:03] VITALS: BP 198/85; PULSE 67; RESP 14; TEMP 37.1; O2SAT 96
[2024-12-23] MEDS: Calcium + Vitamin D 250 MG TABLET PO (22:05)
[2024-12-23 23:41] VITALS: BP 167/76; PULSE 52
[2024-12-24] VITALS (8 sets, daily range): BP systolic 118–158; BP diastolic 54–81; PULSE 50–77; RESP 16–18; TEMP 36.1–36.4; O2SAT 92–93
--- NOTE | 2024-12-24 04:11 | PC.NURSE ---
dizzy after dilaudid. BP unchanged. after 10 mins patient up to commode with assist and states no ramiro chance. call june in reach, bed alarm on
[2024-12-24 04:48] LABS: Hematocrit 38.5 % (37.0-47.0); Hemoglobin 12.6 g/dl (12.0-16.0); Mean Corpuscular HGB Conc 32.7 g/dl (31.0-35.0); Mean Corpuscular Hemoglobin 30.0 pg (27.0-33.0); Mean Corpuscular Volume 91.7 fL (80.0-98.0); NRBC Abs Auto 0.000 X10*3/uL (0.0-0.012); NRBC Pct Auto 0.0 /100WBC (0.0-0.2); Platelet Count 279 X10*3/uL (160-400); Red Blood Count 4.20 X10*6/uL (4.20-5.50); White Blood Count 9.5 X10*3/uL (4.8-10.8)
[2024-12-24 05:13] LABS: Anion Gap 13 (12-20); Blood Urea Nitrogen 16 mg/dL (9-16); Calcium 9.7 mg/dL (8.4-10.2); Carbon Dioxide 27 mmol/L (22-29); Chloride 103 mmol/L (96-108); Creatinine Clr Calc Pharmacy 48.4; Estimated Glomerular Filt Rate > 60; Magnesium 2.0 mg/dL (1.6-2.6); Potassium 4.4 mmol/L (3.3-5.1); Sodium 139 mmol/L (135-145)
[2024-12-24 07:42] LABS: Glucose, Whole Blood 92 mg/dL (60-115)
--- NOTE | 2024-12-24 07:46 | P.PNIM_ITS ---
Subjective Subjective Date of Service: 12/24/24 Interval History: Continues to complain of back pain and right upper extremity tremors No acute events overnight Resting comfortably in bed Review of Systems Review of Systems: Yes all other systems are reviewed and are negative Physical Exam 2 Exam: Exam: General: AOx3, no acute distress. Elderly. Resp: CTA bilaterally CVS: S1, S2, RRR GI: +BS, NT, no distention Skin: Warm, dry Neuro: Cranial nerves II-XII grossly intact bilaterally. Motor grossly intact bilaterally Extremities: No edema Psych: Appropriate affect Vital Signs: Vital Signs: Last Vital Signs Temp 97.4 F 12/24/24 05:46 Pulse 50 12/24/24 05:46 Resp 16 12/24/24 05:46 BP 157/81 H 12/24/24 05:46 Pulse Ox 92 12/24/24 05:46 O2 Del Method Room Air 12/24/24 05:46 BMI result Body Mass Index 19.6 Objective Data Active Medications Acetaminophen (Acetaminophen 325 Mg Tablet) 650 mg PO Q6H PRN PRN Reason: Pain, Mild 1-3,fever,headache Last Admin: 12/23/24 22:05 Dose: 650 mg Documented By: EARNEST Atorvastatin Calcium (Atorvastatin Calcium 40 Mg Tablet) 40 mg PO BEDTIME [facility] Last Admin: 12/23/24 22:05 Dose: 40 mg Documented By: EARNEST Calcium Carbonate/Cholecalciferol (Calcium + Vitamin D 250 Mg Tablet) 250 mg PO BID [facility] Last Admin: 12/23/24 22:05 Dose: 250 mg Documented By: EARNEST Ceftriaxone Sodium (Ceftriaxone Sodium 1 Gm Vial) 1 gm IVPUSH Q24H [facility] Dextrose (Dextrose 50 % 25 Gm/50 Ml Syringe) 25 gm IVPUSH Q15M PRN; Protocol PRN Reason: per Hypoglycemia Standing Ord. Enoxaparin Sodium (Enoxaparin Sodium 40 Mg/0.4 Ml Syringe) 40 mg SUBCUT Q24H [facility] Last Admin: 12/23/24 22:06 Dose: 40 mg Documented By: EARNEST Famotidine (Famotidine 20 Mg Tablet) 20 mg PO BID PRN PRN Reason: Heartburn Ferrous Sulfate (Ferrous Sulfate 324 Mg Tablet.Dr) 324 mg PO DAILY [facility] Glucose (Glucose Gel 15 Gm Gel..Gram.) 15 gm PO Q15M PRN; Protocol PRN Reason: per Hypoglycemia Standing Ord. Insulin Human Lispro (Insulin Lispro 100 Unit/Ml 3 Ml Vial) 0 unit SUBCUT QIDACHS [facility]; Protocol Last Admin: 12/24/24 07:41 Dose: Not Given Documented By: ROHITH Non-Admin Reason: No Insulin Coverage Lidocaine (Lidocaine 4 % Patch Adh..Patch) 1 patch TRANSDERMA DAILY [facility]; Protocol Losartan Potassium (Losartan Potassium 50 Mg Tablet) 100 mg PO DAILY [facility]; Protocol Magnesium Hydroxide (Milk Of Magnesia 30 Ml Oral.Susp) 30 ml PO DAILY PRN PRN Reason: Constipation Melatonin (Melatonin 3 Mg Tablet) 6 mg PO BEDTIME PRN PRN Reason: Insomnia Last Admin: 12/23/24 22:05 Dose: 6 mg Documented By: EARNEST Metoprolol Tartrate (Metoprolol Tartrate 50 Mg Tablet) 50 mg PO BID [facility]; Protocol Last Admin: 12/23/24 22:05 Dose: 50 mg Documented By: EARNEST Mirabegron (Mirabegron 50 Mg Tab.Er.24h) 50 mg PO DAILY [facility] Mirtazapine (Mirtazapine 15 Mg Tablet) 15 mg PO BEDTIME PRN PRN Reason: Urinary Retention Last Admin: 12/23/24 22:05 Dose: 15 mg Documented By: EARNEST Multivitamins/Vitamin C (Multivitamin Tablet) 1 tab PO DAILY [facility] Nifedipine (Nifedipine Er 90 Mg Tab.Er.24) 90 mg PO BEDTIME [facility] Last Admin: 12/23/24 22:04 Dose: 90 mg Documented By: EARNEST Omeprazole (Omeprazole 40 Mg Capsule.) 40 mg PO DAILY@0630 [facility] Ondansetron HCl (Ondansetron Hcl 4 Mg/2 Ml Vial) 4 mg IVPUSH Q8H PRN PRN Reason: Nausea and Vomiting Oxycodone HCl (Oxycodone Hcl Immed Release 5 Mg Tablet) 5 mg PO Q6H PRN PRN Reason: Pain, Severe (Pain Scale 7-10) Senna (Sennosides 8.6 Mg Tablet) 8.6 mg PO DAILY [facility] Sodium Chloride (0.9 % Sodium Chloride Flush 3 Ml Syringe) 3 ml IVFLUSH QSHIFT [facility] Last Admin: 12/24/24 00:00 Dose: Not Given Documented By: EARNEST Non-Admin Reason: Physician Held Med Tramadol HCl (Tramadol Hcl 50 Mg Tablet) 50 mg PO Q6H PRN PRN Reason: Pain, Moderate(Pain Scale 4-6) Labs 12/24/24 03:57 12/24/24 03:57 Labs: Laboratory Results - last 24 hr 12/23/24 12/23/24 12/23/24 10:15 11:00 11:01 MCV 92.1 MCH 30.3 MCHC 32.9 RDW 15.6 Plt Count 310 MPV 8.7 L Immature Gran % (Auto) 0.2 Neut % (Auto) 65.1 Lymph % (Auto) 23.2 [place] % (Auto) 8.5 Eos % (Auto) 2.3 Baso % (Auto) 0.7 Lymph # (Auto) 2.3 [place] # (Auto) 0.9 Eos # (Auto) 0.2 Baso # (Auto) 0.1 Abs Immat Gran (auto) 0.02 Absolute Neuts (auto) 6.6 Absolute Nucleated RBC 0.000 Nucleated RBC % (auto) 0.0 D-Dimer High Sensitivty 177 Anion Gap 13 Estim Creat Clear Calc 43.5 Estimated GFR > 60 POC Glucose Random Glucose 201 H Lactic Acid 2.1 H* Lactic Acid F/U @ 2Hr Calcium 9.4 D Magnesium 1.4 L* Total Bilirubin 0.3 AST 21 ALT 24 Alkaline Phosphatase 63 Troponin I High Sens < 2.7 Total Protein 6.9 Albumin 4.1 Urine Color Dark Yellow Urine Appearance Cloudy Urine pH 6.5 Ur Specific [place] 1.025 Urine Protein Trace Urine Glucose (UA) Negative Urine Ketones Trace Urine Blood Negative Urine Nitrite Positive H Ur Leukocyte Esterase Moderate (2+) H Urine RBC 0-2 Urine WBC 21-50 Ur Squamous Epith Cells 3-5 Urine Bacteria 4+ Hyaline Casts 0-2 COVID-19 ([facility]IE) Negative COVID-19 Clin Com See Note Influenza Type A (RAJIV) Negative Influenza Type B (RAJIV) Negative Influenza A & B Note See Note 12/23/24 12/23/24 12/24/24 13:41 20:38 03:57 MCV 91.7 MCH 30.0 MCHC 32.7 RDW 15.4 Plt Count 279 MPV 9.3 L Immature Gran % (Auto) Neut % (Auto) Lymph % (Auto) [place] % (Auto) Eos % (Auto) Baso % (Auto) Lymph # (Auto) [place] # (Auto) Eos # (Auto) Baso # (Auto) Abs Immat Gran (auto) Absolute Neuts (auto) Absolute Nucleated RBC 0.000 Nucleated RBC % (auto) 0.0 D-Dimer High Sensitivty Anion Gap 13 Estim Creat Clear Calc 48.4 Estimated GFR > 60 POC Glucose 116 H Random Glucose 100 Lactic Acid Lactic Acid F/U @ 2Hr 0.7 Calcium 9.7 Magnesium 2.0 Total Bilirubin AST ALT Alkaline Phosphatase Troponin I High Sens Total Protein Albumin Urine Color Urine Appearance Urine pH Ur Specific [place] Urine Protein Urine Glucose (UA) Urine Ketones Urine Blood Urine Nitrite Ur Leukocyte Esterase Urine RBC Urine WBC Ur Squamous Epith Cells Urine Bacteria Hyaline Casts COVID-19 ([facility]IE) COVID-19 Clin Com Influenza Type A (RAJIV) Influenza Type B (RAJIV) Influenza A & B Note 12/24/24 07:39 MCV MCH MCHC RDW Plt Count MPV Immature Gran % (Auto) Neut % (Auto) Lymph % (Auto) [place] % (Auto) Eos % (Auto) Baso % (Auto) Lymph # (Auto) [place] # (Auto) Eos # (Auto) Baso # (Auto) Abs Immat Gran (auto) Absolute Neuts (auto) Absolute Nucleated RBC Nucleated RBC % (auto) D-Dimer High Sensitivty Anion Gap Estim Creat Clear Calc Estimated GFR POC Glucose 92 Random Glucose Lactic Acid Lactic Acid F/U @ 2Hr Calcium Magnesium Total Bilirubin AST ALT Alkaline Phosphatase Troponin I High Sens Total Protein Albumin Urine Color Urine Appearance Urine pH Ur Specific [place] Urine Protein Urine Glucose (UA) Urine Ketones Urine Blood Urine Nitrite Ur Leukocyte Esterase Urine RBC Urine WBC Ur Squamous Epith Cells Urine Bacteria Hyaline Casts COVID-19 ([facility]IE) COVID-19 Clin Com Influenza Type A (RAJIV) Influenza Type B (RAJIV) Influenza A & B Note Assessment and Plan (1) Recurrent UTI: Status: Acute Plan Pt is an 89-year-old Czech-speaking female with a PMH significant for?HTN, aeu-gqdzhhl-bzrbbwcbw type 2 diabetes, HLD, GERD, and mood disorder who presents to the ED with?multiple complaints. Pt is admitted to the hospital for treatment and further evaluation of recurrent UTI that failed outpatient therapy and concerns for overall failure to thrive. Recurrent UTI UA+, polyuria, dysuria Previously treated for UTI x2 in the past 1-2 months without resolution of symptoms No sepsis Continue ceftriaxone, day 2 Follow urine cultures Hypomagnesmia, resovled Magnesium 1.4 at time of presentation, currently 2.0 Supplemented with Mag sulfate 2 g in the ED Acute lactic acidosis, resolved Initial lactic acid 2.1 with repeat 0.7 Secondary to metformin use, not sepsis L1 superior endplate compression fracture Secondary to mechanical fall and [place] in October Has been primarily bed-bound since then Lidocaine patch, analgesics PT consult HTN Continue losartan, nifedipine, metoprolol HLD Continue statin Hhr-hftmhyx-kzzdmlnmi type 2 diabetes Hold metformin Sliding-scale insulin GERD Continue omeprazole and famotidine Mood disorder Continue mirtazapine DNR/DNI, verified with pt DVT Prophylaxis: Lovenox Pt requires continued hospitalization for treatment with IV antibiotics of recurrent UTI that failed outpatient therapy. Pt additionally still needs PT evaluation for safe disposition home. Quality Stroke Does the patient have a stroke diagnosis?: No VTE Prior VTE?: No VTE Risk Level:: Medical - moderate - high VTE Device Contraindication: Treatment Not Indicated VTE Drug Contraindication: N/A - Med Ordered
[2024-12-24] MEDS: Calcium + Vitamin D 250 MG TABLET PO ×2 (07:55→21:18)
[2024-12-24] MEDS: Mirabegron 50 MG TAB.ER.24H PO (07:59)
[2024-12-24] MEDS: Ferrous Sulfate 324 MG TABLET.DR PO (07:59)
[2024-12-24] MEDS: 0.9 % Sodium Chloride Flush 3 ML SYRINGE IVFLUSH ×2 (08:39→16:59)
[2024-12-24] MEDS: Lidocaine 4 % Patch ADH..PATCH 1 PATCH TRANSDERMA (08:40)
[2024-12-24 11:12] LABS: Glucose, Whole Blood 232 mg/dL (60-115)
--- NOTE | 2024-12-24 14:28 | PC.NURSE ---
Called to bedside by science interpreter, pt c/o nausea and feeling bloated , per science interpreter pt denies constipation although her last bm was two days ago. Also pt states her abdomen feels warm Abd soft, +bs, slightly tender in epigastric area. Pt medicated w/ prn zofran and tylenol.
--- NOTE | 2024-12-24 14:41 | MHC.CM.PN ---
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
--- NOTE | 2024-12-24 15:59 | PC.NURSE ---
Pt continues to c/o burning in epigastric area as well as abd distention. Pt medicated w/ prn pepcid.
[2024-12-24 16:49] LABS: Glucose, Whole Blood 74 mg/dL (60-115)
--- NOTE | 2024-12-24 17:11 | MHC.EDTECH ---
assumed care of pt at 1500, full bed bath given, poc checked 74, dinner tray given right away, pt was advised to eat d/t glucose results. RN made aware
[2024-12-24 17:37] LABS: Glucose, Whole Blood 110 mg/dL (60-115)
--- NOTE | 2024-12-24 18:42 | MHC.EDTECH ---
pt one assisted to commode for urine output. pt was able to clean self. assisted back into bed, warm blankets given, bed alarm on, call june and bedside table within reach.
[2024-12-24 20:47] LABS: Glucose, Whole Blood 105 mg/dL (60-115)
[2024-12-25] MEDS: oxyCODONE HCl Immed Release 5 MG TABLET PO ×2 (00:24→21:11)
[2024-12-25] MEDS: 0.9 % Sodium Chloride Flush 3 ML SYRINGE IVFLUSH ×3 (00:29→21:17)
[2024-12-25 06:00] VITALS: BP 132/67; PULSE 78; RESP 18; TEMP 36.3
[2024-12-25 07:35] LABS: Glucose, Whole Blood 93 mg/dL (60-115)
[2024-12-25] MEDS: Mirabegron 50 MG TAB.ER.24H PO (08:35)
[2024-12-25] MEDS: Calcium + Vitamin D 250 MG TABLET PO ×2 (08:35→21:11)
[2024-12-25] MEDS: Ferrous Sulfate 324 MG TABLET.DR PO (08:36)
[2024-12-25] MEDS: Lidocaine 4 % Patch ADH..PATCH 1 PATCH TRANSDERMA (08:36)
[2024-12-25 08:44] LABS: Glucose, Whole Blood 167 mg/dL (60-115)
[2024-12-25 11:26] VITALS: BMI 20.2
[2024-12-25 11:46] VITALS: BP 114/64; PULSE 62; RESP 16; TEMP 36.6; O2SAT 92
[2024-12-25 12:00] LABS: Glucose, Whole Blood 142 mg/dL (60-115)
--- NOTE | 2024-12-25 14:56 | MHC.CLN ---
CONSULT PER PROVIDER NOTE, CONCERNING FOR FAILURE TO THRIVE. REVIEW OF WEIGHT HX SHOWS WEIGHT FLUCTUATION WITHOUT SIGNIFICANT CHANGE X 8 MONTHS. WEIGHT 05/04/24=51.9 KG. CURRENT WEIGHT=50.1 KG. DIET RX DIABETIC 1800 KCALS. NO ADDITIONAL NUTRITION INTERVENTIONS AT THIS TIME. RD TO MONITOR WEEKLY.
[2024-12-25 15:08] VITALS: BP 143/70; PULSE 57; RESP 18; TEMP 36.1; O2SAT 92
[2024-12-25 16:10] LABS: Glucose, Whole Blood 124 mg/dL (60-115)
--- NOTE | 2024-12-25 17:27 | P.PNIM_ITS ---
Subjective Subjective Date of Service: 12/25/24 Interval History: Continues to experience dysuria Back pain mildly improved with lidocaine Reports last bowel movement 3-4 days ago No acute events overnight Review of Systems Review of Systems: Yes all other systems are reviewed and are negative Physical Exam 2 Exam: Exam: General: AOx3, no acute distress Resp: CTA bilaterally CVS: S1, S2, RRR GI: +BS, NT, no distention Skin: Warm, dry Neuro: Cranial nerves II-XII grossly intact bilaterally. Motor grossly intact bilaterally. Mild resting tremor of RUE Extremities: No edema Psych: Appropriate affect Vital Signs: Vital Signs: Last Vital Signs Temp 96.9 F 12/25/24 15:08 Pulse 57 12/25/24 15:08 Resp 18 12/25/24 15:08 BP 143/70 H 12/25/24 15:08 Pulse Ox 92 12/25/24 15:08 O2 Del Method Room Air 12/25/24 15:08 BMI result Body Mass Index 20.2 Objective Data Active Medications Acetaminophen (Acetaminophen 325 Mg Tablet) 650 mg PO Q6H [facility] Last Admin: 12/25/24 14:01 Dose: 650 mg Documented By: PHYLLIS Atorvastatin Calcium (Atorvastatin Calcium 40 Mg Tablet) 40 mg PO BEDTIME [facility] Last Admin: 12/24/24 22:05 Dose: 40 mg Documented By: MELISA Calcium Carbonate/Cholecalciferol (Calcium + Vitamin D 250 Mg Tablet) 250 mg PO BID [facility] Last Admin: 12/25/24 08:35 Dose: 250 mg Documented By: ELVIS Ceftriaxone Sodium (Ceftriaxone Sodium 1 Gm Vial) 1 gm IVPUSH Q24H [facility] Last Admin: 12/25/24 10:54 Dose: 1 gm Documented By: ELVIS Dextrose (Dextrose 50 % 25 Gm/50 Ml Syringe) 25 gm IVPUSH Q15M PRN; Protocol PRN Reason: per Hypoglycemia Standing Ord. Enoxaparin Sodium (Enoxaparin Sodium 40 Mg/0.4 Ml Syringe) 40 mg SUBCUT Q24H [facility] Last Admin: 12/24/24 21:22 Dose: 40 mg Documented By: MELISA Famotidine (Famotidine 20 Mg Tablet) 20 mg PO BID PRN PRN Reason: Heartburn Last Admin: 12/24/24 15:57 Dose: 20 mg Documented By: MELISA Ferrous Sulfate (Ferrous Sulfate 324 Mg Tablet.Dr) 324 mg PO DAILY [facility] Last Admin: 12/25/24 08:36 Dose: 324 mg Documented By: ELVIS Glucose (Glucose Gel 15 Gm Gel..Gram.) 15 gm PO Q15M PRN; Protocol PRN Reason: per Hypoglycemia Standing Ord. Insulin Human Lispro (Insulin Lispro 100 Unit/Ml 3 Ml Vial) 0 unit SUBCUT QIDACHS [facility]; Protocol Last Admin: 12/25/24 16:12 Dose: Not Given Documented By: PHYLLIS Non-Admin Reason: No Insulin Coverage Lidocaine (Lidocaine 4 % Patch Adh..Patch) 1 patch TRANSDERMA DAILY [facility]; Protocol Last Admin: 12/25/24 08:36 Dose: 1 patch Documented By: ELVIS Losartan Potassium (Losartan Potassium 50 Mg Tablet) 100 mg PO DAILY [facility]; Protocol Last Admin: 12/25/24 08:35 Dose: 100 mg Documented By: ELVIS Magnesium Hydroxide (Milk Of Magnesia 30 Ml Oral.Susp) 30 ml PO DAILY PRN PRN Reason: Constipation Melatonin (Melatonin 3 Mg Tablet) 6 mg PO BEDTIME PRN PRN Reason: Insomnia Last Admin: 12/24/24 21:21 Dose: 6 mg Documented By: MELISA Metoprolol Tartrate (Metoprolol Tartrate 50 Mg Tablet) 50 mg PO BID [facility]; Protocol Last Admin: 12/25/24 08:36 Dose: 50 mg Documented By: ELVIS Mirabegron (Mirabegron 50 Mg Tab.Er.24h) 50 mg PO DAILY [facility] Last Admin: 12/25/24 08:35 Dose: 50 mg Documented By: ELVIS Mirtazapine (Mirtazapine 15 Mg Tablet) 15 mg PO BEDTIME PRN PRN Reason: Urinary Retention Last Admin: 12/24/24 21:21 Dose: 15 mg Documented By: MELISA Multivitamins/Vitamin C (Multivitamin Tablet) 1 tab PO DAILY [facility] Last Admin: 12/25/24 08:35 Dose: 1 tab Documented By: ELVIS Nifedipine (Nifedipine Er 90 Mg Tab.Er.24) 90 mg PO BEDTIME [facility] Last Admin: 12/24/24 21:19 Dose: 90 mg Documented By: MELISA Omeprazole (Omeprazole 40 Mg Capsule.Dr) 40 mg PO DAILY@0630 [facility] Last Admin: 12/25/24 08:35 Dose: 40 mg Documented By: ELVIS Ondansetron HCl (Ondansetron Hcl 4 Mg/2 Ml Vial) 4 mg IVPUSH Q8H PRN PRN Reason: Nausea and Vomiting Last Admin: 12/24/24 14:13 Dose: 4 mg Documented By: MELISA Oxycodone HCl (Oxycodone Hcl Immed Release 5 Mg Tablet) 5 mg PO Q6H PRN PRN Reason: Pain, Severe (Pain Scale 7-10) Last Admin: 12/25/24 00:24 Dose: 5 mg Documented By: DANA Senna (Sennosides 8.6 Mg Tablet) 8.6 mg PO DAILY [facility] Last Admin: 12/25/24 08:36 Dose: 8.6 mg Documented By: ELVIS Sodium Chloride (0.9 % Sodium Chloride Flush 3 Ml Syringe) 3 ml IVFLUSH QSHIFT [facility] Last Admin: 12/25/24 16:12 Dose: Not Given Documented By: PHYLLIS Non-Admin Reason: Previously Administered Tramadol HCl (Tramadol Hcl 50 Mg Tablet) 50 mg PO Q6H PRN PRN Reason: Pain, Moderate(Pain Scale 4-6) Last Admin: 12/24/24 21:16 Dose: 50 mg Documented By: MELISA Labs 12/24/24 03:57 12/24/24 03:57 Labs: Laboratory Results - last 24 hr 12/24/24 12/24/24 12/25/24 17:34 20:44 07:32 POC Glucose 110 105 93 12/25/24 12/25/24 12/25/24 08:40 11:51 16:03 POC Glucose 167 H 142 H 124 H Microbiology Microbiology Results: Microbiology 12/23/24 11:00 Blood Culture - Preliminary Blood - Venous No growth after 48 hours. 12/23/24 11:00 Blood Culture - Preliminary Blood - Venous No growth after 48 hours. 12/23/24 Unknown Urine Culture - Preliminary Urine clean catch - Clean Catch Midstream Gram negative ernst Assessment and Plan (1) Recurrent UTI: Status: Acute Plan Pt is an 89-year-old Bengali-speaking female with a PMH significant for?HTN, [id number] type 2 diabetes, HLD, GERD, and mood disorder who presents to the ED with?multiple complaints. Pt is admitted to the hospital for treatment and further evaluation of recurrent UTI that failed outpatient therapy and concerns for overall failure to thrive. Recurrent UTI UA+, polyuria, dysuria Previously treated for UTI x2 in the past 1-2 months without resolution of symptoms No sepsis Continue ceftriaxone, day 3 Urine culture with gram negative rods Hypomagnesmia, resovled Magnesium 1.4 at time of presentation, currently 2.0 Supplemented with Mag sulfate 2 g in the ED Acute lactic acidosis, resolved Initial lactic acid 2.1 with repeat 0.7 Secondary to metformin use, not sepsis L1 superior endplate compression fracture Secondary to mechanical fall and [place] in October Has been primarily bed-bound since then Lidocaine patch, analgesics PT recommends STR HTN Continue losartan, nifedipine, metoprolol HLD Continue statin [id number] type 2 diabetes Hold metformin Sliding-scale insulin GERD Continue omeprazole and famotidine Mood disorder Continue mirtazapine DNR/DNI, verified with pt DVT Prophylaxis: Lovenox Pt requires continued hospitalization for treatment with IV antibiotics of recurrent UTI that failed outpatient therapy; still waiting on urine cultures. Pt additionally requires STR placement. Quality Stroke Does the patient have a stroke diagnosis?: No VTE Prior VTE?: No VTE Risk Level:: Medical - moderate - high VTE Device Contraindication: Treatment Not Indicated VTE Drug Contraindication: N/A - Med Ordered
[2024-12-25 19:34] VITALS: BP 155/70; PULSE 68; RESP 18; TEMP 36.4; O2SAT 97
[2024-12-25 20:09] LABS: Glucose, Whole Blood 130 mg/dL (60-115)
[2024-12-26 04:00] VITALS: BP 173/83; PULSE 58; RESP 16; TEMP 36.8; O2SAT 95
[2024-12-26 06:04] LABS: Anion Gap 12 (12-20); Blood Urea Nitrogen 18 mg/dL (9-16); Calcium 9.3 mg/dL (8.4-10.2); Carbon Dioxide 28 mmol/L (22-29); Chloride 101 mmol/L (96-108); Creatinine Clr Calc Pharmacy 52.2; Estimated Glomerular Filt Rate > 60; Magnesium 1.5 mg/dL (1.6-2.6); Potassium 4.1 mmol/L (3.3-5.1); Sodium 137 mmol/L (135-145)
[2024-12-26 06:19] LABS: Hemoglobin A1C 116.0473 umol/L; Total Hemoglobin (HGBA1C) 2975.8497 umol/L
[2024-12-26] MEDS: Milk of Magnesia 30 ML ORAL.SUSP PO (06:21)
[2024-12-26 07:34] VITALS: BP 116/61; PULSE 61; RESP 16; TEMP 36.1; O2SAT 93
[2024-12-26 08:03] LABS: Glucose, Whole Blood 114 mg/dL (60-115)
[2024-12-26] MEDS: Ferrous Sulfate 324 MG TABLET.DR PO (08:34)
[2024-12-26] MEDS: Mirabegron 50 MG TAB.ER.24H PO (08:34)
[2024-12-26] MEDS: Calcium + Vitamin D 250 MG TABLET PO ×2 (08:34→21:22)
[2024-12-26] MEDS: Lidocaine 4 % Patch ADH..PATCH 1 PATCH TRANSDERMA (08:35)
[2024-12-26] MEDS: 0.9 % Sodium Chloride Flush 3 ML SYRINGE IVFLUSH ×3 (08:35→21:23)
[2024-12-26 11:13] LABS: Glucose, Whole Blood 132 mg/dL (60-115)
--- NOTE | 2024-12-26 11:19 | MHC.CM.PN ---
Addendum entered by Jesenia Estrada RN 12/26/24 14:00: Per PA, patient will not dc today. Original Note: CM met with patient via historic interpreter to review PT rec of STR. Patient declines. Reports she has outpatient PT scheduled to start tomorrow. She has 2 [employer]'s and prefers to go home. She requested that this CM discuss w/ her grandson/HCP. Called Isma, who confirms plan for outpatient PT and does not feel STR or home services are needed. In addition to 2 [employer]EL[employer]'s Isma and his provide daily assistance. PA updated. Potential dc later today.
[2024-12-26 15:44] VITALS: BP 126/63; PULSE 56; RESP 16; TEMP 36.1; O2SAT 93
[2024-12-26 16:32] LABS: Glucose, Whole Blood 101 mg/dL (60-115)
--- NOTE | 2024-12-26 18:08 | HO.PM.IMPN ---
Subjective Subjective Date of Service: 12/26/24 Interval History: No acute events overnight Back pain slightly better Continues to experience some dysuria, though improved Resting comfortably in bed Review of Systems Review of Systems: Yes all other systems are reviewed and are negative Physical Exam Exam: Exam: General: AOx3, no acute distress Resp: CTA bilaterally CVS: S1, S2, RRR GI: +BS, NT, no distention Skin: Warm, dry Neuro: Cranial nerves II-XII grossly intact bilaterally. Motor grossly intact bilaterally. Mild resting tremor of RUE Extremities: No edema Psych: Appropriate affect Vital Signs: Vital Signs: Last Vital Signs Temp 96.9 F 12/26/24 15:44 Pulse 56 12/26/24 15:44 Resp 16 12/26/24 15:44 BP 126/63 12/26/24 15:44 Pulse Ox 93 12/26/24 15:44 O2 Del Method Room Air 12/26/24 15:44 BMI result Body Mass Index 20.2 Objective Data Active Medications Acetaminophen (Acetaminophen 325 Mg Tablet) 650 mg PO Q6H [facility] Last Admin: 12/26/24 14:21 Dose: 650 mg Documented By: PHU Atorvastatin Calcium (Atorvastatin Calcium 40 Mg Tablet) 40 mg PO BEDTIME [facility] Last Admin: 12/25/24 21:11 Dose: 40 mg Documented By: MATT Calcium Carbonate/Cholecalciferol (Calcium + Vitamin D 250 Mg Tablet) 250 mg PO BID [facility] Last Admin: 12/26/24 08:34 Dose: 250 mg Documented By: PHU Ceftriaxone Sodium (Ceftriaxone Sodium 1 Gm Vial) 1 gm IVPUSH Q24H [facility] Last Admin: 12/26/24 11:38 Dose: 1 gm Documented By: PHU Dextrose (Dextrose 50 % 25 Gm/50 Ml Syringe) 25 gm IVPUSH Q15M PRN; Protocol PRN Reason: per Hypoglycemia Standing Ord. Enoxaparin Sodium (Enoxaparin Sodium 40 Mg/0.4 Ml Syringe) 40 mg SUBCUT Q24H [facility] Last Admin: 12/25/24 21:11 Dose: 40 mg Documented By: MATT Famotidine (Famotidine 20 Mg Tablet) 20 mg PO BID PRN PRN Reason: Heartburn Last Admin: 12/24/24 15:57 Dose: 20 mg Documented By: MELISA Ferrous Sulfate (Ferrous Sulfate 324 Mg Tablet.Dr) 324 mg PO DAILY [facility] Last Admin: 12/26/24 08:34 Dose: 324 mg Documented By: PHU Glucose (Glucose Gel 15 Gm Gel..Gram.) 15 gm PO Q15M PRN; Protocol PRN Reason: per Hypoglycemia Standing Ord. Insulin Human Lispro (Insulin Lispro 100 Unit/Ml 3 Ml Vial) 0 unit SUBCUT QIDACHS [facility]; Protocol Last Admin: 12/26/24 16:38 Dose: Not Given Documented By: PHU Non-Admin Reason: No Insulin Coverage Lidocaine (Lidocaine 4 % Patch Adh..Patch) 1 patch TRANSDERMA DAILY [facility]; Protocol Last Admin: 12/26/24 08:35 Dose: 1 patch Documented By: PHU Losartan Potassium (Losartan Potassium 50 Mg Tablet) 100 mg PO DAILY [facility]; Protocol Last Admin: 12/26/24 08:34 Dose: 100 mg Documented By: PHU Magnesium Hydroxide (Milk Of Magnesia 30 Ml Oral.Susp) 30 ml PO DAILY PRN PRN Reason: Constipation Last Admin: 12/26/24 06:21 Dose: 30 ml Documented By: DAGOBERTO Magnesium Oxide (Magnesium Oxide 400 Mg Tablet) 400 mg PO BIDPC [facility] Last Admin: 12/26/24 16:57 Dose: 400 mg Documented By: PHU Melatonin (Melatonin 3 Mg Tablet) 6 mg PO BEDTIME PRN PRN Reason: Insomnia Last Admin: 12/25/24 21:10 Dose: 6 mg Documented By: MATT Metoprolol Tartrate (Metoprolol Tartrate 50 Mg Tablet) 50 mg PO BID [facility]; Protocol Last Admin: 12/26/24 08:34 Dose: 50 mg Documented By: PHU Mirabegron (Mirabegron 50 Mg Tab.Er.24h) 50 mg PO DAILY [facility] Last Admin: 12/26/24 08:34 Dose: 50 mg Documented By: PHU Mirtazapine (Mirtazapine 15 Mg Tablet) 15 mg PO BEDTIME PRN PRN Reason: Urinary Retention Last Admin: 12/25/24 21:11 Dose: 15 mg Documented By: MATT Multivitamins/Vitamin C (Multivitamin Tablet) 1 tab PO DAILY [facility] Last Admin: 12/26/24 08:34 Dose: 1 tab Documented By: PHU Nifedipine (Nifedipine Er 90 Mg Tab.Er.24) 90 mg PO BEDTIME [facility] Last Admin: 12/25/24 21:11 Dose: 90 mg Documented By: MATT Omeprazole (Omeprazole 40 Mg Capsule.Dr) 40 mg PO DAILY@0630 [facility] Last Admin: 12/26/24 06:17 Dose: 40 mg Documented By: DAGOBERTO Ondansetron HCl (Ondansetron Hcl 4 Mg/2 Ml Vial) 4 mg IVPUSH Q8H PRN PRN Reason: Nausea and Vomiting Last Admin: 12/24/24 14:13 Dose: 4 mg Documented By: MELISA Oxycodone HCl (Oxycodone Hcl Immed Release 5 Mg Tablet) 5 mg PO Q6H PRN PRN Reason: Pain, Severe (Pain Scale 7-10) Last Admin: 12/25/24 21:11 Dose: 5 mg Documented By: MATT Senna (Sennosides 8.6 Mg Tablet) 8.6 mg PO DAILY [facility] Last Admin: 12/26/24 08:34 Dose: 8.6 mg Documented By: PHU Sodium Chloride (0.9 % Sodium Chloride Flush 3 Ml Syringe) [facility] Last Admin: 12/26/24 17:30 Dose: 3 ml Documented By: PHU Tramadol HCl (Tramadol Hcl 50 Mg Tablet) 50 mg PO Q6H PRN PRN Reason: Pain, Moderate(Pain Scale 4-6) Last Admin: 12/24/24 21:16 Dose: 50 mg Documented By: MELISA Labs 12/24/24 03:57 12/26/24 05:26 Labs: Laboratory Results - last 24 hr 12/25/24 12/26/24 12/26/24 20:01 05:26 07:37 Anion Gap 12 Estim Creat Clear Calc 52.2 Estimated GFR > 60 POC Glucose 130 H 114 Random Glucose 97 Estimat Average Glucose 117 Hemoglobin A1c % 5.7 Calcium 9.3 Magnesium 1.5 L 12/26/24 12/26/24 11:04 16:28 Anion Gap Estim Creat Clear Calc Estimated GFR POC Glucose 132 H 101 Random Glucose Estimat Average Glucose Hemoglobin A1c % Calcium Magnesium Microbiology Microbiology Results: Microbiology 12/23/24 Unknown Urine Culture - Preliminary Urine clean catch - Clean Catch Midstream Gram negative ernst Assessment and Plan (1) Recurrent UTI: Status: Acute Plan Pt is an 89-year-old Macedonian-speaking female with a PMH significant for?HTN, [id number] type 2 diabetes, HLD, GERD, and mood disorder who presents to the ED with?multiple complaints. Pt is admitted to the hospital for treatment and further evaluation of recurrent UTI that failed outpatient therapy and concerns for overall failure to thrive. Recurrent UTI UA+, polyuria, dysuria Previously treated for UTI x2 in the past 1-2 months without resolution of symptoms No sepsis Continue ceftriaxone, day 4 Urine culture with gram negative rods Apparently there was an error with lab analysis and urine culture needed to be redone; culture and sensitivities should be completed the morning of 12/27 Hypomagnesmia, recurrent Magnesium 1.4 at time of presentation, supplemented with Mag sulfate 2 g in the ED Currently 1.5 Will start on Mag oxide 300 mg b.i.d. Acute lactic acidosis, resolved Initial lactic acid 2.1 with repeat 0.7 Secondary to metformin use, not sepsis L1 superior endplate compression fracture Secondary to mechanical fall and [place] in October Has been primarily bed-bound since then Lidocaine patch, analgesics PT recommends STR though pt with [employer] at home; will be dc home with services HTN Continue losartan, nifedipine, metoprolol HLD Continue statin Vxk-rktzwpa-mswtsuelc type 2 diabetes Hold metformin Sliding-scale insulin GERD Continue omeprazole and famotidine Mood disorder Continue mirtazapine DNR/DNI, verified with pt DVT Prophylaxis: Lovenox Pt requires continued hospitalization for treatment with IV antibiotics of recurrent UTI that failed outpatient therapy; still waiting on urine cultures as cultures needed to be redone due to a lab error. Pt should be able to be discharged home tomorrow after urine cultures and sensitivities has been populated. Quality Stroke Does the patient have a stroke diagnosis?: No VTE Prior VTE?: No VTE Risk Level:: Medical - moderate - high VTE Device Contraindication: Treatment Not Indicated VTE Drug Contraindication: N/A - Med Ordered
[2024-12-26 19:13] VITALS: BP 154/76; PULSE 76; RESP 16; TEMP 36.2; O2SAT 94
[2024-12-26 19:27] LABS: Glucose, Whole Blood 136 mg/dL (60-115)
[2024-12-26] MEDS: oxyCODONE HCl Immed Release 5 MG TABLET PO (21:22)
[2024-12-27 04:00] VITALS: BP 127/60; PULSE 68; RESP 16; TEMP 36.4; O2SAT 97
[2024-12-27 07:19] LABS: Glucose, Whole Blood 107 mg/dL (60-115)
[2024-12-27] MEDS: Ferrous Sulfate 324 MG TABLET.DR PO (08:55)
[2024-12-27] MEDS: Mirabegron 50 MG TAB.ER.24H PO (08:55)
[2024-12-27] MEDS: oxyCODONE HCl Immed Release 5 MG TABLET PO ×2 (08:56→14:12)
[2024-12-27] MEDS: Lidocaine 4 % Patch ADH..PATCH 1 PATCH TRANSDERMA (08:56)
[2024-12-27] MEDS: Calcium + Vitamin D 250 MG TABLET PO (08:56)
[2024-12-27] MEDS: 0.9 % Sodium Chloride Flush 3 ML SYRINGE IVFLUSH (08:57)
[2024-12-27 11:11] LABS: Glucose, Whole Blood 126 mg/dL (60-115)
--- NOTE | 2024-12-27 13:41 | PM.DS ---
DS: Providers Provider Date of Service: 12/27/24 Date of admission: 12/23/24 14:16 Date of discharge: 12/27/24 Primary care physician: Dali Givens MD DS: Diagnosis Discharge Diagnosis (1) Recurrent UTI: Status: Acute DS: Summary Hospital Course Hospital Course: From admission HPI: Date of Service: 12/23/24 Attending physician on admission: Juliocesar Minaya Chief Complaint: Multiple complaints Pt is an 89-year-old Italian-speaking female with a PMH significant for?HTN, pgl-jrccqzk-ylsbbdtjh type 2 diabetes, HLD, GERD, and mood disorder who presents to the ED with?multiple complaints. Pt had a recent fall in October of this year while in the [place]. Had imaging done both in as well as for 5 days later [place] [facility] [place] showed L1 superior endplate compression fracture, and pt was discharged home with analgesics and physical therapy. Pt reports since then has not been walking or moving much at home. As well, pt reports has had tremors and ?shakiness? in her whole-body, especially in the morning, as well as upper abdominal and substernal ?stinging sensation?. Lastly, pt complains of continued dysuria and polyuria. Reports has been treated with antibiotics by her PCP twice in the past 1-2 months with no resolution of symptoms. Denies shortness or breath or chest pressure. No nausea, vomiting, or diarrhea. In the ED pt's vitals were significant for mild hypertension of 43/73, otherwise stable and WNL. Labs were significant for lactic acid 2.1 and magnesium 1.4. No leukocytosis. Renal function baseline. UA likely positive for acute UTI. CXR showed low lung volumes and bibasilar subsegmental atelectasis. Pt was treated in the ED with Mag sulfate, IVF, ondansetron, acetaminophen, and ceftriaxone. Pt is admitted to the hospital for treatment and further evaluation of recurrent UTI that failed outpatient therapy and concerns for overall failure to thrive. Hospital course Pt was admitted to the hospital for recurrent UTI that failed outpatient therapy x2. Pt was treated with empiric IV ceftriaxone while awaiting urine cultures. Urine cultures took an extended period of time to populate as the initial culture was unable to be run due to equipment malfunction. Repeat labs eventually grew Klebsiella susceptible to ceftriaxone. Hospital stay was overall unremarkable, the pt was noted to have persistent hypomagnesemia, likely in the setting of reduced p.o. intake. Pt was supplemented with IV magnesium and will be discharged home on oral magnesium supplementation. Pt was also seen and evaluated by Physical therapy due to recent compression fracture and falls at home. Pt declined short term rehab and is already established with [employer] and home services that are set to begin upon discharge. Pt will be discharged on cefuroxime 250 mg x 2 days for a total of 7 days treatment, as well as lidocaine patches for back pain. Pt will also be started on oral magnesium supplementation. Patient's blood sugar was well-controlled by diet alone, and A1c noted to be 5.7. Pt has been complaining about low blood sugars at home in the morning. Would suggest stopping metformin and controlling diabetes by diet alone. Pt should otherwise continue all other home medications. Additional details concerning hospital stay as indicated below. Recurrent UTI UA+, polyuria, dysuria Previously treated for UTI x2 in the past 1-2 months without resolution of symptoms No sepsis Treated with ceftriaxone x5 days, will be discharged on cefuroxime 250 mg b.i.d. x2 days Urine culture with Klebsiella pneumoniae susceptible to ceftriaxone Apparently there was an error with lab analysis and urine culture needed to be redone; culture and sensitivities thus took longer than normal to populate Hypomagnesmia, recurrent Magnesium 1.4 at time of presentation, supplemented with Mag sulfate 2 g in the ED Currently 1.5 Will start on Mag oxide 300 mg b.i.d. Continue at home Acute lactic acidosis, resolved Initial lactic acid 2.1 with repeat 0.7 Secondary to metformin use, not sepsis L1 superior endplate compression fracture Secondary to mechanical fall and [place] in October Has been primarily bed-bound since then Lidocaine patch, analgesics PT recommends STR though pt with [employer] at home; will be dc home with services HTN Continue losartan, nifedipine, metoprolol HLD Continue statin Ado-cgcfocd-duyrjwvnv type 2 diabetes Pt complaining of low blood sugars in the mornings at home A1c 5.7 Blood sugars well-controlled while in the hospital on diet alone; pt did not need insulin coverage with sliding scale Suggest stopping metformin and controlling diabetes with diet alone Follow up with PCP for continued diabetic monitoring and management GERD Continue omeprazole and famotidine Mood disorder Continue mirtazapine Time Attestation Discharge Coordination Time (in mins): 35 Quality: Safe Use of Opioids Does Pt have an Active Cancer Diagnosis on the Problem List?: No Quality: Stroke Does the patient have a stroke diagnosis?: No Physical Exam Exam: Exam: General: AOx3, no acute distress. Pleasant, elderly and frail-looking Resp: CTA bilaterally CVS: S1, S2, RRR GI: +BS, NT, no distention Skin: Warm, dry Neuro: Cranial nerves II-XII grossly intact bilaterally. Motor grossly intact bilaterally. Extremities: No edema Psych: Appropriate affect Vital Signs: Vital Signs: Last Vital Signs Temp 97.6 F 12/27/24 04:00 Pulse 68 12/27/24 04:00 Resp 16 12/27/24 04:00 BP 127/60 12/27/24 04:00 Pulse Ox 97 12/27/24 04:00 O2 Del Method Room Air 12/27/24 04:00 BMI result Body Mass Index 20.2 DS: Data Data Completed and Pending Labs on day of discharge: Laboratory Results - last 24 hr 12/26/24 12/26/24 12/27/24 16:28 19:17 07:13 POC Glucose 101 136 H 107 12/27/24 11:01 POC Glucose 126 H Preliminary micro results at discharge 12/23/24 11:00 Blood Culture - Preliminary Blood - Venous No growth after 48 hours. 12/23/24 11:00 Blood Culture - Preliminary Blood - Venous No growth after 48 hours. Discharge Plan Discharge Anticipated Discharge Date/Time: 12/27/24 09:58 Patient Disposition: Home Health Service Discharge Diagnosis: Recurrent UTI that failed outpatient therapy Referrals: Dali Givens MD [Primary Care Provider, Internal Medicine] - 1 Week Discharge Medications: New magnesium oxide 200 mg magnesium tablet 200 mg PO BID Qty: 90 0RF Rx Instructions: Take one tablet twice a day cefuroxime axetil 250 mg tablet 250 mg PO BID Qty: 4 0RF Rx Instructions: Take one tablet with meals twice a day for the next two days, starting in the morning of 12/28 and an in the evening of 12/29 lidocaine 4 % adhesive patch,medicated 1 patch topical DAILY PRN (Reason: back pain) Qty: 10 0RF Rx Instructions: Apply one patch daily to the lower back as necessary for back pain Continued acetaminophen [Arthritis Pain Relief (acetam)] 650 mg tablet extended release 650 mg PO Q8H PRN (Reason: pain) mirabegron [Myrbetriq] 50 mg Tablet Extended Release 24 Hr 50 mg PO DAILY calcium carbonate-vitamin D3 600 mg-5 mcg (200 unit) tablet 1 tab BID mirtazapine 15 mg Tablet 15 mg PO BEDTIME PRN (Reason: Urinary Retention) atorvastatin 40 mg Tablet 40 mg PO BEDTIME multivitamin Tablet 1 tab PO DAILY losartan 100 mg tablet 100 mg PO DAILY metoprolol tartrate 50 mg Tablet 50 mg PO BID Qty: 180 0RF Protocol: Hold for SBP/HR < HOLD for SBP < : 90 HOLD for HR < : 60 Rx Instructions: replaces prior dose of 25 mg twice daily ferrous sulfate 324 mg (65 mg iron) Tablet,Delayed Release (Dr/Ec) 324 mg PO DAILY Qty: 30 0RF omeprazole 40 mg Capsule,Delayed Release(Dr/Ec) 40 mg PO DAILY@0630 Qty: 90 0RF sennosides [senna] 8.6 mg tablet 8.6 mg PO DAILY nifedipine 90 mg tablet extended release 90 mg PO BEDTIME famotidine 20 mg tablet 20 mg PO BID PRN (Reason: heartburn) Discontinued metformin 500 mg tablet 500 mg PO BID Discharge Orders: Discharge Order (Routine); Ordered 12/27/24 Ordered By: William Sagastume Activity on Discharge: As tolerated Stand Alone Forms: Patient Portal Discharge page Print Language: Italian Care Plan Goals: See below Health Concerns: Recurrent UTI Compression fracture Back pain Generalized weakness and deconditioning Plan of Treatment: You were admitted to the hospital for recurrent UTI that failed outpatient therapy as symptoms persisted even after being treated twice prior in the past 1-2 months. You were treated with empiric IV ceftriaxone while awaiting cultures, which took longer than anticipated to populate as there was an equipment malfunction. Cultures eventually grew Klebsiella which was susceptible to ceftriaxone. You were also treated for low magnesium and will be started on oral supplementation at home. You were also seen and evaluated by Physical therapy who recommended short-term rehab, but you and your family declined as you have already been approved for a [employer] and PT services at home which are set to start once you are discharged. You will be discharged home on oral antibiotics, lidocaine patches, and magnesium supplementation. You should resume all of your other home medications. -- take cefuroxime 250 mg twice a day with food for the next 2 days, starting the morning of 12/28 and ending the evening of 12/29 -- take magnesium 200 mg twice a day with meals -- apply 1 lidocaine patch to lower back daily as necessary for lower back pain -- your blood glucose levels were well-controlled with just diet alone, and your A1c was noted to be 5.7. Since you have noted that your blood sugars have been low in the mornings, stop taking metformin. You can controlled diabetes by diet alone. Follow up with your PCP for continued diabetes management and monitoring. -- resume all of your other home medications. Assessment: See discharge summary
--- NOTE | 2024-12-27 14:30 | MHC.CM.PN ---
Addendum entered by Letha Simons 12/27/24 14:47: CM MET [facility] PT AND FAMILY, THEY ARE AGREEABLE TO [facility], [facility], [facility], ASKS THAT HE BE CONTACTED FOR SOC REFERRAL MADE TO [facility] Original Note: PT TO DC HOME TODAY WITH RESUMPTION OF HER [employer] AND PLANS TO ATTEND OUTPATIENT PT FAMILY TO TRANSPORT
[2024-12-27 14:49] VITALS: BP 126/58; PULSE 59; RESP 16; TEMP 36.7; O2SAT 92
--- NOTE | 2024-12-27 14:54 | P.F2F_ITS ---
Service Date Service Date: 12/27/24 Encounter Date of encounter: 12/27/24 Reasons for Services Signs and symptoms assessed: Generalized weakness and deconditioning. Recent falls at home/in the community. Compression fracture Reason for nursing home: diabetic teaching and medication management Reason for physical therapy: home safety and mobility, therapeutic exercises, gait/transfer training and ADL training Homebound: Leaving the home is medically contraindicated at this time without the asist of a device and/or another person due th the listed conditions above and below. Reason homebound: unsteady gait / fall risk, leg weakness, pain with ambulation, pain with transfers and poor balance / fall risk Certification: Based on the above findings, I certify that this patient is confined to the home and needs intermittent nursing home care, physical therapy and/or speech therapy, or continues to need occupational therapy. The patient is under my care, and I have initiated the establishment of the plan of care. The patient will be followed by a physician who will periodically review the plan of care. Time Spent With Patient Time: Total time managing care of this patient today ____ minutes.
--- NOTE | 2024-12-29 16:29 | P.CDIM_ITS ---
PROVIDER RESPONSE TEXT: To clarify, the appropriate diagnosis supported by the clinical indicators: Traumatic compression fracture: Likely subacute traumatic compression fracture QUERY TEXT: PHYSICIAN'S DOCUMENTATION REQUEST Date of Query: 12/24/2024 08:44 AM EDT Patient Name: BRADY ZUNIGA Admit Date: 12/23/2024 Dear William [place], A review of the medical record indicates additional documentation may be needed. Please review below and update the documentation accordingly. Clinical Indicators: H&P 12/23/24 - Imaging showed L1 superior endplate compression fracture. Recent fall reports shakiness, not been walking or moving much at home. Lidocaine patch, Tramadol, Tylenol Please provide the following additional clarification regarding the fracture Etiology and Type of the compression fracture: Traumatic compression fracture suspected, possible, probable etc. Pathologic due to osteoporosis Pathologic due to other disease (please specify) Nontraumatic compression fracture Other (explain) Clinically unable to determine (explain) Thank you, Janice Stern, CCS, CDIS Use of terms such as suspected, likely, concern for, or probable (associated with a specific diagnosis that is being evaluated, monitored, or treated as if it exists) are acceptable and can be coded in the inpatient setting, when documented at the time of discharge. Please use your independent medical judgment in providing your response. THIS QUERY IS PART OF THE PERMANENT MEDICAL RECORD
== END 2024-12-27 15:53 | disposition home health service (06) | DRG 690 ==
LOC: HO.ED 14:18 → HO.EDOVER 14:26 → HO.S3 12-25 10:07
PROVIDERS: Internal Medicine; Admitting Provider Student in an Organized Health Care Education/Training Program; Emergency Provider Emergency Medicine; PCP Internal Medicine; Visit Provider Student in an Organized Health Care Education/Training Program
DX: N39.0 Urinary tract infection, site not specified (principal); S32.019A Unspecified fracture of first lumbar vertebra, initial encounter for closed fracture; E87.21 Acute metabolic acidosis; W19.XXXA Unspecified fall, initial encounter; E11.40 Type 2 diabetes mellitus with diabetic neuropathy, unspecified; E83.42 Hypomagnesemia; E78.5 Hyperlipidemia, unspecified; I10 Essential (primary) hypertension; B96.1 Klebsiella pneumoniae [K. pneumoniae] as the cause of diseases classified elsewhere; K21.9 Gastro-esophageal reflux disease without esophagitis; F39 Unspecified mood [affective] disorder; Z66 Do not resuscitate; Z20.822 Contact with and (suspected) exposure to COVID-19; Z87.440 Personal history of urinary (tract) infections; Z79.899 Other long term (current) drug therapy
CPT/HCPCS: 36415; 71046; 80048; 80053; 81001; 82947; 83036; 83605; 83735; 84484; 85025; 85027; 85379; 87040; 87086; 87088; 87186; 87502; 87635; 93005; 97162; 97530; 99285; J0131; J0696; J1171; J1650; J2405; J3475

== ENCOUNTER → 2024-12-23 09:38 | Outpatient (BNV) | payer OTHER, SELFPAY | PROVIDERS: Admitting Provider Student in an Organized Health Care Education/Training Program; Emergency Provider Emergency Medicine; PCP Internal Medicine; Visit Provider Internal Medicine Cardiovascular Disease | DX: R94.31 Abnormal electrocardiogram [ECG] [EKG] (principal); R07.9 Chest pain, unspecified | CPT/HCPCS: 93010 ==

== ENCOUNTER → 2024-12-23 10:17 | Outpatient (BNV) | payer OTHER, SELFPAY | PROVIDERS: Emergency Provider Emergency Medicine; PCP Internal Medicine; Visit Provider Radiology Diagnostic Radiology | DX: J98.4 Other disorders of lung (principal); J98.11 Atelectasis | CPT/HCPCS: 71046 ==

== ENCOUNTER → 2024-12-23 14:16 | Outpatient (BNV) | payer OTHER, SELFPAY | PROVIDERS: Admitting Provider Student in an Organized Health Care Education/Training Program; Emergency Provider Emergency Medicine; PCP Internal Medicine; Visit Provider Student in an Organized Health Care Education/Training Program | DX: N39.0 Urinary tract infection, site not specified (principal); R30.0 Dysuria | CPT/HCPCS: 99223; 99232; 99233 ==